=== PATIENT | male | born 1950 | race Caucasian/White ===

== ENCOUNTER → 2016-09-28 | Outpatient (CLI) | payer BC ==
[~2016-09-28] MED LIST: ACET-1311 PO; ALL300 PO; AMIO200T4 PO; CYAN100T PO; DABI150C PO; FAMO20TA11 PO; FINA5TAB PO; FURO-85 PO; GLC/500 PO; LEVE500T13 PO; LPT/40 PO; MENTOIN TOP; METO25TA3 PO; NITR1CAP32 PO; ONDA8TAB6 PO; POTA1080 PO; SENN-61 PO; TAMS0.4C38 PO; TEMO1CAP PO; TEMO1CAP17 PO
[2016-09-28 10:26] LABS: BLOOD UREA NITROGEN 18 mg/dl (7-18); BUN/CREATININE RATIO 14.9 (10-20)
== END | disposition home or self-care (01) ==
LOC: C.LAB1850 09:14
PROVIDERS: ATTEND Urology
DX: N20.0 Calculus of kidney (principal); R31.0 Gross hematuria

== ENCOUNTER → 2016-11-16 | Outpatient (CLI) | payer BC ==
[2016-11-16 12:43] LABS: HEMATOCRIT 39.9 % (42-52); MEAN CELL VOLUME 97.1 fL (80-100); MEAN CORPUSCULAR HEMOGLOBIN 33.1 pg (25-34); MEAN CORPUSCULAR HGB CONC 34.1 g/dl (32-36); MEAN PLATELET VOLUME 11.2 fL (7.4-10.4); PLATELET COUNT 166 K/uL (130-400); RED BLOOD COUNT 4.11 M/uL (4.7-6.1); WHITE BLOOD COUNT 5.99 K/uL (4.8-10.8)
[2016-11-16 13:45] LABS: ALT/SGPT 20 U/L (12-78); AST/SGOT 13 U/L (15-37); BLOOD UREA NITROGEN 17 mg/dl (7-18); BUN/CREATININE RATIO 15.7 (10-20); CALCIUM 8.9 mg/dl (8.5-10.1); CARBON DIOXIDE 31 mmol/L (21-32); CHLORIDE 109 mmol/L (98-107); GLUCOSE 105 mg/dl (70-99); POTASSIUM 4.3 mmol/L (3.5-5.1); SODIUM 144 mmol/L (136-145)
== END | disposition home or self-care (01) ==
LOC: C.LAB1850 10:45
PROVIDERS: ATTEND Internal Medicine Cardiovascular Disease
DX: E78.5 Hyperlipidemia, unspecified (principal); I48.92 Unspecified atrial flutter; I42.9 Cardiomyopathy, unspecified; I50.42 Chronic combined systolic (congestive) and diastolic (congestive) heart failure

== ENCOUNTER → 2016-11-18 | Outpatient (CLI) | payer BC ==
--- NOTE | 2016-11-18 12:39 | DIAGNOSTIC IMAGING REPORT ---
L-SPINE MIN 4 VIEWS ROUTINE CLINICAL HISTORY: Lower back pain. No recent trauma. COMPARISON: Lumbar spine radiograph November 16, 2005. FINDINGS: Alignment of lumbar spine is anatomic. Vertebral body heights are maintained. There is no fracture. There is mild disc space narrowing and extensive anterior osteophytosis. There is moderate facet arthrosis. IMPRESSION: 1. No acute lumbar spine fracture or subluxation. 2. Moderate multilevel degenerative disc disease and facet arthrosis. Electronically signed by: Usama Seaman M.D. 11/18/2016 12:37 PM Dictated Date/Time: 11/18/2016 12:36 PM
== END | disposition home or self-care (01) ==
LOC: C.RAD1850 12:05
PROVIDERS: ATTEND Physician Assistant
DX: M54.9 Dorsalgia, unspecified (principal)

== ENCOUNTER → 2017-01-11 | Outpatient (CLI) | payer BC ==
--- NOTE | 2017-01-11 08:41 | DIAGNOSTIC IMAGING REPORT ---
THYROID ULTRASOUND CLINICAL HISTORY: Thyroid nodule. Amiodarone-induced thyrotoxicosis. COMPARISON STUDY: Thyroid ultrasound July 15, 2016. TECHNIQUE: Sonography of the thyroid gland was performed. FINDINGS: No areas of increased vascularity are identified within the thyroid gland. The right thyroid lobe measures 4.5 x 1.6 x 1.5 cm and the left lobe measures 3.5 x 1.8 x 1 cm. There is a partially calcified 8 mm nodule within the lower pole of the right thyroid lobe which is unchanged since exam July 15, 2016. There may be a 0.7 cm isoechoic isthmus nodule which was shown on exam of July 15, 2016. No increased vascularity of the thyroid nodules as noted. IMPRESSION: 1. No areas of increased vascularity within the thyroid gland or several thyroid nodules. 2. No change in a few thyroid nodules since exam of July 15, 2016. None of these meet criteria for biopsy. Electronically signed by: Usama Seaman M.D. 01/11/2017 8:40 AM Dictated Date/Time: 01/11/2017 8:37 AM
== END | disposition home or self-care (01) ==
LOC: C.ULTRBC 07:49
PROVIDERS: ATTEND Internal Medicine Endocrinology, Diabetes & Metabolism
DX: E04.1 Nontoxic single thyroid nodule (principal)

== ENCOUNTER → 2017-02-26 | Outpatient (CLI) | payer BC ==
[2017-02-26 09:55] LABS: THYROID STIMULATING HORMONE 1.96 uIu/ml (0.300-4.500)
--- NOTE | 2017-03-05 09:53 | CODING QUERY MEDICAL NECESSITY ---
CQSUPPORTING DIAGNOSIS NEEDED A supporting diagnosis is required for the test/procedure performed on this patient in order for us to be reimbursed by the patient's insurance. Please provide a supporting diagnosis for the following test/procedure listed below next to the test name along with your signature. *If there is no additional diagnosis for this patient that would support the following test/procedure please document that below next to the test/procedure. Test(s)/Procedure(s) that require a supporting diagnosis: DOS 02/26/17 VITAMIN D TEST Provider Signature: Date: Thank you Charla Padilla Health Information Management Once completed, please kindly fax back to [phone] For questions please call [phone]
== END | disposition home or self-care (01) ==
LOC: C.LAB1850 08:36
PROVIDERS: ATTEND Internal Medicine Endocrinology, Diabetes & Metabolism
DX: E05.90 Thyrotoxicosis, unspecified without thyrotoxic crisis or storm (principal); I95.9 Hypotension, unspecified; N20.0 Calculus of kidney; E66.9 Obesity, unspecified; E11.9 Type 2 diabetes mellitus without complications; E83.42 Hypomagnesemia

== ENCOUNTER → 2017-07-19 | Outpatient (CLI) | payer BC ==
--- NOTE | 2017-07-19 12:39 | DIAGNOSTIC IMAGING REPORT ---
PET/CT SKULL-THIGH CLINICAL HISTORY: 66 years-old Male presenting with NHL, last treated in October 26, 2016 with methotrexate. TECHNIQUE: PET/CT was performed from the base of the skull through the proximal thighs following the intravenous administration of 13.995 mCi of F18-FDG. Blood glucose level 87 mg/dL. The injection was performed at 10:05 AM and imaging began at 11:[address] was performed for attenuation correction purposes and anatomic localization. COMPARISON: 10/30/2015. CT DOSE (mGy.cm): The estimated cumulative dose is 635.51 mGycm. FINDINGS: Head and neck: No FDG-avid disease or significant lymphadenopathy in the imaged portions of the head and the neck. Chest: Calcified right thyroid lobe nodule. No FDG avid or enlarged axillary, mediastinal, or hilar lymphadenopathy. Atherosclerosis of aortic arch. Multichamber enlargement of the heart. Coronary artery calcification. No pleural or pericardial effusion. Dependent opacities likely atelectasis. Calcified granuloma noted in the lingula. No FDG avid air-space disease or suspicious lung nodule. Abdomen and pelvis: Below the diaphragm, tracer is distributed physiologically in the gastrointestinal and genitourinary tracts. Well-defined photopenic hypodensity in the medial left hepatic lobe likely hepatic cyst. Gallbladder surgically absent. The spleen is not enlarged or abnormally FDG avid. Nonobstructing punctate left renal calculus. Atherosclerosis of the normal caliber abdominal aorta. Prostatic enlargement. Circumferential bladder wall thickening could suggest chronic outlet obstruction. No significant lymphadenopathy and no FDG-avid disease. Musculoskeletal: No FDG-avid or destructive bone lesion. Degenerative changes of the spine. IMPRESSION: 1. Follow-up PET/CT demonstrates no evidence of recurrent or residual FDG avid lymphadenopathy or other sites of metastatic disease. Electronically signed by: Chandra Sheth M.D. 07/19/2017 12:38 PM Dictated Date/Time: 07/19/2017 12:26 PM
== END ==
LOC: C.PET 09:34
PROVIDERS: ATTEND Internal Medicine Hematology & Oncology
DX: C83.32 Diffuse large B-cell lymphoma, intrathoracic lymph nodes (principal)

== ENCOUNTER → 2017-08-13 | Outpatient (CLI) | payer BC ==
[~2017-08-13] MED LIST changes: -METO25TA3 PO; +METO25TA4 PO; +ONDA-170 PO; -ONDA8TAB6 PO
== END | disposition home or self-care (01) ==
LOC: C.LAB1850 08:44
PROVIDERS: ATTEND Urology
DX: N40.1 Benign prostatic hyperplasia with lower urinary tract symptoms (principal)

== ENCOUNTER → 2017-09-14 | Outpatient (CLI) | payer BC ==
[~2017-09-14] MED LIST changes: -ONDA-170 PO; +ONDA8TAB6 PO
[2017-09-14 09:31] LABS: BASO % 0.3 %; BASO ABS # 0.03 K/uL (0-0.2); EOS % 0.9 %; EOS ABS # 0.09 K/uL (0-0.5); HEMATOCRIT 44.6 % (42-52); HEMOGLOBIN 15.4 g/dL (14.0-18.0); IG# 0.02 K/uL (0.00-0.02); LYMPH % 19.3 %; LYMPH ABS # 1.85 K/uL (1.2-3.4); MEAN CELL VOLUME 97.4 fL (80-100); MEAN CORPUSCULAR HEMOGLOBIN 33.6 pg (25-34); MEAN CORPUSCULAR HGB CONC 34.5 g/dl (32-36); MEAN PLATELET VOLUME 10.5 fL (7.4-10.4); MONO % 4.3 %; MONO ABS # 0.41 K/uL (0.11-0.59); PLATELET COUNT 183 K/uL (130-400); RED CELL DISTRIBUTION WIDTH CV 13.2 % (11.5-14.5); RED CELL DISTRIBUTION WIDTH SD 46.3 fL (36.4-46.3)
[2017-09-14 09:57] LABS: BLOOD UREA NITROGEN 14 mg/dl (7-18); CALCIUM 8.8 mg/dl (8.5-10.1); CARBON DIOXIDE 31 mmol/L (21-32); CREATININE 1.01 mg/dl (0.60-1.40); GLUCOSE 85 mg/dl (70-99); POTASSIUM 3.6 mmol/L (3.5-5.1); SODIUM 141 mmol/L (136-145)
== END | disposition home or self-care (01) ==
LOC: C.LAB1850 08:26
PROVIDERS: ATTEND Physician Assistant
DX: E11.9 Type 2 diabetes mellitus without complications (principal)

== ENCOUNTER → 2017-10-18 | Outpatient (CLI) | payer BC ==
[~2017-10-18] MED LIST changes: +ONDA-170 PO; -ONDA8TAB6 PO
[2017-10-18 09:44] LABS: BASO % 0.4 %; BASO ABS # 0.03 K/uL (0-0.2); EOS % 1.3 %; EOS ABS # 0.09 K/uL (0-0.5); HEMATOCRIT 42.6 % (42-52); HEMOGLOBIN 14.4 g/dL (14.0-18.0); LYMPH % 22.9 %; LYMPH ABS # 1.53 K/uL (1.2-3.4); MEAN CELL VOLUME 98.8 fL (80-100); MEAN CORPUSCULAR HEMOGLOBIN 33.4 pg (25-34); MEAN CORPUSCULAR HGB CONC 33.8 g/dl (32-36); MEAN PLATELET VOLUME 10.9 fL (7.4-10.4); MONO % 6.6 %; MONO ABS # 0.44 K/uL (0.11-0.59); NEUT % 68.8 %; NEUT ABS # 4.59 K/uL (1.4-6.5); PLATELET COUNT 143 K/uL (130-400); RED CELL DISTRIBUTION WIDTH CV 13.8 % (11.5-14.5); RED CELL DISTRIBUTION WIDTH SD 49.8 fL (36.4-46.3); WHITE BLOOD COUNT 6.68 K/uL (4.8-10.8)
[2017-10-18 10:05] LABS: ALBUMIN 3.5 gm/dl (3.4-5.0); ALT/SGPT 21 U/L (12-78); AST/SGOT 15 U/L (15-37); BLOOD UREA NITROGEN 16 mg/dl (7-18); CALCIUM 8.7 mg/dl (8.5-10.1); CARBON DIOXIDE 32 mmol/L (21-32); CREATININE 0.95 mg/dl (0.60-1.40); GLUCOSE 88 mg/dl (70-99); POTASSIUM 3.7 mmol/L (3.5-5.1); SODIUM 143 mmol/L (136-145)
[2017-10-18 10:07] LABS: ALKALINE PHOSPHATASE 92 U/L (45-117); TOTAL PROTEIN 6.3 gm/dl (6.4-8.2)
== END | disposition home or self-care (01) ==
LOC: C.LAB1850 07:54
PROVIDERS: ATTEND Internal Medicine Hematology & Oncology
DX: C83.32 Diffuse large B-cell lymphoma, intrathoracic lymph nodes (principal)

== ENCOUNTER 2022-01-29 12:20 | Inpatient (IN) ==
[2022-01-29] MEDS ORDERED: SODIUM CHLORIDE 0.9% 500 ML IV ONE (12:44)
--- NOTE | 2022-01-29 12:51 | Emergency Department Note ---
History of Present Illness General Chief complaint: Weakness Stated complaint: WEAKNESS, REF [facility] Time Seen by Provider: 01/29/22 12:31 Source: patient and family ( who is at the bedside) Mode of arrival: ambulatory Limitations: altered mental status (He has short-term memory issues that are chronic) History of Present Illness This patient is a 71-year-old male who comes in complaining of night sweats. His is concerned about lymphoma he has had lymphoma twice the last time was in 2011 was involved in the kidneys and [employer]. He has been acting little funny he does have short-term memory issues to begin with he has been sleeping more than usual no fever but he has had some night sweats like he did last time he has been having increasing diffuse global weakness but nothing focal. He did receive his last chemo in [facility]. He called Dr. Ruvalcaba's office day who recommended he come to the ED for further evaluation. He has had no fall or trauma denies pain. No cough or shortness of breath. He apparently did have an MRI in October 30 of his brain which is that was negative. He has had some left foot swelling has been there for several months Home Medications Medication Instructions Recorded Confirmed Type cetirizine 10 mg tablet 10 mg PO DAILY tab 02/20/19 10/06/21 History cholecalciferol (vitamin D3) 50 2,000 units PO DAILY tab 02/20/19 10/06/21 History mcg (2,000 unit) tablet cyanocobalamin (vitamin B-12) 1,000 mcg PO DAILY tab 02/20/19 10/06/21 History 1,000 mcg tablet magnesium oxide 400 mg (241.3 mg 400 mg PO DAILY tab 04/06/19 10/06/21 History magnesium) tablet apixaban 5 mg tablet 5 mg PO BID #180 tab 02/12/21 10/06/21 Rx metoprolol succinate 25 mg 25 mg PO DAILY #90 tab 06/16/21 10/06/21 Rx tablet,extended release 24 hr allopurinol 300 mg tablet 300 mg PO DAILY #90 tab 10/06/21 10/06/21 Rx atorvastatin 40 mg tablet 40 mg PO DAILY #90 tab 10/06/21 10/06/21 Rx nystatin 100,000 unit/gram topical 1 applic TOPICAL BID #30 g 10/06/21 10/06/21 Rx powder finasteride 5 mg tablet 5 mg PO DAILY #90 tab 10/07/21 10/07/21 Rx tamsulosin 0.4 mg capsule 0.4 mg PO BID #180 cap 10/07/21 10/07/21 Rx dronedarone 400 mg tablet 400 mg PO BID #180 tab 10/13/21 Rx Allergies Allergy/AdvReac Type Severity Reaction Status Date / Time No Known Drug Allergies Allergy Verified 10/06/21 12:32 Past Med/Surg History Medical History Acute cholecystitis with chronic cholecystitis Anemia Atrial flutter Benign prostatic hyperplasia with urinary obstruction Chronic combined systolic and diastolic congestive heart failure [employer] SU[employer] lymphoma Cold intolerance Diffuse well-differentiated lymphocytic lymphoma Dyslipidemia Fatigue Hypotension Memory problem Multiple thyroid nodules Nonischemic cardiomyopathy Vertigo Surgical History History of bone marrow biopsy History of brain surgery History of cholecystectomy History of lithotripsy History of thoracentesis S/P cystoscopy with ureteral stent placement Family History Mother Cardiac disorder Hypertension FHx: deafness or hearing loss Stroke Leukemia Father Cardiac disorder Hypertension Lung cancer Recurrent kidney stones Social History Smoking Status: Former smoker Tobacco Type: Cigarettes Age Started Using Tobacco: 23; Age Quit Using Tobacco: 42; packs per day: 0.75; Second Hand Exposure: No; Hx Alcohol Use: Yes (1-2 drinks /week) Alcohol type: beer, wine and hard liquor Alcohol Intake Frequency: Monthly or Less Hx Substance Use: No Preferred Language: Polish Communication Ability: Effective Visual Impairment: Limited Hearing Ability: Use of Hearing Aid Beliefs That Will Affect Care: None marital status: Current Living Situation: Spouse current occupational status: retired Feels Safe at Home: Yes Childhood Exposure to Second-Hand Smoke: Yes Dental Care, Regularly: Yes Physical Activity Frequency: Does not Exercise Seatbelt Use: always Sunscreen Use: Yes (sometimes) Assistive Devices: Cane Review of Systems A total of 10 systems reviewed and were otherwise negative Physical Exam Vital Signs Vital Signs - 24 hr 01/29/22 12:21 01/29/22 13:39 01/29/22 14:17 Temperature 36.4 C L Temperature Source Temporal Artery Scan Pulse Rate 82 83 Pulse Rate [Apical] 83 Respiratory Rate 18 19 20 Respiratory Effort / Characteristics Non-Labored Non-Labored Blood Pressure 99/69 L Blood Pressure [Right Arm] 93/65 L Blood Pressure Mean 79 Blood Pressure Mean [Right Arm] 74 Blood Pressure Position Sitting Pulse Oximetry 95 96 96 Oxygen Delivery Method Room Air Room Air Room Air Sepsis Recent Fever Within 48 Hours No Sepsis New/Unexplained Change in Mental Status No Sepsis Action Taken by Nursing No Action Required General: Well developed well nourished older male who appears in no acute distress, breathing comfortably on room air. Normal speech he has memory issues but answers most questions appropriately and has a normal level of consciousness HEENT: Normal cephalic atraumatic. Pupils are equal round and reactive to light. Extraocular movements are intact. Oropharynx is pink with moist mucous membranes. No swelling of the mouth lips or tongue. Neck: Supple with a midline trachea. No meningeal signs or stiffness, no JVD or bruits. No Stridor. Chest: Clear to auscultation bilaterally. No wheezes or rhonchi. No increased work of breathing. Heart: Regular rate and rhythm without murmurs or gallops. Abdomen: Soft nontender, nondistended without rebound guarding or rigidity. Extremities: No cyanosis clubbing or edema. No calf tenderness or assymetry Spine/Back. Non tender to palpation. No CVA tenderness Skin: Good turgor without rashes. Neurologic exam: Cranial nerves two through 12 are intact. Motor and sensation are intact and symmetrical throughout. Course Administered Medications Discontinued Medications Sodium Chloride (Nss) 500 mls @ 999 mls/hr IV .Q31M ONE Stop: 01/29/22 13:14 Last Infusion: 01/29/22 15:00 Dose: 0 mls/hr Documented by: [id number] Admin: 01/29/22 14:17 Dose: 999 mls/hr Documented by: [id number] Sodium Chloride (Nss 1000ml) 1,000 mls @ 999 mls/hr IV .Q1H1M ONE Stop: 01/29/22 15:28 Last Infusion: 01/29/22 16:25 Dose: 0 mls/hr Documented by: [id number] Admin: 01/29/22 15:26 Dose: 999 mls/hr Documented by: [id number] Cefepime HCl 2,000 mg/ Syringe 20 mls @ 5 mls/min IV NOW STA; Protocol Stop: 01/29/22 14:34 Last Admin: 01/29/22 15:26 Dose: 5 mls/min Documented by: [id number] Ioversol (Optiray 320 100ml) 94 ml IV ONCE ONE Stop: 01/29/22 15:00 Last Admin: 01/29/22 15:07 Dose: 94 ml Documented by: [id number] Medical Decision Making Differential Diagnosis Lymphoma, electrolyte or metabolic abnormality, [employer] SU[employer]OR process, infection, sepsis, UTI, cardiac disease Medical Records Attestation: I reviewed the patient's medical records. Home Medications Current Medication List: was personally reviewed by me Laboratory Data Attestation: I reviewed the patient's lab results. Result diagrams: 01/29/22 13:24 01/29/22 13:24 Lab Results 01/29/22 01/29/22 01/29/22 Range/Units 13:24 13:24 13:24 WBC 7.82 (4.8-10.8) K/uL RBC 3.94 L (4.7-6.1) M/uL Hgb 12.6 L (14.0-18.0) g/dL Hct 38.2 L (42-52) % MCV 97.0 (80-100) fL MCH 32.0 (25-34) pg MCHC 33.0 (32-36) g/dL RDW Std Deviation 51.2 H (36.4-46.3) fL RDW Coeff of Belén 14.4 (11.5-14.5) % Plt Count 243 (130-400) K/uL MPV 10.2 (7.4-10.4) fL Immature Gran % (Auto) 0.4 % Neut % (Auto) 73.8 % Lymph % (Auto) 15.7 % Mower % (Auto) 9.0 % Eos % (Auto) 0.6 % Baso % (Auto) 0.5 % Neut # (Auto) 5.77 (1.4-6.5) K/uL Lymph # (Auto) 1.23 (1.2-3.4) K/uL Mower # (Auto) 0.70 H (0.11-0.59) K/uL Eos # (Auto) 0.05 (0-0.5) K/uL Baso # (Auto) 0.04 (0-0.2) K/uL Immature Gran # (Auto) 0.03 H (0.00-0.02) K/uL PT 12.2 H (9.0-12.0) Seconds INR 1.2 H (0.9-1.1) APTT 33.3 H (21.0-31.0) Seconds PTT Ratio 1.2 Sodium (136-145) mmol/L Potassium (3.5-5.1) mmol/L Chloride (98-107) mmol/L Carbon Dioxide (21-32) mmol/L Anion Gap (3-11) BUN (6-23) mg/dl Creatinine (0.6-1.4) mg/dl Est Cr Clr Drug Dosing ml/min Est GFR ( Amer) ml/min Est GFR (Non-Af Amer) ml/min BUN/Creatinine Ratio (10-20) Glucose (70-99(Fasting)) mg/dl Lactate (0.4-2.0) mmol/L Calcium (8.5-10.1) mg/dl Magnesium (1.7-2.4) mg/dl Total Bilirubin (0.2-1.0) mg/dl AST (13-39) U/L ALT (7-52) U/L Alkaline Phosphatase (34-104) U/L Troponin I High Sens (0-20) pg/ml Total Protein (6.0-8.3) gm/dl Albumin (3.4-5.0) gm/dl Globulin (2.5-4.0) gm/dl Albumin/Globulin Ratio (0.9-2) Procalcitonin 0.06 (0-0.5) ng/ml SARS-CoV-2, RNA, NAAT (NEGATIVE) 01/29/22 01/29/22 01/29/22 Range/Units 13:24 13:24 13:24 WBC (4.8-10.8) K/uL RBC (4.7-6.1) M/uL Hgb (14.0-18.0) g/dL Hct (42-52) % MCV (80-100) fL MCH (25-34) pg MCHC (32-36) g/dL RDW Std Deviation (36.4-46.3) fL RDW Coeff of Belén (11.5-14.5) % Plt Count (130-400) K/uL MPV (7.4-10.4) fL Immature Gran % (Auto) % Neut % (Auto) % Lymph % (Auto) % Mower % (Auto) % Eos % (Auto) % Baso % (Auto) % Neut # (Auto) (1.4-6.5) K/uL Lymph # (Auto) (1.2-3.4) K/uL Mower # (Auto) (0.11-0.59) K/uL Eos # (Auto) (0-0.5) K/uL Baso # (Auto) (0-0.2) K/uL Immature Gran # (Auto) (0.00-0.02) K/uL PT (9.0-12.0) Seconds INR (0.9-1.1) APTT (21.0-31.0) Seconds PTT Ratio Sodium 144 (136-145) mmol/L Potassium 3.7 (3.5-5.1) mmol/L Chloride 107 (98-107) mmol/L Carbon Dioxide 24 (21-32) mmol/L Anion Gap 13 H (3-11) BUN 17 (6-23) mg/dl Creatinine 1.02 (0.6-1.4) mg/dl Est Cr Clr Drug Dosing 82.0 ml/min Est GFR ( Amer) 86.5 ml/min Est GFR (Non-Af Amer) 74.6 ml/min BUN/Creatinine Ratio 16.7 (10-20) Glucose 74 (70-99(Fasting)) mg/dl Lactate 7.4 H* (0.4-2.0) mmol/L Calcium 8.9 (8.5-10.1) mg/dl Magnesium 1.6 L (1.7-2.4) mg/dl Total Bilirubin 1.2 H (0.2-1.0) mg/dl AST 28 (13-39) U/L ALT 15 (7-52) U/L Alkaline Phosphatase 63 (34-104) U/L Troponin I High Sens 7.8 (0-20) pg/ml Total Protein 5.5 L (6.0-8.3) gm/dl Albumin 3.1 L (3.4-5.0) gm/dl Globulin 2.4 L (2.5-4.0) gm/dl Albumin/Globulin Ratio 1.3 (0.9-2) Procalcitonin (0-0.5) ng/ml SARS-CoV-2, RNA, NAAT NEGATIVE (NEGATIVE) 01/29/22 Range/Units 15:19 WBC (4.8-10.8) K/uL RBC (4.7-6.1) M/uL Hgb (14.0-18.0) g/dL Hct (42-52) % MCV (80-100) fL MCH (25-34) pg MCHC (32-36) g/dL RDW Std Deviation (36.4-46.3) fL RDW Coeff of Belén (11.5-14.5) % Plt Count (130-400) K/uL MPV (7.4-10.4) fL Immature Gran % (Auto) % Neut % (Auto) % Lymph % (Auto) % Mower % (Auto) % Eos % (Auto) % Baso % (Auto) % Neut # (Auto) (1.4-6.5) K/uL Lymph # (Auto) (1.2-3.4) K/uL Mower # (Auto) (0.11-0.59) K/uL Eos # (Auto) (0-0.5) K/uL Baso # (Auto) (0-0.2) K/uL Immature Gran # (Auto) (0.00-0.02) K/uL PT (9.0-12.0) Seconds INR (0.9-1.1) APTT (21.0-31.0) Seconds PTT Ratio Sodium (136-145) mmol/L Potassium (3.5-5.1) mmol/L Chloride (98-107) mmol/L Carbon Dioxide (21-32) mmol/L Anion Gap (3-11) BUN (6-23) mg/dl Creatinine (0.6-1.4) mg/dl Est Cr Clr Drug Dosing ml/min Est GFR ( Amer) ml/min Est GFR (Non-Af Amer) ml/min BUN/Creatinine Ratio (10-20) Glucose (70-99(Fasting)) mg/dl Lactate 5.9 H* (0.4-2.0) mmol/L Calcium (8.5-10.1) mg/dl Magnesium (1.7-2.4) mg/dl Total Bilirubin (0.2-1.0) mg/dl AST (13-39) U/L ALT (7-52) U/L Alkaline Phosphatase (34-104) U/L Troponin I High Sens (0-20) pg/ml Total Protein (6.0-8.3) gm/dl Albumin (3.4-5.0) gm/dl Globulin (2.5-4.0) gm/dl Albumin/Globulin Ratio (0.9-2) Procalcitonin (0-0.5) ng/ml SARS-CoV-2, RNA, NAAT (NEGATIVE) Imaging Data Attestation: I personally reviewed and interpreted this imaging study as follows: My Impression: Chest x-rayno acute infiltrate, failure, pneumothorax Radiologist's Impression: Chest X-Ray 01/29/22 12:45 XR chest 1V portable HISTORY: 71 years-old Male SEPSIS acute sepsis COMPARISON: PET CT 07/19/2017, chest radiograph 11/11/2015 TECHNIQUE: Portable AP view of the chest FINDINGS: Left subclavian [id number] catheter distal tip overlies the expected location of the mid to inferior SVC. Atherosclerosis of the thoracic aorta. No pneumothorax, pleural effusion, airspace consolidation or overt pulmonary edema. Degenerative changes of the shoulders and spine. IMPRESSION: No acute process. ACT 112: Negative or not required by law. The above report was generated using voice recognition software. It may contain grammatical, syntax or spelling errors. Electronically signed by: Mc Mccarthy M.D. 01/29/2022 1:10 PM Abdomen/Pelvis CT 01/29/22 14:[address] WITH IV CONTRAST CT DOSE: 3648.19 mGy.cm HISTORY: Subsequent treatment strategy. Follow-up study in a patient with history of lymphoma. eval for lymphoma TECHNIQUE: Multiaxial CT images of the abdomen and pelvis were performed following the IV administration of 94 cc of Optiray, A dose lowering technique was utilized adhering to the principles of ALARA. COMPARISON STUDY: Chest CT of same day, PET CT 07/19/2017, CT abdomen and pelvis 11/05/2015 FINDINGS: The heart is upper limits of normal in size. Coronary artery calcifications. Small right and trace left pleural effusions. Subsegmental bibasilar atelectasis. No pneumatosis or pneumoperitoneum. The spleen is enlarged measuring 14.2 cm in length. Unremarkable right adrenal gland. 11 mm hypodense left adrenal gland suggests adenoma. Pancreatic atrophy. The gallbladder appears surgically absent. Unchanged 1.8 cm left hepatic lobe cyst. There are a few additional subcentimeter hypodensities of the liver which are too small to characterize. Moderate bilateral hydroureteronephrosis. There are several nonobstructing calculi left kidney measuring up to 5 mm. Small bilateral simple and complex renal cysts are again noted. The largest probable complex cyst measures 2.6 cm within the inferior pole right kidney. Marked urinary bladder wall thickening with perivesicular stranding. Enlarged prostate. There is a large pelvic mass which is new from the prior study involving the prostate, serosal margins of the rectum and posteriorly bladder. This measures up to at least 10 cm. Atherosclerotic plaque of the abdominal aorta without aneurysm. Enlarged gastrohepatic, pericaval, aortocaval and iliac chain lymph nodes measure up to 3.5 x 2.0 cm on the left on image 325. Numerous soft tissue nodules in the pelvis are noted along with diffuse omental/peritoneal carcinomatosis. Small volume associated abdominal pelvic ascites. No bowel obstruction. Moderate fecal retention. Scattered serosal implants are noted throughout the large and small bowel. Appendix is noninflamed. Unremarkable soft tissues. No acute fracture or destructive bone lesion. IMPRESSION: 1. Progressive disease manifested by pathologically enlarged lymph nodes of the abdomen and pelvis, diffuse peritoneal/omental carcinomatosis with serosal implants and small volume of abdominal pelvic ascites. 2. There is a large midline pelvic mass encasing the prostate abutting and possibly invading the posterior urinary bladder and rectum. Extensive associated urinary bladder wall thickening with perivesicular stranding. 3. Moderate symmetric bilateral hydroureteronephrosis secondary to the large pelvic mass. 4. Nonobstructing left nephrolithiasis. 5. Splenomegaly is suggestive of lymphomatous involvement. 6. Additional findings as above. ACT 112: Negative or not required by law. The above report was generated using voice recognition software. It may contain grammatical, syntax or spelling errors. Electronically signed by: Mc Mccarthy M.D. 01/29/2022 3:[address] 01/29/22 14:28 CT chest diagnostic w con CLINICAL HISTORY: weakness, hx of lymphoma TECHNIQUE: Multidetector row helical CT of the chest was performed with intravenous contrast. Coronal and sagittal reformations were obtained. Automated dose lowering techniques and/or adjustment according to patient size were utilized for this exam. Comparison: Comparison is made to CT chest 06/21/2015 FINDINGS: Lungs and pleura: Trace bilateral pleural effusions are seen with underlying atelectasis. Calcified granulomata are seen. Heart and pericardium: Heart size is normal. No pericardial effusion. Vessels: Severe atherosclerotic changes in the aorta and coronary arteries. Mediastinum and manuelito: Unremarkable. Chest wall and lower neck: Small thyroid nodules are noted which do not require follow-up by ACR criteria. Abdomen: For findings below the diaphragm, please refer to CT of the abdomen dated the same. Bones: Degenerative changes in the thoracic spine. IMPRESSION: No acute abnormalities are seen. No lymphadenopathy is seen in the chest. ACT 112: Negative or not required by law. Electronically signed by: Brandon Burgess M.D. 01/29/2022 3:[address] 01/29/22 14:28 CT head/brain wo/w con CLINICAL HISTORY: weakness, hx of lymphoma COMPARISON STUDY: 11/22 CT DOSE: TECHNIQUE: Standard CT of the Brain was performed with and without intravenous contrast. This CT exam was performed using one or more of the following dose reduction techniques: Automated exposure control, adjustment of the mA and/or kV according to patient size, or use of iterative reconstruction technique. CONTRAST: Optiray 320, 94 mL nonionic intravenous contrast. FINDINGS: Extraaxial space: There is no evidence for subdural hematoma. There are no extra-axial fluid collections. Ventricles and cisterns: The ventricles are again mildly dilated bilaterally within the shunt in place entering from the right side. This is unchanged. There is no evidence for midline shift or mass effect. Parenchyma: There is no subarachnoid or intraparenchymal hemorrhage. There is mild cerebral cortical atrophy and decreased attenuation in the periventricular white matter representing remote small vessel disease. There is no evidence for an acute infarct or cerebral edema. There is no evidence for enhancing mass lesion.. Osseous structures: There is no evidence for an acute fracture.. The visualized paranasal sinuses are clear. The mastoid air cells are clear bilaterally. Soft tissues: There is no evidence for focal soft tissue swelling. IMPRESSION: 1. No acute intracerebral pathology. 2. Cerebral cortical atrophy and remote small vessel disease. 3. Stable [employer] shunt. 4. No abnormal enhancement ACT 112: Negative or not required by law. Electronically signed by: Vamshi Addison M.D. 01/29/2022 3:20 PM ECG Data Attestation: I personally reviewed and interpreted this ECG as follows: Indication: + weakness Rate (beats per minute): 86 Rhythm: + normal sinus ECG Intervals/blocks: + Normal QRS, + Normal QT and + Normal NC ECG [place]: + Normal ECG Findings: + Other (low voltage); no PACs or no PVCs Comparison ECG Date: from (09/04/15) [facility] Narrative This patient comes in as described above he does a history of lymphoma this been recurrence. His is concerned that it could have been recurred as he is now having night sweats and seems little more confused. IV access established and he was hydrated with a 500 cc IV normal saline bolus. I did a full sepsis type work-up including EKG and chest x-ray and urine. The patient has remained stable his blood pressure was low although with fluids is in the 110s he is afebrile. He has a normal white count and procalcitonin however his lactic acid is seemingly elevated at 7. With further hydration the recheck came back in the 5 range so he is clearing some of the lactate could be from his underlying malignancy. CAT scan of his head is unremarkable he does have an access from where he was getting intrathecal chemo in the past that is present is not actually a [employer] shunt. Chest CT was unremarkable. CT of the abdomen and pelvis shows significant abnormalities it looks like he may have carcinomatosis there is also a pelvic mass and bilateral hydro-. It is possible this could be recurrence of his lymphoma or a different process such as prostate or bladder cancer. I talked to the patient's at length. I do think he needs to be admitted/observe for further treatment evaluation and I have consulted the [facility] hospitalist for measures. Continuous cardiac monitoring: An order was placed in EMR for continuous manager cardiac. Upon my interpretation, patient was noted to be in normal sinus rhythm with a rate of 83 Impression & Plan Weakness, Pelvic mass in male, Elevated lactic acid level, Night sweats, Lab test negative for COVID-19 virus Discharge Plan Visit Data Chief Complaint: Weakness Stated Complaint: WEAKNESS, REF [facility] ED Provider: Alex Lancaster Discharge Problem: Weakness, Pelvic mass in male, Elevated lactic acid level, Night sweats, Lab test negative for COVID-19 virus Forms Stand Alone Forms: My [facility] Prescriptions Prescriptions: No Action metoprolol succinate 25 mg tablet extended release 24 hr 25 mg PO DAILY Qty: 90 RF: 3 dronedarone 400 mg tablet 400 mg PO BID Qty: 180 RF: 3 apixaban 5 mg tablet 5 mg PO BID Qty: 180 RF: 3 cetirizine 10 mg tablet 10 mg PO DAILY RF: 0 cholecalciferol (vitamin D3) 2,000 unit tablet 2,000 units PO DAILY RF: 0 cyanocobalamin (vitamin B-12) 1,000 mcg tablet 1,000 mcg PO DAILY RF: 0 magnesium oxide 400 mg (241.3 mg magnesium) tablet 400 mg PO DAILY RF: 0 allopurinol 300 mg tablet 300 mg PO DAILY Qty: 90 RF: 3 atorvastatin 40 mg tablet 40 mg PO DAILY Qty: 90 RF: 3 nystatin 100,000 unit/gram powder 1 applic topical BID Qty: 30 RF: 1 tamsulosin 0.4 mg capsule 0.4 mg PO BID Qty: 180 RF: 3 finasteride 5 mg tablet 5 mg PO DAILY Qty: 90 RF: 3 Referrals Referrals: Clarence Valvered MD [Primary Care Provider] -
--- NOTE | 2022-01-29 13:11 | XRay Report ---
XR chest 1V portable HISTORY: 71 years-old Male SEPSIS acute sepsis COMPARISON: PET CT 07/19/2017, chest radiograph 11/11/2015 TECHNIQUE: Portable AP view of the chest FINDINGS: Left subclavian Zuzhvt-o-Ghdv catheter distal tip overlies the expected location of the mid to inferi or SVC. Atherosclerosis of the thoracic aorta. No pneumothorax, pleural effusion, airspace consolidat ion or overt pulmonary edema. Degenerative changes of the shoulders and spine. IMPRESSION: No acute process. ACT 112: Negative or not required by law. The above report was generated using voice recognition software. It may contain grammatical, syntax o r spelling errors. Electronically signed by: Mc Mccarthy M.D. 01/29/2022 1:10 PM
[2022-01-29 13:52] LABS: Basophils # (auto) 0.04 K/uL (0-0.2); Basophils % (auto) 0.5 %; Eosinophils # (auto) 0.05 K/uL (0-0.5); Eosinophils % (auto) 0.6 %; Hematocrit (blood only) 38.2 % (42-52); Hemoglobin 12.6 g/dL (14.0-18.0); Immature Granulocytes # (auto) 0.03 K/uL (0.00-0.02); Immature Granulocytes % (auto) 0.4 %; Lymphocytes # (auto) 1.23 K/uL (1.2-3.4); Lymphocytes % (auto) 15.7 %; Mean Platelet Volume 10.2 fL (7.4-10.4); Neutrophils # (auto) 5.77 K/uL (1.4-6.5); Neutrophils % (auto) 73.8 %; Platelet Count 243 K/uL (130-400); RDW Coefficient of Variation 14.4 % (11.5-14.5); RDW Standard Deviation 51.2 fL (36.4-46.3); Red Blood Count 3.94 M/uL (4.7-6.1); White Blood Count 7.82 K/uL (4.8-10.8)
[2022-01-29 13:54] LABS: INR 1.2 (0.9-1.1); Partial Thromboplastin Ratio 1.2; Partial Thromboplastin Time 33.3 Seconds (21.0-31.0); Prothrombin Time 12.2 Seconds (9.0-12.0)
[2022-01-29 14:15] LABS: Albumin Globulin Ratio 1.3 (0.9-2); Albumin Level 3.1 gm/dl (3.4-5.0); BUN Creatinine Ratio 16.7 (10-20); Bilirubin,Total 1.2 mg/dl (0.2-1.0); Calcium 8.9 mg/dl (8.5-10.1); Est GFR (African American) 86.5 ml/min; Est GFR (Non-African American) 74.6 ml/min; Globulin 2.4 gm/dl (2.5-4.0); Magnesium 1.6 mg/dl (1.7-2.4); Potassium 3.7 mmol/L (3.5-5.1); Total Protein 5.5 gm/dl (6.0-8.3); Troponin I High Sensitivity 7.8 pg/ml (0-20)
[2022-01-29] MEDS ORDERED: SODIUM CHLORIDE 0.9% 1000ML 1,000 ML IV ONE (14:28)
[2022-01-29] MEDS ORDERED: CEFEPIME 2,000 MG in SYRINGE 0 ML IV STA (14:31)
[2022-01-29] MEDS ORDERED: OPTIRAY 320 100ml IV ONE (14:59)
--- NOTE | 2022-01-29 15:22 | CT Scan Report ---
CT head/brain wo/w con CLINICAL HISTORY: weakness, hx of lymphoma COMPARISON STUDY: 11/22 CT DOSE: TECHNIQUE: Standard CT of the Brain was performed with and without intravenous contrast. This CT exam was performed using one or more of the following dose reduction techniques: Automated ex posure control, adjustment of the mA and/or kV according to patient size, or use of iterative reconst ruction technique. CONTRAST: Optiray 320, 94 mL nonionic intravenous contrast. FINDINGS: Extraaxial space: There is no evidence for subdural hematoma. There are no extra-axial fluid collecti ons. Ventricles and cisterns: The ventricles are again mildly dilated bilaterally within the shunt in plac e entering from the right side. This is unchanged. There is no evidence for midline shift or mass eff ect. Parenchyma: There is no subarachnoid or intraparenchymal hemorrhage. There is mild cerebral cortical atrophy and decreased attenuation in the periventricular white matter representing remote small vesse l disease. There is no evidence for an acute infarct or cerebral edema. There is no evidence for enha ncing mass lesion.. Osseous structures: There is no evidence for an acute fracture.. The visualized paranasal sinuses are clear. The mastoid air cells are clear bilaterally. Soft tissues: There is no evidence for focal soft tissue swelling. IMPRESSION: 1. No acute intracerebral pathology. 2. Cerebral cortical atrophy and remote small vessel disease. 3. Stable [employer]EL [employer]AK[employer] shunt. 4. No abnormal enhancement ACT 112: Negative or not required by law. Electronically signed by: Vamshi Addison M.D. 01/29/2022 3:20 PM
--- NOTE | 2022-01-29 15:28 | CT Scan Report ---
CT chest diagnostic w con CLINICAL HISTORY: weakness, hx of lymphoma TECHNIQUE: Multidetector row helical CT of the chest was performed with intravenous contrast. Coronal and sagittal reformations were obtained. Automated dose lowering techniques and/or adjustment accord ing to patient size were utilized for this exam. Comparison: Comparison is made to CT chest 06/21/2015 FINDINGS: Lungs and pleura: Trace bilateral pleural effusions are seen with underlying atelectasis. Calcified g ranulomata are seen. Heart and pericardium: Heart size is normal. No pericardial effusion. Vessels: Severe atherosclerotic changes in the aorta and coronary arteries. Mediastinum and manuelito: Unremarkable. Chest wall and lower neck: Small thyroid nodules are noted which do not require follow-up by ACR gina cristina. Abdomen: For findings below the diaphragm, please refer to CT of the abdomen dated the same. Bones: Degenerative changes in the thoracic spine. IMPRESSION: No acute abnormalities are seen. No lymphadenopathy is seen in the chest. ACT 112: Negative or not required by law. Electronically signed by: Brandon Burgess M.D. 01/29/2022 3:27 PM
--- NOTE | 2022-01-29 15:39 | CT Scan Report ---
ABDOMEN AND PELVIS CT WITH IV CONTRAST CT DOSE: 3648.19 mGy.cm HISTORY: Subsequent treatment strategy. Follow-up study in a patient with history of lymphoma. eval for lymphoma TECHNIQUE: Multiaxial CT images of the abdomen and pelvis were performed following the IV administrat ion of 94 cc of Optiray, A dose lowering technique was utilized adhering to the principles of ALARA. COMPARISON STUDY: Chest CT of same day, PET CT 07/19/2017, CT abdomen and pelvis 11/05/2015 FINDINGS: The heart is upper limits of normal in size. Coronary artery calcifications. Small right an d trace left pleural effusions. Subsegmental bibasilar atelectasis. No pneumatosis or pneumoperitoneu m. The spleen is enlarged measuring 14.2 cm in length. Unremarkable right adrenal gland. 11 mm hypodense left adrenal gland suggests adenoma. Pancreatic atrophy. The gallbladder appears surgically absent. Unchanged 1.8 cm left hepatic lobe cyst. There are a few additional subcentimeter hypodensities of th e liver which are too small to characterize. Moderate bilateral hydroureteronephrosis. There are several nonobstructing calculi left kidney measur ing up to 5 mm. Small bilateral simple and complex renal cysts are again noted. The largest probable complex cyst measures 2.6 cm within the inferior pole right kidney. Marked urinary bladder wall thick ening with perivesicular stranding. Enlarged prostate. There is a large pelvic mass which is new from the prior study involving the prostate, serosal margins of the rectum and posteriorly bladder. This measures up to at least 10 cm. Atherosclerotic plaque of the abdominal aorta without aneurysm. Enlarg ed gastrohepatic, pericaval, aortocaval and iliac chain lymph nodes measure up to 3.5 x 2.0 cm on the left on image 325. Numerous soft tissue nodules in the pelvis are noted along with diffuse omental/p eritoneal carcinomatosis. Small volume associated abdominal pelvic ascites. No bowel obstruction. Moderate fecal retention. Scattered serosal implants are noted throughout the l arge and small bowel. Appendix is noninflamed. Unremarkable soft tissues. No acute fracture or destru ctive bone lesion. IMPRESSION: 1. Progressive disease manifested by pathologically enlarged lymph nodes of the abdomen and pelvis, d iffuse peritoneal/omental carcinomatosis with serosal implants and small volume of abdominal pelvic a scites. 2. There is a large midline pelvic mass encasing the prostate abutting and possibly invading the post erior urinary bladder and rectum. Extensive associated urinary bladder wall thickening with perivesic ular stranding. 3. Moderate symmetric bilateral hydroureteronephrosis secondary to the large pelvic mass. 4. Nonobstructing left nephrolithiasis. 5. Splenomegaly is suggestive of lymphomatous involvement. 6. Additional findings as above. ACT 112: Negative or not required by law. The above report was generated using voice recognition software. It may contain grammatical, syntax o r spelling errors. Electronically signed by: Mc Mccarthy M.D. 01/29/2022 3:38 PM
[2022-01-29 16:56] LABS: Appearance Urine Clear (Clear); Bacteria Urine Automated Negative (Negative); Blood Urine Negative (Negative); Color Urine Dark Yellow; Epithelial Cell Urine Auto >30 /lpf (0-5); Glucose Urine UA Negative (Negative); Ketones Urine Trace (Negative); Leukocyte Esterase Urine Trace (Negative); Nitrite Urine Positive (Negative); Protein Urine Negative (Negative); RBC Urine Automated 0-4 /hpf (0-4); Specific Gravity Urine 1.032 (1.000-1.030); Urobilinogen Urine Negative (Negative); pH Urine 5.5 (4.5-7.5)
[2022-01-29 16:59] LABS: Bilirubin Urine 1+ (Negative)
--- NOTE | 2022-01-29 17:25 | History & Physical Report ---
Date of Service January 29, 2022 Assessment & Plan (1) Sepsis: Plan: - Unknown source. With the exception of lactate, labs and imaging are without obvious source of infection, UA with > 30 epithelial cells, but without WBCS, bacteria; leuk esterase and nitrites noted. CT A/P did show extensive metastatic disease with pathologic enlarged lymph nodes, diffuse peritoneal/omental carcinomatosis and a large midline pelvic mass encasing the prostate causing bilateral hydronephrosis. If no source of infection identified on imaging/labs/cultures, ? if lymphoma is causing increased lactate. No evidence of meningitis or encephalitis by history or exam - Initial lactate 7.4, now 5.9 after cefepime and IVF. - Will continue to trend lactate while it is elevated, blood cultures sent. - Cover with broad-spectrum antibioticsZosyn and vancomycin. - Continue IVF. (2) Pelvic mass in male: Plan: - Unknown how long this has been present, patient is on Flomax and finasteride. Also with bilateral hydronephrosis and bladder wall thickening. - UA with trace leuk esterase, nitrites, 1+ bilirubin, > 30 epi cells but no WBCs or bacteria. No renal failure but if develops, would consult Urology about possibility of ureteral stents (3) H/O diffuse large B-cell lymphoma: Plan: - In remission since 2018, with new diffuse metastatic disease noted on CT A/P. - First diagnosed in 2011 renal involvement, had been in remission until 2016 with ECD disease. Had again gone into remission in 2018 and had follow-up with Dr. Bailey here every 6 months, transition to yearly visits as of last January. - Consulting Dr. Ruvalcaba given recurrence as seen on CT a/p. (4) Hypomagnesemia: Plan: replace with IV magnesium follow level in AM (5) Leg swelling: Plan: ongoing since october as per Cardiology notes Pelvic mass could be causing pelvic venous compression and LLE edema>RLE edema given recurrent lymphoma, will check venous Doppler if DVT present, would recommend switching to Lovenox especially as will likely be undergoing chemotherapy again in the future (6) Memory problem: Plan: - Secondary to ECD lymphoma treatment. Poor short-term memory at baseline. Needs frequent reorientation. -has Ommaya reservoir in place (7) Atrial flutter: Plan: - NSR today. - Continue Eliquis, Multaq. - Hold metoprolol for now given borderline hypotension. -replace magnesium (8) Benign prostatic hyperplasia with urinary obstruction: Plan: - Continue Flomax and finasteride. (9) Dyslipidemia: Plan: - Continue atorvastatin. 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 Most recent LV systolic function on 02/20/2021 was low-normal. In the past, Lisinopril has been discontinued secondary to hypotension. Metoprolol succinate has been significantly reduced secondary to symptomatic hypotension Plan: - Admit to PCU. - SCDs,Eliquis for VTE ppx. - DNR/DNI. History of Present Illness Chief Complaint: night sweats with history of lymphoma Primary Care Provider: Clarence Valverde MD Wojciech Jacobsen is a 71 y/o male with a PMH of b-cell lymphoma in 2011 with recurrence in 2016, atrial fibrillation, hyperlipidemia, and BPH who presents today with his for concerns of increased night sweats, confusion, and generalized weakness. Patient was scheduled to have an annual oncology appointment with Dr. Ruvalcaba next week, however patient's noticed he has had started having night sweats, increased fatigue, general weakness. Night sweats are concerning to her, as this is how he had presented previously with his initial lymphoma diagnosis and with recurrence 4 years later, therefore she brou ght him to the ED for further evaluation. He is without any complaints, fever/chills, chest pain, shortness of breath, cough, abdominal pain, nausea, vomiting, dysuria, or any other discomfort. Here, patient presented slightly hypotensive 99/69, however now normotensive after fluids, otherwise vital signs within normal limits. Labs significant for Hgb 12.6, initial lactate 7.4, 5.9 two hours later. Magnesium 1.6, T bili 1.2. UA pending. CT A/P with large pelvic mass, extensive metastatic disease and bilateral hydronephrosis. Head CT, chest CT, CXR all without evidence of acute disease process. Allergies Allergy/AdvReac Type Severity Reaction Status Date / Time No Known Drug Allergies Allergy Verified 10/06/21 12:32 Home Medications Medication Instructions Recorded Confirmed Type cetirizine 10 mg tablet 10 mg PO DAILY tab 02/20/19 10/06/21 History cholecalciferol (vitamin D3) 50 2,000 units PO DAILY tab 02/20/19 10/06/21 History mcg (2,000 unit) tablet cyanocobalamin (vitamin B-12) 1,000 mcg PO DAILY tab 02/20/19 10/06/21 History 1,000 mcg tablet magnesium oxide 400 mg (241.3 mg 400 mg PO DAILY tab 04/06/19 10/06/21 History magnesium) tablet apixaban 5 mg tablet 5 mg PO BID #180 tab 02/12/21 10/06/21 Rx metoprolol succinate 25 mg 25 mg PO DAILY #90 tab 06/16/21 10/06/21 Rx tablet,extended release 24 hr allopurinol 300 mg tablet 300 mg PO DAILY #90 tab 10/06/21 10/06/21 Rx atorvastatin 40 mg tablet 40 mg PO DAILY #90 tab 10/06/21 10/06/21 Rx nystatin 100,000 unit/gram topical 1 applic TOPICAL BID #30 g 10/06/21 10/06/21 Rx powder finasteride 5 mg tablet 5 mg PO DAILY #90 tab 10/07/21 10/07/21 Rx tamsulosin 0.4 mg capsule 0.4 mg PO BID #180 cap 10/07/21 10/07/21 Rx dronedarone 400 mg tablet 400 mg PO BID #180 tab 10/13/21 Rx Past Med/Surg History Medical History Acute cholecystitis with chronic cholecystitis Anemia Atrial flutter Benign prostatic hyperplasia with urinary obstruction Chronic combined systolic and diastolic congestive heart failure ECD lymphoma Cold intolerance Diffuse well-differentiated lymphocytic lymphoma Dyslipidemia Fatigue Hypotension Memory problem Multiple thyroid nodules Nonischemic cardiomyopathy Vertigo Surgical History History of bone marrow biopsy History of brain surgery History of cholecystectomy History of lithotripsy History of thoracentesis S/P cystoscopy with ureteral stent placement Family History Mother Cardiac disorder Hypertension FHx: deafness or hearing loss Stroke Leukemia Father Cardiac disorder Hypertension Lung cancer Recurrent kidney stones Social History Smoking Status: Former smoker Tobacco Type: Cigarettes Age Started Using Tobacco: 23; Age Quit Using Tobacco: 42; packs per day: 0.75; Second Hand Exposure: No; Hx Alcohol Use: No Hx Substance Use: No Preferred Language: [place] Citizen Communication Ability: Impaired Communication Ability Comment: hx brain mass-trouble with short term memory Visual Impairment: Limited Hearing Ability: Use of Hearing Aid Mandrel Maker Required: No Beliefs That Will Affect Care: None marital status: Current Living Situation: Spouse current occupational status: retired Feels Safe at Home: Yes Safety Concerns: Feels Safe At This Time Childhood Exposure to Second-Hand Smoke: Yes Dental Care, Regularly: Yes Physical Activity Frequency: Does not Exercise Seatbelt Use: always Sunscreen Use: Yes (sometimes) Assistive Devices: Cane and Glasses Assistive Devices Comment: hearing aides are at home Review of Systems Review of Systems: Unobtainable due to cognitive status Physical Exam Physical Exam: General: awake, alert, no apparent distress Head: Normocephalic, atraumatic ENT: PERRL, EOMI, no pharyngeal exudate, mucous membranes moist Chest: Clear to auscultation, on room air, no adventitious breath sounds Cardiac: Regular rate and rhythm, no murmur, no JVD, normal peripheral pulses, good capillary refill Abdominal: NABS x 4 quadrants, soft, nontender to palpation, no rebound, guarding or tenderness Extremities: Normal inspection, no peripheral edema or erythema, calfs nontender to palpation Psych: Normal mood and affect Neuro: AAO x 1 (self) consistent with baseline, short-term memory loss; strength intact bilaterally and rated 5/5, no motor deficits, speech is clear, no peripheral sensory deficits Skin: port in left upper chest dose not appear infected; no rash or erythema Results & Data Results & Data ([facility]) Vital Signs (Past 12 Hours) Vital Signs Temp Pulse Pulse Resp BP BP Pulse Ox 01/29/22 14:17 83 83 20 93/65 L 96 01/29/22 13:39 19 96 01/29/22 12:21 36.4 C L 82 18 99/69 L 95 Laboratory Results Abnormal lab results 01/29/22 01/29/22 01/29/22 Range/Units 13:24 13:24 13:24 RBC 3.94 L (4.7-6.1) M/uL Hgb 12.6 L (14.0-18.0) g/dL Hct 38.2 L (42-52) % RDW Std Deviation 51.2 H (36.4-46.3) fL Josephine # (Auto) 0.70 H (0.11-0.59) K/uL Immature Gran # (Auto) 0.03 H (0.00-0.02) K/uL PT 12.2 H (9.0-12.0) Seconds INR 1.2 H (0.9-1.1) APTT 33.3 H (21.0-31.0) Seconds Anion Gap 13 H (3-11) Lactate (0.4-2.0) mmol/L Magnesium 1.6 L (1.7-2.4) mg/dl Total Bilirubin 1.2 H (0.2-1.0) mg/dl Total Protein 5.5 L (6.0-8.3) gm/dl Albumin 3.1 L (3.4-5.0) gm/dl Globulin 2.4 L (2.5-4.0) gm/dl Ur Specific [place] (1.000-1.030) Urine Ketones (Negative) Urine Nitrite (Negative) Urine Bilirubin (Negative) Ur Leukocyte Esterase (Negative) 01/29/22 01/29/22 01/29/22 Range/Units 13:24 15:19 Unknown RBC (4.7-6.1) M/uL Hgb (14.0-18.0) g/dL Hct (42-52) % RDW Std Deviation (36.4-46.3) fL Josephine # (Auto) (0.11-0.59) K/uL Immature Gran # (Auto) (0.00-0.02) K/uL PT (9.0-12.0) Seconds INR (0.9-1.1) APTT (21.0-31.0) Seconds Anion Gap (3-11) Lactate 7.4 H* 5.9 H* (0.4-2.0) mmol/L Magnesium (1.7-2.4) mg/dl Total Bilirubin (0.2-1.0) mg/dl Total Protein (6.0-8.3) gm/dl Albumin (3.4-5.0) gm/dl Globulin (2.5-4.0) gm/dl Ur Specific [place] 1.032 H (1.000-1.030) Urine Ketones Trace H (Negative) Urine Nitrite Positive A (Negative) Urine Bilirubin 1+ H (Negative) Ur Leukocyte Esterase Trace H (Negative) Diagnostic Findings Chest X-Ray 01/29/22 12:45 XR chest 1V portable HISTORY: 71 years-old Male SEPSIS acute sepsis COMPARISON: PET CT 07/19/2017, chest radiograph 11/11/2015 TECHNIQUE: Portable AP view of the chest FINDINGS: Left subclavian [id number] catheter distal tip overlies the expected location of the mid to inferior SVC. Atherosclerosis of the thoracic aorta. No pneumothorax, pleural effusion, airspace consolidation or overt pulmonary edema. Degenerative changes of the shoulders and spine. IMPRESSION: No acute process. ACT 112: Negative or not required by law. The above report was generated using voice recognition software. It may contain grammatical, syntax or spelling errors. Electronically signed by: Mc Mccarthy M.D. 01/29/2022 1:10 PM Abdomen/Pelvis CT 01/29/22 14:[address] WITH IV CONTRAST CT DOSE: 3648.19 mGy.cm HISTORY: Subsequent treatment strategy. Follow-up study in a patient with history of lymphoma. eval for lymphoma TECHNIQUE: Multiaxial CT images of the abdomen and pelvis were performed following the IV administration of 94 cc of Optiray, A dose lowering technique was utilized adhering to the principles of ALARA. COMPARISON STUDY: Chest CT of same day, PET CT 07/19/2017, CT abdomen and pelvis 11/05/2015 FINDINGS: The heart is upper limits of normal in size. Coronary artery calcifications. Small right and trace left pleural effusions. Subsegmental bibasilar atelectasis. No pneumatosis or pneumoperitoneum. The spleen is enlarged measuring 14.2 cm in length. Unremarkable right adrenal gland. 11 mm hypodense left adrenal gland suggests adenoma. Pancreatic atrophy. The gallbladder appears surgically absent. Unchanged 1.8 cm left hepatic lobe cyst. There are a few additional subcentimeter hypodensities of the liver which are too small to characterize. Moderate bilateral hydroureteronephrosis. There are several nonobstructing calculi left kidney measuring up to 5 mm. Small bilateral simple and complex renal cysts are again noted. The largest probable complex cyst measures 2.6 cm within the inferior pole right kidney. Marked urinary bladder wall thickening with perivesicular stranding. Enlarged prostate. There is a large pelvic mass which is new from the prior study involving the prostate, serosal margins of the rectum and posteriorly bladder. This measures up to at least 10 cm. Atherosclerotic plaque of the abdominal aorta without aneurysm. Enlarged gastrohepatic, pericaval, aortocaval and iliac chain lymph nodes measure up to 3.5 x 2.0 cm on the left on image 325. Numerous soft tissue nodules in the pelvis are noted along with diffuse omental/peritoneal carcinomatosis. Small volume associated abdominal pelvic ascites. No bowel obstruction. Moderate fecal retention. Scattered serosal implants are noted throughout the large and small bowel. Appendix is noninflamed. Unremarkable soft tissues. No acute fracture or destructive bone lesion. IMPRESSION: 1. Progressive disease manifested by pathologically enlarged lymph nodes of the abdomen and pelvis, diffuse peritoneal/omental carcinomatosis with serosal implants and small volume of abdominal pelvic ascites. 2. There is a large midline pelvic mass encasing the prostate abutting and possibly invading the posterior urinary bladder and rectum. Extensive associated urinary bladder wall thickening with perivesicular stranding. 3. Moderate symmetric bilateral hydroureteronephrosis secondary to the large pelvic mass. 4. Nonobstructing left nephrolithiasis. 5. Splenomegaly is suggestive of lymphomatous involvement. 6. Additional findings as above. ACT 112: Negative or not required by law. The above report was generated using voice recognition software. It may contain grammatical, syntax or spelling errors. Electronically signed by: Mc Mccarthy M.D. 01/29/2022 3:[address] 01/29/22 14:28 CT chest diagnostic w con CLINICAL HISTORY: weakness, hx of lymphoma TECHNIQUE: Multidetector row helical CT of the chest was performed with intravenous contrast. Coronal and sagittal reformations were obtained. Automated dose lowering techniques and/or adjustment according to patient size were utilized for this exam. Comparison: Comparison is made to CT chest 06/21/2015 FINDINGS: Lungs and pleura: Trace bilateral pleural effusions are seen with underlying atelectasis. Calcified granulomata are seen. Heart and pericardium: Heart size is normal. No pericardial effusion. Vessels: Severe atherosclerotic changes in the aorta and coronary arteries. Mediastinum and manuelito: Unremarkable. Chest wall and lower neck: Small thyroid nodules are noted which do not require follow-up by ACR criteria. Abdomen: For findings below the diaphragm, please refer to CT of the abdomen dated the same. Bones: Degenerative changes in the thoracic spine. IMPRESSION: No acute abnormalities are seen. No lymphadenopathy is seen in the chest. ACT 112: Negative or not required by law. Electronically signed by: Brandon Burgess M.D. 01/29/2022 3:[address] 01/29/22 14:28 CT head/brain wo/w con CLINICAL HISTORY: weakness, hx of lymphoma COMPARISON STUDY: 11/22 CT DOSE: TECHNIQUE: Standard CT of the Brain was performed with and without intravenous contrast. This CT exam was performed using one or more of the following dose reduction techniques: Automated exposure control, adjustment of the mA and/or kV according to patient size, or use of iterative reconstruction technique. CONTRAST: Optiray 320, 94 mL nonionic intravenous contrast. FINDINGS: Extraaxial space: There is no evidence for subdural hematoma. There are no extra-axial fluid collections. Ventricles and cisterns: The ventricles are again mildly dilated bilaterally within the shunt in place entering from the right side. This is unchanged. There is no evidence for midline shift or mass effect. Parenchyma: There is no subarachnoid or intraparenchymal hemorrhage. There is mild cerebral cortical atrophy and decreased attenuation in the periventricular white matter representing remote small vessel disease. There is no evidence for an acute infarct or cerebral edema. There is no evidence for enhancing mass lesion.. Osseous structures: There is no evidence for an acute fracture.. The visualized paranasal sinuses are clear. The mastoid air cells are clear bilaterally. Soft tissues: There is no evidence for focal soft tissue swelling. IMPRESSION: 1. No acute intracerebral pathology. 2. Cerebral cortical atrophy and remote small vessel disease. 3. 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 4. No abnormal enhancement ACT 112: Negative or not required by law. Electronically signed by: Vamshi Addison M.D. 01/29/2022 3:20 PM ECG Additional Comments: Normal sinus rhythm Low voltage QRS Borderline ECG When compared with ECG of 04-SEP-2015 12:54, Nonspecific T wave abnormality no longer evident in Anterolateral leads. Code Status & VTE Plan Code Status DNR/DNI. VTE Prophylaxis Plan VTE Prophylaxis will be ordered: Yes Supervising Physician Co-Signing Physician Notes PA Supervision Note: I personally saw and examined the patient. I verified all hu points and agree with JULIO C Smith with the following exceptions and/or additions: Pt is a 71 yo male with a h/o B gómez lymphoma with recurrence, PAF on Eliquis, HL, HTN, here with night sweats, fatigue, worsening confusion. Found to have significantly elevated lactate, pelvic mass and diffuse metastatic disease on CT abd/pel, likely recurrence of lymphoma. Pt is pleasant but forgetful. Denies headache, neck pain, no SB, chest pains, or cough. Denies abd pains or difficulty with urinating. denies fevers. He does report left leg swelling x 1 day, but records show he had LLE>RLE edema in 10/2021 as per Cardiology note History and ROS reviewed as above O- Vitals reviewed Gen: [AAOx2, NAD] HEENT: [anicteric sclerae, EOMI] CV: [RRR no mgr nl S1S2] Pulm: [CTAB no wcr] Abd: [+BS soft NT ND no masses or hernias] Ext: [RLE 3+ pitting edema, RLE 1+ pitting edema, 2+ DP pulses] Skin: [no rashes, warm/dry] Neuro: [full strength throughout] Labs and rads reviewed A/P-71 yo male here with B symptoms and mild acute metabolic encephalopathy, found to have large pelvic mass, metastatic carcinomatosis, and most likely recurrent lymphoma. With LLE swelling as well.SIRS but not sepsis as no source identified Changes made to A/P above -check LLE venous DOppler -trend lactate, continue IVFs but reduce rate to 100mL/hr-likely due to lymphoma -consult Oncology to see about chemotherapy continue broad spectrum abx until BCxs neg x 48 hrs-no fevers PG Care Time/CCT Total # of Minutes Spent Total Time Spent with Patient: Total time spent is greater than 50% in coordination of care (as documented) at patient's floor/unit and/or counseling patient: Coding Level of Care Code 25576 Initial Inpt Care Lvl 3 Diagnoses Pelvic mass in male R19.00 H/O diffuse large B-cell lymphoma Z85.72 Benign prostatic hyperplasia with urinary obstruction N40.1; N13.8 Atrial flutter I48.92 Dyslipidemia E78.5 Memory problem R41.3 Sepsis A41.9 Hypomagnesemia E83.42 Splenomegaly R16.1 Chronic combined systolic and diastolic congestive heart failure I50.42 Leg swelling M79.89
[2022-01-29 18:19] LABS: Mucus Urine Present (None Prsent)
[2022-01-29 18:23] LABS: Calcium Oxalate Crystals Urine Present (None Prsent)
[2022-01-29] MEDS ORDERED: POLYETHYLENE (MIRALAX) 17 GM PACK PO PRN (18:28)
[2022-01-29] MEDS ORDERED: ONDANSETRON INJ 2 MG/ML 2 ML VIAL IV PRN (18:28)
[2022-01-29] MEDS ORDERED: VANCOMYCIN CONSULT ACTIVE PRN (18:28)
[2022-01-29] MEDS ORDERED: VANCOMYCIN HCL 2,000 MG in SODIUM CHLORIDE 0.9% 500 ML IV ONE (19:00)
[2022-01-29] MEDS ORDERED: PIPERACILLIN/TAZOBACTAM 3.375 GM in DEXTROSE 5% 100 ML IV ONE (19:00)
--- NOTE | 2022-01-29 19:06 | Pharmacy Report ---
Pharmacy Vanc AUC Short Note - Date of Service January 29, 2022 - Assessment & Plan Assessment 71 year old M receiving vancomycin/zosyn for treatment of empiric. Pertinent microbiologic data includes: blood culture growing NGTD. Day # 1 of antimicrobial therapy. Plan Vancomycin * AUC/YENI is the preferred PK/PD target for vancomycin * AUC guided dosing is effective and associated with decreased risk of nephrotoxicity compared to traditional trough targets * vancomycin 1250 mg IV q12 is predicted to achieve target AUC/YENI of 400-600 mg/L.hr and may be associated with a 19 % risk of nephrotoxicity * Trough to be drawn if continued beyond 48 hours Pharmacy will continue to follow and will adjust dose/frequency as necessary. Thank you.
[2022-01-29] MEDS: LACTATED RINGER'S 1,000 ML IV SCH (21:03)
[2022-01-29] MEDS: MAGNESIUM SULFATE / D5W 1 GM/100 ML BAG IV SCH ×2 (21:05→23:05)
[2022-01-29] MEDS: TAMSULOSIN HCL 0.4 MG CAP PO SCH (22:25)
[2022-01-29] MEDS: DRONEDARONE HCL 400 MG TAB PO SCH (22:26)
[2022-01-29] MEDS: APIXABAN 5 MG TABLET PO SCH (22:26)
[2022-01-29] MEDS: NYSTATIN POWDER 15GM BTL EXT SCH (22:27)
[2022-01-30] MEDS: PIPERACILLIN/TAZOBACTAM 3.375 GM in DEXTROSE 5% 100 ML IV SCH ×3 (01:26→18:21)
[2022-01-30] MEDS: LACTATED RINGER'S 1,000 ML IV SCH ×2 (01:28→14:30)
[2022-01-30] MEDS: NYSTATIN POWDER 15GM BTL EXT SCH ×3 (02:03→21:58)
[2022-01-30 06:31] LABS: Basophils # (auto) 0.05 K/uL (0-0.2); Basophils % (auto) 0.7 %; Eosinophils # (auto) 0.06 K/uL (0-0.5); Eosinophils % (auto) 0.9 %; Hematocrit (blood only) 34.4 % (42-52); Hemoglobin 11.4 g/dL (14.0-18.0); Immature Granulocytes # (auto) 0.02 K/uL (0.00-0.02); Immature Granulocytes % (auto) 0.3 %; Lymphocytes # (auto) 1.02 K/uL (1.2-3.4); Lymphocytes % (auto) 15.1 %; Mean Corpuscular Hemoglobin 31.8 pg (25-34); Mean Corpuscular Hgb Conc 33.1 g/dL (32-36); Mean Corpuscular Volume 96.1 fL (80-100); Mean Platelet Volume 9.8 fL (7.4-10.4); Monocytes # (auto) 0.64 K/uL (0.11-0.59); Monocytes % (auto) 9.5 %; Neutrophils # (auto) 4.96 K/uL (1.4-6.5); Neutrophils % (auto) 73.5 %; Platelet Count 194 K/uL (130-400); RDW Coefficient of Variation 14.4 % (11.5-14.5); RDW Standard Deviation 50.1 fL (36.4-46.3); Red Blood Count 3.58 M/uL (4.7-6.1); White Blood Count 6.75 K/uL (4.8-10.8)
--- NOTE | 2022-01-30 06:40 | Ultrasound Report ---
LEFT LOWER EXTREMITY VENOUS DOPPLER HISTORY: Acute pain and swelling of the left lower extremity LE edema,lymphoma,r/o DVT COMPARISON STUDY: 01/19/2013. FINDINGS: There is normal compressibility, flow, and augmentation within the left lower extremity val p venous system. Note is made of slow venous flow. IMPRESSION: No DVT within the left lower extremity. ACT 112: Negative or not required by law. Electronically signed by: Mc Mccarthy M.D. 01/30/2022 6:38 AM
[2022-01-30 06:57] LABS: Albumin Globulin Ratio 1.3 (0.9-2); Albumin Level 2.6 gm/dl (3.4-5.0); BUN Creatinine Ratio 14.6 (10-20); Bilirubin,Total 1.4 mg/dl (0.2-1.0); Calcium 7.8 mg/dl (8.5-10.1); Creatinine Clr Calc Pharmacy 88.7 ml/min; Est GFR (African American) 93.1 ml/min; Est GFR (Non-African American) 80.3 ml/min; Magnesium 1.8 mg/dl (1.7-2.4); Potassium 3.5 mmol/L (3.5-5.1); Total Protein 4.6 gm/dl (6.0-8.3)
--- NOTE | 2022-01-30 07:48 | Electrocardiogram Report ---
Test Reason : Blood Pressure : / mmHG Vent. Rate : 082 BPM Atrial Rate : 082 BPM P-R Int : 154 ms QRS Dur : 106 ms QT Int : 398 ms P-R-T Axes : 077 -19 026 degrees QTc Int : 464 ms Normal sinus rhythm Low voltage QRS Borderline ECG When compared with ECG of 04-SEP-2015 12:54, Nonspecific T wave abnormality no longer evident in Anterolateral leads Confirmed by Jurgen Santana ([id number]) on 01/30/2022 7:48:00 AM Referred By: REFERRED SELF Confirmed By:Jurgen Santana
[2022-01-30] MEDS: DRONEDARONE HCL 400 MG TAB PO SCH ×2 (08:10→21:58)
[2022-01-30] MEDS: CETIRIZINE HCL 10 MG TABLET PO SCH (08:10)
[2022-01-30] MEDS: allopurinoL 300 MG TAB PO SCH (08:10)
[2022-01-30] MEDS: FINASTERIDE 5 MG TAB PO SCH (08:10)
[2022-01-30] MEDS: CHOLECALCIFEROL 1,000 UNITS 25 MCG TAB PO SCH (08:10)
[2022-01-30] MEDS: CYANOCOBALAMIN (B-12) 500 MCG TABLET PO SCH (08:10)
[2022-01-30] MEDS: MAGNESIUM OXIDE 400 MG TAB PO SCH (08:10)
[2022-01-30] MEDS: TAMSULOSIN HCL 0.4 MG CAP PO SCH ×2 (08:11→21:58)
[2022-01-30] MEDS: ATORVASTATIN 40 MG TAB PO SCH (08:11)
[2022-01-30] MEDS: APIXABAN 5 MG TABLET PO SCH (08:11)
[2022-01-30] MEDS: VANCOMYCIN HCL 1,250 MG in SODIUM CHLORIDE 0.9% 250 ML IV SCH ×2 (08:14→21:57)
--- NOTE | 2022-01-30 11:28 | Urology Consultation ---
Date of Consultation January 30, 2022 Assessment & Plan (1) Hydronephrosis: Hydronephrosis is likely from extrinsic compression of the ureters from the pelvic mass. There are no focal obstructing stones. Renal function is still within normal limits and he is not having flank pain. A component of the hydronephrosis may be lower urinary tract obstruction as well, given the report that he is not emptying his bladder consistently. We discussed the possibility that over time hydronephrosis can cause injury to the kidney. Depending on the prognosis of this pelvic mass, he may benefit from Farrar catheter placement, or upper tract decompression. We discussed ureteral stent placement versus nephrostomy tube placement. If the mass is expected to grow, more definitive drainage would be obtained with nephrostomy tubes. With his normal renal function and improving infectious picture, I do not think he needs urgent intervention. We will plan to monitor renal function and lab work/vital signs, but hold off intervention for now. (2) Sepsis: Presented with elevated lactate, but no marked leukocytosis. Urinalysis was suspicious for possible infection. Blood cultures are pending. Overall his vital signs are stable and his lab work is moving in the right direction. For now I think continuing the course with antibiotics and awaiting culture data without intervention make sense. If he has persistent infectious symptoms or acute worsening, he may benefit from ureteral stent placement or nephrostomy tube placement. (3) Pelvic mass in male: Pelvic mass is of unclear etiology. With his history of lymphoma, this would certainly be in the differential diagnosis. The mass seems centered around the prostate, although at his most recent urology office visit 3 months ago, PSA was normal and JABIER was unremarkable. I would not expect prostate cancer to develop this quickly. The mass did not have the appearance of an abscess to me. (4) Benign prostatic hyperplasia with urinary obstruction: He may have some prostatic enlargement and extrinsic compression from the pelvic mass. We should ensure that he is emptying his bladder well; I would recommend performing postvoid residual bladder scans to ensure that he is emptying well. Continue broad-spectrum antibiotics, await culture data Monitor urine output, obtain PVR after voiding Hold off on any urologic intervention for now, if renal function or infectious picture start to worsen, would consider ureteral stent placement versus transfer for nephrostomy tube placement. We will likely need tissue diagnosis prior to any sort of oncologic intervention, would recommend discussion with radiology whether there is anything that can be biopsied percutaneously. History of Present Illness Reason for Consultation: Bilateral hydronephrosis, pelvic mass Attending Physician: Jurgen Abreu History of Present Illness This is a 71-year-old male with history of of diffuse large B-cell lymphoma in remission since 2018, but now with new diffuse metastatic disease noted on CT scan. He was sent to the emergency department on 01/29/2022 by the oncology office after he reported increasing night sweats, confusion and generalized weakness. In the emergency department, lab work was notable for elevated lactate (7.4, which has gradually decreased to 2.9). He has been mildly hyperchloremic but otherwise electrolytes have been within normal limits. He did not have a significant leukocytosis on arrival (WBC 7.82). His hemoglobin was initially 12.6 with no evidence of active bleeding. Urinalysis was notable for positive nitrites, trace leukocyte esterase, negative bacteria, 1-5 WBC/hpf and negative blood. Blood cultures are pending A CT scan of the abdomen and pelvis was performed. I independently reviewed these images. There are 2 kidneys in normal position. There is mild to moderate hydronephrosis on both sides. There are nonobstructing stones in the left kidney, measuring up to approximately 6 mm in diameter there are no obvious obstructing stones on either side. Bilateral hydroureter extends down into the pelvis at which point there is a large mass surrounding the prostate in the anterior portion of the rectum as well as the posterior bladder wall. This mass is likely causing extrinsic compression of the ureters. His bladder wall appears thickened. Chart review indicates that he was seen by Dr. Cohen from urology on 10/07/2021. At that point his JABIER was unremarkable with no nodules no induration and no tenderness. PSA at that time was 1.312. His provided most of the history as he has some issues with memory loss. She reports he had a stone in the kidney several years ago which was treated with dissolution therapy and then lithotripsy. She notices that he has been urinating more frequently since his last visit to the urology office. Allergies Allergy/AdvReac Type Severity Reaction Status Date / Time No Known Drug Allergies Allergy Verified 10/06/21 12:32 Home Medications Medication Instructions Recorded Confirmed Type cetirizine 10 mg tablet 10 mg PO DAILY tab 02/20/19 10/06/21 History cholecalciferol (vitamin D3) 50 2,000 units PO DAILY tab 02/20/19 10/06/21 History mcg (2,000 unit) tablet cyanocobalamin (vitamin B-12) 1,000 mcg PO DAILY tab 02/20/19 10/06/21 History 1,000 mcg tablet magnesium oxide 400 mg (241.3 mg 400 mg PO DAILY tab 04/06/19 10/06/21 History magnesium) tablet apixaban 5 mg tablet 5 mg PO BID #180 tab 02/12/21 10/06/21 Rx metoprolol succinate 25 mg 25 mg PO DAILY #90 tab 06/16/21 10/06/21 Rx tablet,extended release 24 hr allopurinol 300 mg tablet 300 mg PO DAILY #90 tab 10/06/21 10/06/21 Rx atorvastatin 40 mg tablet 40 mg PO DAILY #90 tab 10/06/21 10/06/21 Rx nystatin 100,000 unit/gram topical 1 applic TOPICAL BID #30 g 10/06/21 10/06/21 Rx powder finasteride 5 mg tablet 5 mg PO DAILY #90 tab 10/07/21 10/07/21 Rx tamsulosin 0.4 mg capsule 0.4 mg PO BID #180 cap 10/07/21 10/07/21 Rx dronedarone 400 mg tablet 400 mg PO BID #180 tab 10/13/21 Rx Patient History Medical History Acute cholecystitis with chronic cholecystitis Anemia Atrial flutter Benign prostatic hyperplasia with urinary obstruction 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 Cold intolerance Diffuse well-differentiated lymphocytic lymphoma Dyslipidemia Fatigue Hypotension Memory problem Multiple thyroid nodules Nonischemic cardiomyopathy Vertigo Surgical History History of bone marrow biopsy History of brain surgery History of cholecystectomy History of lithotripsy History of thoracentesis S/P cystoscopy with ureteral stent placement Family History Mother Cardiac disorder Hypertension FHx: deafness or hearing loss Stroke Leukemia Father Cardiac disorder Hypertension Lung cancer Recurrent kidney stones Social History Smoking Status: Former smoker Tobacco Type: Cigarettes Age Started Using Tobacco: 23; Age Quit Using Tobacco: 42; packs per day: 0.75; Second Hand Exposure: No; Hx Alcohol Use: No Hx Substance Use: No Preferred Language: Faroese Communication Ability: Impaired Communication Ability Comment: hx brain mass-trouble with short term memory Visual Impairment: Limited Hearing Ability: Use of Hearing Aid Book Sorter Required: No Beliefs That Will Affect Care: None marital status: Current Living Situation: Spouse current occupational status: retired Feels Safe at Home: Yes Safety Concerns: Feels Safe At This Time Childhood Exposure to Second-Hand Smoke: Yes Dental Care, Regularly: Yes Physical Activity Frequency: Does not Exercise Seatbelt Use: always Sunscreen Use: Yes (sometimes) Assistive Devices: Cane and Glasses Assistive Devices Comment: hearing aides are at home Review of Systems Review of Systems: 14 point review of systems negative except for otherwise indicated. Constitutional: Fatigue, night sweats Neurologic: memory loss Physical Exam Constitutional: well developed and well nourished; no acute distress Eyes: + anicteric sclerae; pupils not irregular Respiratory: normal respiratory effort; no respiratory distress, does not use accessory muscles and no cough Cardiovascular: well perfused Gastrointestinal (Abdomen): Inspection/Auscultation: abdomen normal to inspection; abdomen not distended mild tenderness to palpation on right side, no palpable masses Musculoskeletal: Extremities: extremities normal to inspection Skin: normal turgor; no rashes and no lesions Neurologic: moves all extremities and awake Psychiatric: Orientation: alert and oriented x 3 Results & Data ([facility]) Vital Signs (Past 12 Hours) Vital Signs Temp Pulse Resp BP Pulse Ox 01/30/22 08:00 36.7 C 67 20 101/63 94 01/30/22 02:54 36.5 C 80 20 99/61 L 93 01/29/22 23:53 36.4 C L 83 18 106/69 96 PG Care Time/CCT Total # of Minutes Spent Total Time Spent with Patient: Total time spent is greater than 50% in coordination of care (as documented) at patient's floor/unit and/or counseling patient: Coding Level of Care Code 32696 Initial Inpt Care Lvl 2 Diagnoses Sepsis A41.9 Pelvic mass in male R19.00 Benign prostatic hyperplasia with urinary obstruction N40.1; N13.8 Hydronephrosis N13.30
--- NOTE | 2022-01-30 13:07 | Consultation Report ---
DATE OF SERVICE: 01/30/2022. REASON FOR CONSULTATION: History of lymphoma with new metastatic disease on CT abdomen and pelvis. HISTORY OF PRESENT ILLNESS: Mr. Jacobsen is a pleasant 71-year-old gentleman who I had the pleasure of meeting today for the first time. The patient has a medical history significant for diffuse large B-cell lymphoma, initially diagnosed in 2011 for which he received 3 cycles of R-CHOP followed by 2 cycles of dose-adjusted R-EPOCH. He was subsequently diagnosed with isolated FLOOR DIRECTOR relapse with FLOOR DIRECTOR lymphoma in 2015. In 2014, he was diagnosed with isolated FLOOR DIRECTOR relapse with FLOOR DIRECTOR lymphoma for which he was treated with high-dose methotrexate, etoposide, temozolomide, rituximab, and intrathecal DepoCyt under the direction of Dr. Foreman at [facility]. He subsequently transferred care to Dr. Del Gonsalves at [facility] where he continued maintenance single agent methotrexate through 2017. Since then, the patient has been on surveillance with no evidence of recurrent malignancy. He, however, presented to the ER yesterday with complaints of night sweats, fatigue, and generalized weakness. On arrival to the ER, he was noted to be slightly hypotensive. CT abdomen and pelvis performed while in the ER revealed progressive disease manifested by pathologically enlarged lymph nodes of the abdomen and pelvis, diffuse peritoneal/omental carcinomatosis with serosal implants and small volume of abdominopelvic ascites. There was also detected to be a large midline pelvic mass encasing the prostate abutting and possibly invading the posterior urinary bladder and rectum with associated urinary bladder wall thickening and perivesicular stranding. CT abdomen and pelvis also revealed moderate symmetric bilateral hydroureteronephrosis secondary to large pelvic mass. CT chest revealed no acute abnormalities or lymphadenopathy in the chest. At the time of evaluating the patient today, he denied any complaints. His , however, states that he has had short-term memory issues since his initial FLOOR DIRECTOR lymphoma diagnosis. His also indicates that she noticed night sweats several weeks ago. Denied weight loss, chest pain, shortness of breath, fever, chills, or any other issues. HOME MEDICATIONS: 1. Cetirizine 10 mg p.o. daily. 2. Vitamin D3 supplementation. 3. Vitamin B12 1000 mcg p.o. daily. 4. Magnesium oxide 400 mg p.o. daily. 5. Apixaban 5 mg p.o. b.i.d. 6. Metoprolol 25 mg p.o. daily. 7. Allopurinol 300 mg p.o. daily. 8. Atorvastatin 40 mg p.o. daily. 9. Finasteride 5 mg p.o. daily. 10. Tamsulosin 0.4 mg p.o. b.i.d. ALLERGIES: No known drug allergies. PAST MEDICAL HISTORY: 1. Diffuse large B-cell lymphoma in 2012. 2. FLOOR DIRECTOR lymphoma. 3. BPH. 4. Atrial flutter. 5. Congestive heart failure. PAST SURGICAL HISTORY: 1. Cholecystectomy. 2. Cystoscopy with ureteral stent placement. 3. Brain surgery. FAMILY HISTORY: Significant for leukemia in his mother. SOCIAL HISTORY: A [id number] history of smoking. Quit smoking more than 20 years ago. Denies alcohol and illicit drug use. REVIEW OF SYSTEMS: Unable to obtain. PHYSICAL EXAMINATION: VITAL SIGNS: Blood pressure 101/63, heart rate 67, respiratory rate 20, temperature 36.7, oxygen saturation 94% on room air. CONSTITUTIONAL: A 71-year-old gentleman in no acute distress. EYES: Without conjunctivae erythema or icterus. RESPIRATORY: Lung sounds were generally clear bilaterally. CARDIOVASCULAR: Heart is regular rate and rhythm without significant murmur, gallops, or rubs. LYMPHATIC SYSTEM: No palpable peripheral lymphadenopathy. EXTREMITIES: Mild pitting edema bilaterally. LABORATORY STUDIES: Significant for white count of 6.75, hemoglobin 11.4, hematocrit 34.4, platelet count of 194. Chemistry significant for a sodium of 143, potassium 3.5, chloride 110, BUN 14, and creatinine of 0.96. IMAGING STUDIES: CT chest, abdomen and pelvis on 01/29/2022, impression: 1. Progressive disease manifested by pathologically enlarged lymph nodes of the abdomen and pelvis, diffuse peritoneal/omental carcinomatosis with serosal implants and small volume of abdominopelvic ascites. 2. There is a large midline pelvic mass encasing the prostate abutting and possibly invading the posterior urinary bladder and rectum. Extensive associated urinary bladder wall thickening with perivesicular stranding. 3. Moderate systemic bilateral hydroureteronephrosis secondary to a large pelvic mass. 4. Nonobstructing left nephrolithiasis. 5. Splenomegaly suggestive of lymphomatous involvement. ASSESSMENT AND PLAN: 1. History of aggressive diffuse large B-cell lymphoma in 2011. 2. History of FLOOR DIRECTOR lymphoma. 3. Large pelvic mass. 4. Extensive abdominal/pelvic lymphadenopathy. 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 He subsequently developed FLOOR DIRECTOR relapse in 2014, for which he was treated with intrathecal methotrexate, high-dose methotrexate, IV rituximab, IT DepoCyt plus etoposide followed by maintenance intrathecal methotrexate. Clinically, the patient appears to have recurrent lymphoma based on symptoms of night sweats and lymphadenopathy on imaging studies. He however has carcinomatosis, which is not commonly seen in lymphomas and he has also been in remission for more than 5 years . He also has a large pelvic mass, which could suggest a different malignancy. Would recommend biopsy to rule out a new primary malignancy. Also, recommend checking tumor markers including PSA, CEA, and CA 19-9. Given elevated lactate, would recommend checking LDH. Thank you for this consult. Oncology will plan to see the patient upon discharge from hospital to review biopsy results. Please feel free to call if you have any further questions. Job ID: [id number] [facility]
--- NOTE | 2022-01-30 14:21 | Surgery Consultation ---
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 Patient's was concerned as this is a similar presentation as his prior recurring lymphomas. Patient underwent a CT a/p that revealed progressive disease manifested by pathologically enlarged lymph nodes of the abdomen and pelvis, diffuse peritoneal/omental carcinomatosis with serosal implants and small volume of abdominal pelvic ascites. In addition to a large midline pelvic mass encasing the prostate abutting and possibly invading the posterior urinary bladder and rectum. We have been consulted as oncology is requesting a biopsy of tissue as there is question of possible other malignancy. On exam patient's abdomen is benign and he has no abdominal complaints. We would prefer if possible discussing with our radiology department if there are any lymph nodes or tissue easily accessible for biopsy. If not, would consider interventional radiology for obtaining tissue diagnosis so that oncology can move forward with a treatment plan. Prefer lesser invasive measures than surgical exploration if possible. Patient's Eliquis is currently on hold. (2) H/O diffuse large B-cell lymphoma: Supervising Physician Co-Signing Physician Notes I personally saw and evaluated the patient with Ava Valero PA-C and agree with the assessment and plan. 71-year-old male with pelvic mass, carcinomatosis, abdominal lymphadenopathy concerning for a recurrence of his lymphoma CT images and results personally viewed by me, has a large deep pelvic mass concerning for carcinomatosis versus lymphoma I think the best option for tissue sampling would be interventional radiology for percutaneous needle biopsy This can be done as an outpatient Surgery will sign off, please call with any questions or concerns History of Present Illness Attending Physician: Jurgen Abreu History of Present Illness This is a 71y M with a PMH of b cell lymphoma dx'd 2011 with recurrence in 2016, in remission since 2018 who presents to the [facility] on 01/29/22 with complaints of weakness and night sweats. Patient's was concerned as this is a similar presentation as his prior recurring lymphomas. Upon admission patient found to be septic and is being worked up for such... possibly urinary in nature? Patient underwent a CT a/p that revealed progressive disease manifested by pathologically enlarged lymph nodes of the abdomen and pelvis, diffuse peritoneal/omental carcinomatosis with serosal implants and small volume of abdominal pelvic ascites. In addition to a large midline pelvic mass encasing the prostate abutting and possibly invading the posterior urinary bladder and rectum. We have been consulted as oncology is requesting a biopsy of tissue as there is question of this being another malignancy outside of lymphoma. Patient's provides most of history but she says that the patient has been eating well, no nausea/vomiting, no major change in bowel or urine habits, and has denied any abdominal pain. Prior abdominal surgical history includes an open cholecystectomy. Allergies Allergy/AdvReac Type Severity Reaction Status Date / Time No Known Drug Allergies Allergy Verified 10/06/21 12:32 Home Medications Medication Instructions Recorded Confirmed Type cetirizine 10 mg tablet 10 mg PO DAILY tab 02/20/19 10/06/21 History cholecalciferol (vitamin D3) 50 2,000 units PO DAILY tab 02/20/19 10/06/21 History mcg (2,000 unit) tablet cyanocobalamin (vitamin B-12) 1,000 mcg PO DAILY tab 02/20/19 10/06/21 History 1,000 mcg tablet magnesium oxide 400 mg (241.3 mg 400 mg PO DAILY tab 04/06/19 10/06/21 History magnesium) tablet apixaban 5 mg tablet 5 mg PO BID #180 tab 02/12/21 10/06/21 Rx metoprolol succinate 25 mg 25 mg PO DAILY #90 tab 06/16/21 10/06/21 Rx tablet,extended release 24 hr allopurinol 300 mg tablet 300 mg PO DAILY #90 tab 10/06/21 10/06/21 Rx atorvastatin 40 mg tablet 40 mg PO DAILY #90 tab 10/06/21 10/06/21 Rx nystatin 100,000 unit/gram topical 1 applic TOPICAL BID #30 g 10/06/21 10/06/21 Rx powder finasteride 5 mg tablet 5 mg PO DAILY #90 tab 10/07/21 10/07/21 Rx tamsulosin 0.4 mg capsule 0.4 mg PO BID #180 cap 10/07/21 10/07/21 Rx dronedarone 400 mg tablet 400 mg PO BID #180 tab 10/13/21 Rx Patient History Medical History Acute cholecystitis with chronic cholecystitis Anemia Atrial flutter Benign prostatic hyperplasia with urinary obstruction Chronic combined systolic and diastolic congestive heart failure [employer]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 Cold intolerance Diffuse well-differentiated lymphocytic lymphoma Dyslipidemia Fatigue Hypotension Memory problem Multiple thyroid nodules Nonischemic cardiomyopathy Vertigo Surgical History History of bone marrow biopsy History of brain surgery History of cholecystectomy History of lithotripsy History of thoracentesis S/P cystoscopy with ureteral stent placement Family History Mother Cardiac disorder Hypertension FHx: deafness or hearing loss Stroke Leukemia Father Cardiac disorder Hypertension Lung cancer Recurrent kidney stones Social History Smoking Status: Former smoker Tobacco Type: Cigarettes Age Started Using Tobacco: 23; Age Quit Using Tobacco: 42; packs per day: 0.75; Second Hand Exposure: No; Hx Alcohol Use: No Hx Substance Use: No Preferred Language: [place] Communication Ability: Impaired Communication Ability Comment: hx brain mass-trouble with short term memory Visual Impairment: Limited Hearing Ability: Use of Hearing Aid Rumper Required: No Beliefs That Will Affect Care: None marital status: Current Living Situation: Spouse current occupational status: retired Feels Safe at Home: Yes Safety Concerns: Feels Safe At This Time Childhood Exposure to Second-Hand Smoke: Yes Dental Care, Regularly: Yes Physical Activity Frequency: Does not Exercise Seatbelt Use: always Sunscreen Use: Yes (sometimes) Assistive Devices: Cane and Glasses Assistive Devices Comment: hearing aides are at home Review of Systems Constitutional: + sweats (night), + fatigue and + weakness; no fever and no chills Gastrointestinal: no abdominal pain, no nausea, no vomiting and no change in bowel habits Neurologic: + confusion Physical Exam Physical Exam: lying in bed, awake Respiratory: normal respiratory effort Gastrointestinal (Abdomen): Inspection/Auscultation: + abdominal surgical scar (open cholecystectomy ); abdomen not distended Percussion/Palpation: abdomen soft; abdomen nontender Results & Data ([facility]) Vital Signs (Past 12 Hours) Vital Signs Temp Pulse Resp BP Pulse Ox 01/30/22 12:00 37.2 C 78 20 118/70 97 01/30/22 08:00 36.7 C 67 20 101/63 94 01/30/22 02:54 36.5 C 80 20 99/61 L 93 Diagnostic Findings ABDOMEN AND PELVIS CT WITH IV CONTRAST CT DOSE: 3648.19 mGy.cm HISTORY: Subsequent treatment strategy. Follow-up study in a patient with history of lymphoma. eval for lymphoma TECHNIQUE: Multiaxial CT images of the abdomen and pelvis were performed following the IV administration of 94 cc of Optiray, A dose lowering technique was utilized adhering to the principles of ALARA. COMPARISON STUDY: Chest CT of same day, PET CT 07/19/2017, CT abdomen and pelvis 11/05/2015 FINDINGS: The heart is upper limits of normal in size. Coronary artery calcifications. Small right and trace left pleural effusions. Subsegmental bibasilar atelectasis. No pneumatosis or pneumoperitoneum. The spleen is enlarged measuring 14.2 cm in length. Unremarkable right adrenal gland. 11 mm hypodense left adrenal gland suggests adenoma. Pancreatic atrophy. The gallbladder appears surgically absent. Unchanged 1.8 cm left hepatic lobe cyst. There are a few additional subcentimeter hypodensities of the liver which are too small to characterize. Moderate bilateral hydroureteronephrosis. There are several nonobstructing calculi left kidney measuring up to 5 mm. Small bilateral simple and complex renal cysts are again noted. The largest probable complex cyst measures 2.6 cm within the inferior pole right kidney. Marked urinary bladder wall thickening with perivesicular stranding. Enlarged prostate. There is a large pelvic mass which is new from the prior study involving the prostate, serosal margins of the rectum and posteriorly bladder. This measures up to at least 10 cm. Atherosclerotic plaque of the abdominal aorta without aneurysm. Enlarged gastrohepatic, pericaval, aortocaval and iliac chain lymph nodes measure up to 3.5 x 2.0 cm on the left on image 325. Numerous soft tissue nodules in the pelvis are noted along with diffuse omental/peritoneal carcinomatosis. Small volume associated abdominal pelvic ascites. No bowel obstruction. Moderate fecal retention. Scattered serosal implants are noted throughout the large and small bowel. Appendix is noninflamed. Unremarkable soft tissues. No acute fracture or destructive bone lesion. IMPRESSION: 1. Progressive disease manifested by pathologically enlarged lymph nodes of the abdomen and pelvis, diffuse peritoneal/omental carcinomatosis with serosal implants and small volume of abdominal pelvic ascites. 2. There is a large midline pelvic mass encasing the prostate abutting and possibly invading the posterior urinary bladder and rectum. Extensive associated urinary bladder wall thickening with perivesicular stranding. 3. Moderate symmetric bilateral hydroureteronephrosis secondary to the large pelvic mass. 4. Nonobstructing left nephrolithiasis. 5. Splenomegaly is suggestive of lymphomatous involvement. 6. Additional findings as above. ACT 112: Negative or not required by law. The above report was generated using voice recognition software. It may contain grammatical, syntax or spelling errors. Electronically signed by: Mc Mccarthy M.D. 01/29/2022 3:38 PM PG Care Time/CCT Total # of Minutes Spent Total Time Spent with Patient: Total time spent is greater than 50% in coordination of care (as documented) at patient's floor/unit and/or counseling patient: Coding Level of Care Code 55395 Initial Inpt Care Lvl 1 Diagnoses Pelvic mass in male R19.00 H/O diffuse large B-cell lymphoma Z85.72
[2022-01-30 15:13] LABS: Free PSA % 32.6 %; Prostate SpecificAg Diagnostic 0.582 ng/ml (0-4)
--- NOTE | 2022-01-30 20:58 | Hospitalist Progress Note ---
Date of Service January 30, 2022 Assessment & Plan (1) Sepsis: Plan: Patient presented with a clinical picture suggestive of sepsis with elevated lactate, low BP, etc. Thus far no specific source found. Blood cx's are negative. Urine cx never sent in the ER - thus, urine cx sent this afternoon. COVID negative. CT a/p with findings that could be c/w infection of the urinary tract. Cont zosyn/vanco for now while awaiting cultures. Even if cultures are negative consider empiric Rx for UTI/prostatitis. Cortisol level checked and >15. (2) Hypoglycemia: Plan: 2nd to poor oral intake? #1? It does not appear to be adrenal insufficiency as cortisol is >15 although perhaps that is "relative" adrenal insufficiency given the severity of illness. Add dextrose to IV fluids and follow BSGs. (3) Hydronephrosis: Plan: b/l 2nd to obstructing pelvic mass urology consult appreciated -- to hold off on stenting at this time if he ever needed intervention percutaneous nephrostomy tubes would likely be better option per urology trend his creatinine (4) Pelvic mass in male: Plan: clinical picture worrisome for extensive cancer (has carcinomatosis, etc) although he has h/o diffuse large B-Cell lymphoma the current films are not entirely c/w with recurrent lymphoma needs tissue biopsy spoke with radiology, oncology, and general surgery gen surg prefers radiology attempt biopsy under imaging I spoke with Dr Seaman from radiology - will attempt FNA on Wednesday HOLD ELIQUIS in meantime (5) H/O diffuse large B-cell lymphoma: Plan: In remission since 2018. 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 Had again gone into remission in 2018 and had follow-up with Dr. Bailey here every 6 months, transition to yearly visits as of last January. Appreciate Dr. Ruvalcaba's consultation. Again biopsy of mass advised - see #4 above. (6) Hypomagnesemia: Plan: replaced/resolved (7) Leg swelling: Plan: Pelvic mass could be causing pelvic venous compression and LLE edema>RLE edema Venous duplex study of LLE neg for DVT Albumin 3.1 - doubt contributing TSH 09/2021 wnl u/a without protein 2020 echo with EF 50-55% -- and patient otherwise doesn't examine as decompensated CHF (8) Memory problem: Plan: Secondary to OLIVE KNOCKER lymphoma treatment. Poor short-term memory at baseline. 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 Cont to hold metoprolol. HOLD ELIQUIS in preparation for pelvic mass biopsy on Wednesday, 02/02. (10) Benign prostatic hyperplasia with urinary obstruction: Plan: Continue Flomax and finasteride. (11) Dyslipidemia: Plan: continue atorvastatin. (12) Splenomegaly: Plan: due to cancer or recurrent lymphoma? (13) Chronic combined systolic and diastolic congestive heart failure: Plan: 02/20/2021 echo with EF 50-55%. Metoprolol xl on hold due to hypotension yesterday. In the past, Lisinopril has been discontinued secondary to hypotension. Overall remains compensated. Plan: extensively updated at bedside today complex care coordination - 45 minutes in total of care time today Admission and Anticipated Discharge Date Admission Date: January 29, 2022 Subjective at bedside during the visit patient unable to provide any meaningful history because of previous OLIVE KNOCKER lymphoma and Rx for such patient was in process of eating his meal reports no acute issues through the afternoon he had been resting comfortably with questions about plan of care and biopsy Review of Systems Review of Systems: denies pain in any location - no headache, no chest pain, no abd pain no emesis no dyspnea Physical Exam Physical Exam: gen - nontoxic appearing, confused but NAD mouth - MMM neck - no JVD heart - RRR, s1 s2 lungs - CTA b/l abd - soft, NT ND BS+ ext - edema left leg 2+, trace right leg, pulses 2+ b/l neuro - nonfocal examination with equal strength b/l Results & Data Results & Data ([facility]) Vital Signs (Past 12 Hours) Vital Signs Temp Pulse Resp BP Pulse Ox 01/30/22 14:00 37.0 C 83 20 121/59 L 97 01/30/22 12:00 37.2 C 78 20 118/70 97 Laboratory Results Laboratory Results - last 24 hr 01/30/22 01/30/22 01/30/22 06:15 06:15 06:15 WBC 6.75 RBC 3.58 L Hgb 11.4 L Hct 34.4 L MCV 96.1 MCH 31.8 MCHC 33.1 RDW Std Deviation 50.1 H RDW Coeff of Belén 14.4 Plt Count 194 MPV 9.8 Immature Gran % (Auto) 0.3 Neut % (Auto) 73.5 Lymph % (Auto) 15.1 [place] % (Auto) 9.5 Eos % (Auto) 0.9 Baso % (Auto) 0.7 Neut # (Auto) 4.96 Lymph # (Auto) 1.02 L [place] # (Auto) 0.64 H Eos # (Auto) 0.06 Baso # (Auto) 0.05 Immature Gran # (Auto) 0.02 Sodium 143 Potassium 3.5 Chloride 110 H Carbon Dioxide 24 Anion Gap 9 BUN 14 Creatinine 0.96 Est Cr Clr Drug Dosing 88.7 Est GFR ( Amer) 93.1 Est GFR (Non-Af Amer) 80.3 BUN/Creatinine Ratio 14.6 Glucose 49 L* POC Glucose Lactate 2.9 H* Calcium 7.8 L Magnesium 1.8 Total Bilirubin 1.4 H AST 25 ALT 12 Alkaline Phosphatase 51 Lactate Dehydrogenase Total Protein 4.6 L Albumin 2.6 L Globulin 2.0 L Albumin/Globulin Ratio 1.3 Carcinoembryonic Ag CA 19-9 Antigen Prostate Specific Ag Free PSA % Free PSA Random Cortisol Hepatitis C Ab (EIA) Hep C Ab Signal/Cutoff 01/30/22 01/30/22 01/30/22 06:15 06:15 07:47 WBC RBC Hgb Hct MCV MCH MCHC RDW Std Deviation RDW Coeff of Belén Plt Count MPV Immature Gran % (Auto) Neut % (Auto) Lymph % (Auto) [place] % (Auto) Eos % (Auto) Baso % (Auto) Neut # (Auto) Lymph # (Auto) [place] # (Auto) Eos # (Auto) Baso # (Auto) Immature Gran # (Auto) Sodium Potassium Chloride Carbon Dioxide Anion Gap BUN Creatinine Est Cr Clr Drug Dosing Est GFR ( Amer) Est GFR (Non-Af Amer) BUN/Creatinine Ratio Glucose POC Glucose 72 Lactate Calcium Magnesium Total Bilirubin AST ALT Alkaline Phosphatase Lactate Dehydrogenase Total Protein Albumin Globulin Albumin/Globulin Ratio Carcinoembryonic Ag CA 19-9 Antigen Prostate Specific Ag Free PSA % Free PSA Random Cortisol 16.18 Hepatitis C Ab (EIA) Pending Hep C Ab Signal/Cutoff Pending 01/30/22 01/30/22 01/30/22 14:05 14:06 14:06 WBC RBC Hgb Hct MCV MCH MCHC RDW Std Deviation RDW Coeff of Belén Plt Count MPV Immature Gran % (Auto) Neut % (Auto) Lymph % (Auto) [place] % (Auto) Eos % (Auto) Baso % (Auto) Neut # (Auto) Lymph # (Auto) [place] # (Auto) Eos # (Auto) Baso # (Auto) Immature Gran # (Auto) Sodium Potassium Chloride Carbon Dioxide Anion Gap BUN Creatinine Est Cr Clr Drug Dosing Est GFR ( Amer) Est GFR (Non-Af Amer) BUN/Creatinine Ratio Glucose POC Glucose Lactate Calcium Magnesium Total Bilirubin AST ALT Alkaline Phosphatase Lactate Dehydrogenase Total Protein Albumin Globulin Albumin/Globulin Ratio Carcinoembryonic Ag 2.6 H CA 19-9 Antigen Pending Prostate Specific Ag 0.582 Free PSA 0.19 % Free PSA 32.6 Random Cortisol Hepatitis C Ab (EIA) Hep C Ab Signal/Cutoff 01/30/22 01/30/22 01/30/22 14:06 16:41 19:10 WBC RBC Hgb Hct MCV MCH MCHC RDW Std Deviation RDW Coeff of Belén Plt Count MPV Immature Gran % (Auto) Neut % (Auto) Lymph % (Auto) [place] % (Auto) Eos % (Auto) Baso % (Auto) Neut # (Auto) Lymph # (Auto) [place] # (Auto) Eos # (Auto) Baso # (Auto) Immature Gran # (Auto) Sodium Potassium Chloride Carbon Dioxide Anion Gap BUN Creatinine Est Cr Clr Drug Dosing Est GFR ( Amer) Est GFR (Non-Af Amer) BUN/Creatinine Ratio Glucose POC Glucose 73 78 Lactate Calcium Magnesium Total Bilirubin AST ALT Alkaline Phosphatase Lactate Dehydrogenase 566 H Total Protein Albumin Globulin Albumin/Globulin Ratio Carcinoembryonic Ag CA 19-9 Antigen Prostate Specific Ag Free PSA % Free PSA Random Cortisol Hepatitis C Ab (EIA) Hep C Ab Signal/Cutoff Diagnostic Findings blood cx's neg to date PG Care Time/CCT Total # of Minutes Spent Total Time Spent with Patient: Total time spent is greater than 50% in coordination of care (as documented) at patient's floor/unit and/or counseling patient: Coding Level of Care Code 27942 Subseq Hosp Care Lvl 3 Diagnoses Sepsis A41.9 Pelvic mass in male R19.00 H/O diffuse large B-cell lymphoma Z85.72 Hypomagnesemia E83.42 Leg swelling M79.89 Memory problem R41.3 Atrial flutter I48.92 Benign prostatic hyperplasia with urinary obstruction N40.1; N13.8 Dyslipidemia E78.5 Splenomegaly R16.1 Chronic combined systolic and diastolic congestive heart failure I50.42 Hypoglycemia E16.2 Hydronephrosis N13.30
[2022-01-30] MEDS: D5W AND LACTATED RINGERS 1,000 ML IV SCH (21:57)
[2022-01-31] MEDS: PIPERACILLIN/TAZOBACTAM 3.375 GM in DEXTROSE 5% 100 ML IV SCH ×3 (01:12→18:20)
[2022-01-31] MEDS: CETIRIZINE HCL 10 MG TABLET PO SCH (07:45)
[2022-01-31] MEDS: MAGNESIUM OXIDE 400 MG TAB PO SCH (07:45)
[2022-01-31] MEDS: CYANOCOBALAMIN (B-12) 500 MCG TABLET PO SCH (07:45)
[2022-01-31] MEDS: FINASTERIDE 5 MG TAB PO SCH (07:45)
[2022-01-31] MEDS: ATORVASTATIN 40 MG TAB PO SCH (07:45)
[2022-01-31] MEDS: allopurinoL 300 MG TAB PO SCH (07:46)
[2022-01-31] MEDS: TAMSULOSIN HCL 0.4 MG CAP PO SCH ×2 (07:47→20:02)
[2022-01-31] MEDS: CHOLECALCIFEROL 1,000 UNITS 25 MCG TAB PO SCH (07:47)
[2022-01-31] MEDS: NYSTATIN POWDER 15GM BTL EXT SCH ×2 (07:47→20:02)
[2022-01-31] MEDS: DRONEDARONE HCL 400 MG TAB PO SCH ×2 (07:47→20:19)
[2022-01-31 08:58] LABS: Hematocrit (blood only) 34.6 % (42-52); Hemoglobin 11.5 g/dL (14.0-18.0); Mean Corpuscular Hemoglobin 33.1 pg (25-34); Mean Corpuscular Hgb Conc 33.2 g/dL (32-36); Mean Corpuscular Volume 99.7 fL (80-100); Mean Platelet Volume 10.3 fL (7.4-10.4); Platelet Count 209 K/uL (130-400); RDW Coefficient of Variation 14.7 % (11.5-14.5); RDW Standard Deviation 52.9 fL (36.4-46.3); Red Blood Count 3.47 M/uL (4.7-6.1); White Blood Count 7.33 K/uL (4.8-10.8)
[2022-01-31] MEDS: DEXTROSE 10% 1,000 ML IV SCH ×2 (09:00→10:53)
[2022-01-31] MEDS: VANCOMYCIN HCL 1,250 MG in SODIUM CHLORIDE 0.9% 250 ML IV SCH ×2 (09:05→20:10)
[2022-01-31 09:10] LABS: BUN Creatinine Ratio 13.3 (10-20); Calcium 8.2 mg/dl (8.5-10.1); Creatinine Clr Calc Pharmacy 87.7 ml/min; Est GFR (African American) 90.8 ml/min; Est GFR (Non-African American) 78.4 ml/min; Potassium 3.4 mmol/L (3.5-5.1)
--- NOTE | 2022-01-31 13:51 | Urology Progress Note ---
Date of Service January 31, 2022 Assessment & Plan (1) Hydronephrosis: (2) Pelvic mass in male: Plan: He remains hemodynamically stable. Blood pressure and heart rate are within normal limits. No leukocytosis on lab work. Urine culture and blood cultures are both pending and he remains on broad-spectrum antibiotics. Renal function is stable. Will continue to hold off ureteral stent placement for now. Based on chart review it appears he is scheduled for possible FNA with radiology on 02/02. Pending tissue diagnosis/plan/prognosis for his pelvic mass and other suspected metastatic disease, he may still require drainage of his kidneys with stents or more definitive drainage with nephrostomy tubes. Admission and Anticipated Discharge Date Admission Date: January 29, 2022 Subjective Feeling fatigued, right lower back pain No fevers, still having night sweats Physical Exam Physical Exam: Rested comfortably in bed, NAD, dozing off easily Eyes: Conjugate gaze Gastrointestinal (Abdomen): Mild tenderness to palpation on the right side/flank Results & Data ([facility]) Vital Signs (Past 12 Hours) Vital Signs Temp Pulse Pulse Resp BP Pulse Ox 01/31/22 08:00 36.8 C 88 20 118/63 97 01/31/22 07:53 86 01/31/22 03:37 37.1 C 83 22 110/69 93 PG Care Time/CCT Total # of Minutes Spent Total Time Spent with Patient: Total time spent is greater than 50% in coordination of care (as documented) at patient's floor/unit and/or counseling patient: Coding Level of Care Code 03388 Subseq Hosp Care Lvl 1 Diagnoses Hydronephrosis N13.30 Pelvic mass in male R19.00
[2022-01-31] MEDS: POTASSIUM CHLORIDE CRTAB 20 MEQ TABCR PO SCH ×2 (14:15→20:02)
--- NOTE | 2022-01-31 21:02 | Hospitalist Progress Note ---
Date of Service January 31, 2022 Assessment & Plan (1) Sepsis: Plan: Patient presented with a clinical picture suggestive of sepsis with elevated lactate, low BP, etc. Thus far no specific source found although favoring potentially urinary tract infection. Blood cx's are negative. Urine cx is pending, but it was sent well after antibiotics were started, and thus may not recover any growth. PSA wnl. COVID negative. CT a/p with findings that could be c/w infection of the urinary tract. Cont zosyn/vanco until tonight, and if blood cx's remain negative, then change to PO omnicef to cover for possible UTI. Cortisol level checked and >15. (2) Hypoglycemia: Plan: 2nd to poor oral intake? #1? It does not appear to be adrenal insufficiency as cortisol is >15 although perhaps that is "relative" adrenal insufficiency given the severity of illness. d/c current IV fluids. change to D10W at 25cc/hr. Titrate rate to keep BSGs >75. Consider empiric steroids. (3) Hydronephrosis: Plan: b/l 2nd to obstructing pelvic mass urology consult appreciated -- to hold off on stenting at this time if he ever needed intervention percutaneous nephrostomy tubes would likely be better option per urology trend his creatinine but thus far creatinine is stable (4) Pelvic mass in male: Plan: clinical picture worrisome for extensive cancer (has carcinomatosis, etc) although he has h/o diffuse large B-Cell lymphoma the current films are not entirely c/w with recurrent lymphoma needs tissue biopsy spoke with radiology, oncology, and general surgery gen surg prefers radiology attempt biopsy under imaging I spoke with Dr Seaman from radiology - will attempt FNA on Wednesday HOLDING ELIQUIS in meantime (5) H/O diffuse large B-cell lymphoma: Plan: In remission since 2018. 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 Had again gone into remission in 2018 and had follow-up with Dr. Bailey here every 6 months, transition to yearly visits as of last January. Appreciate Dr. Ruvalcaba's consultation. Again biopsy of mass advised - see #4 above. (6) Hypomagnesemia: Plan: replaced/resolved (7) Leg swelling: Plan: Pelvic mass could be causing pelvic venous compression and LLE edema>RLE edema Venous duplex study of LLE neg for DVT Albumin 3.1 - doubt contributing TSH 09/2021 wnl u/a without protein 2020 echo with EF 50-55% -- and patient otherwise doesn't examine as decompensated CHF (8) Memory problem: Plan: Secondary to AUTO BODY CUSTOMIZER lymphoma treatment. Poor short-term memory at baseline. Ommaya reservoir/SITE MONITOR shunt in place Supportive care (9) Atrial flutter: Plan: Continue Multaq. Cont to hold metoprolol due to low-normal BPs. HOLD ELIQUIS in preparation for pelvic mass biopsy on Wednesday, 02/02. (10) Benign prostatic hyperplasia with urinary obstruction: Plan: Continue Flomax and finasteride. PSA noted to be wnl (11) Dyslipidemia: Plan: continue atorvastatin. (12) Splenomegaly: Plan: due to cancer or recurrent lymphoma? (13) Chronic combined systolic and diastolic congestive heart failure: Plan: 02/20/2021 echo with EF 50-55%. Metoprolol xl on hold due to hypotension or low-normal BPs. In the past, Lisinopril has been discontinued secondary to hypotension. Overall remains compensated. Plan: extensively updated at bedside today daughter updated as well Admission and Anticipated Discharge Date Admission Date: January 29, 2022 Subjective tele overnight with NSR at bedside pt unable to provide any meaningful history due to memory/cognitive issues did state that when urology was assessing him earlier in the day he had flank tenderness to palpation pt denies any pain in any location during my visit reports appetite is fair at best Review of Systems Review of Systems: Unobtainable due to cognitive status Physical Exam Physical Exam: gen - nontoxic appearing, confused but NAD, lying comfortably in bed mouth - MMM neck - no JVD heart - RRR, s1 s2, no murmur lungs - CTA b/l abd - soft, NT ND BS+; I could not elicit any flank pain b/l ext - edema left leg 2+, trace right leg, pulses 2+ b/l Results & Data Results & Data ([facility]) Vital Signs (Past 12 Hours) Vital Signs Temp Pulse Resp BP Pulse Ox 01/31/22 19:00 36.6 C 95 H 18 116/66 96 01/31/22 16:00 36.8 C 87 16 124/69 97 Laboratory Results Laboratory Results - last 24 hr 01/30/22 01/31/2222 06:15 05:34 05:35 WBC RBC Hgb Hct MCV MCH MCHC RDW Std Deviation RDW Coeff of Belén Plt Count MPV Sodium Potassium Chloride Carbon Dioxide Anion Gap BUN Creatinine Est Cr Clr Drug Dosing Est GFR ( Amer) Est GFR (Non-Af Amer) BUN/Creatinine Ratio Glucose POC Glucose 62 L* 70 Calcium Procalcitonin Random Vancomycin Hepatitis C Ab (EIA) NON-REACTIVE Hep C Ab Signal/Cutoff 0.01 01/31/22 01/31/22 01/31/22 06:21 06:21 06:22 WBC 7.33 RBC 3.47 L Hgb 11.5 L Hct 34.6 L MCV 99.7 MCH 33.1 MCHC 33.2 RDW Std Deviation 52.9 H RDW Coeff of Belén 14.7 H Plt Count 209 MPV 10.3 Sodium Potassium Chloride Carbon Dioxide Anion Gap BUN Creatinine Est Cr Clr Drug Dosing Est GFR ( Amer) Est GFR (Non-Af Amer) BUN/Creatinine Ratio Glucose POC Glucose Calcium Procalcitonin 0.07 Random Vancomycin 19.7 Hepatitis C Ab (EIA) Hep C Ab Signal/Cutoff 01/31/22 01/31/22 01/31/22 06:22 16:23 20:25 WBC RBC Hgb Hct MCV MCH MCHC RDW Std Deviation RDW Coeff of Belén Plt Count MPV Sodium 143 Potassium 3.4 L Chloride 110 H Carbon Dioxide 22 Anion Gap 11 BUN 13 Creatinine 0.98 Est Cr Clr Drug Dosing 87.7 Est GFR ( Amer) 90.8 Est GFR (Non-Af Amer) 78.4 BUN/Creatinine Ratio 13.3 Glucose 74 POC Glucose 88 76 Calcium 8.2 L Procalcitonin Random Vancomycin Hepatitis C Ab (EIA) Hep C Ab Signal/Cutoff Diagnostic Findings blood cx's negative to date urine cx pending PG Care Time/CCT Total # of Minutes Spent Total Time Spent with Patient: Total time spent is greater than 50% in coordination of care (as documented) at patient's floor/unit and/or counseling patient: Coding Level of Care Code 85412 Subseq Hosp Care Lvl 2 Diagnoses Sepsis A41.9 Hypoglycemia E16.2 Hydronephrosis N13.30 Pelvic mass in male R19.00 H/O diffuse large B-cell lymphoma Z85.72 Hypomagnesemia E83.42 Leg swelling M79.89 Memory problem R41.3 Atrial flutter I48.92 Benign prostatic hyperplasia with urinary obstruction N40.1; N13.8 Dyslipidemia E78.5 Splenomegaly R16.1 Chronic combined systolic and diastolic congestive heart failure I50.42
[2022-02-01] MEDS: D5W AND LACTATED RINGERS 1,000 ML IV SCH (00:47)
[2022-02-01 07:58] LABS: Hematocrit (blood only) 34.8 % (42-52); Hemoglobin 11.6 g/dL (14.0-18.0); Mean Corpuscular Hgb Conc 33.3 g/dL (32-36); Mean Corpuscular Volume 96.1 fL (80-100); Mean Platelet Volume 10.2 fL (7.4-10.4); Platelet Count 200 K/uL (130-400); RDW Coefficient of Variation 14.7 % (11.5-14.5); RDW Standard Deviation 51.7 fL (36.4-46.3); Red Blood Count 3.62 M/uL (4.7-6.1); White Blood Count 7.37 K/uL (4.8-10.8)
[2022-02-01 08:30] LABS: BUN Creatinine Ratio 11.6 (10-20); Calcium 8.4 mg/dl (8.5-10.1); Creatinine Clr Calc Pharmacy 53.1 ml/min; Est GFR (African American) 48.7 ml/min
[2022-02-01] MEDS: TAMSULOSIN HCL 0.4 MG CAP PO SCH ×2 (08:49→20:29)
[2022-02-01] MEDS: POTASSIUM CHLORIDE CRTAB 20 MEQ TABCR PO SCH ×2 (08:49→14:19)
[2022-02-01] MEDS: CEFDINIR 300 MG CAP PO SCH ×2 (08:50→20:29)
[2022-02-01] MEDS: MAGNESIUM OXIDE 400 MG TAB PO SCH (08:50)
[2022-02-01] MEDS: ATORVASTATIN 40 MG TAB PO SCH (08:50)
[2022-02-01] MEDS: allopurinoL 300 MG TAB PO SCH (08:50)
[2022-02-01] MEDS: FINASTERIDE 5 MG TAB PO SCH (08:50)
[2022-02-01] MEDS: CYANOCOBALAMIN (B-12) 500 MCG TABLET PO SCH (08:50)
[2022-02-01] MEDS: NYSTATIN POWDER 15GM BTL EXT SCH ×2 (08:51→20:29)
[2022-02-01] MEDS: CHOLECALCIFEROL 1,000 UNITS 25 MCG TAB PO SCH (08:51)
[2022-02-01] MEDS: CETIRIZINE HCL 10 MG TABLET PO SCH (08:51)
[2022-02-01] MEDS: DEXTROSE 10% 1,000 ML IV SCH (08:56)
[2022-02-01] MEDS: DRONEDARONE HCL 400 MG TAB PO SCH ×2 (10:12→20:29)
--- NOTE | 2022-02-01 17:03 | XRay Report ---
XR chest 1V portable CLINICAL HISTORY: b/l rales; eval pneumonia, edema TECHNIQUE: Single frontal radiograph of the chest was obtained. Comparison: Comparison is made to chest radiograph 01/29/2022 FINDINGS: A port catheter is seen. Calcified aortic knob is seen. The lungs are clear. Sutter density in the le ft lower lung represents a superposition of shadows. No evidence of pleural effusion or pneumothorax. IMPRESSION: No acute chest disease. ACT 112: Negative or not required by law. Electronically signed by: Brandon Burgess M.D. 02/01/2022 5:01 PM
[2022-02-01 17:04] LABS: Appearance Urine Clear (Clear); Bacteria Urine Automated Negative (Negative); Bilirubin Urine Negative (Negative); Blood Urine 2+ (Negative); Color Urine Yellow; Epithelial Cell Urine Auto 0-5 /lpf (0-5); Glucose Urine UA Negative (Negative); Ketones Urine Trace (Negative); Leukocyte Esterase Urine Negative (Negative); Nitrite Urine Negative (Negative); Protein Urine Trace (Negative); Specific Gravity Urine 1.017 (1.000-1.030); Urobilinogen Urine Negative (Negative); pH Urine 5.5 (4.5-7.5)
[2022-02-01] MEDS ORDERED: IPRATROPIUM BROMIDE/ALBUTEROL respimat INH INH STA (17:35)
[2022-02-01] MEDS ORDERED: IPRATROPIUM BROMIDE HFA INHALER INH STA (17:39)
[2022-02-01] MEDS ORDERED: ALBUTEROL HFA 8 GM INHALER INH STA (17:39)
[2022-02-01] MEDS: ALBUTEROL HFA 8 GM INHALER INH SCH (19:08)
[2022-02-01] MEDS: IPRATROPIUM BROMIDE HFA INHALER INH SCH (19:08)
--- NOTE | 2022-02-01 20:18 | Hospitalist Progress Note ---
Date of Service February 01, 2022 Assessment & Plan (1) Sepsis: Plan: Patient presented with a clinical picture suggestive of sepsis with elevated lactate, low BP, etc. Thus far no specific source found although favoring potentially urinary tract infection despite negative urine culture. (but urine culture was sent well after antibiotics were started, and thus may not recover any growth). Blood cultures negative. COVID negative. PSA normal. CXR and Chest CT without pneumonia. CT a/p with findings that could be c/w infection of the urinary tract. s/p 2 days each of zosyn/vanco. although cultures are negative will continue antibiotics for potential UTI - omnicef 300mg BID. zosyn/vanco stopped. (2) Hypoglycemia: Plan: 2nd to poor oral intake? #1? It does not appear to be adrenal insufficiency as cortisol is >15 although perhaps that is "relative" adrenal insufficiency given the severity of illness. Continue dextrose containing fluids (D10%). BSGs do seem to finally be trending in right direction. Defer on steroids at this time. (3) Hydronephrosis: Plan: b/l 2nd to obstructing pelvic mass urology consult appreciated -- to hold off on stenting at this time if he ever needed intervention percutaneous nephrostomy tubes would likely be better option per urology trend his creatinine but thus far creatinine is stable (4) Pelvic mass in male: Plan: clinical picture worrisome for extensive cancer (has carcinomatosis, etc) although he has h/o diffuse large B-Cell lymphoma the current films are not entirely c/w with recurrent lymphoma needs tissue biopsy spoke with radiology, oncology, and general surgery Dr Seaman from radiology will attempt FNA on Wednesday thus, NPO after MN tonight for biopsy in am Wednesday HOLDING ELIQUIS in meantime - last dose was 01/30 at 0800 (5) Hematuria: Plan: began today. just before its development the patient had developed urinary retention. hull placed and wiggins red urine was obtained upon hull insertion. hull insertion was easy/nontraumatic per staff. the pelvic mass is compressing the bladder, the prostate, etc. there is suspicion of UTI. thus, the hematuria could be from any one of the above issues. I alerted urology to the hematuria. Observation for now. Eliquis is on hold. If he develops worsening hematuria or catheter becomes occluded then urology would need to intervene potentially. (6) H/O diffuse large B-cell lymphoma: Plan: In remission since 2018. 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 Had again gone into remission in 2018 and had follow-up with Dr. Bailey here every 6 months, transition to yearly visits as of last January. Appreciate Dr. Ruvalcaba's consultation. Again biopsy of mass advised - see #4 above. (7) Hypomagnesemia: Plan: replaced/resolved (8) Leg swelling: Plan: Pelvic mass could be causing pelvic venous compression and LLE edema>RLE edema Venous duplex study of LLE neg for DVT Albumin 3.1 - doubt contributing TSH 09/2021 wnl u/a without protein 2020 echo with EF 50-55% -- and patient otherwise doesn't examine as decompensated CHF (9) Memory problem: Plan: Secondary to TRESTLE MAINTERNANCE LABORER lymphoma treatment. Poor short-term memory at baseline. Ommaya reservoir/BASKET OPERATOR shunt in place Supportive care (10) Atrial flutter: Plan: Continue Multaq. Cont to hold metoprolol due to low-normal BPs. HOLD ELIQUIS in preparation for pelvic mass biopsy on Wednesday, 02/02. Last dose of Eliquis was 01/30 at 0800. (11) Benign prostatic hyperplasia with urinary obstruction: Plan: Continue Flomax and finasteride. PSA noted to be wnl Hull now in place due to inability to void today (12) Dyslipidemia: Plan: continue atorvastatin. (13) Splenomegaly: Plan: due to cancer or recurrent lymphoma? (14) Chronic combined systolic and diastolic congestive heart failure: Plan: 02/20/2021 echo with EF 50-55%. Metoprolol xl on hold due to hypotension or low-normal BPs. In the past, Lisinopril has been discontinued secondary to hypotension. Overall remains compensated. (15) Abnormal chest sounds: Plan: o2 sats wnl. I obtained repeat pCXR today - wnl. etiology? aspiration? mild pul edema? will follow carefully. he clinically does not appear volume overloaded. (16) Acute kidney injury: Plan: 2nd to obstructive issues given the events of the day (development of urinary retention, gross hematuria, etc)? hull now in place. IV fluids remain. repeat BMP am. Plan: extensively updated at bedside once again today Admission and Anticipated Discharge Date Admission Date: January 29, 2022 Subjective tele overnight wnl due to memory issues and cognitive impairment unable to provide a lot of history but he did state that his right back was hurting him at bedside - she reports appetite is a bit better; he is "more like himself today" (more interactive, etc) during the visit he told me that he had to void he denied any suprapubic pain I placed a urinal for him - he was ultimately unable to avoid bladder scan 450cc reports he hadn't voided since the morning thus, hull placed by nursing staff at my request immediately upon insertion the urine was wiggins red in appearance Review of Systems Review of Systems: gen - no fevers cv - no cp pulm - mild cough today only GI - no abd pain Physical Exam Physical Exam: gen - nontoxic appearing, confused but NAD, lying comfortably in bed, coughing today mouth - MMM neck - no JVD heart - RRR, s1 s2, no murmur lungs - b/l end- exp wheeze, mild rales bases; no increased work of breathing abd - soft, NT ND BS+; still no flank/cva tenderness b/l ext - <1+ edema right leg, edema left leg 2+, pulses 2+ b/l psych - oriented to person only Results & Data Results & Data ([facility]) Vital Signs (Past 12 Hours) Vital Signs Temp Pulse Pulse Resp BP Pulse Ox 02/01/22 19:08 18 02/01/22 19:00 36.9 C 96 H 18 119/81 93 02/01/22 14:51 94 H 02/01/22 14:00 36.7 C 94 H 20 133/61 02/01/22 11:16 36.8 C 87 20 126/69 02/01/22 08:52 36.4 C L 97 H 18 115/72 97 Laboratory Results Laboratory Results - last 24 hr 01/31/22 02/01/22 02/01/22 20:25 07:06 07:06 WBC 7.37 RBC 3.62 L Hgb 11.6 L Hct 34.8 L MCV 96.1 MCH 32.0 MCHC 33.3 RDW Std Deviation 51.7 H RDW Coeff of Belén 14.7 H Plt Count 200 MPV 10.2 Sodium 142 Potassium 4.0 Chloride 110 H Carbon Dioxide 23 Anion Gap 9 BUN 19 Creatinine 1.64 H D Est Cr Clr Drug Dosing 53.1 Est GFR ( Amer) 48.7 Est GFR (Non-Af Amer) 42.0 BUN/Creatinine Ratio 11.6 Glucose 57 L POC Glucose 76 Calcium 8.4 L Urine Color Urine Appearance Urine pH Ur Specific Ione Urine Protein Urine Glucose (UA) Urine Ketones Urine Blood Urine Nitrite Urine Bilirubin Urine Urobilinogen Ur Leukocyte Esterase Urine WBC (Auto) Urine RBC (Auto) U Hyaline Cast (Auto) U Epithel Cells (Auto) Urine Bacteria (Auto) 02/01/22 02/01/22 02/01/22 07:27 07:28 11:23 WBC RBC Hgb Hct MCV MCH MCHC RDW Std Deviation RDW Coeff of Belén Plt Count MPV Sodium Potassium Chloride Carbon Dioxide Anion Gap BUN Creatinine Est Cr Clr Drug Dosing Est GFR ( Amer) Est GFR (Non-Af Amer) BUN/Creatinine Ratio Glucose POC Glucose 65 L* 83 81 Calcium Urine Color Urine Appearance Urine pH Ur Specific Ione Urine Protein Urine Glucose (UA) Urine Ketones Urine Blood Urine Nitrite Urine Bilirubin Urine Urobilinogen Ur Leukocyte Esterase Urine WBC (Auto) Urine RBC (Auto) U Hyaline Cast (Auto) U Epithel Cells (Auto) Urine Bacteria (Auto) 02/01/22 02/01/22 16:33 16:50 WBC RBC Hgb Hct MCV MCH MCHC RDW Std Deviation RDW Coeff of Belén Plt Count MPV Sodium Potassium Chloride Carbon Dioxide Anion Gap BUN Creatinine Est Cr Clr Drug Dosing Est GFR ( Amer) Est GFR (Non-Af Amer) BUN/Creatinine Ratio Glucose POC Glucose 116 H Calcium Urine Color Yellow Urine Appearance Clear Urine pH 5.5 Ur Specific Ione 1.017 Urine Protein Trace H Urine Glucose (UA) Negative Urine Ketones Trace H Urine Blood 2+ H Urine Nitrite Negative Urine Bilirubin Negative Urine Urobilinogen Negative Ur Leukocyte Esterase Negative Urine WBC (Auto) 1-5 Urine RBC (Auto) 10-30 H U Hyaline Cast (Auto) 1-5 U Epithel Cells (Auto) 0-5 Urine Bacteria (Auto) Negative Diagnostic Findings blood/urine cx's negative PG Care Time/CCT Total # of Minutes Spent Total Time Spent with Patient: Total time spent is greater than 50% in coordination of care (as documented) at patient's floor/unit and/or counseling patient: Coding Level of Care Code 35442 Subseq Hosp Care Lvl 3 Diagnoses Sepsis A41.9 Hypoglycemia E16.2 Hydronephrosis N13.30 Pelvic mass in male R19.00 H/O diffuse large B-cell lymphoma Z85.72 Hypomagnesemia E83.42 Leg swelling M79.89 Memory problem R41.3 Atrial flutter I48.92 Benign prostatic hyperplasia with urinary obstruction N40.1; N13.8 Dyslipidemia E78.5 Splenomegaly R16.1 Chronic combined systolic and diastolic congestive heart failure I50.42 Hematuria R31.9 Abnormal chest sounds R09.89 Acute kidney injury N17.9
[2022-02-01] MEDS: ACETAMINOPHEN 325 MG TAB PO PRN (20:28)
[2022-02-01] MEDS ORDERED: IPRATROPIUM BROMIDE/ALBUTEROL respimat INH INH SCH (21:00)
[2022-02-01] MEDS: SODI CHLOR 2.5MEQ/ML 14.6% 77 MEQ in DEXTROSE 10% 1,000 ML IV SCH (22:14)
[2022-02-02] MEDS ORDERED: HALOPERIDOL LACTATE 5 MG/ML 1 ML VIAL IM STA (04:03)
[2022-02-02] MEDS: ALBUTEROL HFA 8 GM INHALER INH SCH ×2 (07:18→11:15)
[2022-02-02] MEDS: IPRATROPIUM BROMIDE HFA INHALER INH SCH ×2 (07:18→11:16)
[2022-02-02 08:06] LABS: Hematocrit (blood only) 32.4 % (42-52); Hemoglobin 10.6 g/dL (14.0-18.0); Mean Corpuscular Hemoglobin 31.8 pg (25-34); Mean Corpuscular Hgb Conc 32.7 g/dL (32-36); Mean Corpuscular Volume 97.3 fL (80-100); Mean Platelet Volume 9.9 fL (7.4-10.4); Platelet Count 187 K/uL (130-400); RDW Coefficient of Variation 14.5 % (11.5-14.5); RDW Standard Deviation 51.8 fL (36.4-46.3); Red Blood Count 3.33 M/uL (4.7-6.1); White Blood Count 8.71 K/uL (4.8-10.8)
[2022-02-02] MEDS: CHOLECALCIFEROL 1,000 UNITS 25 MCG TAB PO SCH (08:23)
[2022-02-02] MEDS: CYANOCOBALAMIN (B-12) 500 MCG TABLET PO SCH (08:23)
[2022-02-02] MEDS: ATORVASTATIN 40 MG TAB PO SCH (08:23)
[2022-02-02] MEDS: NYSTATIN POWDER 15GM BTL EXT SCH ×2 (08:23→20:11)
[2022-02-02] MEDS: MAGNESIUM OXIDE 400 MG TAB PO SCH (08:24)
[2022-02-02] MEDS: CETIRIZINE HCL 10 MG TABLET PO SCH (08:24)
[2022-02-02] MEDS: DRONEDARONE HCL 400 MG TAB PO SCH ×2 (08:24→20:11)
[2022-02-02] MEDS: TAMSULOSIN HCL 0.4 MG CAP PO SCH ×2 (08:24→20:11)
[2022-02-02] MEDS: allopurinoL 300 MG TAB PO SCH (08:24)
[2022-02-02] MEDS: CEFDINIR 300 MG CAP PO SCH ×2 (08:24→20:10)
[2022-02-02] MEDS: FINASTERIDE 5 MG TAB PO SCH (08:24)
[2022-02-02 08:43] LABS: BUN Creatinine Ratio 11.3 (10-20); Calcium 8.7 mg/dl (8.5-10.1); Creatinine Clr Calc Pharmacy 44.7 ml/min; Est GFR (African American) 39.5 ml/min; Est GFR (Non-African American) 34.1 ml/min
[2022-02-02] MEDS ORDERED: ALBUTEROL HFA 8 GM INHALER INH PRN (11:01)
[2022-02-02] MEDS ORDERED: IPRATROPIUM BROMIDE HFA INHALER INH PRN (11:01)
--- NOTE | 2022-02-02 14:07 | Ultrasound Report ---
RENAL ULTRASOUND CLINICAL HISTORY: evaluate for hydronephrosis COMPARISON STUDY: CT of the abdomen and pelvis January 29, 2022. TECHNIQUE: Sonography of the kidneys and the urinary bladder was performed. FINDINGS: The right kidney measures 10.8 cm in maximal dimension and the left measures 12.1 cm. Moder ate bilateral hydronephrosis is similar to CT of January 29, 2022. There is mild renal cortical thinning . Bladder is collapsed, containing a Farrar balloon. Bladder wall thickening is again noted. Pelvic ma ss is better depicted on prior CT. IMPRESSION: No significant change in moderate bilateral hydronephrosis since CT of January 29, 2022. ACT 112: Negative or not required by law. Electronically signed by: Usama Seaman M.D. 02/02/2022 2:06 PM
--- NOTE | 2022-02-02 14:11 | Ultrasound Report ---
US FNA w/img 1st lesion CLINICAL HISTORY: Pelvic mass. Peritoneal/omental disease. History of lymphoma. COMPARISON STUDY: CT of the abdomen and pelvis January 29, 2022. PROCEDURE: Sonography of the abdomen demonstrated left lower omental masslike thickening and a small amount of ascites. This was targeted for fine needle aspiration. The pelvic mass was not amenable to percutaneous biopsy. The procedure, risks and benefits were discussed with the patient and informed w ritten consent was obtained. The procedure was performed by Dr. Seaman following a timeout. Skin o f the left lower quadrant was prepped and draped in sterile fashion and local anesthesia achieved wit h 1% lidocaine. Under direct ultrasound guidance, fine needle aspiration of the left lower quadrant o mental masslike thickening was performed. Atypical lymphocytes were noted on preliminary pathology. C ore biopsy could not be performed given proximity to the colon. Given patient's pain during fine-need le aspiration, no additional passes were performed. No immediate complications were evident. IMPRESSION: Successful ultrasound guided fine-needle aspiration of left lower quadrant omental/perit moran mass. ACT 112: Negative or not required by law. Electronically signed by: Usama Seaman M.D. 02/02/2022 2:09 PM
--- NOTE | 2022-02-02 14:36 | Urology Progress Note ---
Date of Service February 02, 2022 Assessment & Plan (1) Acute kidney injury: Plan: Creatinine is increasing, most likely obstructive in nature Farrar catheter has been in place for less than 24 hours so there is a chance that this could still help. If creatinine is still increasing tomorrow may require attempted stent placement or transfer for nephrostomy tube placement. Overall prognosis for hydronephrosis will depend on prognosis for the pelvic mass. Hopefully FNA from today will be helpful in determining pathology. (2) Hematuria: Plan: Suspect the hematuria is related to catheter placement and possibly decompression of distended bladder. Urine is still draining, therefore would hold off any intervention. (3) Pelvic mass in male: (4) Hydronephrosis: Plan: Recommend n.p.o. at midnight with maintenance IV fluids. Urology will reassess in the morning regarding potential stent placement. Admission and Anticipated Discharge Date Admission Date: January 29, 2022 Subjective No complaints today Just returning from renal ultrasound and fine-needle aspiration Creatinine has increased today (0.98 -> 1.64 -> 1.95). Still no leukocytosis and electrolytes are within normal limits. Physical Exam Physical Exam: Tired appearing, NAD Respiratory: Breathing comfortably on room air Results & Data ([facility]) Vital Signs (Past 12 Hours) Vital Signs Temp Pulse Pulse Resp BP Pulse Ox 02/02/22 12:00 36.5 C 87 20 120/69 95 02/02/22 08:10 36.5 C 92 H 16 113/72 98 02/02/22 07:24 85 02/02/22 07:21 93 H 16 93 02/02/22 03:00 37.0 C 104 H 20 120/74 95 PG Care Time/CCT Total # of Minutes Spent Total Time Spent with Patient: Total time spent is greater than 50% in coordination of care (as documented) at patient's floor/unit and/or counseling patient: Coding Level of Care Code 86059 Subseq Hosp Care Lvl 1 Diagnoses Acute kidney injury N17.9 Hematuria R31.9 Pelvic mass in male R19.00 Hydronephrosis N13.30
[2022-02-02] MEDS: SODI CHLOR 2.5MEQ/ML 14.6% 77 MEQ in DEXTROSE 10% 1,000 ML IV SCH (17:42)
--- NOTE | 2022-02-02 22:31 | Hospitalist Progress Note ---
Date of Service February 02, 2022 Assessment & Plan (1) Sepsis: Plan: Suspected at time of admission. Very high lactates, low glucose, low BP, etc at time of presentation. However, blood/urine cx's negative. COVID negative. CXR and Chest CT without pneumonia. CT a/p with findings that could be c/w infection of the urinary tract (bladder wall thickening, etc). s/p 2 days each of zosyn/vanco post-admission. Although cultures were negative will continue antibiotics presumptively forl UTI - omnicef 300mg BID. zosyn/vanco stopped. (2) Acute kidney injury: Plan: suspected to be 2nd to obstruction in the face of his pelvic mass, b/l hydro, gross hematuria development yesterday, etc. no casts seen on u/a to suggest ATN check urine Na and Cr - calculate FeNa cont IVF - increase rate to 75cc/hr repeat BMP am. (3) Hypoglycemia: Plan: 2nd to poor oral intake? #1? It does not appear to be adrenal insufficiency as cortisol is >15 although perhaps that is "relative" adrenal insufficiency given the severity of illness (ie expect cortisol would be higher in the face of #1). Continue dextrose containing fluids (D10%). BSGs do seem to finally be trending in right direction. Defer on steroids at this time. Recheck a procal in am. Will recheck a cortisol in am. If <10 consider stress-dose steroids given the severity of illness. (4) Hydronephrosis: Plan: b/l 2nd to obstructing pelvic mass urology consult appreciated repeat renal u/s today with unchanged hydro b/l [id number], if creatinine continues to worsen, nephrology may perform cysto +/- bilateral stent placement other option is percutaneous nephrostomy tubes keep NPO at [place] tonight eliquis remains on hold repeat BMP am (5) Pelvic mass in male: Plan: clinical picture worrisome for extensive cancer (has carcinomatosis, etc) although he has h/o diffuse large B-Cell lymphoma the current films are not entirely c/w with recurrent lymphoma s/p FNA today of mass intra-op slides showed atypical lymphocytes per the radiology note await official pathology report appreciate radiology assistance appreciate Dr Ruvalcaba's consult cont to hold Eliquis - last dose was 01/30 at 0800 (6) Hematuria: Plan: began 02/01/22. just before its development the patient had developed urinary retention. hull placed and wiggins red urine was obtained upon hull insertion. hull insertion was easy/nontraumatic per staff. the pelvic mass is compressing the bladder, the prostate, etc. there is suspicion of UTI. thus, the hematuria could be from any one of the above issues. Eliquis remains on hold. recheck INR in am to ensure no coagulopathy. see above in #3. (7) H/O diffuse large B-cell lymphoma: Plan: In remission since 2018. 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 Had again gone into remission in 2018 and had follow-up with Dr. Bailey here every 6 months, transition to yearly visits as of last January. Appreciate Dr. Ruvalcaba's consultation. s/p FNA of pelvic mass today. (8) Hypomagnesemia: Plan: replaced/resolved (9) Leg swelling: Plan: Pelvic mass could be causing pelvic venous compression and LLE edema>RLE edema Venous duplex study of LLE neg for DVT Albumin 3.1 - doubt contributing TSH 09/2021 wnl u/a without protein 2020 echo with EF 50-55% -- and patient otherwise doesn't examine as decompensated CHF edema is stable (10) Memory problem: Plan: Secondary to LEAD HOUSEKEEPER lymphoma treatment. Poor short-term memory at baseline. Ommaya reservoir/FINISH MENDER shunt in place Supportive care (11) Atrial flutter: Plan: Continue Multaq. Cont to hold metoprolol due to low-normal BPs. Cont to HOLD ELIQUIS as he may need additional procedures and due to the hematuria. (12) Benign prostatic hyperplasia with urinary obstruction: Plan: Continue Flomax and finasteride. PSA noted to be wnl [place] (13) Dyslipidemia: Plan: continue atorvastatin. (14) Splenomegaly: Plan: due to cancer or recurrent lymphoma? (15) Chronic combined systolic and diastolic congestive heart failure: Plan: 02/20/2021 echo with EF 50-55%. Metoprolol xl on hold due to hypotension or low-normal BPs. In the past, Lisinopril has been discontinued secondary to hypotension. Overall remains compensated. Cont IV fluids judiciously. (16) Abnormal chest sounds: Plan: 02/01 cxr, however, wnl and today's lung exam is wnl follow Plan: extensively updated at bedside once again today daughter updated at bedside gave support, answered questions, etc Admission and Anticipated Discharge Date Admission Date: January 29, 2022 Subjective patient, due to his memory/cognitive impairment, again offers little meaningful history/ROS he was sleeping during the visit easily arousable cooperative denied pain in any location at bedside she states he only coughed 1x throughout the day appetite fair at best; liquid intake fair/poor hull continues to drain wiggins red urine patient underwent successful FNA of pelvic mass today tele with NSR overnight Review of Systems Review of Systems: Unobtainable due to cognitive status Physical Exam Physical Exam: gen - nontoxic appearing, sleepy today but arousable; pleasant confusion, lying comfortably in bed, coughed 1x over my 20 minute visit mouth - MMM skin - turgor wnl neck - no JVD heart - RRR, s1 s2, no murmur lungs - CTA b/l, no rales, no wheeze abd - soft, NT ND BS+; no cva tenderness b/l ext - 1+ edema right leg, edema left leg 2+, pulses 2+ b/l psych - oriented to person only - hull in place draining wiggins red urine Results & Data Results & Data ([facility]) Vital Signs (Past 12 Hours) Vital Signs Temp Pulse Pulse Resp BP Pulse Ox 02/02/22 19:38 37.2 C 103 H 18 115/71 96 02/02/22 17:25 90 02/02/22 14:00 36.4 C L 74 18 117/60 96 02/02/22 12:00 36.5 C 87 20 120/69 95 Laboratory Results Laboratory Results - last 24 hr 01/30/22 02/02/22 02/02/22 14:06 07:28 07:28 WBC 8.71 RBC 3.33 L Hgb 10.6 L Hct 32.4 L MCV 97.3 MCH 31.8 MCHC 32.7 RDW Std Deviation 51.8 H RDW Coeff of Belén 14.5 Plt Count 187 MPV 9.9 Sodium 141 Potassium 4.0 Chloride 109 H Carbon Dioxide 22 Anion Gap 10 BUN 22 Creatinine 1.95 H D Est Cr Clr Drug Dosing 44.7 Est GFR ( Amer) 39.5 Est GFR (Non-Af Amer) 34.1 BUN/Creatinine Ratio 11.3 Glucose 81 POC Glucose Calcium 8.7 CA 19-9 Antigen <3 Flow Cytometry Comment 02/02/22 02/02/22 02/02/22 07:31 11:30 13:40 WBC RBC Hgb Hct MCV MCH MCHC RDW Std Deviation RDW Coeff of Belén Plt Count MPV Sodium Potassium Chloride Carbon Dioxide Anion Gap BUN Creatinine Est Cr Clr Drug Dosing Est GFR ( Amer) Est GFR (Non-Af Amer) BUN/Creatinine Ratio Glucose POC Glucose 89 71 Calcium CA 19-9 Antigen Flow Cytometry Comment Pending 02/02/22 02/02/22 16:37 20:13 WBC RBC Hgb Hct MCV MCH MCHC RDW Std Deviation RDW Coeff of Belén Plt Count MPV Sodium Potassium Chloride Carbon Dioxide Anion Gap BUN Creatinine Est Cr Clr Drug Dosing Est GFR ( Amer) Est GFR (Non-Af Amer) BUN/Creatinine Ratio Glucose POC Glucose 85 77 Calcium CA 19-9 Antigen Flow Cytometry Comment Diagnostic Findings Aspiration 02/02/22 05:42 US FNA w/img 1st lesion CLINICAL HISTORY: Pelvic mass. Peritoneal/omental disease. History of lymphoma. COMPARISON STUDY: CT of the abdomen and pelvis January 29, 2022. PROCEDURE: Sonography of the abdomen demonstrated left lower omental masslike thickening and a small amount of ascites. This was targeted for fine needle a spiration. The pelvic mass was not amenable to percutaneous biopsy. The procedure, risks and benefits were discussed with the patient and informed written consent was obtained. The procedure was performed by Dr. Seaman following a timeout. Skin of the left lower quadrant was prepped and draped in sterile fashion and local anesthesia achieved with 1% lidocaine. Under direct ultrasound guidance, fine needle aspiration of the left lower quadrant omental masslike thickening was performed. Atypical lymphocytes were noted on preliminary pathology. Core biopsy could not be performed given proximity to the colon. Given patient's pain during fine-needle aspiration, no additional passes were performed. No immediate complications were evident. IMPRESSION: Successful ultrasound guided fine-needle aspiration of left lower quadrant omental/peritoneal mass. ACT 112: Negative or not required by law. Electronically signed by: Usama Seaman M.D. 02/02/2022 2:09 PM Renal Ultrasound 02/02/22 10:18 RENAL ULTRASOUND CLINICAL HISTORY: evaluate for hydronephrosis COMPARISON STUDY: CT of the abdomen and pelvis January 29, 2022. TECHNIQUE: Sonography of the kidneys and the urinary bladder was performed. FINDINGS: The right kidney measures 10.8 cm in maximal dimension and the left measures 12.1 cm. Moderate bilateral hydronephrosis is similar to CT of January 29, 2022. There is mild renal cortical thinning. Bladder is collapsed, containing a Hull balloon. Bladder wall thickening is again noted. Pelvic mass is better depicted on prior CT. IMPRESSION: No significant change in moderate bilateral hydronephrosis since CT of January 29, 2022. ACT 112: Negative or not required by law. Electronically signed by: Usama Seaman M.D. 02/02/2022 2:06 PM PG Care Time/CCT Total # of Minutes Spent Total Time Spent with Patient: Total time spent is greater than 50% in coordination of care (as documented) at patient's floor/unit and/or counseling patient: Coding Level of Care Code 91849 Subseq Hosp Care Lvl 3 Diagnoses Sepsis A41.9 Hypoglycemia E16.2 Hydronephrosis N13.30 Pelvic mass in male R19.00 Hematuria R31.9 H/O diffuse large B-cell lymphoma Z85.72 Hypomagnesemia E83.42 Leg swelling M79.89 Memory problem R41.3 Atrial flutter I48.92 Benign prostatic hyperplasia with urinary obstruction N40.1; N13.8 Dyslipidemia E78.5 Splenomegaly R16.1 Chronic combined systolic and diastolic congestive heart failure I50.42 Abnormal chest sounds R09.89 Acute kidney injury N17.9
[2022-02-03 06:15] LABS: INR 1.1 (0.9-1.1); Prothrombin Time 11.9 Seconds (9.0-12.0)
[2022-02-03 06:16] LABS: Hematocrit (blood only) 32.2 % (42-52); Hemoglobin 10.6 g/dL (14.0-18.0); Mean Corpuscular Hgb Conc 32.9 g/dL (32-36); Mean Corpuscular Volume 97.3 fL (80-100); Mean Platelet Volume 10.1 fL (7.4-10.4); Platelet Count 194 K/uL (130-400); RDW Coefficient of Variation 14.6 % (11.5-14.5); RDW Standard Deviation 52.2 fL (36.4-46.3); Red Blood Count 3.31 M/uL (4.7-6.1); White Blood Count 8.86 K/uL (4.8-10.8)
[2022-02-03 06:24] LABS: BUN Creatinine Ratio 10.4 (10-20); Calcium 8.4 mg/dl (8.5-10.1); Est GFR (Non-African American) 34.5 ml/min; Magnesium 1.7 mg/dl (1.7-2.4); Potassium 4.1 mmol/L (3.5-5.1)
[2022-02-03 07:00] LABS: Creatinine Urine Random 107.2 mg/dl
[2022-02-03] MEDS ORDERED: DEXTROSE 50% 50 ML SYRINGE IV ONE (07:09)
[2022-02-03] MEDS: SODI CHLOR 2.5MEQ/ML 14.6% 77 MEQ in DEXTROSE 10% 1,000 ML IV SCH ×2 (07:29→22:21)
[2022-02-03] MEDS: NYSTATIN POWDER 15GM BTL EXT SCH ×2 (07:30→20:02)
[2022-02-03] MEDS: CYANOCOBALAMIN (B-12) 500 MCG TABLET PO SCH (07:32)
[2022-02-03] MEDS: CETIRIZINE HCL 10 MG TABLET PO SCH (07:32)
[2022-02-03] MEDS: FINASTERIDE 5 MG TAB PO SCH (07:32)
[2022-02-03] MEDS: allopurinoL 300 MG TAB PO SCH (07:32)
[2022-02-03] MEDS: DRONEDARONE HCL 400 MG TAB PO SCH ×2 (07:33→20:01)
[2022-02-03] MEDS: CEFDINIR 300 MG CAP PO SCH ×2 (07:33→20:01)
[2022-02-03] MEDS: CHOLECALCIFEROL 1,000 UNITS 25 MCG TAB PO SCH (07:33)
[2022-02-03] MEDS: MAGNESIUM OXIDE 400 MG TAB PO SCH (07:33)
[2022-02-03] MEDS: TAMSULOSIN HCL 0.4 MG CAP PO SCH ×2 (07:33→20:01)
[2022-02-03] MEDS: ATORVASTATIN 40 MG TAB PO SCH (07:33)
[2022-02-03] MEDS ORDERED: GLUCAGON FOR INJ 1 MG VIAL SQ PRN (08:17)
[2022-02-03] MEDS ORDERED: CARBOHYDRATES FOR HYPOGLYCEMIA PO PRN (08:17)
[2022-02-03] MEDS ORDERED: GLUCOSE 40% GEL 15 GM TUBE PO PRN (08:17)
[2022-02-03] MEDS ORDERED: GLUCOSE 10 TAB/TUBE PO PRN (08:17)
--- NOTE | 2022-02-03 11:22 | Hospitalist Progress Note ---
Date of Service February 03, 2022 Assessment & Plan (1) Sepsis: Plan: Suspected at time of admission. Very high lactates, low glucose, low BP, etc at time of presentation. However, blood/urine cx's negative. COVID negative. CXR and Chest CT without pneumonia. CT a/p with findings that could be c/w infection of the urinary tract (bladder wall thickening, etc). s/p 2 days each of zosyn/vanco post-admission. Although cultures were negative will continue antibiotics presumptively for UTI - omnicef 300mg BID. zosyn/vanco stopped. Lactate likely elevated from elevated LDH/suspected lymphoma (2) Acute kidney injury: Plan: suspected to be 2nd to obstruction in the face of his pelvic mass, b/l hydro, gross hematuria development His wash helper was normal though prior to admission despite known bilat hydro and pelvic mass no casts seen on u/a to suggest ATN Sweatband Flanger stable today at 1.9 FeNa 1.0% consistent with intrinsic renal failure eg ATN, AIN, glomerulonephritis but UA without casts, but with RBCs which could be from Hull trauma. Trace protein not concerning Could be AIN from antibiotics? Or also post-renal failure from extrinsic compression from pelvic mass cont IVF repeat BMP am. Urology consulted-holding off on ureteral stents today as wash helper stable. If renal failure worsens, recommend transfer out for perc neph tubes Will consult Nephrology today also (3) Hypoglycemia: Plan: 2nd to poor oral intake? #1? It does not appear to be adrenal insufficiency as cortisol is >15 although perhaps that is "relative" adrenal insufficiency given the severity of illness (ie expect cortisol would be higher in the face of #1). Continue dextrose containing fluids (D10%). Still some low glucose today AM cortisol > 10 Defer on steroids at this time. No evidence of sepsis. Repeat procal neg, no fevers, BPs stable, BCxs no growth -ordered hypoglycemia protocol and accuchecks (4) Oral candidiasis: Plan: extensive, causing sore throat start Nystatin s/s x 14 day course (5) Hydronephrosis: Plan: b/l 2nd to obstructing pelvic mass urology consult appreciated repeat renal u/s with unchanged hydro b/l [id number], if creatinine continues to worsen, Urology recommends perc neprhostomy tubes eliquis remains on hold in case of need for procedure repeat BMP am (6) Pelvic mass in male: Plan: clinical picture worrisome for extensive cancer (has carcinomatosis, etc) although he has h/o diffuse large B-Cell lymphoma the current films are not entirely c/w with recurrent lymphoma s/p FNA 02/02 of mass intra-op slides showed atypical lymphocytes per the radiology note await official pathology report appreciate radiology assistance appreciate Dr Ruvalcaba's consult cont to hold Eliquis - last dose was 01/30 at 0800 (7) Hematuria: Plan: began 02/01/22. just before its development the patient had developed urinary retention. hull placed and wiggins red urine was obtained upon hull insertion. hull insertion was easy/nontraumatic per staff. the pelvic mass is compressing the bladder, the prostate, etc. there is suspicion of UTI. thus, the hematuria could be from any one of the above issues. Eliquis remains on hold. INR remains normal--no coagulopathy. (8) H/O diffuse large B-cell lymphoma: Plan: In remission since 2018. 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 Had again gone into remission in 2018 and had follow-up with Dr. Bailey here every 6 months, transition to yearly visits as of last January. Appreciate Dr. Ruvalcaba's consultation. s/p FNA of pelvic mass (9) Hypomagnesemia: Plan: replace with 1 gram IV mag today to keep closer to 2.0 given h/o aflutter (10) Leg swelling: Plan: Pelvic mass could be causing pelvic venous compression and LLE edema>RLE edema Venous duplex study of LLE neg for DVT Albumin 3.1 - doubt contributing TSH 09/2021 wnl u/a without protein 2020 echo with EF 50-55% -- and patient otherwise doesn't examine as decompensated CHF edema is stable (11) Memory problem: Plan: Secondary to APARTMENT MAINTENANCE SUPERVISOR lymphoma treatment. Poor short-term memory at baseline. Ommaya reservoir/GROUP LEADER SEMICONDUCTOR TESTING shunt in place Supportive care (12) Atrial flutter: Plan: Continue Multaq. Remains in sinus rhythm here Cont to hold metoprolol due to low-normal BPs. Cont to HOLD ELIQUIS as he may need additional procedures and due to the hematuria. (13) Benign prostatic hyperplasia with urinary obstruction: Plan: Continue Flomax and finasteride. PSA noted to be wnl [place] (14) Dyslipidemia: Plan: continue atorvastatin. (15) Splenomegaly: Plan: due to cancer or recurrent lymphoma? (16) Chronic combined systolic and diastolic congestive heart failure: Plan: 02/20/2021 echo with EF 50-55%. Metoprolol xl on hold due to hypotension or low-normal BPs. In the past, Lisinopril has been discontinued secondary to hypotension. Overall remains compensated. Cont IV fluids judiciously. Plan: updated at bedside today Dispo-continued stay on tele Admission and Anticipated Discharge Date Admission Date: January 29, 2022 Subjective Pt c/o sore throat. Otherwise, pleasantly confused, thinks he is going home today. at [facility]. She reports other than being a little more confused than usual, no other concerns on her end. I discussed his care with Urology CORDUROY CUTTING SUPERVISOR. Tele with NSR, normal rates Review of Systems Review of Systems: All systems reviewed & are unremarkable except as noted in HPI & below Physical Exam Constitutional: WD/WN, vitals as above Eyes: + anicteric sclerae ENMT: Mouth: + oropharynx abnormality (copious white exudate tongue,buccal mucosa,posterior OP) Neck: trachea midline, no thyromegaly Respiratory: normal respiratory effort, lungs clear to auscultation Cardiovascular: Rate/Rhythm: regular rate and regular rhythm Heart Sounds: no murmur Extremities: + edema (2+ pitting edema legs bilat L>R) Chest (Breasts): Chest: normal inspection of chest Gastrointestinal (Abdomen): normal bowel sounds, soft, nontender, no hepatosplenomegaly Musculoskeletal: Extremities: extremities normal to inspection; no cyanosis and no clubbing Skin: no rashes, warm and dry Neurologic: moves all extremities and awake; no focal motor deficits Psychiatric: Orientation: alert, oriented to person, oriented to place and cooperative Genitourinary: Hull in place with red tinged urine Results & Data Results & Data ([facility]) Vital Signs (Past 12 Hours) Vital Signs Temp Pulse Resp BP Pulse Ox 02/03/22 07:31 36.8 C 94 H 18 116/71 95 02/03/22 03:19 36.9 C 89 20 109/76 94 Laboratory Results 02/03/22 02/03/22 02/03/22 Range/Units 11:22 11:20 07:27 WBC (4.8-10.8) K/uL RBC (4.7-6.1) M/uL Hgb (14.0-18.0) g/dL Hct (42-52) % MCV (80-100) fL MCH (25-34) pg MCHC (32-36) g/dL RDW Std Deviation (36.4-46.3) fL RDW Coeff of Belén (11.5-14.5) % Plt Count (130-400) K/uL MPV (7.4-10.4) fL PT (9.0-12.0) Seconds INR (0.9-1.1) Sodium (136-145) mmol/L Potassium (3.5-5.1) mmol/L Chloride (98-107) mmol/L Carbon Dioxide (21-32) mmol/L Anion Gap (3-11) BUN (6-23) mg/dl Creatinine (0.6-1.4) mg/dl Est Cr Clr Drug Dosing ml/min Est GFR ( Amer) ml/min Est GFR (Non-Af Amer) ml/min BUN/Creatinine Ratio (10-20) Glucose (70-99(Fasting)) mg/dl POC Glucose 74 69 L* 271 H (70-99) mg/dl Calcium (8.5-10.1) mg/dl Magnesium (1.7-2.4) mg/dl Procalcitonin (0-0.5) ng/ml Cortisol AM Sample (6.2-22.6) mcg/dl Ur Random Creatinine mg/dl Ur Random Sodium mmol/L Flow Cytometry Comment 02/03/22 02/03/22 02/03/22 Range/Units 07:19 07:03 07:02 WBC (4.8-10.8) K/uL RBC (4.7-6.1) M/uL Hgb (14.0-18.0) g/dL Hct (42-52) % MCV (80-100) fL MCH (25-34) pg MCHC (32-36) g/dL RDW Std Deviation (36.4-46.3) fL RDW Coeff of Belén (11.5-14.5) % Plt Count (130-400) K/uL MPV (7.4-10.4) fL PT (9.0-12.0) Seconds INR (0.9-1.1) Sodium (136-145) mmol/L Potassium (3.5-5.1) mmol/L Chloride (98-107) mmol/L Carbon Dioxide (21-32) mmol/L Anion Gap (3-11) BUN (6-23) mg/dl Creatinine (0.6-1.4) mg/dl Est Cr Clr Drug Dosing ml/min Est GFR ( Amer) ml/min Est GFR (Non-Af Amer) ml/min BUN/Creatinine Ratio (10-20) Glucose (70-99(Fasting)) mg/dl POC Glucose 64 L* 69 L* (70-99) mg/dl Calcium (8.5-10.1) mg/dl Magnesium (1.7-2.4) mg/dl Procalcitonin (0-0.5) ng/ml Cortisol AM Sample 11.28 (6.2-22.6) mcg/dl Ur Random Creatinine mg/dl Ur Random Sodium mmol/L Flow Cytometry Comment 02/03/22 02/03/22 02/03/22 Range/Units 06:20 05:48 05:48 WBC (4.8-10.8) K/uL RBC (4.7-6.1) M/uL Hgb (14.0-18.0) g/dL Hct (42-52) % MCV (80-100) fL MCH (25-34) pg MCHC (32-36) g/dL RDW Std Deviation (36.4-46.3) fL RDW Coeff of Belén (11.5-14.5) % Plt Count (130-400) K/uL MPV (7.4-10.4) fL PT (9.0-12.0) Seconds INR (0.9-1.1) Sodium 140 (136-145) mmol/L Potassium 4.1 (3.5-5.1) mmol/L Chloride 108 H (98-107) mmol/L Carbon Dioxide 22 (21-32) mmol/L Anion Gap 10 (3-11) BUN 20 (6-23) mg/dl Creatinine 1.93 H (0.6-1.4) mg/dl Est Cr Clr Drug Dosing 45.0 ml/min Est GFR ( Amer) 40.0 ml/min Est GFR (Non-Af Amer) 34.5 ml/min BUN/Creatinine Ratio 10.4 (10-20) Glucose 69 L (70-99(Fasting)) mg/dl POC Glucose (70-99) mg/dl Calcium 8.4 L (8.5-10.1) mg/dl Magnesium 1.7 (1.7-2.4) mg/dl Procalcitonin 0.14 (0-0.5) ng/ml Cortisol AM Sample (6.2-22.6) mcg/dl Ur Random Creatinine 107.2 mg/dl Ur Random Sodium 80 mmol/L Flow Cytometry Comment 02/03/22 02/03/22 02/02/22 Range/Units 05:48 05:48 20:13 WBC 8.86 (4.8-10.8) K/uL RBC 3.31 L (4.7-6.1) M/uL Hgb 10.6 L (14.0-18.0) g/dL Hct 32.2 L (42-52) % MCV 97.3 (80-100) fL MCH 32.0 (25-34) pg MCHC 32.9 (32-36) g/dL RDW Std Deviation 52.2 H (36.4-46.3) fL RDW Coeff of Belén 14.6 H (11.5-14.5) % Plt Count 194 (130-400) K/uL MPV 10.1 (7.4-10.4) fL PT 11.9 (9.0-12.0) Seconds INR 1.1 (0.9-1.1) Sodium (136-145) mmol/L Potassium (3.5-5.1) mmol/L Chloride (98-107) mmol/L Carbon Dioxide (21-32) mmol/L Anion Gap (3-11) BUN (6-23) mg/dl Creatinine (0.6-1.4) mg/dl Est Cr Clr Drug Dosing ml/min Est GFR ( Amer) ml/min Est GFR (Non-Af Amer) ml/min BUN/Creatinine Ratio (10-20) Glucose (70-99(Fasting)) mg/dl POC Glucose 77 (70-99) mg/dl Calcium (8.5-10.1) mg/dl Magnesium (1.7-2.4) mg/dl Procalcitonin (0-0.5) ng/ml Cortisol AM Sample (6.2-22.6) mcg/dl Ur Random Creatinine mg/dl Ur Random Sodium mmol/L Flow Cytometry Comment 02/02/22 02/02/22 02/02/22 Range/Units 16:37 13:40 11:30 WBC (4.8-10.8) K/uL RBC (4.7-6.1) M/uL Hgb (14.0-18.0) g/dL Hct (42-52) % MCV (80-100) fL MCH (25-34) pg MCHC (32-36) g/dL RDW Std Deviation (36.4-46.3) fL RDW Coeff of Belén (11.5-14.5) % Plt Count (130-400) K/uL MPV (7.4-10.4) fL PT (9.0-12.0) Seconds INR (0.9-1.1) Sodium (136-145) mmol/L Potassium (3.5-5.1) mmol/L Chloride (98-107) mmol/L Carbon Dioxide (21-32) mmol/L Anion Gap (3-11) BUN (6-23) mg/dl Creatinine (0.6-1.4) mg/dl Est Cr Clr Drug Dosing ml/min Est GFR ( Amer) ml/min Est GFR (Non-Af Amer) ml/min BUN/Creatinine Ratio (10-20) Glucose (70-99(Fasting)) mg/dl POC Glucose 85 71 (70-99) mg/dl Calcium (8.5-10.1) mg/dl Magnesium (1.7-2.4) mg/dl Procalcitonin (0-0.5) ng/ml Cortisol AM Sample (6.2-22.6) mcg/dl Ur Random Creatinine mg/dl Ur Random Sodium mmol/L Flow Cytometry Comment Pending PG Care Time/CCT Total # of Minutes Spent Total Time Spent with Patient: Total time spent is greater than 50% in coordination of care (as documented) at patient's floor/unit and/or counseling patient: Coding Level of Care Code 36697 Subseq Hosp Care Lvl 3 Diagnoses Sepsis A41.9 Acute kidney injury N17.9 Hypoglycemia E16.2 Hydronephrosis N13.30 Pelvic mass in male R19.00 Hematuria R31.9 H/O diffuse large B-cell lymphoma Z85.72 Hypomagnesemia E83.42 Leg swelling M79.89 Memory problem R41.3 Atrial flutter I48.92 Benign prostatic hyperplasia with urinary obstruction N40.1; N13.8 Dyslipidemia E78.5 Splenomegaly R16.1 Chronic combined systolic and diastolic congestive heart failure I50.42 Oral candidiasis B37.0
[2022-02-03] MEDS ORDERED: MAGNESIUM SULFATE / D5W 1 GM/100 ML BAG IV ONE (11:24)
--- NOTE | 2022-02-03 12:06 | Urology Progress Note ---
Date of Service February 03, 2022 Assessment & Plan (1) Hydronephrosis: (2) Acute kidney injury: (3) Hematuria: Plan: 71y M with a PMH of b cell lymphoma who presented with c/o weakness and night sweats and admitted for sepsis. He underwent a CT a/p that revealed a large mass surrounding the prostate in the anterior portion of the rectum as well as the posterior bladder wall, bladder wall thickening, and moderate symmetric bilateral hydroureteronephrosis secondary to the large pelvic mass. - Plan of care reviewed with Dr. Vaz, on-call urologist. - Pt afebrile, hemodynamically stable. - Labs reviewed- No leukocytosis, Creatinine 1.93. - Urine culture negative, blood cultures preliminary no growth x48 hours. - Farrar catheter intact, draining light pink urine. Continue to monitor. - No plan for acute intervention at this time. - Creatinine remains elevated, but stable today. Will continue to monitor closely. If kidney function worsens, may need to consider transfer to tertiary center for percutaneous nephrostomy tubes. - Continue supportive care and close monitoring. - Maintain Farrar catheter. - Urology will follow. Admission and Anticipated Discharge Date Admission Date: January 29, 2022 Subjective Pt examined at bedside this AM. at bedside. No acute distress. Farrar catheter intact. Offered no complaints at time of exam. Review of Systems Constitutional: as per Subjective / HPI Genitourinary: + as per Subjective / HPI Physical Exam Constitutional: no acute distress Pleasantly confused Respiratory: Breathing comfortably on room air. Neurologic: awake Psychiatric: Orientation: alert and oriented to person Genitourinary: Farrar catheter intact Results & Data ([facility]) Vital Signs (Past 12 Hours) Vital Signs Temp Pulse Pulse Resp BP Pulse Ox 02/03/22 11:52 96 H 02/03/22 11:37 36.8 C 91 H 16 110/67 95 02/03/22 07:31 36.8 C 94 H 18 116/71 95 02/03/22 03:19 36.9 C 89 20 109/76 94 PG Care Time/CCT Total # of Minutes Spent Total Time Spent with Patient: Total time spent is greater than 50% in coordination of care (as documented) at patient's floor/unit and/or counseling patient: Coding Level of Care Code 52881 Subseq Hosp Care Lvl 2 Diagnoses Hydronephrosis N13.30 Acute kidney injury N17.9 Hematuria R31.9
--- NOTE | 2022-02-03 12:26 | Nephrology Consultation ---
Date of Consultation February 03, 2022 Assessment & Plan (1) Acute kidney injury: (2) Hematuria: (3) Hydronephrosis: (4) Hypomagnesemia: (5) Weakness: (6) H/O diffuse large B-cell lymphoma: 71-year-old gentlemen with history of B-cell lymphoma in 2011 and 2014, admitted with recent onset of generalized weakness, night sweats with concern for recurrence and CT abdomen pelvis showed extensive metastatic disease and large pelvic mass causing bilateral hydronephrosis. baseline normal renal function, baseline creatinine 0.7-0.9, on admission renal function was normal however developed SOTERO over last 3 days with creatinine 1.6 then worsened to 1.9 and staying relatively stable overnight. Has Farrar catheter with decent amount of dark bloody urine. CT abdomen pelvis on admission was done with contrast so there may be some concern for contrast induced nephropathy however most likely SOTERO secondary to obstructive uropathy with bilateral hydronephrosis. Had FNA of mass on 02/02/22. Currently he is clinically stable, no abdominal distention or pain, no sign of volume overload, electrolyte has been acceptable. Blood pressure fair. waiting on biopsy report. -- discussed with Urology team has been monitoring him closely for any need for urgent intervention however there has been concern with the size of the pelvic mass, ureteral stent may not even work because of external compression and definitive intervention may be a nephrostomy tube. -- continue to monitor renal function -- encourage p.o. intake, if p.o. intake remains poor, suggest starting on maintenance IV fluid. Will follow Thank you for allowing me to participate in your patient's care. It was a pleasure to see Stephon. History of Present Illness Reason for Consultation: Acute kidney injury, bilateral hydronephrosis. Attending Physician: Kaye Smith MD History of Present Illness Mr. Wojciech Jacobsen is a 71 y/o male with PMH of b-cell lymphoma in 2011 with recurrence in 2016, atrial fibrillation, hyperlipidemia, and BPH Admitted to the hospital with concern for recurrence of lymphoma. Nephrology consult was requested as he developed SOTERO. EMR records are reviewed in detail during patient's visit. Detail record provided by his Elisa at bedside as he was somewhat lethargic and falling asleep easily. Stephon was admitted to hospital on 01/29/2022 with generalized weakness, night sweats with prior history of lymphoma. He was initially diagnosed with lymphoma in 2011 when he presented with acute kidney injury secondary to obstructive uropathy and imaging showed pelvic lymphadenopathy. He was treated with 3 cycles of R-CHOP followed by 2 cycles of dose-adjusted R-EPOCH. Eventually SOTERO resolved and renal function went back to normal. Creatinine has been staying around 0.7-0.9. Complication of chemotherapy included atrial flutter eventually causing cardiomyopathy and thyroiditis leading to hyperthyroidism. EF was 45-40 50%. He was subsequently diagnosed with isolated [employer] relapse with [employer] lymphoma In 2014, treated with high-dose methotrexate, etoposide, temozolomide, rituximab, and intrathecal DepoCyt at [place]. He subsequently transferred care to [facility] where he continued maintenance single agent methotrexate through 2017. Since then, the patient has been on surveillance with no evidence of recurrent malignancy.In 2014 after treatment for lymphoma was completed he developed [employer] lymphoma, treated with intrathecal chemotherapy with methotrexate. Treatment was complicated by some cognitive dysfunction with loss of short-term memory. He was referred to [facility] where he was treated with extended course of methotrexate. Recently his has been noticing him being generally weak and falls asleep easily during daytime even after sleeping through the night. She also noticed night sweats which made her concern and she called her oncologist last week with this symptoms and concern who recommended he come to ER for further evaluation. She also reports that over last few months she has been noticing his urinary stream has been low and he has not been urinating the way he used to. CT abdomen pelvis with contrast on admission on 01/29/2022 showed large pelvic mass causing bilateral hydronephrosis and extensive metastatic disease. CT chest, head CT and chest x-ray was negative for any active disease. On admission hemoglobin was 12.6 which dropped to 10.1 this morning with prior hemoglobin around 14. renal function was at baseline with creatinine around 0.8- 0.9 but developed SOTERO with creatinine 1.6 on 02/01/2022 which slightly worsened to 1.9 yesterday but stayed relatively stable today. Electrolyte acceptable. Has Farrar catheter, making decent urine which has been dark, bloody. Has history of atrial flutter, on anticoagulation with apixaban. Nonischemic cardiomyopathy thought to be related to prior chemotherapy. On statin for dyslipidemia. Prior history of smoking for almost 20 years quit many years ago. 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 to his Elisa, has 2 grownup children. No known family history of CKD or ESRD. He denied any symptom, except feeling just tired, no pain, shortness of breath. Allergies Allergy/AdvReac Type Severity Reaction Status Date / Time No Known Drug Allergies Allergy Verified 10/06/21 12:32 Home Medications Medication Instructions Recorded Confirmed Type cetirizine 10 mg tablet 10 mg PO DAILY tab 02/20/19 10/06/21 History cholecalciferol (vitamin D3) 50 2,000 units PO DAILY tab 02/20/19 10/06/21 History mcg (2,000 unit) tablet cyanocobalamin (vitamin B-12) 1,000 mcg PO DAILY tab 02/20/19 10/06/21 History 1,000 mcg tablet magnesium oxide 400 mg (241.3 mg 400 mg PO DAILY tab 04/06/19 10/06/21 History magnesium) tablet apixaban 5 mg tablet 5 mg PO BID #180 tab 02/12/21 10/06/21 Rx metoprolol succinate 25 mg 25 mg PO DAILY #90 tab 06/16/21 10/06/21 Rx tablet,extended release 24 hr allopurinol 300 mg tablet 300 mg PO DAILY #90 tab 10/06/21 10/06/21 Rx atorvastatin 40 mg tablet 40 mg PO DAILY #90 tab 10/06/21 10/06/21 Rx nystatin 100,000 unit/gram topical 1 applic TOPICAL BID #30 g 10/06/21 10/06/21 Rx powder finasteride 5 mg tablet 5 mg PO DAILY #90 tab 10/07/21 10/07/21 Rx tamsulosin 0.4 mg capsule 0.4 mg PO BID #180 cap 10/07/21 10/07/21 Rx dronedarone 400 mg tablet 400 mg PO BID #180 tab 10/13/21 Rx Patient History Medical History Acute cholecystitis with chronic cholecystitis Anemia Atrial flutter Benign prostatic hyperplasia with urinary obstruction Chronic combined systolic and diastolic congestive heart failure [employer] lymphoma Cold intolerance Diffuse well-differentiated lymphocytic lymphoma Dyslipidemia Fatigue Hypotension Memory problem Multiple thyroid nodules Nonischemic cardiomyopathy Vertigo Surgical History History of bone marrow biopsy History of brain surgery History of cholecystectomy History of lithotripsy History of thoracentesis S/P cystoscopy with ureteral stent placement Family History Mother Cardiac disorder Hypertension FHx: deafness or hearing loss Stroke Leukemia Father Cardiac disorder Hypertension Lung cancer Recurrent kidney stones Social History Smoking Status: Former smoker Tobacco Type: Cigarettes Age Started Using Tobacco: 23; Age Quit Using Tobacco: 42; packs per day: 0.75; Second Hand Exposure: No; Hx Alcohol Use: No Hx Substance Use: No Preferred Language: Divehi Communication Ability: Effective Visual Impairment: Limited Hearing Ability: Use of Hearing Aid Stoker Erector Required: No Beliefs That Will Affect Care: None marital status: Current Living Situation: Spouse current occupational status: retired Feels Safe at Home: Yes Childhood Exposure to Second-Hand Smoke: Yes Dental Care, Regularly: Yes Physical Activity Frequency: Does not Exercise Seatbelt Use: always Sunscreen Use: Yes (sometimes) Assistive Devices: Cane Review of Systems Review of Systems: Detailed review of system was otherwise unremarkable except mention above in HPI. Physical Exam Constitutional: WD/WN, vitals as above no acute distress Pale, lethargic Eyes: + anicteric sclerae Neck: normal visual inspection Respiratory: normal respiratory effort; no respiratory distress and no cough Auscultation: lungs clear to auscultation bilaterally Cardiovascular: Rate/Rhythm: regular rate and regular rhythm Heart Sounds: normal S1 and normal S2 Extremities: no edema Gastrointestinal (Abdomen): Inspection/Auscultation: abdomen normal to inspection and normal bowel sounds Percussion/Palpation: abdomen soft; abdomen nontender Musculoskeletal: Extremities: extremities normal to inspection Skin: no rashes Neurologic: no focal motor deficits Psychiatric: Orientation: alert and oriented x 3 Affect: euthymic affect Results & Data ([facility]) Vital Signs (Past 12 Hours) Vital Signs Temp Pulse Pulse Resp BP Pulse Ox 02/03/22 11:52 96 H 02/03/22 11:37 36.8 C 91 H 16 110/67 95 02/03/22 07:31 36.8 C 94 H 18 116/71 95 06/28/22 03:19 36.9 C 89 20 109/76 94 PG Care Time/CCT Total # of Minutes Spent Total Time Spent with Patient: Total time spent is greater than 50% in coordination of care (as documented) at patient's floor/unit and/or counseling patient: Coding Level of Care Code 24454 Initial Inpt Care Lvl 3 Diagnoses Acute kidney injury N17.9 Hematuria R31.9 Hydronephrosis N13.30 Hypomagnesemia E83.42 Weakness R53.1 H/O diffuse large B-cell lymphoma Z85.72
[2022-02-03] MEDS: NYSTATIN SUSP 500,000 U/5 ML UDC PO SCH ×3 (12:42→20:01)
[2022-02-04 06:24] LABS: Basophils # (auto) 0.03 K/uL (0-0.2); Basophils % (auto) 0.4 %; Eosinophils # (auto) 0.12 K/uL (0-0.5); Eosinophils % (auto) 1.5 %; Hematocrit (blood only) 31.8 % (42-52); Hemoglobin 10.6 g/dL (14.0-18.0); Immature Granulocytes # (auto) 0.02 K/uL (0.00-0.02); Immature Granulocytes % (auto) 0.2 %; Lymphocytes # (auto) 0.99 K/uL (1.2-3.4); Lymphocytes % (auto) 12.3 %; Mean Corpuscular Hemoglobin 32.7 pg (25-34); Mean Corpuscular Hgb Conc 33.3 g/dL (32-36); Mean Corpuscular Volume 98.1 fL (80-100); Mean Platelet Volume 10.2 fL (7.4-10.4); Monocytes # (auto) 0.81 K/uL (0.11-0.59); Neutrophils # (auto) 6.09 K/uL (1.4-6.5); Neutrophils % (auto) 75.6 %; Platelet Count 195 K/uL (130-400); RDW Coefficient of Variation 14.4 % (11.5-14.5); RDW Standard Deviation 51.8 fL (36.4-46.3); Red Blood Count 3.24 M/uL (4.7-6.1); White Blood Count 8.06 K/uL (4.8-10.8)
[2022-02-04 06:38] LABS: Albumin Globulin Ratio 1.1 (0.9-2); Albumin Level 2.4 gm/dl (3.4-5.0); BUN Creatinine Ratio 10.1 (10-20); Bilirubin,Total 0.9 mg/dl (0.2-1.0); Calcium 8.3 mg/dl (8.5-10.1); Creatinine Clr Calc Pharmacy 48.9 ml/min; Est GFR (African American) 43.8 ml/min; Est GFR (Non-African American) 37.8 ml/min; Globulin 2.1 gm/dl (2.5-4.0); Magnesium 1.7 mg/dl (1.7-2.4); Potassium 3.9 mmol/L (3.5-5.1); Total Protein 4.5 gm/dl (6.0-8.3)
[2022-02-04] MEDS ORDERED: MAGNESIUM SULFATE / D5W 1 GM/100 ML BAG IV ONE (08:05)
[2022-02-04] MEDS: DEXTROSE 50% 50 ML SYRINGE IV PRN ×2 (08:30→11:27)
[2022-02-04] MEDS: CEFDINIR 300 MG CAP PO SCH ×2 (08:31→20:41)
[2022-02-04] MEDS: NYSTATIN SUSP 500,000 U/5 ML UDC PO SCH ×4 (08:31→20:41)
[2022-02-04] MEDS: DRONEDARONE HCL 400 MG TAB PO SCH ×2 (08:31→20:41)
[2022-02-04] MEDS: FINASTERIDE 5 MG TAB PO SCH (08:31)
[2022-02-04] MEDS: NYSTATIN POWDER 15GM BTL EXT SCH ×2 (08:31→20:40)
[2022-02-04] MEDS: allopurinoL 300 MG TAB PO SCH (08:32)
[2022-02-04] MEDS: CYANOCOBALAMIN (B-12) 500 MCG TABLET PO SCH (08:32)
[2022-02-04] MEDS: TAMSULOSIN HCL 0.4 MG CAP PO SCH ×2 (08:32→20:41)
[2022-02-04] MEDS: CETIRIZINE HCL 10 MG TABLET PO SCH (08:32)
[2022-02-04] MEDS: ATORVASTATIN 40 MG TAB PO SCH (08:32)
[2022-02-04] MEDS: CHOLECALCIFEROL 1,000 UNITS 25 MCG TAB PO SCH (08:32)
[2022-02-04] MEDS: MAGNESIUM OXIDE 400 MG TAB PO SCH (08:33)
--- NOTE | 2022-02-04 09:33 | Nephrology Progress Note ---
Date of Service February 04, 2022 Assessment & Plan (1) Acute kidney injury: (2) Hematuria: (3) Hydronephrosis: (4) Hypomagnesemia: (5) Weakness: (6) H/O diffuse large B-cell lymphoma: Plan: 71-year-old gentlemen with history of B-cell lymphoma in 2011 and 2014, admitted with recent onset of generalized weakness, night sweats with concern for recurrence and CT abdomen pelvis showed extensive metastatic disease and large pelvic mass causing bilateral hydronephrosis. baseline normal renal function, baseline creatinine 0.7-0.9, on admission renal function was normal however developed SOTERO over last 3 days with creatinine 1.6 then worsened to 1.9 and staying relatively stable overnight. Has Farrar catheter with decent amount of dark bloody urine. CT abdomen pelvis on admission was done with contrast so there may be some concern for contrast induced nephropathy however most likely SOTERO secondary to obstructive uropathy with bilateral hydronephrosis. Had FNA of mass on 02/02/22. Currently he is clinically stable, no abdominal distention or pain, no sign of volume overload, electrolyte has been acceptable. Blood pressure fair. waiting on biopsy report. Renal function slightly improved. --waiting on Urology decision regarding ureteral stent placement vs continued monitoring considering concerns stent may be difficult to place and may not even work because of external compression and definitive intervention may be a nephrostomy tube. -- continue to monitor renal function -- encourage p.o. intake, if p.o. intake remains poor, suggest starting on maintenance IV fluid. Will follow Thank you for allowing me to participate in your patient's care. It was a pleasure to see Stephon. Admission and Anticipated Discharge Date Admission Date: January 29, 2022 Subjective Stephon was seen and evaluated this morning. Clinically stable, denies any symptoms, decent UO. Cr slightly improved, electrolyte acceptable. Review of Systems Review of Systems: Detailed review of system was otherwise unremarkable except mention above in HPI. Physical Exam Constitutional: WD/WN, vitals as above no acute distress Eyes: + anicteric sclerae Neck: normal visual inspection Respiratory: no respiratory distress and no cough Auscultation: lungs clear to auscultation bilaterally Cardiovascular: Rate/Rhythm: regular rate and regular rhythm Extremities: + edema Skin: no rashes Neurologic: no focal motor deficits Psychiatric: Orientation: alert and oriented x 3 Affect: euthymic affect Results & Data ([facility]) Vital Signs (Past 12 Hours) Vital Signs Temp Pulse Pulse Resp BP Pulse Ox 02/04/22 07:44 36.4 C L 96 H 15 98/54 L 94 02/04/22 07:43 93 H 02/04/22 02:46 36.7 C 88 22 113/65 94 02/03/22 22:46 36.9 C 99 H 20 118/75 94 02/03/22 22:20 87 PG Care Time/CCT Total # of Minutes Spent Total Time Spent with Patient: Total time spent is greater than 50% in coordination of care (as documented) at patient's floor/unit and/or counseling patient: Coding Level of Care Code 59628 Subseq Hosp Care Lvl 3 Diagnoses Acute kidney injury N17.9 Hematuria R31.9 Hydronephrosis N13.30 Hypomagnesemia E83.42 Weakness R53.1 H/O diffuse large B-cell lymphoma Z85.72
[2022-02-04 09:36] LABS: Phosphorus 2.9 mg/dl (2.5-4.9); Uric Acid 5.4 mg/dl (2.6-7.2)
--- NOTE | 2022-02-04 11:18 | XCELERA ---
[id number]
[2022-02-04] MEDS: predniSONE 50 MG TAB PO SCH (11:30)
[2022-02-04] MEDS ORDERED: APIXABAN 5 MG TABLET PO ONE (12:00)
--- NOTE | 2022-02-04 12:23 | Hospitalist Progress Note ---
Date of Service February 04, 2022 Assessment & Plan (1) Lymphoma: Plan: Presented with pelvic mass seen on CT abd/pel after coming in with night sweats, weakness, suspected sepsis clinical picture worrisome for extensive cancer (has carcinomatosis, etc) although he has h/o diffuse large B-Cell lymphoma the current films were not entirely c/w with recurrent lymphoma s/p FNA 02/02 of mass --> path and flow cytometry now show likely diffuse large B cell lymphoma vs high grade follicular lymphoma -not enough tissue as per Oncology for FISH studies -plan for BMBx and aspirate tomorrow -if has "double or triple hit" type of mutations, has much poorer prognosis -check ECHO for baseline-not much significant -check brain MRI with contrast once manager drug safety improves to see about recurrent FOOD PRESERVATION SCIENTIST disease although reports he had just recently had a normal brain MRI within the last 1-2 months -start prednisone 100mg po daily -continue allopurinol for TLS-LDH high but uric acid and Phos normal, follow labs -has port in place if needs chemo Appreciate Oncology consult (2) Sepsis: Plan: Suspected at time of admission. Now ruled out Very high lactates, low glucose, low BP, etc at time of presentation. However, blood/urine cx's negative. COVID negative. CXR and Chest CT without pneumonia. CT a/p with findings that could be c/w infection of the urinary tract (bladder wall thickening, etc), but Ur cx negative s/p 2 days each of zosyn/vanco post-admission. Although cultures were negative , he was continued on antibiotics presumptively for UTI - omnicef 300mg BID-this can now be discontinued Lactate likely elevated from elevated LDH/suspected lymphoma (3) Acute kidney injury: Plan: suspected to be 2nd to obstruction in the face of his pelvic mass, b/l hydro, gross hematuria development His manager drug safety was normal though prior to admission despite known bilat hydro and pelvic mass no casts seen on u/a to suggest ATN History Instructor peaked at 1.9, but now down to 1.7 Non-oliguric, with some gross hematuria now improving FeNa 1.0% consistent with intrinsic renal failure eg ATN, AIN, glomerulonephritis but UA without casts, but with RBCs which could be from Hull trauma. Trace protein not concerning Could be AIN from antibiotics? Or also post-renal failure from extrinsic compression from pelvic mass or THAYER from hematuria or enlarged prostate -maintain Hull as per Urology -ok to dc IVFs today -repeat BMP am. Urology consulted- If renal failure worsens, recommend transfer out for perc neph tubes Appreciate Nephrology consultation (4) Hypoglycemia: Plan: Most likely 2/2 lymphoma It does not appear to be adrenal insufficiency as cortisol is >15 Starting high dose prednisone-ok to dc D10W No evidence of sepsis. Repeat procal neg, no fevers, BPs stable, BCxs no growth -ordered hypoglycemia protocol and accuchecks (5) Oral candidiasis: Plan: extensive, causing sore throat continue Nystatin s/s x 14 day course (6) Hydronephrosis: Plan: b/l 2nd to obstructing pelvic mass urology consult appreciated repeat renal u/s with unchanged hydro b/l [id number], if creatinine continues to worsen, Urology recommends perc nephrostomy tubes ok to resume Eliquis today as no impending Urology procedure (7) Hematuria: Plan: began 02/01/22. just before its development the patient had developed urinary retention. hull placed and wiggins red urine was obtained upon hull insertion. hull insertion was easy/nontraumatic per staff. the pelvic mass is compressing the bladder, the prostate, etc. UTI ruled out INR remains normal--no coagulopathy. -restart Eliquis and monitor for worsening maintain Hull (8) H/O diffuse large B-cell lymphoma: Plan: In remission since 2018. First diagnosed in 2011 renal involvement, had been in remission until 2014 with FOOD PRESERVATION SCIENTIST disease. Had again gone into remission in 2018 and had follow-up with Dr. Bailey here every 6 months, transition to yearly visits as of last January. Appreciate Dr. Ruvalcaba's consultation. now w/ recurrence as above (9) Hypomagnesemia: Plan: replace with 1 gram IV mag today to keep closer to 2.0 given h/o aflutter (10) Leg swelling: Plan: Pelvic mass could be causing pelvic venous compression and LLE edema>RLE edema Venous duplex study of LLE neg for DVT Albumin 3.1 - doubt contributing TSH 09/2021 wnl u/a without protein 2020 echo with EF 50-55% -- and patient otherwise doesn't examine as decompensated CHF edema is stable (11) Memory problem: Plan: Secondary to FOOD PRESERVATION SCIENTIST lymphoma treatment. Poor short-term memory at baseline. Ommaya reservoir/DATA ASSISTANT shunt in place Supportive care (12) Atrial flutter: Plan: Continue Multaq. Remains in sinus rhythm here Cont to hold metoprolol due to low-normal BPs. ok to restart Eliquis now (13) Benign prostatic hyperplasia with urinary obstruction: Plan: Continue Flomax and finasteride. PSA noted to be wnl maintain Hull (14) Dyslipidemia: Plan: continue atorvastatin. (15) Splenomegaly: Plan: due to recurrent lymphoma presumably (16) Chronic combined systolic and diastolic congestive heart failure: Plan: 02/20/2021 echo with EF 50-55%. Repeat ECHO here similar Metoprolol xl on hold due to hypotension or low-normal BPs. In the past, Lisinopril has been discontinued secondary to hypotension. Overall remains compensated. Plan: updated at bedside today Dispo-continued stay on tele, eventual dc to rehab once renal failure improving and if tolerating high dose prednisone and after further eval for staging of lymphoma Admission and Anticipated Discharge Date Admission Date: January 29, 2022 Subjective at bedside reports pt is hallucinating at times. He was trying to eat a piece of gauze earlier. He does participate in conversation today and understands that he has recurrent lymphoma. He denies abd pain, no SOB, CP. Is making urine and only small amount of blood in Hull bag. I discussed his care at length today with Oncology on 2 occasions, and with Urology. Review of Systems Review of Systems: All systems reviewed & are unremarkable except as noted in HPI & below Physical Exam Constitutional: WD/WN, vitals as above Eyes: + anicteric sclerae ENMT: Mouth: + oropharynx abnormality (copious white exudate tongue,buccal mucosa,posterior OP) Neck: trachea midline, no thyromegaly Respiratory: normal respiratory effort, lungs clear to auscultation Cardiovascular: Rate/Rhythm: regular rate and regular rhythm Heart Sounds: no murmur Extremities: + edema (2+ pitting edema legs bilat L>R) Chest (Breasts): Chest: normal inspection of chest Gastrointestinal (Abdomen): normal bowel sounds, soft, nontender, no hepatosplenomegaly Musculoskeletal: Extremities: extremities normal to inspection; no cyanosis and no clubbing Skin: no rashes, warm and dry Neurologic: moves all extremities and awake; no focal motor deficits Psychiatric: Orientation: alert, oriented to person, oriented to place and cooperative Results & Data Results & Data ([facility]) Vital Signs (Past 12 Hours) Vital Signs Temp Pulse Pulse Resp BP Pulse Ox 02/04/22 12:13 36.6 C 91 H 18 105/65 94 02/04/22 07:44 36.4 C L 96 H 15 98/54 L 94 02/04/22 07:43 93 H 02/04/22 02:46 36.7 C 88 22 113/65 94 Laboratory Results 02/04/22 02/04/22 02/04/22 Range/Units 20:23 16:22 14:28 WBC (4.8-10.8) K/uL RBC (4.7-6.1) M/uL Hgb (14.0-18.0) g/dL Hct (42-52) % MCV (80-100) fL MCH (25-34) pg MCHC (32-36) g/dL RDW Std Deviation (36.4-46.3) fL RDW Coeff of Belén (11.5-14.5) % Plt Count (130-400) K/uL MPV (7.4-10.4) fL Immature Gran % (Auto) % Neut % (Auto) % Lymph % (Auto) % Walsh % (Auto) % Eos % (Auto) % Baso % (Auto) % Neut # (Auto) (1.4-6.5) K/uL Lymph # (Auto) (1.2-3.4) K/uL Walsh # (Auto) (0.11-0.59) K/uL Eos # (Auto) (0-0.5) K/uL Baso # (Auto) (0-0.2) K/uL Immature Gran # (Auto) (0.00-0.02) K/uL Sodium (136-145) mmol/L Potassium (3.5-5.1) mmol/L Chloride (98-107) mmol/L Carbon Dioxide (21-32) mmol/L Anion Gap (3-11) BUN (6-23) mg/dl Creatinine (0.6-1.4) mg/dl Est Cr Clr Drug Dosing ml/min Est GFR ( Amer) ml/min Est GFR (Non-Af Amer) ml/min BUN/Creatinine Ratio (10-20) Glucose (70-99(Fasting)) mg/dl POC Glucose 119 H 89 110 H (70-99) mg/dl Uric Acid (2.6-7.2) mg/dl Calcium (8.5-10.1) mg/dl Phosphorus (2.5-4.9) mg/dl Magnesium (1.7-2.4) mg/dl Total Bilirubin (0.2-1.0) mg/dl AST (13-39) U/L ALT (7-52) U/L Alkaline Phosphatase (34-104) U/L Total Protein (6.0-8.3) gm/dl Albumin (3.4-5.0) gm/dl Globulin (2.5-4.0) gm/dl Albumin/Globulin Ratio (0.9-2) 02/04/22 02/04/22 02/04/22 Range/Units 11:41 11:21 07:43 WBC (4.8-10.8) K/uL RBC (4.7-6.1) M/uL Hgb (14.0-18.0) g/dL Hct (42-52) % MCV (80-100) fL MCH (25-34) pg MCHC (32-36) g/dL RDW Std Deviation (36.4-46.3) fL RDW Coeff of Belén (11.5-14.5) % Plt Count (130-400) K/uL MPV (7.4-10.4) fL Immature Gran % (Auto) % Neut % (Auto) % Lymph % (Auto) % Walsh % (Auto) % Eos % (Auto) % Baso % (Auto) % Neut # (Auto) (1.4-6.5) K/uL Lymph # (Auto) (1.2-3.4) K/uL Walsh # (Auto) (0.11-0.59) K/uL Eos # (Auto) (0-0.5) K/uL Baso # (Auto) (0-0.2) K/uL Immature Gran # (Auto) (0.00-0.02) K/uL Sodium (136-145) mmol/L Potassium (3.5-5.1) mmol/L Chloride (98-107) mmol/L Carbon Dioxide (21-32) mmol/L Anion Gap (3-11) BUN (6-23) mg/dl Creatinine (0.6-1.4) mg/dl Est Cr Clr Drug Dosing ml/min Est GFR ( Amer) ml/min Est GFR (Non-Af Amer) ml/min BUN/Creatinine Ratio (10-20) Glucose (70-99(Fasting)) mg/dl POC Glucose 108 H 64 L* 72 (70-99) mg/dl Uric Acid (2.6-7.2) mg/dl Calcium (8.5-10.1) mg/dl Phosphorus (2.5-4.9) mg/dl Magnesium (1.7-2.4) mg/dl Total Bilirubin (0.2-1.0) mg/dl AST (13-39) U/L ALT (7-52) U/L Alkaline Phosphatase (34-104) U/L Total Protein (6.0-8.3) gm/dl Albumin (3.4-5.0) gm/dl Globulin (2.5-4.0) gm/dl Albumin/Globulin Ratio (0.9-2) 02/04/22 02/04/22 02/04/22 Range/Units 05:21 05:21 05:21 WBC 8.06 (4.8-10.8) K/uL RBC 3.24 L (4.7-6.1) M/uL Hgb 10.6 L (14.0-18.0) g/dL Hct 31.8 L (42-52) % MCV 98.1 (80-100) fL MCH 32.7 (25-34) pg MCHC 33.3 (32-36) g/dL RDW Std Deviation 51.8 H (36.4-46.3) fL RDW Coeff of Belén 14.4 (11.5-14.5) % Plt Count 195 (130-400) K/uL MPV 10.2 (7.4-10.4) fL Immature Gran % (Auto) 0.2 % Neut % (Auto) 75.6 % Lymph % (Auto) 12.3 % Walsh % (Auto) 10.0 % Eos % (Auto) 1.5 % Baso % (Auto) 0.4 % Neut # (Auto) 6.09 (1.4-6.5) K/uL Lymph # (Auto) 0.99 L (1.2-3.4) K/uL Walsh # (Auto) 0.81 H (0.11-0.59) K/uL Eos # (Auto) 0.12 (0-0.5) K/uL Baso # (Auto) 0.03 (0-0.2) K/uL Immature Gran # (Auto) 0.02 (0.00-0.02) K/uL Sodium 139 (136-145) mmol/L Potassium 3.9 (3.5-5.1) mmol/L Chloride 106 (98-107) mmol/L Carbon Dioxide 21 (21-32) mmol/L Anion Gap 12 H (3-11) BUN 18 (6-23) mg/dl Creatinine 1.79 H (0.6-1.4) mg/dl Est Cr Clr Drug Dosing 48.9 ml/min Est GFR ( Amer) 43.8 ml/min Est GFR (Non-Af Amer) 37.8 ml/min BUN/Creatinine Ratio 10.1 (10-20) Glucose 68 L (70-99(Fasting)) mg/dl POC Glucose (70-99) mg/dl Uric Acid 5.4 (2.6-7.2) mg/dl Calcium 8.3 L (8.5-10.1) mg/dl Phosphorus 2.9 (2.5-4.9) mg/dl Magnesium 1.7 (1.7-2.4) mg/dl Total Bilirubin 0.9 (0.2-1.0) mg/dl AST 33 (13-39) U/L ALT 19 (7-52) U/L Alkaline Phosphatase 51 (34-104) U/L Total Protein 4.5 L (6.0-8.3) gm/dl Albumin 2.4 L (3.4-5.0) gm/dl Globulin 2.1 L (2.5-4.0) gm/dl Albumin/Globulin Ratio 1.1 (0.9-2) PG Care Time/CCT Total # of Minutes Spent Total Time Spent with Patient: Total time spent is greater than 50% in coordination of care (as documented) at patient's floor/unit and/or counseling patient: Coding Level of Care Code 67039 Subseq Hosp Care Lvl 3 Diagnoses Sepsis A41.9 Acute kidney injury N17.9 Hypoglycemia E16.2 Oral candidiasis B37.0 Hydronephrosis N13.30 Hematuria R31.9 H/O diffuse large B-cell lymphoma Z85.72 Hypomagnesemia E83.42 Leg swelling M79.89 Memory problem R41.3 Atrial flutter I48.92 Benign prostatic hyperplasia with urinary obstruction N40.1; N13.8 Dyslipidemia E78.5 Splenomegaly R16.1 Chronic combined systolic and diastolic congestive heart failure I50.42 Lymphoma C85.90
--- NOTE | 2022-02-04 13:35 | Progress Notes ---
DATE OF SERVICE: 02/04/2022 SUBJECTIVE: He denies any new complaints today. FNA of peritoneal carcinomatosis consistent with diffuse large B cell lymphoma or high-grade CD10 negative follicular lymphoma. REVIEW OF SYSTEMS: Unremarkable. PHYSICAL EXAMINATION: Unremarkable. LABORATORY DATA: On 02/04/2022, white cell count of 8.06, hemoglobin of 10.6, hematocrit of 31.8, and platelet count of 195,000. Sodium of 139, potassium 3.9, chloride 106, bicarbonate 21, anion gap 12, BUN 18, creatinine 1.79, calcium 8.3, phosphorus 2.9, and uric acid of 5.4. ASSESSMENT AND PLAN: 1. Recurrent diffuse large B cell lymphoma versus progressive high-grade follicular lymphoma. 2. History of aggressive diffuse large B cell lymphoma in 2011. 3. History of secondary central nervous system lymphoma in 2014. 4. Large pelvic mass, likely due to lymphoma. 5. Extensive abdominal/pelvic lymphadenopathy. 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 He subsequently developed FORM MAKER relapse in 2014 and was treated with intrathecal methotrexate, high-dose methotrexate, IV rituximab, IT DepoCyt plus etoposide followed by maintenance intrathecal methotrexate. The patient presented to the hospital with clinical symptoms suggestive of recurrent lymphoma. Recent FNA-guided biopsy consistent with recurrent diffuse large B cell lymphoma or high-grade follicular lymphoma. Unfortunately, cytogenetics/FISH studies could not be performed to assss for MYC,BCL2 and BCL6 (triple/double hit aggressive lymphoma) due to insufficient sample. Given multiple recurrences in the past, his options are clearly limited. I do not believe he will be a candidate for transplant at this time, but would recommend he be evaluated by honey liquefier at [facility] to see if he would be an appropriate candidate for autologous stem cell transplant. If he is a candidate for autologous stem cell transplant, he would benefit from intensive chemotherapy regimen including either with GDP or ICE or DHA followed by autologous stem cell transplant. If he is not a candidate for autologous stem cell transplant, he may benefit from less intensive chemotherapy or supportive care/hospice. Following my discussion with the patient's , she indicated that she would want the patient to be actively treated. We will therefore set him up for bone marrow biopsy for more tissue in order to investigate for double-hit/ triple-hit large B cell lymphoma. In the meantime, we would recommend 2D echocardiogram in anticipation for chemotherapy administration. Obtain Brain MRI to r/o FORM MAKER relapse. Would also recommend starting prednisone 100 mg p.o. daily, which will also help treat lymphoma and help improve his symptoms pending workup. Plan: Bone marrow biopsy tomorrow Brain MRI r/o FORM MAKER relapse 2D Echocardiogram Continue alopurinol for TLS prophylaxis Start Prednisone 100mg po daily Will require outpatient PET scan Oncology will continue following the patient while in the hospital. Please feel free to call if you have any other questions. Job ID: [id number] [facility]
[2022-02-04] MEDS: SODI CHLOR 2.5MEQ/ML 14.6% 77 MEQ in DEXTROSE 10% 1,000 ML IV SCH (14:48)
[2022-02-04] MEDS ORDERED: Nursing to Pharmacy Communication SCH (15:00)
--- NOTE | 2022-02-04 18:30 | Urology Progress Note ---
Date of Service February 04, 2022 Assessment & Plan (1) Acute kidney injury: Plan: His SOTERO continues to improve. It is unclear how much was related to obstruction of the bladder, although I would recommend he keep the Farrar catheter in place until he has started on chemotherapy and the pelvic mass might be shrinking. A voiding trial can be performed at that point. As the pelvic mass hopefully shrinks, ideally his kidneys will drain better down to the bladder and the hydronephrosis will resolve. For now we will plan on no intervention such as stent placement. If the clinical picture changes, we can revisit this. (2) Hematuria: Plan: Urine is clearing. As long as the catheter is draining I recommend continuing to monitor without any further intervention. (3) Hydronephrosis: (4) Pelvic mass in male: Plan: For now I would recommend maintaining the Farrar catheter and monitoring renal function. We will plan for no upper tract decompression at this time. If his creatinine starts to worsen again, we could revisit the discussion of stents or nephrostomy tubes. Urology will sign off for now, please contact us with any questions or concerns. Admission and Anticipated Discharge Date Admission Date: January 29, 2022 Subjective Patient was undergone fine-needle aspiration, pathology showing malignant cells consistent with large B-cell lymphoma. Creatinine continues to improve with Farrar catheter in place. Urine in Farrar is gradually clearing. He has been started on prednisone in anticipation of starting chemotherapy in the upcoming week. Results & Data ([facility]) Vital Signs (Past 12 Hours) Vital Signs Temp Pulse Pulse Resp BP Pulse Ox 02/04/22 16:00 88 02/04/22 15:21 36.6 C 84 21 104/63 96 02/04/22 12:13 36.6 C 91 H 18 105/65 94 02/04/22 07:44 36.4 C L 96 H 15 98/54 L 94 02/04/22 07:43 93 H PG Care Time/CCT Total # of Minutes Spent Total Time Spent with Patient: Total time spent is greater than 50% in coordination of care (as documented) at patient's floor/unit and/or counseling patient: Coding Level of Care Code 22472 Subseq Hosp Care Lvl 1 Diagnoses Acute kidney injury N17.9 Hematuria R31.9 Hydronephrosis N13.30 Pelvic mass in male R19.00
[2022-02-05 06:52] LABS: Basophils # (auto) 0.01 K/uL (0-0.2); Basophils % (auto) 0.1 %; Hematocrit (blood only) 32.8 % (42-52); Hemoglobin 10.9 g/dL (14.0-18.0); Immature Granulocytes # (auto) 0.04 K/uL (0.00-0.02); Immature Granulocytes % (auto) 0.4 %; Lymphocytes # (auto) 0.82 K/uL (1.2-3.4); Lymphocytes % (auto) 9.2 %; Mean Corpuscular Hemoglobin 31.4 pg (25-34); Mean Corpuscular Hgb Conc 33.2 g/dL (32-36); Mean Corpuscular Volume 94.5 fL (80-100); Mean Platelet Volume 10.1 fL (7.4-10.4); Monocytes # (auto) 0.35 K/uL (0.11-0.59); Monocytes % (auto) 3.9 %; Neutrophils # (auto) 7.68 K/uL (1.4-6.5); Neutrophils % (auto) 86.4 %; Platelet Count 229 K/uL (130-400); RDW Coefficient of Variation 14.2 % (11.5-14.5); RDW Standard Deviation 48.8 fL (36.4-46.3); Red Blood Count 3.47 M/uL (4.7-6.1)
[2022-02-05 07:22] LABS: Iron 65 mcg/dl (35-175); Unsaturated Iron Binding Cap < 55 mcg/dl (155-355)
[2022-02-05 07:23] LABS: Albumin Level 2.5 gm/dl (3.4-5.0); BUN Creatinine Ratio 15.7 (10-20); Calcium 8.4 mg/dl (8.5-10.1); Creatinine Clr Calc Pharmacy 50.5 ml/min; Est GFR (Non-African American) 39.7 ml/min; Magnesium 1.9 mg/dl (1.7-2.4); Phosphorus 4.5 mg/dl (2.5-4.9); Potassium 4.2 mmol/L (3.5-5.1)
[2022-02-05 07:27] LABS: Ferritin 496.4 ng/ml (8-388)
[2022-02-05 07:32] LABS: Folate (Folic Acid) 7.46 ng/ml (>5.38)
[2022-02-05] MEDS: MAGNESIUM OXIDE 400 MG TAB PO SCH (08:25)
[2022-02-05] MEDS: FINASTERIDE 5 MG TAB PO SCH (08:25)
[2022-02-05] MEDS: NYSTATIN POWDER 15GM BTL EXT SCH ×2 (08:25→19:50)
[2022-02-05] MEDS: predniSONE 50 MG TAB PO SCH (08:25)
[2022-02-05] MEDS: NYSTATIN SUSP 500,000 U/5 ML UDC PO SCH ×4 (08:25→19:50)
[2022-02-05] MEDS: TAMSULOSIN HCL 0.4 MG CAP PO SCH ×2 (08:25→19:50)
[2022-02-05] MEDS: DRONEDARONE HCL 400 MG TAB PO SCH ×2 (08:26→19:50)
[2022-02-05] MEDS: CYANOCOBALAMIN (B-12) 500 MCG TABLET PO SCH (08:26)
[2022-02-05] MEDS: CEFDINIR 300 MG CAP PO SCH (08:26)
[2022-02-05] MEDS: allopurinoL 300 MG TAB PO SCH (08:26)
[2022-02-05] MEDS: CHOLECALCIFEROL 1,000 UNITS 25 MCG TAB PO SCH (08:26)
[2022-02-05] MEDS: ATORVASTATIN 40 MG TAB PO SCH (08:26)
[2022-02-05] MEDS: CETIRIZINE HCL 10 MG TABLET PO SCH (08:26)
[2022-02-05] MEDS ORDERED: SODIUM CHLORIDE 0.9% 1000ML 1,000 ML IV SCH (09:30)
[2022-02-05] MEDS ORDERED: LIDOCAINE 1% LOCAL 20 ML VIAL ONE (10:25)
--- NOTE | 2022-02-05 11:13 | Nephrology Progress Note ---
Date of Service February 05, 2022 Assessment & Plan (1) Acute kidney injury: (2) Hematuria: (3) Hydronephrosis: (4) Hypomagnesemia: (5) Weakness: (6) H/O diffuse large B-cell lymphoma: Plan: 71-year-old gentlemen with history of B-cell lymphoma in 2011 and 2014, admitted with recent onset of generalized weakness, night sweats with concern for recurrence and CT abdomen pelvis showed extensive metastatic disease and large pelvic mass causing bilateral hydronephrosis. baseline normal renal function, baseline creatinine 0.7-0.9, on admission renal function was normal however developed SOTERO over last 3 days with creatinine 1.6 then worsened to 1.9 and staying relatively stable overnight. Has Farrar catheter with decent amount of dark bloody urine. CT abdomen pelvis on admission was done with contrast so there may be some concern for contrast induced nephropathy however most likely SOTERO secondary to obstructive uropathy with bilateral hydronephrosis. Had FNA of mass on 02/02/22. Currently he is clinically stable, no abdominal distention or pain, no sign of volume overload, electrolyte has been acceptable. Blood pressure fair. waiting on biopsy report. Renal function continues to improve slowly, electrolyte acceptable. BUN elevated most likely secondary to high-dose steroid. Decent urine output. -- continue to monitor renal function and electrolyte while he was started on high-dose prednisone, plan for bone marrow biopsy and consideration for chemotherapy. -- encourage p.o. intake, if p.o. intake remains poor, suggest starting on maintenance IV fluid. Will follow Admission and Anticipated Discharge Date Admission Date: January 29, 2022 Subjective Stephon was seen and evaluated this morning. Clinically stable, denies any symptoms. Cr slightly improved, electrolyte acceptable. Has decent urine output, urine mostly clearing up. Review of Systems Review of Systems: Detailed review of system was otherwise unremarkable except mention above in HPI. Physical Exam Constitutional: WD/WN, vitals as above + ill appearing; no acute distress Eyes: + anicteric sclerae Neck: normal visual inspection Respiratory: no respiratory distress and no cough Auscultation: lungs clear to auscultation bilaterally Cardiovascular: Rate/Rhythm: regular rate and regular rhythm Extremities: + edema Skin: no rashes Neurologic: no focal motor deficits Psychiatric: Orientation: alert and oriented x 3 Affect: euthymic affect Results & Data ([facility]) Vital Signs (Past 12 Hours) Vital Signs Temp Pulse Pulse Resp BP Pulse Ox 02/05/22 08:19 36.6 C 70 20 109/76 94 02/05/22 07:47 81 02/05/22 04:08 36.3 C L 85 15 126/82 95 PG Care Time/CCT Total # of Minutes Spent Total Time Spent with Patient: Total time spent is greater than 50% in coordination of care (as documented) at patient's floor/unit and/or counseling patient: Coding Level of Care Code 47639 Subseq Hosp Care Lvl 3 Diagnoses Acute kidney injury N17.9 Hematuria R31.9 Hydronephrosis N13.30 Hypomagnesemia E83.42 Weakness R53.1 H/O diffuse large B-cell lymphoma Z85.72
--- NOTE | 2022-02-05 12:27 | Hospitalist Progress Note ---
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 -not enough tissue from biopsy as per Oncology for FISH studies -now s/p BMBx and aspirate 02/05--> await results on FISH studies and path -if has "double or triple hit" type of mutations for diffuse large B cell lymphoma, has much poorer prognosis -check ECHO for baseline-low normal EF, stable from previous -check brain MRI with contrast once threading machine setter improves to see about recurrent CLEANING ASSOCIATE disease although reports he had just recently had a normal brain MRI w/ his Neuro-oncologist at [facility] at the end of November 2021 -started prednisone 100mg po daily -continue allopurinol for TLS-LDH high but uric acid and Phos normal, follow labs for TLS -has port in place if needs chemo Appreciate Oncology consult-likely will start chemo next week. May be a candidat e for stem cell transplant. Dr. Ruvalcaba to discuss his case given third recurrence at [facility] Tumor board (2) Sepsis: Plan: Suspected at time of admission. Now ruled out Very high lactates, low glucose, low BP, etc at time of presentation. However, blood/urine cx's negative. COVID negative. CXR and Chest CT without pneumonia. CT a/p with findings that could be c/w infection of the urinary tract (bladder wall thickening, etc), but Ur cx negative s/p 2 days each of zosyn/vanco post-admission. Although cultures were negative , he was continued on antibiotics presumptively for UTI - omnicef 300mg BID-this can now be discontinued Lactate likely elevated from elevated LDH/suspected lymphoma (3) Acute kidney injury: Plan: suspected to be 2nd to obstruction in the face of his pelvic mass, b/l hydro, gross hematuria development His threading machine setter was normal though prior to admission despite known bilat hydro and pelvic mass no casts seen on u/a to suggest ATN Rat Breeder peaked at 1.9, but now down to 1.7 and stable from yesterday Non-oliguric, with some gross hematuria now improving FeNa 1.0% consistent with intrinsic renal failure eg ATN, AIN, glomerulonephritis but UA without casts, but with RBCs which could be from Hull trauma. Trace protein not concerning Could be AIN from antibiotics? Or also post-renal failure from extrinsic compression from pelvic mass or THAYER from hematuria or enlarged prostate -maintain Hull as per Urology -give 1 L NS today at 80mL/hr as per my d/w Nephrology -repeat BMP am. Urology consulted- If renal failure worsens, recommend transfer out for perc neph tubes- really hoping not to have to do this Appreciate Nephrology consultation (4) Hypoglycemia: Plan: Most likely 2/2 lymphoma It does not appear to be adrenal insufficiency as cortisol is >15 Glucose now improving with starting prednisone Started high dose prednisone and now able to dc D10W gtt No evidence of sepsis. 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 just before its development the patient had developed urinary retention. hull placed and wiggins red urine was obtained upon hull insertion. hull insertion was easy/nontraumatic per staff. the pelvic mass is compressing the bladder, the prostate, etc. UTI ruled out INR remains normal--no coagulopathy. -restarted Eliquis and monitor for worsening-still pink tinged on 02/05 maintain Hull (8) H/O diffuse large B-cell lymphoma: Plan: In remission since 2017. First diagnosed in 2011 renal involvement, had been in remission until 2014 with CLEANING ASSOCIATE disease. Had again gone into remission in 2018 and had follow-up with Dr. Bailey here every 6 months, transition to yearly visits as of last January. Appreciate Dr. Ruvalcaba's consultation. now w/ recurrence as above (9) Leg swelling: Plan: Pelvic mass could be causing pelvic venous compression and LLE edema>RLE edema as well as scrotal and penile edema Venous duplex study of LLE neg for DVT Albumin 3.1 - doubt contributing TSH 09/2021 wnl u/a without protein 2020 echo with EF 50-55% -- and patient otherwise doesn't examine as decompensated CHF -add scrotal support (10) Memory problem: Plan: Secondary to CLEANING ASSOCIATE lymphoma treatment. Poor short-term memory at baseline. Ommaya reservoir/ECONOMIC CONSULTANT shunt in place Supportive care is a huge help providing history and care (11) Atrial flutter: Plan: Continue Multaq. Remains in sinus rhythm here Cont to hold metoprolol due to low-normal BPs. continue Eliquis -keep K> 4 and mag> 2 -watch carefully for recurrence now that on high doses of prednisone (12) Benign prostatic hyperplasia with urinary obstruction: Plan: Continue Flomax and finasteride. PSA noted to be wnl maintain Hull (13) Dyslipidemia: Plan: continue atorvastatin. (14) Splenomegaly: Plan: due to recurrent lymphoma presumably (15) Chronic combined systolic and diastolic congestive heart failure: Plan: 02/20/2021 echo with EF 50-55%. Repeat ECHO here similar Metoprolol xl on hold due to hypotension or low-normal BPs. In the past, Lisinopril has been discontinued secondary to hypotension. Overall remains compensated. Edema in LEs from pelvic compression as above Plan: updated at bedside today Dispo-continued stay on tele, eventual dc to rehab once renal failure improving and if tolerating high dose prednisone and after further eval for staging of lymphoma. No beds available at SNF until Wednesday at least Admission and Anticipated Discharge Date Admission Date: January 29, 2022 Subjective Pt just had BMBx done but he doesn't remember having it. Denies pain, SOB. Asks me to take a look at a rash in his groin that is burning in nature. 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 He is eating his lunch. reports he is mentally much more clear today than yesterday. Blood glucose and I discussed plans for moving forward. Tele with NSR, rates 80s Review of Systems Review of Systems: All systems reviewed & are unremarkable except as noted in HPI & below Physical Exam Constitutional: WD/WN, vitals as above Eyes: + anicteric sclerae ENMT: Mouth: no oropharynx abnormality (white exudate now resolved,some mild erythema) Neck: trachea midline, no thyromegaly Respiratory: normal respiratory effort, lungs clear to auscultation Cardiovascular: Rate/Rhythm: regular rate and regular rhythm Heart Sounds: no murmur Extremities: + edema (2+ pitting edema legs bilat L>R) Chest (Breasts): Chest: normal inspection of chest Gastrointestinal (Abdomen): normal bowel sounds, soft, nontender, no hepatosplenomegaly Musculoskeletal: Extremities: extremities normal to inspection; no cyanosis and no clubbing Skin: + rash (mild erythema ingunal region and sprapubic pannus) Neurologic: moves all extremities and awake; no focal motor deficits Psychiatric: Orientation: alert, oriented to person, oriented to place and cooperative Genitourinary: + penis abnormality (edema) and + scrotum abnormality (edema) Hull with pink tinged urine Results & Data Results & Data ([facility]) Vital Signs (Past 12 Hours) Vital Signs Temp Pulse Pulse Resp BP Pulse Ox 02/05/22 11:17 36.5 C 77 17 95/58 L 94 02/05/22 08:19 36.6 C 70 20 109/76 94 02/05/22 07:47 81 02/05/22 04:08 36.3 C L 85 15 126/82 95 Laboratory Results 02/05/22 02/05/22 02/05/22 Range/Units 11:16 11:00 07:18 WBC (4.8-10.8) K/uL RBC (4.7-6.1) M/uL Hgb (14.0-18.0) g/dL Hct (42-52) % MCV (80-100) fL MCH (25-34) pg MCHC (32-36) g/dL RDW Std Deviation (36.4-46.3) fL RDW Coeff of Belén (11.5-14.5) % Plt Count (130-400) K/uL MPV (7.4-10.4) fL Immature Gran % (Auto) % Neut % (Auto) % Lymph % (Auto) % [place] % (Auto) % Eos % (Auto) % Baso % (Auto) % Neut # (Auto) (1.4-6.5) K/uL Lymph # (Auto) (1.2-3.4) K/uL [place] # (Auto) (0.11-0.59) K/uL Eos # (Auto) (0-0.5) K/uL Baso # (Auto) (0-0.2) K/uL Immature Gran # (Auto) (0.00-0.02) K/uL Sodium (136-145) mmol/L Potassium (3.5-5.1) mmol/L Chloride (98-107) mmol/L Carbon Dioxide (21-32) mmol/L Anion Gap (3-11) BUN (6-23) mg/dl Creatinine (0.6-1.4) mg/dl Est Cr Clr Drug Dosing ml/min Est GFR ( Amer) ml/min Est GFR (Non-Af Amer) ml/min BUN/Creatinine Ratio (10-20) Glucose (70-99(Fasting)) mg/dl POC Glucose 126 H 96 (70-99) mg/dl Calcium (8.5-10.1) mg/dl Phosphorus (2.5-4.9) mg/dl Magnesium (1.7-2.4) mg/dl Iron (35-175) mcg/dl TIBC Unsaturated IBC (155-355) mcg/dl Transferrin % Sat Ferritin (8-388) ng/ml Albumin (3.4-5.0) gm/dl Vitamin B12 (180-914) pg/ml Folate (>5.38) ng/ml Flow Cytometry Comment Pending 02/05/22 02/05/22 02/05/22 Range/Units 06:27 06:27 06:27 WBC 8.90 (4.8-10.8) K/uL RBC 3.47 L (4.7-6.1) M/uL Hgb 10.9 L (14.0-18.0) g/dL Hct 32.8 L (42-52) % MCV 94.5 (80-100) fL MCH 31.4 (25-34) pg MCHC 33.2 (32-36) g/dL RDW Std Deviation 48.8 H (36.4-46.3) fL RDW Coeff of Belén 14.2 (11.5-14.5) % Plt Count 229 (130-400) K/uL MPV 10.1 (7.4-10.4) fL Immature Gran % (Auto) 0.4 % Neut % (Auto) 86.4 % Lymph % (Auto) 9.2 % [place] % (Auto) 3.9 % Eos % (Auto) 0.0 % Baso % (Auto) 0.1 % Neut # (Auto) 7.68 H (1.4-6.5) K/uL Lymph # (Auto) 0.82 L (1.2-3.4) K/uL [place] # (Auto) 0.35 (0.11-0.59) K/uL Eos # (Auto) 0.00 (0-0.5) K/uL Baso # (Auto) 0.01 (0-0.2) K/uL Immature Gran # (Auto) 0.04 H (0.00-0.02) K/uL Sodium (136-145) mmol/L Potassium (3.5-5.1) mmol/L Chloride (98-107) mmol/L Carbon Dioxide (21-32) mmol/L Anion Gap (3-11) BUN (6-23) mg/dl Creatinine (0.6-1.4) mg/dl Est Cr Clr Drug Dosing ml/min Est GFR ( Amer) ml/min Est GFR (Non-Af Amer) ml/min BUN/Creatinine Ratio (10-20) Glucose (70-99(Fasting)) mg/dl POC Glucose (70-99) mg/dl Calcium (8.5-10.1) mg/dl Phosphorus (2.5-4.9) mg/dl Magnesium (1.7-2.4) mg/dl Iron 65 (35-175) mcg/dl TIBC TNP Unsaturated IBC < 55 L (155-355) mcg/dl Transferrin % Sat TNP Ferritin (8-388) ng/ml Albumin (3.4-5.0) gm/dl Vitamin B12 1103 H (180-914) pg/ml Folate 7.46 (>5.38) ng/ml Flow Cytometry Comment 02/05/22 02/04/22 02/04/22 Range/Units 06:27 20:23 16:22 WBC (4.8-10.8) K/uL RBC (4.7-6.1) M/uL Hgb (14.0-18.0) g/dL Hct (42-52) % MCV (80-100) fL MCH (25-34) pg MCHC (32-36) g/dL RDW Std Deviation (36.4-46.3) fL RDW Coeff of Belén (11.5-14.5) % Plt Count (130-400) K/uL MPV (7.4-10.4) fL Immature Gran % (Auto) % Neut % (Auto) % Lymph % (Auto) % [place] % (Auto) % Eos % (Auto) % Baso % (Auto) % Neut # (Auto) (1.4-6.5) K/uL Lymph # (Auto) (1.2-3.4) K/uL [place] # (Auto) (0.11-0.59) K/uL Eos # (Auto) (0-0.5) K/uL Baso # (Auto) (0-0.2) K/uL Immature Gran # (Auto) (0.00-0.02) K/uL Sodium 141 (136-145) mmol/L Potassium 4.2 (3.5-5.1) mmol/L Chloride 108 H (98-107) mmol/L Carbon Dioxide 23 (21-32) mmol/L Anion Gap 10 (3-11) BUN 27 H (6-23) mg/dl Creatinine 1.72 H (0.6-1.4) mg/dl Est Cr Clr Drug Dosing 50.5 ml/min Est GFR ( Amer) 46.0 ml/min Est GFR (Non-Af Amer) 39.7 ml/min BUN/Creatinine Ratio 15.7 (10-20) Glucose 102 H (70-99(Fasting)) mg/dl POC Glucose 119 H 89 (70-99) mg/dl Calcium 8.4 L (8.5-10.1) mg/dl Phosphorus 4.5 D (2.5-4.9) mg/dl Magnesium 1.9 (1.7-2.4) mg/dl Iron (35-175) mcg/dl TIBC Unsaturated IBC (155-355) mcg/dl Transferrin % Sat Ferritin 496.4 H (8-388) ng/ml Albumin 2.5 L (3.4-5.0) gm/dl Vitamin B12 (180-914) pg/ml Folate (>5.38) ng/ml Flow Cytometry Comment 02/04/22 Range/Units 14:28 WBC (4.8-10.8) K/uL RBC (4.7-6.1) M/uL Hgb (14.0-18.0) g/dL Hct (42-52) % MCV (80-100) fL MCH (25-34) pg MCHC (32-36) g/dL RDW Std Deviation (36.4-46.3) fL RDW Coeff of Belén (11.5-14.5) % Plt Count (130-400) K/uL MPV (7.4-10.4) fL Immature Gran % (Auto) % Neut % (Auto) % Lymph % (Auto) % [place] % (Auto) % Eos % (Auto) % Baso % (Auto) % Neut # (Auto) (1.4-6.5) K/uL Lymph # (Auto) (1.2-3.4) K/uL [place] # (Auto) (0.11-0.59) K/uL Eos # (Auto) (0-0.5) K/uL Baso # (Auto) (0-0.2) K/uL Immature Gran # (Auto) (0.00-0.02) K/uL Sodium (136-145) mmol/L Potassium (3.5-5.1) mmol/L Chloride (98-107) mmol/L Carbon Dioxide (21-32) mmol/L Anion Gap (3-11) BUN (6-23) mg/dl Creatinine (0.6-1.4) mg/dl Est Cr Clr Drug Dosing ml/min Est GFR ( Amer) ml/min Est GFR (Non-Af Amer) ml/min BUN/Creatinine Ratio (10-20) Glucose (70-99(Fasting)) mg/dl POC Glucose 110 H (70-99) mg/dl Calcium (8.5-10.1) mg/dl Phosphorus (2.5-4.9) mg/dl Magnesium (1.7-2.4) mg/dl Iron (35-175) mcg/dl TIBC Unsaturated IBC (155-355) mcg/dl Transferrin % Sat Ferritin (8-388) ng/ml Albumin (3.4-5.0) gm/dl Vitamin B12 (180-914) pg/ml Folate (>5.38) ng/ml Flow Cytometry Comment PG Care Time/CCT Total # of Minutes Spent Total Time Spent with Patient: Total time spent is greater than 50% in coordination of care (as documented) at patient's floor/unit and/or counseling patient: Coding Level of Care Code 00441 Subseq Hosp Care Lvl 3 Diagnoses Lymphoma C85.90 Sepsis A41.9 Acute kidney injury N17.9 Hypoglycemia E16.2 Oral candidiasis B37.0 Hydronephrosis N13.30 Hematuria R31.9 H/O diffuse large B-cell lymphoma Z85.72 Leg swelling M79.89 Memory problem R41.3 Atrial flutter I48.92 Benign prostatic hyperplasia with urinary obstruction N40.1; N13.8 Dyslipidemia E78.5 Splenomegaly R16.1 Chronic combined systolic and diastolic congestive heart failure I50.42
[2022-02-06 06:29] LABS: Basophils # (auto) 0.01 K/uL (0-0.2); Basophils % (auto) 0.1 %; Hematocrit (blood only) 30.6 % (42-52); Hemoglobin 10.3 g/dL (14.0-18.0); Immature Granulocytes # (auto) 0.06 K/uL (0.00-0.02); Immature Granulocytes % (auto) 0.5 %; Lymphocytes # (auto) 0.81 K/uL (1.2-3.4); Lymphocytes % (auto) 7.2 %; Mean Corpuscular Hemoglobin 32.4 pg (25-34); Mean Corpuscular Hgb Conc 33.7 g/dL (32-36); Mean Corpuscular Volume 96.2 fL (80-100); Monocytes # (auto) 0.57 K/uL (0.11-0.59); Monocytes % (auto) 5.1 %; Neutrophils # (auto) 9.73 K/uL (1.4-6.5); Neutrophils % (auto) 87.1 %; Platelet Count 236 K/uL (130-400); RDW Coefficient of Variation 14.1 % (11.5-14.5); RDW Standard Deviation 48.6 fL (36.4-46.3); Red Blood Count 3.18 M/uL (4.7-6.1); White Blood Count 11.18 K/uL (4.8-10.8)
[2022-02-06 07:32] LABS: Albumin Level 2.4 gm/dl (3.4-5.0); Creatinine Clr Calc Pharmacy 54.2 ml/min; Est GFR (African American) 49.8 ml/min; Magnesium 1.7 mg/dl (1.7-2.4); Phosphorus 2.9 mg/dl (2.5-4.9); Potassium 3.6 mmol/L (3.5-5.1)
[2022-02-06] MEDS: ATORVASTATIN 40 MG TAB PO SCH (08:17)
[2022-02-06] MEDS: allopurinoL 300 MG TAB PO SCH (08:17)
[2022-02-06] MEDS: CETIRIZINE HCL 10 MG TABLET PO SCH (08:17)
[2022-02-06] MEDS: TAMSULOSIN HCL 0.4 MG CAP PO SCH ×2 (08:17→21:05)
[2022-02-06] MEDS: predniSONE 50 MG TAB PO SCH (08:17)
[2022-02-06] MEDS: FINASTERIDE 5 MG TAB PO SCH (08:17)
[2022-02-06] MEDS: MAGNESIUM OXIDE 400 MG TAB PO SCH (08:17)
[2022-02-06] MEDS: CYANOCOBALAMIN (B-12) 500 MCG TABLET PO SCH (08:17)
[2022-02-06] MEDS: DRONEDARONE HCL 400 MG TAB PO SCH ×2 (08:17→21:05)
[2022-02-06] MEDS: CHOLECALCIFEROL 1,000 UNITS 25 MCG TAB PO SCH (08:17)
[2022-02-06] MEDS: NYSTATIN POWDER 15GM BTL EXT SCH ×2 (08:18→21:09)
[2022-02-06] MEDS: NYSTATIN SUSP 500,000 U/5 ML UDC PO SCH ×4 (08:18→21:05)
--- NOTE | 2022-02-06 10:00 | Nephrology Progress Note ---
Date of Service February 06, 2022 Assessment & Plan (1) Acute kidney injury: (2) Hematuria: (3) Hydronephrosis: (4) Hypomagnesemia: (5) Weakness: (6) H/O diffuse large B-cell lymphoma: Plan: 71-year-old gentlemen with history of B-cell lymphoma in 2011 and 2014, admitted with recent onset of generalized weakness, night sweats with concern for recurrence and CT abdomen pelvis showed extensive metastatic disease and large pelvic mass causing bilateral hydronephrosis. baseline normal renal function, baseline creatinine 0.7-0.9, on admission renal function was normal however developed SOTERO over last 3 days with creatinine 1.6 then worsened to 1.9 and staying relatively stable overnight. Has Farrar catheter with decent amount of dark bloody urine. CT abdomen pelvis on admission was done with contrast so there may be some concern for contrast induced nephropathy however most likely SOTERO secondary to obstructive uropathy with bilateral hydronephrosis. Had FNA of mass on 02/02/22 consistent with large B-cell lymphoma. Had bone marrow biopsy on 02/05/2022, waiting reported to decide on the treatment options including chemotherapy regimen. Currently he is clinically stable, no abdominal distention or pain, no sign of volume overload, electrolyte has been acceptable. Blood pressure fair. waiting on biopsy report. Renal function continues to improve slowly, electrolyte acceptable. BUN elevated most likely secondary to high-dose steroid. Decent urine output. -- continue to monitor renal function and electrolyte while he was started on high-dose prednisone, pending bone marrow biopsy report and consideration for chemotherapy. -- encourage p.o. intake, if p.o. intake remains poor, suggest starting on maintenance IV fluid. Will follow Admission and Anticipated Discharge Date Admission Date: January 29, 2022 Subjective Stephon was seen and evaluated this morning. Clinically stable, denies any symptoms. Cr continues to improve slowly, down to 1.6, electrolyte acceptable. Has decent urine output, urine mostly clearing up. had bone marrow biopsy yesterday but he does not remember. Remain pleasantly confused with some memory loss, " I am a [employer] student" Review of Systems Review of Systems: Detailed review of system was otherwise unremarkable except mention above in HPI. Physical Exam Constitutional: WD/WN, vitals as above + ill appearing; no acute distress Eyes: + anicteric sclerae Neck: normal visual inspection Respiratory: no respiratory distress and no cough Auscultation: lungs clear to auscultation bilaterally Cardiovascular: Rate/Rhythm: regular rate and regular rhythm Extremities: + edema Skin: no rashes Neurologic: no focal motor deficits Psychiatric: Orientation: alert and oriented x 3 Affect: euthymic affect Results & Data ([facility]) Vital Signs (Past 12 Hours) Vital Signs Temp Pulse Pulse Resp BP Pulse Ox 02/06/22 08:32 36.5 C 70 18 116/76 93 02/06/22 03:01 36.4 C L 85 18 125/82 95 02/06/22 00:04 36.4 C L 69 19 105/62 92 02/05/22 22:48 74 PG Care Time/CCT Total # of Minutes Spent Total Time Spent with Patient: Total time spent is greater than 50% in coordination of care (as documented) at patient's floor/unit and/or counseling patient: Coding Level of Care Code 32123 Subseq Hosp Care Lvl 2 Diagnoses Acute kidney injury N17.9 Hematuria R31.9 Hydronephrosis N13.30 Hypomagnesemia E83.42 Weakness R53.1 H/O diffuse large B-cell lymphoma Z85.72
--- NOTE | 2022-02-06 21:13 | Hospitalist Progress Note ---
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 -not enough tissue from biopsy as per Oncology for FISH studies -now s/p BMBx and aspirate 02/05--> await results on FISH studies and path -if has "double or triple hit" type of mutations for diffuse large B cell lymphoma, has much poorer prognosis -check ECHO for baseline-low normal EF, stable from previous -check brain MRI with contrast once 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 May be a candidate for stem cell transplant. Dr. Ruvalcaba to discuss his case given third recurrence at [facility] Tumor board (2) Sepsis: Plan: Suspected at time of admission. Now ruled out Very high lactates, low glucose, low BP, etc at time of presentation. However, blood/urine cx's negative. COVID negative. CXR and Chest CT without pneumonia. CT a/p with findings that could be c/w infection of the urinary tract (bladder wall thickening, etc), but Ur cx negative s/p 2 days each of zosyn/vanco post-admission. 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 Trace protein not concerning Could be AIN from antibiotics? Or also post-renal failure from extrinsic compression from pelvic mass or THAYER from hematuria or enlarged prostate -maintain [place] as per Urology -repeat BMP am. Urology consulted- If renal failure worsens, recommend transfer out for perc neph tubes- really hoping not to have to do this Appreciate Nephrology consultation Creatinine continue to improve. will discuss with Urology if hull can be discontinued prior to discharge. (4) Hypoglycemia: Plan: Most likely 2/2 lymphoma It does not appear to be adrenal insufficiency as cortisol is >15 Glucose now improving with starting prednisone Started high dose prednisone and now able to dc D10W gtt No evidence of sepsis. Repeat procal neg, no fevers, BPs stable, BCxs no growth -ordered hypoglycemia protocol and accuchecks -Accucheck discontinued on 02/06 (5) Oral candidiasis: Plan: extensive, causing sore throat, now much improved with po Nystatin continue Nystatin s/s x 14 day course-last day of tx 02/16/22 Also with Radha intertrigo in groin--> continue miconazole powder Scrotal support for scrotal and penile edema (6) Hydronephrosis: Plan: b/l 2nd to obstructing pelvic mass urology consult appreciated repeat renal u/s with unchanged hydro b/l [id number], if creatinine continues to worsen, Urology recommends perc nephrostomy tubes Have since resumed Eliquis as no impending Urology procedure (7) Hematuria: Plan: began 02/01/22. just before its development the patient had developed urinary retention. hull placed and wiggins red urine was obtained upon hull insertion. hull insertion was easy/nontraumatic per staff. the pelvic mass is compressing the bladder, the prostate, etc. UTI ruled out INR remains normal--no coagulopathy. -restarted Eliquis and monitor for worsening-still pink tinged on 02/05 maintain Hull (8) H/O diffuse large B-cell lymphoma: Plan: In remission since 2018. First diagnosed in 2011 renal involvement, had been in remission until 2014 with GAME MODERATOR disease. Had again gone into remission in 2018 and had follow-up with Dr. Bailey here every 6 months, transition to yearly visits as of last January. Appreciate Dr. Ruvalcaba's consultation. now w/ recurrence as above (9) Leg swelling: Plan: Pelvic mass could be causing pelvic venous compression and LLE edema>RLE edema as well as scrotal and penile edema Venous duplex study of LLE neg for DVT Albumin 3.1 - doubt contributing TSH 09/2021 wnl u/a without protein 2020 echo with EF 50-55% -- and patient otherwise doesn't examine as decompensated CHF -add scrotal support (10) Memory problem: Plan: Secondary to GAME MODERATOR lymphoma treatment. Poor short-term memory at baseline. 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 Remains in sinus rhythm here Cont to hold metoprolol due to low-normal BPs. continue Eliquis -keep K> 4 and mag> 2 -watch carefully for recurrence now that on high doses of prednisone (12) Benign prostatic hyperplasia with urinary obstruction: Plan: Continue Flomax and finasteride. PSA noted to be wnl maintain Hull (13) Dyslipidemia: Plan: continue atorvastatin. (14) Splenomegaly: Plan: due to recurrent lymphoma presumably (15) Chronic combined systolic and diastolic congestive heart failure: Plan: 02/20/2021 echo with EF 50-55%. Repeat ECHO here similar Metoprolol xl on hold due to hypotension or low-normal BPs. In the past, Lisinopril has been discontinued secondary to hypotension. Overall remains compensated. Edema in LEs from pelvic compression as above Plan: updated at bedside today 02/06 Dispo-continued stay on tele, eventual dc to rehab once renal failure improving and if tolerating high dose prednisone and after further eval for staging of lymphoma. No beds available at SNF until Wednesday at least Admission and Anticipated Discharge Date Admission Date: January 29, 2022 Subjective Patient reports no new symptoms today. Review of Systems Review of Systems: All systems reviewed & are unremarkable except as noted in HPI & below Physical Exam Physical Exam: Constitutional: WD/WN, vitals as above Eyes: + anicteric sclerae ENMT: Mouth: no oropharynx abnormality (white exudate now resolved,some mild erythema) Neck: trachea midline, no thyromegaly Respiratory: normal respiratory effort, lungs clear to auscultation Cardiovascular: Rate/Rhythm: regular rate and regular rhythm Heart Sounds: no murmur Extremities: + edema (2+ pitting edema legs bilat L>R) Chest (Breasts): Chest: normal inspection of chest Gastrointestinal (Abdomen): normal bowel sounds, soft, nontender, no hepatospl enomegaly Musculoskeletal: Extremities: extremities normal to inspection; no cyanosis and no clubbing Skin: + rash (mild erythema ingunal region and sprapubic pannus) Neurologic: moves all extremities and awake; no focal motor deficits Psychiatric: Orientation: alert, oriented to person, oriented to place and cooperative Genitourinary: + penis abnormality (edema) and + scrotum abnormality (edema) Hull with pink tinged urine Results & Data Results & Data ([facility]) Vital Signs (Past 12 Hours) Vital Signs Temp Pulse Pulse Resp BP Pulse Ox 02/06/22 19:49 37.0 C 79 18 125/86 93 02/06/22 15:56 36.6 C 75 20 104/59 L 94 02/06/22 15:30 70 02/06/22 11:43 36.4 C L 70 14 109/66 95 PG Care Time/CCT Total # of Minutes Spent Total Time Spent with Patient: Total time spent is greater than 50% in coordination of care (as documented) at patient's floor/unit and/or counseling patient: Coding Level of Care Code 92711 Subseq Hosp Care Lvl 3 Diagnoses Lymphoma C85.90 Sepsis A41.9 Acute kidney injury N17.9 Hypoglycemia E16.2 Oral candidiasis B37.0 Hydronephrosis N13.30 Hematuria R31.9 H/O diffuse large B-cell lymphoma Z85.72 Leg swelling M79.89 Memory problem R41.3 Atrial flutter I48.92 Benign prostatic hyperplasia with urinary obstruction N40.1; N13.8 Dyslipidemia E78.5 Splenomegaly R16.1 Chronic combined systolic and diastolic congestive heart failure I50.42
[2022-02-07 07:14] LABS: Albumin Level 2.4 gm/dl (3.4-5.0); BUN Creatinine Ratio 16.5 (10-20); Calcium 8.3 mg/dl (8.5-10.1); Creatinine Clr Calc Pharmacy 55.2 ml/min; Phosphorus 2.3 mg/dl (2.5-4.9); Potassium 3.6 mmol/L (3.5-5.1)
[2022-02-07] MEDS: allopurinoL 300 MG TAB PO SCH (08:57)
[2022-02-07] MEDS: CHOLECALCIFEROL 1,000 UNITS 25 MCG TAB PO SCH (08:57)
[2022-02-07] MEDS: TAMSULOSIN HCL 0.4 MG CAP PO SCH ×2 (08:57→20:22)
[2022-02-07] MEDS: DRONEDARONE HCL 400 MG TAB PO SCH ×2 (08:57→20:23)
[2022-02-07] MEDS: FINASTERIDE 5 MG TAB PO SCH (08:57)
[2022-02-07] MEDS: NYSTATIN SUSP 500,000 U/5 ML UDC PO SCH ×4 (08:58→20:22)
[2022-02-07] MEDS: MAGNESIUM OXIDE 400 MG TAB PO SCH (08:58)
[2022-02-07] MEDS: CETIRIZINE HCL 10 MG TABLET PO SCH (08:58)
[2022-02-07] MEDS: CYANOCOBALAMIN (B-12) 500 MCG TABLET PO SCH (08:58)
[2022-02-07] MEDS: predniSONE 50 MG TAB PO SCH (08:58)
[2022-02-07] MEDS: ATORVASTATIN 40 MG TAB PO SCH (08:58)
[2022-02-07] MEDS: NYSTATIN POWDER 15GM BTL EXT SCH ×2 (08:59→20:23)
[2022-02-07] MEDS: HEPARIN 100 UNIT/ML 5ML FLUSH FLUSH PRN (11:16)
--- NOTE | 2022-02-07 11:18 | Nephrology Progress Note ---
Date of Service February 07, 2022 Assessment & Plan (1) Acute kidney injury: (2) Hematuria: (3) Hydronephrosis: (4) Hypomagnesemia: (5) Weakness: (6) H/O diffuse large B-cell lymphoma: Plan: 71-year-old gentlemen with history of B-cell lymphoma in 2011 and 2014, admitted with recent onset of generalized weakness, night sweats with concern for recurrence and CT abdomen pelvis showed extensive metastatic disease and large pelvic mass causing bilateral hydronephrosis. baseline normal renal function, baseline creatinine 0.7-0.9, on admission renal function was normal however developed SOTERO over last 3 days with creatinine 1.6 then worsened to 1.9 and staying relatively stable overnight. Has Farrar catheter with decent amount of dark bloody urine. CT abdomen pelvis on admission was done with contrast so there may be some concern for contrast induced nephropathy however most likely SOTERO secondary to obstructive uropathy with bilateral hydronephrosis. Had FNA of mass on 02/02/22 consistent with large B-cell lymphoma. Had bone marrow biopsy on 02/05/2022, waiting reported to decide on the treatment options including chemotherapy regimen. Currently he is clinically stable, no abdominal distention or pain, no sign of volume overload, electrolyte has been acceptable. Blood pressure fair. waiting on biopsy report. Renal function continues to improve slowly, electrolyte acceptable. BUN elevated most likely secondary to high-dose steroid. Decent urine output. -- continue to monitor renal function and electrolyte while he was started on high-dose prednisone, pending bone marrow biopsy report and consideration for chemotherapy. -- encourage p.o. intake, if p.o. intake remains poor, suggest starting on maintenance IV fluid. Will sign off but will be available for any further concern or questions. Admission and Anticipated Discharge Date Admission Date: January 29, 2022 Subjective Stephon was seen and evaluated this morning. Clinically stable, denies any specific symptoms but Overall feels terrible and was not able to sleep overnight. Renal function staying relatively stable with very slow improvement to, el ectrolyte acceptable. Has decent urine output. Remain pleasantly confused. Review of Systems Review of Systems: Detailed review of system was otherwise unremarkable except mention above in HPI. Physical Exam Constitutional: WD/WN, vitals as above + ill appearing and + lethargic; no acute distress Eyes: + anicteric sclerae Neck: normal visual inspection Respiratory: no respiratory distress and no cough Auscultation: lungs clear to auscultation bilaterally Cardiovascular: Rate/Rhythm: regular rate and regular rhythm Extremities: + edema Skin: no rashes Neurologic: + confused; no focal motor deficits Psychiatric: Orientation: alert Affect: euthymic affect Results & Data ([facility]) Vital Signs (Past 12 Hours) Vital Signs Temp Pulse Resp BP Pulse Ox 02/07/22 08:09 36.7 C 95 H 18 111/75 97 02/07/22 03:04 36.8 C 75 18 120/74 92 02/06/22 23:27 36.7 C 77 16 128/77 93 PG Care Time/CCT Total # of Minutes Spent Total Time Spent with Patient: Total time spent is greater than 50% in coordination of care (as documented) at patient's floor/unit and/or counseling patient: Coding Level of Care Code 81425 Subseq Hosp Care Lvl 2 Diagnoses Acute kidney injury N17.9 Hematuria R31.9 Hydronephrosis N13.30 Hypomagnesemia E83.42 Weakness R53.1 H/O diffuse large B-cell lymphoma Z85.72
--- NOTE | 2022-02-07 21:47 | Hospitalist Progress Note ---
Date of Service February 07, 2022 Assessment & Plan (1) Lymphoma: Plan: Presented with pelvic mass seen on CT abd/pel after coming in with night sweats, weakness, suspected sepsis clinical picture worrisome for extensive cancer (has carcinomatosis, pelvic mass, GUILHERME, etc) although he has h/o diffuse large B-Cell lymphoma the current films were not entirely c/w with recurrent lymphoma s/p FNA 02/02 of mass --> path and flow cytometry now show likely diffuse large B cell lymphoma vs high grade follicular lymphoma -not enough tissue from biopsy as per Oncology for FISH studies -now s/p BMBx and aspirate 02/05--> await results on FISH studies and path -if has "double or triple hit" type of mutations for diffuse large B cell lymphoma, has much poorer prognosis -check ECHO for baseline-low normal EF, stable from previous -check brain MRI with contrast once 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 May be a candidate for stem cell transplant. Dr. Ruvalcaba to discuss his case given third recurrence at [facility] Tumor board (2) Sepsis: Plan: Suspected at time of admission. Now ruled out Very high lactates, low glucose, low BP, etc at time of presentation. However, blood/urine cx's negative. COVID negative. CXR and Chest CT without pneumonia. CT a/p with findings that could be c/w infection of the urinary tract (bladder wall thickening, etc), but Ur cx negative s/p 2 days each of zosyn/vanco post-admission. 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 Trace protein not concerning Could be AIN from antibiotics? Or also post-renal failure from extrinsic compression from pelvic mass or THAYER from hematuria or enlarged prostate -maintain [place] as per Urology -repeat BMP am. Urology consulted- If renal failure worsens, recommend transfer out for perc neph tubes- really hoping not to have to do this Appreciate Nephrology consultation Creatinine continue to improve. will discuss with Urology if hull can be discontinued prior to discharge. (4) Hypoglycemia: Plan: Most likely 2/2 lymphoma It does not appear to be adrenal insufficiency as cortisol is >15 Glucose now improving with starting prednisone Started high dose prednisone and now able to dc D10W gtt No evidence of sepsis. Repeat procal neg, no fevers, BPs stable, BCxs no growth -ordered hypoglycemia protocol and accuchecks -Accucheck showing blood sugars above 200 - currently refusing insulin. (5) Oral candidiasis: Plan: extensive, causing sore throat, now much improved with po Nystatin continue Nystatin s/s x 14 day course-last day of tx 02/16/22 Also with Radha intertrigo in groin--> continue miconazole powder Scrotal support for scrotal and penile edema (6) Hydronephrosis: Plan: b/l 2nd to obstructing pelvic mass urology consult appreciated repeat renal u/s with unchanged hydro b/l [id number], if creatinine continues to worsen, Urology recommends perc nephrostomy tubes Have since resumed Eliquis as no impending Urology procedure (7) Hematuria: Plan: began 02/01/22. just before its development the patient had developed urinary retention. hull placed and wiggins red urine was obtained upon hull insertion. hull insertion was easy/nontraumatic per staff. the pelvic mass is compressing the bladder, the prostate, etc. UTI ruled out INR remains normal--no coagulopathy. -restarted Eliquis and monitor for worsening-still pink tinged on 02/05 maintain [place] (8) H/O diffuse large B-cell lymphoma: Plan: In remission since 2018. First diagnosed in 2011 renal involvement, had been in remission until 2014 with SATIN FINISHER disease. Had again gone into remission in 2018 and had follow-up with Dr. Bailey here every 6 months, transition to yearly visits as of last January. Appreciate Dr. Ruvalcaba's consultation. now w/ recurrence as above (9) Leg swelling: Plan: Pelvic mass could be causing pelvic venous compression and LLE edema>RLE edema as well as scrotal and penile edema Venous duplex study of LLE neg for DVT Albumin 3.1 - doubt contributing TSH 09/2021 wnl u/a without protein 2020 echo with EF 50-55% -- and patient otherwise doesn't examine as decompensated CHF -add scrotal support (10) Memory problem: Plan: Secondary to SATIN FINISHER lymphoma treatment. Poor short-term memory at baseline. 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 Remains in sinus rhythm here Cont to hold metoprolol due to low-normal BPs. continue Eliquis -keep K> 4 and mag> 2 -watch carefully for recurrence now that on high doses of prednisone (12) Benign prostatic hyperplasia with urinary obstruction: Plan: Continue Flomax and finasteride. PSA noted to be wnl maintain [place] (13) Dyslipidemia: Plan: continue atorvastatin. (14) Splenomegaly: Plan: due to recurrent lymphoma presumably (15) Chronic combined systolic and diastolic congestive heart failure: Plan: 02/20/2021 echo with EF 50-55%. Repeat ECHO here similar Metoprolol xl on hold due to hypotension or low-normal BPs. In the past, Lisinopril has been discontinued secondary to hypotension. Overall remains compensated. Edema in LEs from pelvic compression as above Plan: updated at bedside today 02/06 Dispo-continued stay on tele, eventual dc to rehab once renal failure improving and if tolerating high dose prednisone and after further eval for staging of lymphoma. No beds available at SNF until Wednesday at least Admission and Anticipated Discharge Date Admission Date: January 29, 2022 Subjective Patient reports no symptoms during interview. Review of Systems Review of Systems: All systems reviewed & are unremarkable except as noted in HPI & below Physical Exam Physical Exam: Constitutional: WD/WN, vitals as above Eyes: + anicteric sclerae ENMT: Mouth: no oropharynx abnormality (white exudate now resolved,some mild erythema) Neck: trachea midline, no thyromegaly Respiratory: normal respiratory effort, lungs clear to auscultation Cardiovascular: Rate/Rhythm: regular rate and regular rhythm Heart Sounds: no murmur Extremities: + edema (2+ pitting edema legs bilat L>R) Chest (Breasts): Chest: normal inspection of chest Gastrointestinal (Abdomen): normal bowel sounds, soft, nontender, no hepatosplenomegaly Musculoskeletal: Extremities: extremities normal to inspection; no cyanosis and no clubbing Skin: + rash (mild erythema ingunal region and sprapubic pannus) Neurologic: moves all extremities and awake; no focal motor deficits Psychiatric: Orientation: alert, oriented to person, oriented to place and cooperative Genitourinary: + penis abnormality (edema) and + scrotum abnormality (edema) [place] with concentrated urine Results & Data Results & Data ([facility]) Vital Signs (Past 12 Hours) Vital Signs Temp Pulse Resp BP Pulse Ox 02/07/22 20:27 36.8 C 88 25 H 134/82 93 02/07/22 16:33 36.5 C 82 18 114/66 97 02/07/22 11:35 36.8 C 70 18 95/65 L 97 PG Care Time/CCT Total # of Minutes Spent Total Time Spent with Patient: Total time spent is greater than 50% in coordination of care (as documented) at patient's floor/unit and/or counseling patient: Coding Level of Care Code 31284 Subseq Hosp Care Lvl 2 Diagnoses Lymphoma C85.90 Sepsis A41.9 Acute kidney injury N17.9 Hypoglycemia E16.2 Oral candidiasis B37.0 Hydronephrosis N13.30 Hematuria R31.9 H/O diffuse large B-cell lymphoma Z85.72 Leg swelling M79.89 Memory problem R41.3 Atrial flutter I48.92 Benign prostatic hyperplasia with urinary obstruction N40.1; N13.8 Dyslipidemia E78.5 Splenomegaly R16.1 Chronic combined systolic and diastolic congestive heart failure I50.42 Time Spent (min) 25
[2022-02-08 06:14] LABS: Hematocrit (blood only) 33.6 % (42-52); Hemoglobin 11.4 g/dL (14.0-18.0); Mean Corpuscular Hgb Conc 33.9 g/dL (32-36); Mean Corpuscular Volume 94.4 fL (80-100); Nucleated RBC # (auto) 0.03 K/uL (0-0); Nucleated RBC % (auto) 0.3 %; Platelet Count 233 K/uL (130-400); RDW Standard Deviation 48.6 fL (36.4-46.3); Red Blood Count 3.56 M/uL (4.7-6.1); White Blood Count 13.09 K/uL (4.8-10.8)
[2022-02-08 06:33] LABS: Albumin Level 2.4 gm/dl (3.4-5.0); BUN Creatinine Ratio 17.7 (10-20); Calcium 8.4 mg/dl (8.5-10.1); Creatinine Clr Calc Pharmacy 59.2 ml/min; Est GFR (African American) 55.6 ml/min; Phosphorus 1.9 mg/dl (2.5-4.9); Potassium 3.5 mmol/L (3.5-5.1)
[2022-02-08] MEDS: POT PHOSPHATE MONOBASIC W/ SOD TAB PO SCH ×2 (09:29→21:03)
[2022-02-08] MEDS: MAGNESIUM OXIDE 400 MG TAB PO SCH (09:30)
[2022-02-08] MEDS: CETIRIZINE HCL 10 MG TABLET PO SCH (09:30)
[2022-02-08] MEDS: ATORVASTATIN 40 MG TAB PO SCH (09:30)
[2022-02-08] MEDS: DRONEDARONE HCL 400 MG TAB PO SCH ×2 (09:30→21:02)
[2022-02-08] MEDS: TAMSULOSIN HCL 0.4 MG CAP PO SCH ×2 (09:30→21:02)
[2022-02-08] MEDS: allopurinoL 300 MG TAB PO SCH (09:30)
[2022-02-08] MEDS: predniSONE 50 MG TAB PO SCH (09:30)
[2022-02-08] MEDS: FINASTERIDE 5 MG TAB PO SCH (09:30)
[2022-02-08] MEDS: CHOLECALCIFEROL 1,000 UNITS 25 MCG TAB PO SCH (09:30)
[2022-02-08] MEDS: NYSTATIN POWDER 15GM BTL EXT SCH ×2 (09:31→21:35)
[2022-02-08] MEDS: CYANOCOBALAMIN (B-12) 500 MCG TABLET PO SCH (09:31)
[2022-02-08] MEDS: NYSTATIN SUSP 500,000 U/5 ML UDC PO SCH ×4 (09:31→21:02)
[2022-02-08] MEDS: HEPARIN 100 UNIT/ML 5ML FLUSH FLUSH PRN (09:50)
--- NOTE | 2022-02-08 13:27 | Hospitalist Progress Note ---
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 -not enough tissue from biopsy as per Oncology for FISH studies -now s/p BMBx and aspirate 02/05--> awaiting results on FISH studies and path -if has "double or triple hit" type of mutations for diffuse large B cell lymphoma, has much poorer prognosis -checked ECHO for baseline-low normal EF, stable from previous -check brain MRI with contrast once terminal carman improves to see about 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 May be a candidate for stem cell transplant. Dr. Ruvalcaba to discuss his case given third recurrence at [facility] Tumor board (2) Sepsis: Plan: Suspected at time of admission. Now ruled out Very high lactates, low glucose, low BP, etc at time of presentation. However, blood/urine cx's negative. COVID negative. CXR and Chest CT without pneumonia. CT a/p with findings that could be c/w infection of the urinary tract (bladder wall thickening, etc), but Ur cx negative s/p 2 days each of zosyn/vanco post-admission. 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 Trace protein not concerning Could be AIN from antibiotics? Or also post-renal failure from extrinsic compression from pelvic mass or THAYER from hematuria or enlarged prostate -Will trial dc of Hull today for TOV, bladder scan qshift and if has retention, would replace [place] -follow bMP in AM -Urology consulted- If renal failure worsens, recommend transfer out for perc neph tubes- really hoping not to have to do this -Appreciate Nephrology consultation (4) Hypoglycemia: Plan: Most likely 2/2 lymphoma It does not appear to be adrenal insufficiency as cortisol is >15 Initially was reuqiring D10 gtt, now weaned off Glucose now high with starting prednisone Started high dose prednisone and now able to dc D10W gtt -Accucheck showing blood sugars above 200 - currently declining insulin. (5) Oral candidiasis: Plan: extensive, causing sore throat, now much improved with po Nystatin continue Nystatin s/s x 14 day course-last day of tx 02/16/22 Also with Radha intertrigo in groin--> continue nystatin powder Scrotal support for scrotal and penile edema (6) Hydronephrosis: Plan: b/l 2nd to obstructing pelvic mass urology consult appreciated repeat renal u/s with unchanged hydro b/l [id number], if creatinine continues to worsen, Urology recommends perc nephrostomy tubes Have since resumed Eliquis as no impending Urology procedure (7) Hematuria: Plan: began 02/01/22. just before its development the patient had developed urinary retention. hull placed and wiggins red urine was obtained upon hull insertion. hull insertion was easy/nontraumatic per staff. the pelvic mass is compressing the bladder, the prostate, etc. UTI ruled out INR remains normal--no coagulopathy. -restarted Eliquis and monitor for worsening-now resolved dc [place] with TOV today (8) H/O diffuse large B-cell lymphoma: Plan: In remission since 2018. 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 Had again gone into remission in 2018 and had follow-up with Dr. Bailey here every 6 months, transition to yearly visits as of last January. Appreciate Dr. Ruvalcaba's consultation. now w/ recurrence as above (9) Leg swelling: Plan: Pelvic mass could be causing pelvic venous compression and LLE edema>RLE edema as well as scrotal and penile edema Venous duplex study of LLE neg for DVT Albumin 3.1 - doubt contributing TSH 09/2021 wnl u/a without protein 2020 echo with EF 50-55% -- and patient otherwise doesn't examine as decompensated CHF -added scrotal support (10) Memory problem: Plan: Secondary to LOW EMISSION AUTOMOBILE DESIGNER lymphoma treatment. Poor short-term memory at baseline. Ommaya reservoir/FUSION ANALYST shunt in place Supportive care is a huge help providing history and care (11) Atrial flutter: Plan: Continue Multaq. Remains in sinus rhythm here Cont to hold metoprolol due to low-normal BPs. continue Eliquis -keep K> 4 and mag> 2 ok to transfer off tele (12) Benign prostatic hyperplasia with urinary obstruction: Plan: Continue Flomax and finasteride. PSA noted to be wnl dc [place] TOV today (13) Dyslipidemia: Plan: continue atorvastatin. (14) Splenomegaly: Plan: due to recurrent lymphoma presumably (15) Chronic combined systolic and diastolic congestive heart failure: Plan: 02/20/2021 echo with EF 50-55%. Repeat ECHO here similar Metoprolol xl on hold due to hypotension or low-normal BPs. In the past, Lisinopril has been discontinued secondary to hypotension. Overall remains compensated. Edema in LEs from pelvic compression as above Plan: updated at bedside today 02/08 Dispo-continued stay but downgrade to med/surg. With eventual dc to rehab -No beds available at SNF until Wednesday at least Admission and Anticipated Discharge Date Admission Date: January 29, 2022 Subjective Pt remains forgetful. Denies pain or SOB. reports not eating much unless is reminded to eat. She is requesting Hull be removed to encourage him to be able to ambulate better. He does report feeling"snotty" and clarifies that he means he's feeling irritable. RN reports he had 6 BMs overnight. Tele with NSR, PVCs, normal rates. Review of Systems Review of Systems: All systems reviewed & are unremarkable except as noted in HPI & below Physical Exam Constitutional: WD/WN, vitals as above Eyes: + anicteric sclerae Neck: trachea midline, no thyromegaly Respiratory: normal respiratory effort, lungs clear to auscultation Cardiovascular: Rate/Rhythm: regular rate and regular rhythm Heart Sounds: no murmur Extremities: + edema (2+ pitting edema legs bilat L>R) Chest (Breasts): Chest: normal inspection of chest Gastrointestinal (Abdomen): normal bowel sounds, soft, nontender, no hepatosplenomegaly Musculoskeletal: Extremities: extremities normal to inspection; no cyanosis and no clubbing Neurologic: moves all extremities and awake; no focal motor deficits Psychiatric: Orientation: alert, oriented to person, oriented to place and cooperative Genitourinary: Hull with dark yellow urine, no blood Results & Data Results & Data ([facility]) Vital Signs (Past 12 Hours) Vital Signs Temp Pulse Resp BP Pulse Ox 02/08/22 11:35 36.5 C 87 18 99/60 L 94 02/08/22 07:24 36.8 C 73 18 107/81 93 02/08/22 03:30 37.0 C 77 20 124/65 93 Laboratory Results 02/08/22 05:46 02/08/22 05:46 PG Care Time/CCT Total # of Minutes Spent Total Time Spent with Patient: Total time spent is greater than 50% in coordination of care (as documented) at patient's floor/unit and/or counseling patient: Coding Level of Care Code 49323 Subseq Hosp Care Lvl 3 Diagnoses Lymphoma C85.90 Sepsis A41.9 Acute kidney injury N17.9 Hypoglycemia E16.2 Oral candidiasis B37.0 Hydronephrosis N13.30 Hematuria R31.9 H/O diffuse large B-cell lymphoma Z85.72 Leg swelling M79.89 Memory problem R41.3 Atrial flutter I48.92 Benign prostatic hyperplasia with urinary obstruction N40.1; N13.8 Dyslipidemia E78.5 Splenomegaly R16.1 Chronic combined systolic and diastolic congestive heart failure I50.42
[2022-02-09 06:08] LABS: Hematocrit (blood only) 33.9 % (42-52); Hemoglobin 11.3 g/dL (14.0-18.0); Immature Granulocytes % (auto) 1.7 %; Lymphocytes # (auto) 0.76 K/uL (1.2-3.4); Lymphocytes % (auto) 6.4 %; Mean Corpuscular Hemoglobin 32.1 pg (25-34); Mean Corpuscular Hgb Conc 33.3 g/dL (32-36); Mean Corpuscular Volume 96.3 fL (80-100); Mean Platelet Volume 10.1 fL (7.4-10.4); Monocytes # (auto) 0.85 K/uL (0.11-0.59); Monocytes % (auto) 7.1 %; Neutrophils # (auto) 10.09 K/uL (1.4-6.5); Neutrophils % (auto) 84.8 %; Platelet Count 239 K/uL (130-400); RDW Coefficient of Variation 14.3 % (11.5-14.5); Red Blood Count 3.52 M/uL (4.7-6.1)
[2022-02-09 06:12] LABS: Albumin Level 2.4 gm/dl (3.4-5.0); BUN Creatinine Ratio 20.9 (10-20); Calcium 8.2 mg/dl (8.5-10.1); Est GFR (African American) 62.2 ml/min; Est GFR (Non-African American) 53.7 ml/min; Phosphorus 2.6 mg/dl (2.5-4.9); Potassium 3.7 mmol/L (3.5-5.1); Uric Acid 4.7 mg/dl (2.6-7.2)
[2022-02-09] MEDS: CHOLECALCIFEROL 1,000 UNITS 25 MCG TAB PO SCH (08:03)
[2022-02-09] MEDS: DRONEDARONE HCL 400 MG TAB PO SCH ×2 (08:03→20:29)
[2022-02-09] MEDS: FINASTERIDE 5 MG TAB PO SCH (08:03)
[2022-02-09] MEDS: MAGNESIUM OXIDE 400 MG TAB PO SCH (08:03)
[2022-02-09] MEDS: CYANOCOBALAMIN (B-12) 500 MCG TABLET PO SCH (08:03)
[2022-02-09] MEDS: predniSONE 50 MG TAB PO SCH (08:03)
[2022-02-09] MEDS: ATORVASTATIN 40 MG TAB PO SCH (08:04)
[2022-02-09] MEDS: CETIRIZINE HCL 10 MG TABLET PO SCH (08:04)
[2022-02-09] MEDS: TAMSULOSIN HCL 0.4 MG CAP PO SCH ×2 (08:04→20:29)
[2022-02-09] MEDS: NYSTATIN POWDER 15GM BTL EXT SCH ×2 (08:04→20:32)
[2022-02-09] MEDS: NYSTATIN SUSP 500,000 U/5 ML UDC PO SCH ×4 (08:04→20:28)
[2022-02-09] MEDS: allopurinoL 300 MG TAB PO SCH (08:04)
--- NOTE | 2022-02-09 13:24 | Hospitalist Progress Note ---
Date of Service February 09, 2022 Assessment & Plan (1) Lymphoma: Plan: Presented with pelvic mass seen on CT abd/pel after coming in with night sweats, weakness, suspected sepsis clinical picture worrisome for extensive cancer (has carcinomatosis, pelvic mass, GUILHERME, etc) although he has h/o diffuse large B-Cell lymphoma the current films were not entirely c/w with recurrent lymphoma s/p FNA 02/02 of mass --> path and flow cytometry now show likely diffuse large B cell lymphoma vs high grade follicular lymphoma -not enough tissue from biopsy as per Oncology for FISH studies -now s/p BMBx and aspirate 02/05--> awaiting results on FISH studies and path -if has "double or triple hit" type of mutations for diffuse large B cell lymphoma, has much poorer prognosis -checked ECHO for baseline-low normal EF, stable from previous -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 May be a candidate for stem cell transplant. Dr. Ruvalcaba to discuss his case given third recurrence at [facility] Tumor board (2) Sepsis: Plan: Suspected at time of admission. Now ruled out Very high lactates, low glucose, low BP, etc at time of presentation. However, blood/urine cx's negative. COVID negative. CXR and Chest CT without pneumonia. CT a/p with findings that could be c/w infection of the urinary tract (bladder wall thickening, etc), but Ur cx negative s/p 2 days each of zosyn/vanco post-admission. 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 Trace protein not concerning Could be AIN from antibiotics? Or also post-renal failure from extrinsic compression from pelvic mass or THAYER from hematuria or enlarged prostate -Will trial dc of Hull today for TOV, bladder scan qshift and if has retention, would replace Hull. -Patient was incontinent overnight from 02-08-22 PM to 02-09-22 AM. Has not voided in the AM of 02/09/22. Will check bladder scan later today. If elevated will straight cath once. Anticipate he may need hull. -follow bMP in AM -Urology consulted- If renal failure worsens, recommend transfer out for perc neph tubes- really hoping not to have to do this -Appreciate Nephrology consultation (4) Hypoglycemia: Plan: Most likely 2/2 lymphoma It does not appear to be adrenal insufficiency as cortisol is >15 Initially was reuqiring D10 gtt, now weaned off Glucose now high with starting prednisone Started high dose prednisone and now able to dc D10W gtt -Accucheck showing blood sugars above 200 - currently declining insulin. (5) Oral candidiasis: Plan: extensive, causing sore throat, now much improved with po Nystatin continue Nystatin s/s x 14 day course-last day of tx 02/16/22 Also with Radha intertrigo in groin--> continue nystatin powder Scrotal support for scrotal and penile edema (6) Hydronephrosis: Plan: b/l 2nd to obstructing pelvic mass urology consult appreciated repeat renal u/s with unchanged hydro b/l [id number], if creatinine continues to worsen, Urology recommends perc nephrostomy tubes Have since resumed Eliquis as no impending Urology procedure (7) Hematuria: Plan: began 02/01/22. just before its development the patient had developed urinary retention. hull placed and wiggins red urine was obtained upon hull insertion. hull insertion was easy/nontraumatic per staff. the pelvic mass is compressing the bladder, the prostate, etc. UTI ruled out INR remains normal--no coagulopathy. -restarted Eliquis and monitor for worsening-now resolved dc [place] with TOV today (8) H/O diffuse large B-cell lymphoma: Plan: In remission since 2018. 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 Had again gone into remission in 2018 and had follow-up with Dr. Bailey here every 6 months, transition to yearly visits as of last January. Appreciate Dr. Ruvalcaba's consultation. now w/ recurrence as above (9) Leg swelling: Plan: Pelvic mass could be causing pelvic venous compression and LLE edema>RLE edema as well as scrotal and penile edema Venous duplex study of LLE neg for DVT Albumin 3.1 - doubt contributing TSH 09/2021 wnl u/a without protein 2020 echo with EF 50-55% -- and patient otherwise doesn't examine as decompensated CHF -added scrotal support (10) Memory problem: Plan: Secondary to COMBINE INSPECTOR lymphoma treatment. Poor short-term memory at baseline. Ommaya reservoir/SALES REPRESENTATIVE DOOR TO DOOR shunt in place Supportive care is a huge help providing history and care (11) Atrial flutter: Plan: Continue Multaq. Remains in sinus rhythm here Cont to hold metoprolol due to low-normal BPs. continue Eliquis -keep K> 4 and mag> 2 ok to transfer off tele (12) Benign prostatic hyperplasia with urinary obstruction: Plan: Continue Flomax and finasteride. PSA noted to be wnl dc [place] TOV today (13) Dyslipidemia: Plan: continue atorvastatin. (14) Splenomegaly: Plan: due to recurrent lymphoma presumably (15) Chronic combined systolic and diastolic congestive heart failure: Plan: 02/20/2021 echo with EF 50-55%. Repeat ECHO here similar Metoprolol xl on hold due to hypotension or low-normal BPs. In the past, Lisinopril has been discontinued secondary to hypotension. Overall remains compensated. Edema in LEs from pelvic compression as above Plan: updated at bedside 02/08 Dispo-continued stay but downgrade to med/surg. With eventual dc to rehab -No beds available at SNF until Wednesday at least Admission and Anticipated Discharge Date Admission Date: January 29, 2022 Subjective 71 yo male reports no new symptoms today. Review of Systems Review of Systems: All systems reviewed & are unremarkable except as noted in HPI & below Physical Exam Physical Exam: Constitutional: WD/WN, vitals as above Eyes: + anicteric sclerae ENMT: Mouth: no oropharynx abnormality (white exudate now resolved,some mild erythema) Neck: trachea midline, no thyromegaly Respiratory: normal respiratory effort, lungs clear to auscultation Cardiovascular: Rate/Rhythm: regular rate and regular rhythm Heart Sounds: no murmur Extremities: + edema (2+ pitting edema legs bilat L>R) Chest (Breasts): Chest: normal inspection of chest Gastrointestinal (Abdomen): normal bowel sounds, soft, nontender, no hepatosplenomegaly Musculoskeletal: Extremities: extremities normal to inspection; no cyanosis and no clubbing Skin: + rash (mild erythema ingunal region and sprapubic pannus) Neurologic: moves all extremities and awake; no focal motor deficits Psychiatric: Orientation: alert, oriented to person, oriented to place and cooperative Genitourinary: + penis abnormality (edema) and + scrotum abnormality (edema) Hull with concentrated urine Results & Data Results & Data ([facility]) Vital Signs (Past 12 Hours) Vital Signs Temp Pulse Resp BP Pulse Ox 02/09/22 07:39 36.9 C 70 20 129/79 94 PG Care Time/CCT Total # of Minutes Spent Total Time Spent with Patient: Total time spent is greater than 50% in coordination of care (as documented) at patient's floor/unit and/or counseling patient: Coding Level of Care Code 81245 Subseq Hosp Care Lvl 2 Diagnoses Lymphoma C85.90 Sepsis A41.9 Acute kidney injury N17.9 Hypoglycemia E16.2 Oral candidiasis B37.0 Hydronephrosis N13.30 Hematuria R31.9 H/O diffuse large B-cell lymphoma Z85.72 Leg swelling M79.89 Memory problem R41.3 Atrial flutter I48.92 Benign prostatic hyperplasia with urinary obstruction N40.1; N13.8 Dyslipidemia E78.5 Splenomegaly R16.1 Chronic combined systolic and diastolic congestive heart failure I50.42 Time Spent (min) 25
[2022-02-10 07:00] LABS: Albumin Level 2.4 gm/dl (3.4-5.0); BUN Creatinine Ratio 25.2 (10-20); Calcium 8.1 mg/dl (8.5-10.1); Creatinine Clr Calc Pharmacy 68.6 ml/min; Est GFR (African American) 66.4 ml/min; Est GFR (Non-African American) 57.3 ml/min; Phosphorus 2.6 mg/dl (2.5-4.9); Potassium 3.4 mmol/L (3.5-5.1)
[2022-02-10] MEDS: TAMSULOSIN HCL 0.4 MG CAP PO SCH ×2 (08:23→20:45)
[2022-02-10] MEDS: FINASTERIDE 5 MG TAB PO SCH (08:23)
[2022-02-10] MEDS: MAGNESIUM OXIDE 400 MG TAB PO SCH (08:23)
[2022-02-10] MEDS: ATORVASTATIN 40 MG TAB PO SCH (08:23)
[2022-02-10] MEDS: NYSTATIN POWDER 15GM BTL EXT SCH ×2 (08:23→20:44)
[2022-02-10] MEDS: DRONEDARONE HCL 400 MG TAB PO SCH ×2 (08:23→20:45)
[2022-02-10] MEDS: allopurinoL 300 MG TAB PO SCH (08:23)
[2022-02-10] MEDS: CHOLECALCIFEROL 1,000 UNITS 25 MCG TAB PO SCH (08:23)
[2022-02-10] MEDS: NYSTATIN SUSP 500,000 U/5 ML UDC PO SCH ×4 (08:23→20:45)
[2022-02-10] MEDS: predniSONE 50 MG TAB PO SCH (08:24)
[2022-02-10] MEDS: CYANOCOBALAMIN (B-12) 500 MCG TABLET PO SCH (08:24)
[2022-02-10] MEDS: CETIRIZINE HCL 10 MG TABLET PO SCH (08:24)
--- NOTE | 2022-02-10 17:16 | Hospitalist Progress Note ---
Date of Service February 10, 2022 Assessment & Plan (1) Lymphoma: Plan: Presented with pelvic mass seen on CT abd/pel after coming in with night sweats, weakness, suspected sepsis clinical picture worrisome for extensive cancer (has carcinomatosis, pelvic mass, GUILHERME, etc) although he has h/o diffuse large B-Cell lymphoma the current films were not entirely c/w with recurrent lymphoma s/p FNA 02/02 of mass --> path and flow cytometry now show likely diffuse large B cell lymphoma vs high grade follicular lymphoma -not enough tissue from biopsy as per Oncology for FISH studies -now s/p BMBx and aspirate 02/05--> awaiting results on FISH studies and path -if has "double or triple hit" type of mutations for diffuse large B cell lymphoma, has much poorer prognosis -checked ECHO for baseline-low normal EF, stable from previous -check brain MRI with contrast once client professional improves to see about 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 at the end of November 2021 -started prednisone 100mg po daily-hving some irritability from this -continue allopurinol for TLS-LDH high but uric acid and Phos normal, follow labs for TLS in the AM -has port in place if needs chemo Appreciate Oncology consult-likely will start chemo this coming week. May be a candidate for stem cell transplant. Dr. Ruvalcaba to discuss his case given third recurrence at [facility] Tumor board Awaiting bone marrow results. (2) Sepsis: Plan: Suspected at time of admission. Now ruled out Very high lactates, low glucose, low BP, etc at time of presentation. However, blood/urine cx's negative. COVID negative. CXR and Chest CT without pneumonia. CT a/p with findings that could be c/w infection of the urinary tract (bladder wall thickening, etc), but Ur cx negative s/p 2 days each of zosyn/vanco post-admission. Although cultures were negative , he was continued on antibiotics presumptively for UTI - omnicef 300mg BID-discontinued on 02/05 Lactate likely elevated from elevated LDH/suspected lymphoma. (3) Acute kidney injury: Plan: suspected to be 2nd to obstruction in the face of his pelvic mass, b/l hydro, gross hematuria development His client professional was normal though prior to admission despite known bilat hydro and pelvic mass no casts seen on u/a to suggest ATN Train Braker peaked at 1.9, but now down to 1.47 Non-oliguric, with some gross hematuria now improving/resolved FeNa 1.0% consistent with intrinsic renal failure eg ATN, AIN, glomerulonephritis but UA without casts, but with RBCs which could be from [place] trauma. Trace protein not concerning Could be AIN from antibiotics? Or also post-renal failure from extrinsic compression from pelvic mass or THAYER from hematuria or enlarged prostate -Will trial dc of [place] today for TOV, bladder scan qshift and if has retention, would replace [place]. -Patient was incontinent overnight from 02-08-22 PM to 02-09-22 AM. Has not voided in the AM of 02/09/22. Will check bladder scan later today. If elevated will straight cath once. Anticipate he may need hull. -follow bMP in AM -Urology consulted- If renal failure worsens, recommend transfer out for perc neph tubes- really hoping not to have to do this -Appreciate Nephrology consultation Resolved acute kidney injury. creatinine is normal on 02/10/22 (4) Hypoglycemia: Plan: Most likely 2/2 lymphoma It does not appear to be adrenal insufficiency as cortisol is >15 Initially was reuqiring D10 gtt, now weaned off Glucose now high with starting prednisone Started high dose prednisone and now able to dc D10W gtt -Accucheck showing blood sugars above 200 - currently declining insulin. (5) Oral candidiasis: Plan: extensive, causing sore throat, now much improved with po Nystatin continue Nystatin s/s x 14 day course-last day of tx 02/16/22 Also with Radha intertrigo in groin--> continue nystatin powder Scrotal support for scrotal and penile edema (6) Hydronephrosis: Plan: b/l 2nd to obstructing pelvic mass urology consult appreciated repeat renal u/s with unchanged hydro b/l [id number], if creatinine continues to worsen, Urology recommends perc nephrostomy tubes Have since resumed Eliquis as no impending Urology procedure [place] cathter has been removed. (7) Hematuria: Plan: began 02/01/22. just before its development the patient had developed urinary retention. hull placed and wiggins red urine was obtained upon hull insertion. hull insertion was easy/nontraumatic per staff. the pelvic mass is compressing the bladder, the prostate, etc. UTI ruled out INR remains normal--no coagulopathy. -restarted Eliquis and monitor for worsening-now resolved dc [place] with TOV today (8) H/O diffuse large B-cell lymphoma: Plan: In remission since 2018. 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 Had again gone into remission in 2018 and had follow-up with Dr. Bailey here every 6 months, transition to yearly visits as of last January. Appreciate Dr. Ruvalcaba's consultation. now w/ recurrence as above (9) Leg swelling: Plan: Pelvic mass could be causing pelvic venous compression and LLE edema>RLE edema as well as scrotal and penile edema Venous duplex study of LLE neg for DVT Albumin 3.1 - doubt contributing TSH 09/2021 wnl u/a without protein 2020 echo with EF 50-55% -- and patient otherwise doesn't examine as decompensated CHF -added scrotal support (10) Memory problem: Plan: Secondary to DEHYDROGENATION SUPERVISOR lymphoma treatment. Poor short-term memory at baseline. Ommaya reservoir/SPECIAL NEEDS LIBRARIAN shunt in place Supportive care is a huge help providing history and care (11) Atrial flutter: Plan: Continue Multaq. Remains in sinus rhythm here Cont to hold metoprolol due to low-normal BPs. continue Eliquis -keep K> 4 and mag> 2 ok to transfer off tele (12) Benign prostatic hyperplasia with urinary obstruction: Plan: Continue Flomax and finasteride. PSA noted to be wnl dc [place] TOV today (13) Dyslipidemia: Plan: continue atorvastatin. (14) Splenomegaly: Plan: due to recurrent lymphoma presumably (15) Chronic combined systolic and diastolic congestive heart failure: Plan: 02/20/2021 echo with EF 50-55%. Repeat ECHO here similar Metoprolol xl on hold due to hypotension or low-normal BPs. In the past, Lisinopril has been discontinued secondary to hypotension. Overall remains compensated. Edema in LEs from pelvic compression as above Plan: updated at bedside 02/08 Dispo-continued stay but downgrade to med/surg. With eventual dc to rehab -No beds available at SNF until Wednesday at least Admission and Anticipated Discharge Date Admission Date: January 29, 2022 Subjective 71 yo male reports no new symptoms. His is at bedside and reports he is having urinary incontinence. Review of Systems Review of Systems: All systems reviewed & are unremarkable except as noted in HPI & below Physical Exam Physical Exam: Constitutional: WD/WN, vitals as above Eyes: + anicteric sclerae ENMT: Mouth: no oropharynx abnormality (white exudate now resolved,some mild erythema) Neck: trachea midline, no thyromegaly Respiratory: normal respiratory effort, lungs clear to auscultation Cardiovascular: Rate/Rhythm: regular rate and regular rhythm Heart Sounds: no murmur Extremities: + edema (2+ pitting edema legs bilat L>R) Chest (Breasts): Chest: normal inspection of chest Gastrointestinal (Abdomen): normal bowel sounds, soft, nontender, no hepatosplenomegaly Musculoskeletal: Extremities: extremities normal to inspection; no cyanosis and no clubbing Skin: + rash (mild erythema ingunal region and sprapubic pannus) Neurologic: moves all extremities and awake; no focal motor deficits Psychiatric: Orientation: alert, oriented to person, oriented to place and cooperative Genitourinary: + penis abnormality (edema) and + scrotum abnormality (edema) hull removed. Results & Data Results & Data ([facility]) Vital Signs (Past 12 Hours) Vital Signs Temp Pulse Resp BP Pulse Ox 02/10/22 15:37 36.6 C 74 14 113/70 95 02/10/22 07:22 36.9 C 75 16 108/70 94 PG Care Time/CCT Total # of Minutes Spent Total Time Spent with Patient: Total time spent is greater than 50% in coordination of care (as documented) at patient's floor/unit and/or counseling patient: Coding Level of Care Code 12071 Subseq Hosp Care Lvl 2 Diagnoses Lymphoma C85.90 Sepsis A41.9 Acute kidney injury N17.9 Hypoglycemia E16.2 Oral candidiasis B37.0 Hydronephrosis N13.30 Hematuria R31.9 H/O diffuse large B-cell lymphoma Z85.72 Leg swelling M79.89 Memory problem R41.3 Atrial flutter I48.92 Benign prostatic hyperplasia with urinary obstruction N40.1; N13.8 Dyslipidemia E78.5 Splenomegaly R16.1 Chronic combined systolic and diastolic congestive heart failure I50.42 Time Spent (min) 25
[2022-02-11] MEDS: CHOLECALCIFEROL 1,000 UNITS 25 MCG TAB PO SCH (08:49)
[2022-02-11] MEDS: NYSTATIN POWDER 15GM BTL EXT SCH ×2 (08:50→20:38)
[2022-02-11] MEDS: NYSTATIN SUSP 500,000 U/5 ML UDC PO SCH ×4 (08:50→20:38)
[2022-02-11] MEDS: MAGNESIUM OXIDE 400 MG TAB PO SCH (08:51)
[2022-02-11] MEDS: predniSONE 50 MG TAB PO SCH (08:51)
[2022-02-11] MEDS: FINASTERIDE 5 MG TAB PO SCH (08:51)
[2022-02-11] MEDS: ATORVASTATIN 40 MG TAB PO SCH (08:51)
[2022-02-11] MEDS: TAMSULOSIN HCL 0.4 MG CAP PO SCH ×2 (08:51→20:38)
[2022-02-11] MEDS: DRONEDARONE HCL 400 MG TAB PO SCH ×2 (08:51→20:38)
[2022-02-11] MEDS: allopurinoL 300 MG TAB PO SCH (08:51)
[2022-02-11] MEDS: CETIRIZINE HCL 10 MG TABLET PO SCH (08:51)
[2022-02-11] MEDS: CYANOCOBALAMIN (B-12) 500 MCG TABLET PO SCH (08:51)
--- NOTE | 2022-02-11 17:48 | Hospitalist Progress Note ---
Date of Service February 11, 2022 Assessment & Plan (1) Lymphoma: Plan: Presented with pelvic mass seen on CT abd/pel after coming in with night sweats, weakness, suspected sepsis clinical picture worrisome for extensive cancer (has carcinomatosis, pelvic mass, GUILHERME, etc) although he has h/o diffuse large B-Cell lymphoma the current films were not entirely c/w with recurrent lymphoma s/p FNA 02/02 of mass --> path and flow cytometry now show likely diffuse large B cell lymphoma vs high grade follicular lymphoma -not enough tissue from biopsy as per Oncology for FISH studies -now s/p BMBx and aspirate 02/05--> awaiting results on FISH studies and path -if has "double or triple hit" type of mutations for diffuse large B cell lymphoma, has much poorer prognosis -checked ECHO for baseline-low normal EF, stable from previous -check brain MRI with contrast once support clerk improves to see about 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 at the end of November 2021 -started prednisone 100mg po daily-hving some irritability from this -continue allopurinol for TLS-LDH high but uric acid and Phos normal, follow labs for TLS in the AM -has port in place if needs chemo Appreciate Oncology consult-likely will start chemo this coming week. May be a candidate for stem cell transplant. Dr. Ruvalcaba to discuss his case given third recurrence at [facility] Tumor board Awaiting bone marrow results. (2) Sepsis: Plan: Suspected at time of admission. Now ruled out Very high lactates, low glucose, low BP, etc at time of presentation. However, blood/urine cx's negative. COVID negative. CXR and Chest CT without pneumonia. CT a/p with findings that could be c/w infection of the urinary tract (bladder wall thickening, etc), but Ur cx negative s/p 2 days each of zosyn/vanco post-admission. Although cultures were negative , he was continued on antibiotics presumptively for UTI - omnicef 300mg BID-discontinued on 02/05 Lactate likely elevated from elevated LDH/suspected lymphoma. (3) Acute kidney injury: Plan: suspected to be 2nd to obstruction in the face of his pelvic mass, b/l hydro, gross hematuria development His support clerk was normal though prior to admission despite known bilat hydro and pelvic mass no casts seen on u/a to suggest ATN Slat Basket Maker Helper peaked at 1.9, but now down to 1.47 Non-oliguric, with some gross hematuria now improving/resolved FeNa 1.0% consistent with intrinsic renal failure eg ATN, AIN, glomerulonephritis but UA without casts, but with RBCs which could be from [place] trauma. Trace protein not concerning Could be AIN from antibiotics? Or also post-renal failure from extrinsic compression from pelvic mass or THAYER from hematuria or enlarged prostate -Will trial dc of [place] today for TOV, bladder scan qshift and if has retention, would replace [place]. -Patient was incontinent overnight from 02-08-22 PM to 02-09-22 AM. Has not voided in the AM of 02/09/22. Will check bladder scan later today. If elevated will straight cath once. Anticipate he may need hull. -follow bMP in AM -Urology consulted- If renal failure worsens, recommend transfer out for perc neph tubes- really hoping not to have to do this -Appreciate Nephrology consultation Resolved acute kidney injury. creatinine remains normal on 02/10/22 will repeat blood work on 02/11/22 (4) Hypoglycemia: Plan: Most likely 2/2 lymphoma It does not appear to be adrenal insufficiency as cortisol is >15 Initially was reuqiring D10 gtt, now weaned off Glucose now high with starting prednisone Started high dose prednisone and now able to dc D10W gtt -Accucheck showing blood sugars above 200 - currently declining insulin. (5) Oral candidiasis: Plan: extensive, causing sore throat, now much improved with po Nystatin continue Nystatin s/s x 14 day course-last day of tx 02/16/22 Also with Radha intertrigo in groin--> continue nystatin powder Scrotal support for scrotal and penile edema (6) Hydronephrosis: Plan: b/l 2nd to obstructing pelvic mass urology consult appreciated repeat renal u/s with unchanged hydro b/l [id number], if creatinine continues to worsen, Urology recommends perc nephrostomy tubes Have since resumed Eliquis as no impending Urology procedure [place] cathter has been removed. checking frequent bladder scans to ensure emptying. (7) Hematuria: Plan: began 02/01/22. just before its development the patient had developed urinary retention. hull placed and wiggins red urine was obtained upon hull insertion. hull insertion was easy/nontraumatic per staff. the pelvic mass is compressing the bladder, the prostate, etc. UTI ruled out INR remains normal--no coagulopathy. -restarted Eliquis and monitor for worsening-now resolved dc [place] (8) H/O diffuse large B-cell lymphoma: Plan: In remission since 2018. First diagnosed in 2011 renal involvement, had been in remission until 2014 with CLEAN ROOM OPERATOR disease. Had again gone into remission in 2018 and had follow-up with Dr. Bailey here every 6 months, transition to yearly visits as of last January. Appreciate Dr. Ruvalcaba's consultation. now w/ recurrence as above (9) Leg swelling: Plan: Pelvic mass could be causing pelvic venous compression and LLE edema>RLE edema as well as scrotal and penile edema Venous duplex study of LLE neg for DVT Albumin 3.1 - doubt contributing TSH 09/2021 wnl u/a without protein 2020 echo with EF 50-55% -- and patient otherwise doesn't examine as decompensated CHF -added scrotal support (10) Memory problem: Plan: Secondary to CLEAN ROOM OPERATOR lymphoma treatment. Poor short-term memory at baseline. 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 Remains in sinus rhythm here Cont to hold metoprolol due to low-normal BPs. continue Eliquis -keep K> 4 and mag> 2 (12) Benign prostatic hyperplasia with urinary obstruction: Plan: Continue Flomax and finasteride. PSA noted to be wnl dc [place] (13) Dyslipidemia: Plan: continue atorvastatin. (14) Splenomegaly: Plan: due to recurrent lymphoma presumably (15) Chronic combined systolic and diastolic congestive heart failure: Plan: 02/20/2021 echo with EF 50-55%. Repeat ECHO here similar Metoprolol xl on hold due to hypotension or low-normal BPs. In the past, Lisinopril has been discontinued secondary to hypotension. Overall remains compensated. Edema in LEs from pelvic compression as above Plan: updated at bedside 02/10 Dispo-continued stay to med/surg. Awaiting placement. Admission and Anticipated Discharge Date Admission Date: January 29, 2022 Subjective Patient reports no new symptoms. Review of Systems Review of Systems: All systems reviewed & are unremarkable except as noted in HPI & below Physical Exam Physical Exam: Constitutional: WD/WN, vitals as above Eyes: + anicteric sclerae ENMT: Mouth: no oropharynx abnormality (white exudate now resolved,some mild erythema) Neck: trachea midline, no thyromegaly Respiratory: normal respiratory effort, lungs clear to auscultation Cardiovascular: Rate/Rhythm: regular rate and regular rhythm Heart Sounds: no murmur Extremities: + edema (2+ pitting edema legs bilat L>R) Chest (Breasts): Chest: normal inspection of chest Gastrointestinal (Abdomen): normal bowel sounds, soft, nontender, no hepatosplenomegaly Musculoskeletal: Extremities: extremities normal to inspection; no cyanosis and no clubbing Skin: + rash (mild erythema ingunal region and sprapubic pannus) Neurologic: moves all extremities and awake; no focal motor deficits Psychiatric: Orientation: alert, oriented to person, oriented to place and cooperative Genitourinary: + penis abnormality (edema) and + scrotum abnormality (edema) hull removed. Results & Data Results & Data ([facility]) Vital Signs (Past 12 Hours) Vital Signs Temp Pulse Resp BP Pulse Ox 02/11/22 16:43 36.6 C 70 17 116/72 93 02/11/22 07:35 36.7 C 62 17 121/79 97 PG Care Time/CCT Total # of Minutes Spent Total Time Spent with Patient: Total time spent is greater than 50% in coordination of care (as documented) at patient's floor/unit and/or counseling patient: Coding Level of Care Code 05187 Subseq Hosp Care Lvl 2 Diagnoses Lymphoma C85.90 Sepsis A41.9 Acute kidney injury N17.9 Hypoglycemia E16.2 Oral candidiasis B37.0 Hydronephrosis N13.30 Hematuria R31.9 H/O diffuse large B-cell lymphoma Z85.72 Leg swelling M79.89 Memory problem R41.3 Atrial flutter I48.92 Benign prostatic hyperplasia with urinary obstruction N40.1; N13.8 Dyslipidemia E78.5 Splenomegaly R16.1 Chronic combined systolic and diastolic congestive heart failure I50.42
[2022-02-12 08:01] LABS: Hematocrit (blood only) 34.2 % (40.1-51.0); Hemoglobin 11.7 g/dl (14.0-18.0); Mean Corpuscular Hemoglobin 32.6 pg (25.0-34.0); Mean Corpuscular Hgb Conc 34.2 g/dL (32.0-36.0); Mean Corpuscular Volume 95.3 fL (80.0-100.0); Mean Platelet Volume 10.1 fL (9.4-12.4); Platelet Count 180 K/uL (130-400); RDW Standard Deviation 48.2 fL (36.4-46.3); Red Blood Count 3.59 M/uL (4.63-6.08); White Blood Count 11.34 K/ul (4.8-10.8)
[2022-02-12] MEDS: CYANOCOBALAMIN (B-12) 500 MCG TABLET PO SCH (08:05)
[2022-02-12] MEDS: DRONEDARONE HCL 400 MG TAB PO SCH ×2 (08:05→20:54)
[2022-02-12] MEDS: MAGNESIUM OXIDE 400 MG TAB PO SCH (08:06)
[2022-02-12] MEDS: FINASTERIDE 5 MG TAB PO SCH (08:06)
[2022-02-12] MEDS: NYSTATIN POWDER 15GM BTL EXT SCH ×2 (08:06→20:55)
[2022-02-12] MEDS: CETIRIZINE HCL 10 MG TABLET PO SCH (08:06)
[2022-02-12] MEDS: allopurinoL 300 MG TAB PO SCH (08:06)
[2022-02-12] MEDS: predniSONE 50 MG TAB PO SCH (08:06)
[2022-02-12] MEDS: TAMSULOSIN HCL 0.4 MG CAP PO SCH ×2 (08:06→20:55)
[2022-02-12] MEDS: CHOLECALCIFEROL 1,000 UNITS 25 MCG TAB PO SCH (08:06)
[2022-02-12] MEDS: ATORVASTATIN 40 MG TAB PO SCH (08:06)
[2022-02-12] MEDS: NYSTATIN SUSP 500,000 U/5 ML UDC PO SCH ×4 (08:06→20:53)
[2022-02-12 08:22] LABS: BUN Creatinine Ratio 25.7 (10-20); Calcium 8.1 mg/dl (8.5-10.1); Creatinine Clr Calc Pharmacy 79.9 ml/min; Est GFR (African American) 79.8 ml/min; Est GFR (Non-African American) 68.9 ml/min; Potassium 3.4 mmol/L (3.5-5.1)
--- NOTE | 2022-02-12 11:42 | Hospitalist Progress Note ---
Date of Service February 12, 2022 Assessment & Plan (1) Lymphoma: Plan: Presented with pelvic mass seen on CT abd/pel after coming in with night sweats, weakness, suspected sepsis. Clinical picture worrisome for extensive cancer (has carcinomatosis, pelvic mass, GUILHERME). Although he has h/o diffuse large B-Cell lymphoma the current films were not entirely c/w with recurrent lymphoma. - S/p FNA 02/02 of mass --> path and flow cytometry now show likely diffuse large B-cell lymphoma vs high grade follicular lymphoma. 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 Discussed with radiology on 02/12, and they will not be able to get more than an FNA sample which was difficult in any event. (2) Acute kidney injury: Plan: Suspected to be 2nd to obstruction in the face of his pelvic mass, b/l hydro, gross hematuria. Baseline Cr ~1.0. Cr up to 1.9 on admission. - Now down to 1.1. - Urology consulted- If renal failure worsens, recommend transfer out for perc neph tubes- really hoping not to have to do this - Appreciate Nephrology consultation - Monitor PVRs -> Last noted to be ~300 mL on 02/12 AM. (3) Hydronephrosis: Plan: B/l 2nd to obstructing pelvic mass. - Urology consult appreciated - Will need percutaneous nephrostomy tubes if Cr worsens. - Farrar catheter has been removed. (4) Hypoglycemia: Plan: Most likely 2/2 lymphoma. Cortisol is >15. Initially was requiring D10 gtt, now weaned off. - Accucheck showing blood sugars above 200 now that he is on prednisone. - currently declining insulin per prior notes. Will discuss with her. (5) Sepsis: Plan: Suspected at time of admission. Very high lactates, low glucose, low BP, etc at time of presentation. - Blood/urine cx's negative, COVID negative, CXR and chest CT without pneumonia. - Although cultures were negative , he was continued on antibiotics presumptively for UTI - omnicef 300mg BID-discontinued on 02/05 - From cancer (6) Oral candidiasis: Plan: Extensive, causing sore throat, now much improved with Nystatin PO - Continue Nystatin s/s x 14 day course-last day of tx 02/16/22 - Also with Radha intertrigo in groin--> continue nystatin powder (7) Hematuria: Plan: Began 02/01/22. The pelvic mass is compressing the bladder, the prostate, etc. UTI ruled out. INR remains normal--no coagulopathy. - Monitor (8) H/O diffuse large B-cell lymphoma: Plan: In remission since 2018. First diagnosed in 2011 renal involvement, had been in remission until 2014 with MANAGER SHIPPING disease. Had again gone into remission in 2018 and had follow-up with Dr. Bailey here every 6 months, transition to yearly visits as of last January. - Appreciate Dr. Ruvalcaba's consultation. - Now w/ recurrence as above (9) Leg swelling: Plan: Pelvic mass could be causing pelvic venous compression and LLE edema>RLE edema as well as scrotal and penile edema. - Venous duplex study of LLE neg for DVT - 2020 echo with EF 50-55% -- and patient otherwise doesn't examine as decompensated CHF (10) Memory problem: Plan: Secondary to MANAGER SHIPPING lymphoma treatment. Poor short-term memory at baseline. 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 - Supportive care (11) Atrial flutter: Plan: Remains in sinus rhythm here. - Continue Multaq - Continue to hold metoprolol due to low-normal BPs. - Holding Eliquis - Keep K> 4 and mag> 2 (12) Benign prostatic hyperplasia with urinary obstruction: Plan: PSA noted to be wnl. - See above (13) Dyslipidemia: Plan: - Continue atorvastatin Admission and Anticipated Discharge Date Admission Date: January 29, 2022 Subjective Reports no new acute symptoms today. Reports no fevers/chills, chest pain, shortness of breath, abdominal pain, nausea, or vomiting. However, when asked why he is here, he clearly becomes distressed and reports he is "sick." When asked to explain, he reports his head is "stuffy" and that he can't think straight. He reports some decline in hearing. Physical Exam Constitutional: WD/WN, vitals as above Eyes: EOM intact bilaterally; no conjunctival abnormality ENMT: external ear and nose normal, oropharynx normal Neck: trachea midline, no thyromegaly normal visual inspection Respiratory: normal respiratory effort, lungs clear to auscultation no respiratory distress Cardiovascular: RRR, no murmur, no edema Gastrointestinal (Abdomen): Inspection/Auscultation: abdomen normal to inspection; abdomen not distended Musculoskeletal: no cyanosis or clubbing, extremities motor strength 5/5 Skin: no rashes, warm and dry Neurologic: moves all extremities and awake Psychiatric: Orientation: alert, oriented to person, oriented to place and cooperative; + not oriented to time Results & Data Results & Data ([facility]) Vital Signs (Past 12 Hours) Vital Signs Temp Pulse Resp BP Pulse Ox 02/12/22 05:43 36.4 C L 72 16 117/76 96 PG Care Time/CCT Total # of Minutes Spent Total Time Spent with Patient: Total time spent is greater than 50% in coordination of care (as documented) at patient's floor/unit and/or counseling patient: Coding Level of Care Code 10933 Subseq Hosp Care Lvl 3 Diagnoses Lymphoma C85.90 Sepsis A41.9 Acute kidney injury N17.9 Hypoglycemia E16.2 Oral candidiasis B37.0 Hydronephrosis N13.30 Hematuria R31.9 H/O diffuse large B-cell lymphoma Z85.72 Leg swelling M79.89 Memory problem R41.3 Atrial flutter I48.92 Benign prostatic hyperplasia with urinary obstruction N40.1; N13.8 Dyslipidemia E78.5
--- NOTE | 2022-02-12 16:26 | Discharge Summary ---
Date of Service February 12, 2022 Admission HPI Per Admitting Provider Wojciech Jacobsen is a 71 y/o male with a PMH of b-cell lymphoma in 2012 with recurrence in 2016, atrial fibrillation, hyperlipidemia, and BPH who presents today with his for concerns of increased night sweats, confusion, and generalized weakness. Patient was scheduled to have an annual oncology appointment with Dr. Ruvalcaba next week, however patient's noticed he has had started having night sweats, increased fatigue, general weakness. Night sweats are concerning to her, as this is how he had presented previously with his initial lymphoma diagnosis and with recurrence 4 years later, therefore she brought him to the ED for further evaluation. He is without any complaints, fever/chills, chest pain, shortness of breath, cough, abdominal pain, nausea, vomiting, dysuria, or any other discomfort. Here, patient presented slightly hypotensive 99/69, however now normotensive after fluids, otherwise vital signs within normal limits. Labs significant for Hgb 12.6, initial lactate 7.4, 5.9 two hours later. Magnesium 1.6, T bili 1.2. UA pending. CT A/P with large pelvic mass, extensive metastatic disease and bilateral hydronephrosis. Head CT, chest CT, CXR all without evidence of acute disease process. Principal Diagnosis Lymphoma - B-cell vs. follicular presenting as a large pelvic mass Discharge Exam Constitutional WD/WN, vitals as above Eyes EOM intact bilaterally; no conjunctival abnormality ENMT external ear and nose normal, oropharynx normal Neck trachea midline, no thyromegaly normal visual inspection Respiratory normal respiratory effort, lungs clear to auscultation no respiratory distress Cardiovascular RRR, no murmur, no edema Gastrointestinal (Abdomen) Inspection/Auscultation: abdomen normal to inspection; abdomen not distended Musculoskeletal no cyanosis or clubbing, extremities motor strength 5/5 Skin no rashes, warm and dry Neurologic moves all extremities and awake Psychiatric Orientation: alert, oriented to person, oriented to place and cooperative; + not oriented to time Discharge Data Allergies Allergy/AdvReac Type Severity Reaction Status Date / Time No Known Drug Allergies Allergy Verified 10/06/21 12:32 Consultations 01/29/22 17:11 ED Decision to Admit Stat 01/29/22 18:28 Consult Oncology Routine 01/30/22 09:57 Consult Urology Routine 01/30/22 13:33 Consult General Surgery Routine 02/03/22 11:35 Consult Nephrology Routine 02/12/22 16:20 Burn CD for patient Routine Ordered Studies 01/29/22 14:28 CT abd pelvis IV con only Stat CT chest diagnostic w con Stat CT head/brain wo/w con Stat 01/29/22 22:50 US venous doppler LE LT Urgent 02/02/22 05:42 US FNA w/img 1st lesion Routine 02/02/22 10:18 US renal/blad retro comp Urgent Hospital Course (1) Lymphoma: Presented with pelvic mass seen on CT abd/pel after coming in with night sweats, weakness, suspected sepsis. Clinical picture worrisome for extensive cancer (has carcinomatosis, pelvic mass, GUILHERME). Although he has h/o diffuse large B-Cell lymphoma the current films were not entirely c/w with recurrent lymphoma. - S/p FNA 02/02 of mass --> path and flow cytometry now show likely diffuse large B-cell lymphoma vs high grade follicular lymphoma. 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 Discussed with radiology on 02/12, and they will not be able to get more than an FNA sample which was difficult in any event. Discussed with both surgical services who feel they cannot do this. Recommend surgical oncology. Accepted at [facility] [place] for transfer and further care. (2) Acute kidney injury: Suspected to be 2nd to obstruction in the face of his pelvic mass, b/l hydro, gross hematuria. Baseline Cr ~1.0. Cr up to 1.9 on admission. - Now down to 1.1. - Urology consulted- If renal failure worsens, recommend transfer out for perc neph tubes- really hoping not to have to do this - Appreciate Nephrology consultation - Monitor PVRs -> Last noted to be ~300 mL on 02/12 AM. Notes do not indicate wh en Farrar was removed, and urology had recommended it stay in. Would consider re- insertion. (3) Hydronephrosis: B/l 2nd to obstructing pelvic mass. - Urology consult appreciated - Will need percutaneous nephrostomy tubes if Cr worsens. - Farrar catheter has been removed. (4) Hypoglycemia: Most likely 2/2 lymphoma. Cortisol is >15. Initially was requiring D10 gtt, now weaned off. - Accucheck showing blood sugars above 200 now that he is on prednisone. - currently declining insulin per prior notes. Will discuss with her. (5) Sepsis: Suspected at time of admission. Very high lactates, low glucose, low BP, etc at time of presentation. - Blood/urine cx's negative, COVID negative, CXR and chest CT without pneumonia. - Although cultures were negative , he was continued on antibiotics presumptively for UTI - omnicef 300mg BID-discontinued on 02/05 - From cancer (6) Oral candidiasis: Extensive, causing sore throat, now much improved with Nystatin PO - Continue Nystatin s/s x 14 day course-last day of tx 02/16/22 - Also with Radha intertrigo in groin--> continue nystatin powder (7) Hematuria: Began 02/01/22. The pelvic mass is compressing the bladder, the prostate, etc. UTI ruled out. INR remains normal--no coagulopathy. - Monitor (8) H/O diffuse large B-cell lymphoma: In remission since 2018. 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 Had again gone into remission in 2018 and had follow-up with Dr. Bailey here every 6 months, transition to yearly visits as of last January. - Appreciate Dr. Ruvalcaba's consultation. - Now w/ recurrence as above (9) Leg swelling: Pelvic mass could be causing pelvic venous compression and LLE edema>RLE edema as well as scrotal and penile edema. - Venous duplex study of LLE neg for DVT - 2020 echo with EF 50-55% -- and patient otherwise doesn't examine as decompensated CHF (10) Memory problem: Secondary to PROGRAMMER OPERATOR NUMERICAL CONTROL lymphoma treatment. Poor short-term memory at baseline. Ommaya reservoir/SUPERVISOR LATHING shunt in place. - Supportive care (11) Atrial flutter: Remains in sinus rhythm here. - Continue Multaq - Continue to hold metoprolol due to low-normal BPs. - Holding Eliquis - Keep K> 4 and mag> 2 (12) Benign prostatic hyperplasia with urinary obstruction: PSA noted to be wnl. - See above (13) Dyslipidemia: - Continue atorvastatin Total Time Total Time Spent Total Time Spent (In Minutes): 35 Discharge Plan Discharge Items Patient Disposition: Transfer Acute Care Hospital Reason For Visit: LYMPHOMA HX WITH DIFFUSE METASTATIC CA Discharge Diagnosis: Lymphoma Activity: Resume your previous activity Non-emergency contact: Primary Care Provider and Oncologist Call non-emergency contact if: your symptoms worsen Follow-up/Referrals: Clarence Valverde MD [Primary Care Provider] - Diet: Regular Addtl Attending Provider Instructions: Mr. Jacobsen was diagnosed with lymphoma with a large pelvic mass. Transfer to [facility] for surgical oncology and excisional biopsy. Pending Studies at Discharge: No Stand-Alone Forms: My [facility] Skilled Items Patient informed of condition?: Yes DNR: Yes Discharge Level of Care: Other Communicable Disease: No Discharge Prognosis: Stable Lines: Peripheral IV Urinary Catheter: No Medications and DC Order Prescriptions: New prednisone 50 mg Tablet 100 mg PO DAILY Qty: 0 RF: 0 Continued metoprolol succinate 25 mg tablet extended release 24 hr 25 mg PO DAILY Qty: 90 RF: 3 dronedarone 400 mg tablet 400 mg PO BID Qty: 180 RF: 3 cetirizine 10 mg tablet 10 mg PO DAILY RF: 0 cholecalciferol (vitamin D3) 2,000 unit tablet 2,000 units PO DAILY RF: 0 cyanocobalamin (vitamin B-12) 1,000 mcg tablet 1,000 mcg PO DAILY RF: 0 magnesium oxide 400 mg (241.3 mg magnesium) tablet 400 mg PO DAILY RF: 0 allopurinol 300 mg tablet 300 mg PO DAILY Qty: 90 RF: 3 atorvastatin 40 mg tablet 40 mg PO DAILY Qty: 90 RF: 3 nystatin 100,000 unit/gram powder 1 applic topical BID Qty: 30 RF: 1 tamsulosin 0.4 mg capsule 0.4 mg PO BID Qty: 180 RF: 3 finasteride 5 mg tablet 5 mg PO DAILY Qty: 90 RF: 3 Discontinued apixaban 5 mg tablet 5 mg PO BID Qty: 180 RF: 3 Discharge Orders: Discharge Order (Routine); Ordered 02/12/22 Ordered By: Renny Kern Admission Data Admit Date/Time: 01/29/22 17:15 Attending Provider: Renny Kern Admit Provider: Kaye Smith Primary Care Provider: Clarence Valverde V. Other Providers: [facility] ; Shai Timmons at [facility] ; Kaye Smith ; Avril Ruvalcaba ; Andriy Garza ; Tim Billy ; Brigitte Rowe Coding Level of Care Code D/C DAY MANAGEMENT >30 MINS Diagnoses Lymphoma C85.90 Acute kidney injury N17.9 Hydronephrosis N13.30 Hypoglycemia E16.2 Sepsis A41.9 Oral candidiasis B37.0 Hematuria R31.9 H/O diffuse large B-cell lymphoma Z85.72 Leg swelling M79.89 Memory problem R41.3 Atrial flutter I48.92 Benign prostatic hyperplasia with urinary obstruction N40.1; N13.8 Dyslipidemia E78.5
[2022-02-13] MEDS: ACETAMINOPHEN 325 MG TAB PO PRN (04:40)
[2022-02-13 05:49] LABS: Hematocrit (blood only) 32.6 % (40.1-51.0); Mean Corpuscular Hemoglobin 32.2 pg (25.0-34.0); Mean Corpuscular Hgb Conc 33.7 g/dL (32.0-36.0); Mean Corpuscular Volume 95.3 fL (80.0-100.0); Mean Platelet Volume 10.2 fL (9.4-12.4); Platelet Count 174 K/uL (130-400); RDW Coefficient of Variation 14.3 % (11.5-14.5); RDW Standard Deviation 48.1 fL (36.4-46.3); Red Blood Count 3.42 M/uL (4.63-6.08); White Blood Count 12.13 K/ul (4.8-10.8)
[2022-02-13 06:44] LABS: BUN Creatinine Ratio 26.2 (10-20); Calcium 7.9 mg/dl (8.5-10.1); Creatinine Clr Calc Pharmacy 84.5 ml/min; Est GFR (African American) 85.5 ml/min; Est GFR (Non-African American) 73.8 ml/min; Magnesium 1.4 mg/dl (1.7-2.4); Potassium 3.3 mmol/L (3.5-5.1)
[2022-02-13] MEDS: allopurinoL 300 MG TAB PO SCH (08:24)
[2022-02-13] MEDS: CETIRIZINE HCL 10 MG TABLET PO SCH (08:24)
[2022-02-13] MEDS: NYSTATIN SUSP 500,000 U/5 ML UDC PO SCH (08:24)
[2022-02-13] MEDS: predniSONE 50 MG TAB PO SCH (08:24)
[2022-02-13] MEDS: CHOLECALCIFEROL 1,000 UNITS 25 MCG TAB PO SCH (08:25)
[2022-02-13] MEDS: TAMSULOSIN HCL 0.4 MG CAP PO SCH ×2 (08:25→20:28)
[2022-02-13] MEDS: CYANOCOBALAMIN (B-12) 500 MCG TABLET PO SCH (08:25)
[2022-02-13] MEDS: MAGNESIUM OXIDE 400 MG TAB PO SCH (08:25)
[2022-02-13] MEDS: DRONEDARONE HCL 400 MG TAB PO SCH ×2 (08:25→20:28)
[2022-02-13] MEDS: NYSTATIN POWDER 15GM BTL EXT SCH ×2 (08:25→20:28)
[2022-02-13] MEDS: FINASTERIDE 5 MG TAB PO SCH (08:25)
[2022-02-13] MEDS: ATORVASTATIN 40 MG TAB PO SCH (08:25)
[2022-02-13] MEDS ORDERED: POTASSIUM CHLORIDE 10 MEQ TABCR PO STA (08:30)
[2022-02-13] MEDS: MAGNESIUM SULFATE / D5W 1 GM/100 ML BAG IV SCH ×2 (09:17→11:15)
--- NOTE | 2022-02-13 14:35 | Hospitalist Progress Note ---
Date of Service February 13, 2022 Assessment & Plan (1) Lymphoma: Plan: Presented with pelvic mass seen on CT abd/pel after coming in with night sweats, weakness, suspected sepsis. Clinical picture worrisome for extensive cancer (has carcinomatosis, pelvic mass, GUILHERME). Although he has h/o diffuse large B-Cell lymphoma the current films were not entirely c/w with recurrent lymphoma. - S/p FNA 02/02 of mass --> path and flow cytometry now show likely diffuse large B-cell lymphoma vs high grade follicular lymphoma. 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 Discussed with radiology on 02/12, and they will not be able to get more than an FNA sample which was difficult in any event. Discussed with both surgical services who feel they cannot do this. Recommend surgical oncology. Accepted at [facility] for transfer and further care. Awaiting bed today. (2) Acute kidney injury: Plan: Suspected to be 2nd to obstruction in the face of his pelvic mass, b/l hydro, gross hematuria. Baseline Cr ~1.0. Cr up to 1.9 on admission. - Now down to 1.0. - Urology consulted- If renal failure worsens, recommend transfer for perc neph tubes - Appreciate Nephrology consultation - Monitor PVRs -> Last noted to be ~80 mL on 0708 AM. Notes do not indicate when Farrar was removed, and urology had recommended it stay in. Would consider re-insertion with any sign of retention. (3) Hydronephrosis: Plan: B/l 2nd to obstructing pelvic mass. - Urology consult appreciated - Will need percutaneous nephrostomy tubes if Cr worsens. - Farrar catheter has been removed. (4) Hypoglycemia: Plan: Most likely 2/2 lymphoma. Cortisol is >15. Initially was requiring D10 gtt, now weaned off. - Accucheck showing blood sugars above 200 now that he is on prednisone. - currently declining insulin per prior notes. Will discuss with her. (5) Sepsis: Plan: Suspected at time of admission. Very high lactates, low glucose, low BP, etc at time of presentation. - Blood/urine cx's negative, COVID negative, CXR and chest CT without pneumonia. - Although cultures were negative , he was continued on antibiotics presumptively for UTI - omnicef 300mg BID-discontinued on 02/05 - From cancer (6) Oral candidiasis: Plan: Extensive, causing sore throat, now much improved with Nystatin PO - Continue Nystatin s/s x 14 day course-last day of tx 02/16/22 - Also with Radha intertrigo in groin--> continue nystatin powder (7) Hematuria: Plan: Began 02/01/22. The pelvic mass is compressing the bladder, the prostate, etc. UTI ruled out. INR remains normal--no coagulopathy. - Monitor (8) H/O diffuse large B-cell lymphoma: Plan: In remission since 2018. First diagnosed in 2011 renal involvement, had been in remission until 2014 with DIALYSIS SOCIAL WORKER disease. Had again gone into remission in 2018 and had follow-up with Dr. Bailey here every 6 months, transition to yearly visits as of last January. - Appreciate Dr. Ruvalcaba's consultation. - Now w/ recurrence as above (9) Leg swelling: Plan: Pelvic mass could be causing pelvic venous compression and LLE edema>RLE edema as well as scrotal and penile edema. - Venous duplex study of LLE neg for DVT - 2020 echo with EF 50-55% -- and patient otherwise doesn't examine as d ecompensated CHF (10) Memory problem: Plan: Secondary to DIALYSIS SOCIAL WORKER lymphoma treatment. Poor short-term memory at baseline. Ommaya reservoir/TAPE FASTENER MACHINE OPERATOR shunt in place. - Supportive care (11) Atrial flutter: Plan: Remains in sinus rhythm here. - Continue Multaq - Continue to hold metoprolol due to low-normal BPs. - Holding Eliquis - Keep K> 4 and mag> 2 (12) Benign prostatic hyperplasia with urinary obstruction: Plan: PSA noted to be wnl. - See above (13) Dyslipidemia: Plan: - Continue atorvastatin Admission and Anticipated Discharge Date Admission Date: January 29, 2022 Subjective Some right ankle pain that is twingy in nature. Reports no fevers/chills, chest pain, shortness of breath, abdominal pain, nausea, or vomiting. Physical Exam Constitutional: WD/WN, vitals as above Eyes: EOM intact bilaterally; no conjunctival abnormality ENMT: external ear and nose normal, oropharynx normal Neck: trachea midline, no thyromegaly normal visual inspection Respiratory: normal respiratory effort, lungs clear to auscultation no respiratory distress Cardiovascular: RRR, no murmur, no edema Gastrointestinal (Abdomen): Inspection/Auscultation: abdomen normal to inspection; abdomen not distended Musculoskeletal: no cyanosis or clubbing, extremities motor strength 5/5 Skin: no rashes, warm and dry Neurologic: moves all extremities and awake Psychiatric: Orientation: alert, oriented to person, oriented to place and cooperative; + not oriented to time Results & Data Results & Data ([facility]) Vital Signs (Past 12 Hours) Vital Signs Temp Pulse Resp BP Pulse Ox 02/13/22 06:01 36.8 C 71 18 95/62 L 96 PG Care Time/CCT Total # of Minutes Spent Total Time Spent with Patient: Total time spent is greater than 50% in coordination of care (as documented) at patient's floor/unit and/or counseling patient: Coding Level of Care Code 77474 Subseq Hosp Care Lvl 2 Diagnoses Lymphoma C85.90 Acute kidney injury N17.9 Hydronephrosis N13.30 Hypoglycemia E16.2 Sepsis A41.9 Oral candidiasis B37.0 Hematuria R31.9 H/O diffuse large B-cell lymphoma Z85.72 Leg swelling M79.89 Memory problem R41.3 Atrial flutter I48.92 Benign prostatic hyperplasia with urinary obstruction N40.1; N13.8 Dyslipidemia E78.5
--- NOTE | 2022-02-13 22:55 | Ultrasound Report ---
US venous doppler LE BI CLINICAL HISTORY: Leg swelling TECHNIQUE: Bilateral lower extremity real-time compression venous ultrasound with Color Doppler imagi ng. Utilizing real-time ultrasonic imaging multiple real time high-resolution ultrasonic images with compression and noncompression maneuvers of the deep venous system in addition to color doppler imagi ng were performed from the common femoral vein through the proximal calf veins. COMPARISON: None available at the time of this dictation. FINDINGS: Currently there is normal compressibility of the deep venous system from the common femoral vein thro ugh the proximal calf veins. No superficial venous thrombosis is identified. Soft tissue edema is no caitlin bilaterally. Impression: No evidence of deep venous thrombus. ACT 112: Negative or not required by law. Electronically signed by: Brandon Burgess M.D. 02/13/2022 10:53 PM
[2022-02-14 07:56] LABS: Hematocrit (blood only) 33.6 % (40.1-51.0); Hemoglobin 11.5 g/dl (14.0-18.0); Mean Corpuscular Hemoglobin 32.7 pg (25.0-34.0); Mean Corpuscular Hgb Conc 34.2 g/dL (32.0-36.0); Mean Corpuscular Volume 95.5 fL (80.0-100.0); Platelet Count 151 K/uL (130-400); RDW Coefficient of Variation 14.4 % (11.5-14.5); Red Blood Count 3.52 M/uL (4.63-6.08); White Blood Count 13.09 K/ul (4.8-10.8)
[2022-02-14] MEDS: ATORVASTATIN 40 MG TAB PO SCH (08:37)
[2022-02-14] MEDS: predniSONE 50 MG TAB PO SCH (08:37)
[2022-02-14] MEDS: DRONEDARONE HCL 400 MG TAB PO SCH ×2 (08:37→21:11)
[2022-02-14] MEDS: TAMSULOSIN HCL 0.4 MG CAP PO SCH ×2 (08:37→21:11)
[2022-02-14] MEDS: CETIRIZINE HCL 10 MG TABLET PO SCH (08:37)
[2022-02-14] MEDS: FINASTERIDE 5 MG TAB PO SCH (08:37)
[2022-02-14] MEDS: CYANOCOBALAMIN (B-12) 500 MCG TABLET PO SCH (08:37)
[2022-02-14] MEDS: MAGNESIUM OXIDE 400 MG TAB PO SCH (08:37)
[2022-02-14] MEDS: allopurinoL 300 MG TAB PO SCH (08:37)
[2022-02-14] MEDS: CHOLECALCIFEROL 1,000 UNITS 25 MCG TAB PO SCH (08:37)
[2022-02-14 08:42] LABS: BUN Creatinine Ratio 25.7 (10-20); Calcium 7.9 mg/dl (8.5-10.1); Creatinine Clr Calc Pharmacy 86.2 ml/min; Est GFR (African American) 87.6 ml/min; Est GFR (Non-African American) 75.5 ml/min; Magnesium 1.7 mg/dl (1.7-2.4); Phosphorus 1.9 mg/dl (2.5-4.9); Potassium 3.7 mmol/L (3.5-5.1); Uric Acid 4.6 mg/dl (2.6-7.2)
--- NOTE | 2022-02-14 09:56 | Hospitalist Progress Note ---
Date of Service February 14, 2022 Assessment & Plan (1) Lymphoma: Plan: Presented with pelvic mass seen on CT abd/pel after coming in with night sweats, weakness, suspected sepsis. Clinical picture worrisome for extensive cancer (has carcinomatosis, pelvic mass, GUILHERME). Although he has h/o diffuse large B-Cell lymphoma the current films were not entirely c/w with recurrent lymphoma. - S/p FNA 02/02 of mass --> path and flow cytometry now show likely diffuse large B-cell lymphoma vs high grade follicular lymphoma. 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 Discussed with radiology on 02/12, and they will not be able to get more than an FNA sample which was difficult in any event. Discussed with both surgical services who feel they cannot do this. Recommend surgical oncology. Accepted at [facility] for transfer and further care. Awaiting bed today. Hopefully this weekend. (2) Acute kidney injury: Plan: Suspected to be 2nd to obstruction in the face of his pelvic mass, b/l hydro, gross hematuria. Baseline Cr ~1.0. Cr up to 1.9 on admission. - Now down to 1.0 for last few days. - Urology consulted- If renal failure worsens, recommend transfer for perc neph tubes - Appreciate Nephrology consultation - Monitor PVRs -> Last noted to be 5 mL on 07 AM. Notes do not indicate when Farrar was removed, and urology had recommended it stay in. Would consider re- insertion with any sign of retention. (3) Hydronephrosis: Plan: B/l 2nd to obstructing pelvic mass. - Urology consult appreciated - Will need percutaneous nephrostomy tubes if Cr worsens. - Farrar catheter has been removed. As above, PVRs have been <100 mL over last 2 days. (4) Hypoglycemia: Plan: Most likely 2/2 lymphoma. Cortisol is >15. Initially was requiring D10 gtt, now weaned off. - Accucheck showing blood sugars above 200 now that he is on prednisone. - currently declining insulin per prior notes. Will discuss with her. (5) Sepsis: Plan: Suspected at time of admission. Very high lactates, low glucose, low BP, etc at time of presentation. - Blood/urine cx's negative, COVID negative, CXR and chest CT without pneumonia. - Although cultures were negative , he was continued on antibiotics presumptively for UTI - omnicef 300mg BID-discontinued on 02/05 - From cancer (6) Oral candidiasis: Plan: Extensive, causing sore throat, now much improved with Nystatin PO - Continue Nystatin s/s x 14 day course-last day of tx 02/16/22 - Also with Radha intertrigo in groin--> continue nystatin powder (7) Hematuria: Plan: Began 02/01/22. The pelvic mass is compressing the bladder, the prostate, etc. UTI ruled out. INR remains normal--no coagulopathy. - Monitor (8) H/O diffuse large B-cell lymphoma: Plan: In remission since 2018. First diagnosed in 2011 renal involvement, had been in remission until 2014 with BALL ASSEMBLER disease. Had again gone into remission in 2018 and had follow-up with Dr. Bailey here every 6 months, transition to yearly visits as of last January. - Appreciate Dr. Ruvalcaba's consultation. - Now w/ recurrence as above (9) Leg swelling: Plan: Pelvic mass could be causing pelvic venous compression and LLE edema>RLE edema as well as scrotal and penile edema. - Venous duplex study of LLE neg for DVT on 02/13 - 2020 echo with EF 50-55% -- and patient otherwise doesn't examine as decompensated CHF (10) Memory problem: Plan: Secondary to BALL ASSEMBLER lymphoma treatment. Poor short-term memory at baseline. Ommaya reservoir/CHENILLE MACHINE OPERATOR shunt in place. - Supportive care (11) Atrial flutter: Plan: Remains in sinus rhythm here. - Continue Multaq - Continue to hold metoprolol due to low-normal BPs. - Holding Eliquis due to hematuria and need for procedure at [facility] - Keep K> 4 and mag> 2 (12) Benign prostatic hyperplasia with urinary obstruction: Plan: PSA noted to be wnl. - See above (13) Dyslipidemia: Plan: - Continue atorvastatin (14) DVT prophylaxis: Plan: Lovenox 40 mg SQ daily -> Had hematuria with Afib dosing of Eliquis, but he is high risk, so will treat with VTE ppx dosing of Lovenox which can be easily held for procedure. Admission and Anticipated Discharge Date Admission Date: January 29, 2022 Subjective Doing well today. Reports no fevers/chills, chest pain, shortness of breath, abdominal pain, nausea, or vomiting. Physical Exam Constitutional: WD/WN, vitals as above Eyes: EOM intact bilaterally; no conjunctival abnormality ENMT: external ear and nose normal, oropharynx normal Neck: trachea midline, no thyromegaly normal visual inspection Respiratory: normal respiratory effort, lungs clear to auscultation no respiratory distress Cardiovascular: RRR, no murmur, no edema Gastrointestinal (Abdomen): Inspection/Auscultation: abdomen normal to inspection; abdomen not distended Musculoskeletal: no cyanosis or clubbing, extremities motor strength 5/5 Skin: no rashes, warm and dry Neurologic: moves all extremities and awake Psychiatric: Orientation: alert, oriented to person, oriented to place and cooperative; + not oriented to time Results & Data Results & Data ([facility]) Vital Signs (Past 12 Hours) Vital Signs Temp Pulse Resp BP BP Pulse Ox 02/14/22 07:12 36.5 C 77 16 108/69 94 02/13/22 22:56 36.4 C L 84 20 141/93 H 94 PG Care Time/CCT Total # of Minutes Spent Total Time Spent with Patient: Total time spent is greater than 50% in coordination of care (as documented) at patient's floor/unit and/or counseling patient: Coding Level of Care Code 33399 Subseq Hosp Care Lvl 2 Diagnoses Lymphoma C85.90 Acute kidney injury N17.9 Hydronephrosis N13.30 Hypoglycemia E16.2 Sepsis A41.9 Oral candidiasis B37.0 Hematuria R31.9 H/O diffuse large B-cell lymphoma Z85.72 Leg swelling M79.89 Memory problem R41.3 Atrial flutter I48.92 Benign prostatic hyperplasia with urinary obstruction N40.1; N13.8 Dyslipidemia E78.5 DVT prophylaxis Z29.9
[2022-02-14] MEDS: ENOXAPARIN INJ 40 MG/0.4 ML SYR SQ SCH (11:31)
[2022-02-14] MEDS: NYSTATIN POWDER 15GM BTL EXT SCH ×2 (14:40→21:11)
[2022-02-15 06:22] LABS: Hemoglobin 11.1 g/dl (14.0-18.0); Mean Corpuscular Hemoglobin 31.7 pg (25.0-34.0); Mean Corpuscular Hgb Conc 33.6 g/dL (32.0-36.0); Mean Corpuscular Volume 94.3 fL (80.0-100.0); Mean Platelet Volume 10.7 fL (9.4-12.4); Platelet Count 149 K/uL (130-400); RDW Coefficient of Variation 13.9 % (11.5-14.5); RDW Standard Deviation 46.8 fL (36.4-46.3); White Blood Count 13.88 K/ul (4.8-10.8)
[2022-02-15 06:40] LABS: BUN Creatinine Ratio 27.5 (10-20); Calcium 8.2 mg/dl (8.5-10.1); Creatinine Clr Calc Pharmacy 85.4 ml/min; Est GFR (African American) 86.5 ml/min; Est GFR (Non-African American) 74.6 ml/min; Magnesium 1.6 mg/dl (1.7-2.4); Potassium 3.8 mmol/L (3.5-5.1)
[2022-02-15] MEDS: MAGNESIUM OXIDE 400 MG TAB PO SCH (08:08)
[2022-02-15] MEDS: ENOXAPARIN INJ 40 MG/0.4 ML SYR SQ SCH (08:08)
[2022-02-15] MEDS: DRONEDARONE HCL 400 MG TAB PO SCH (08:08)
[2022-02-15] MEDS: CHOLECALCIFEROL 1,000 UNITS 25 MCG TAB PO SCH (08:08)
[2022-02-15] MEDS: TAMSULOSIN HCL 0.4 MG CAP PO SCH (08:08)
[2022-02-15] MEDS: CETIRIZINE HCL 10 MG TABLET PO SCH (08:09)
[2022-02-15] MEDS: allopurinoL 300 MG TAB PO SCH (08:09)
[2022-02-15] MEDS: ATORVASTATIN 40 MG TAB PO SCH (08:09)
[2022-02-15] MEDS: CYANOCOBALAMIN (B-12) 500 MCG TABLET PO SCH (08:09)
[2022-02-15] MEDS: FINASTERIDE 5 MG TAB PO SCH (08:09)
[2022-02-15] MEDS: predniSONE 50 MG TAB PO SCH (08:09)
[2022-02-15] MEDS: NYSTATIN POWDER 15GM BTL EXT SCH (08:20)
--- NOTE | 2022-02-15 09:28 | Ultrasound Report ---
US venous doppler UE LT CLINICAL HISTORY: LUE swelling; hypercoaguable PROCEDURE: Left upper extremity real-time compression venous ultrasound with Duplex and Color Doppler imaging. FINDINGS: Utilizing real-time ultrasonic imaging multiple real time high-resolution ultrasonic images of the de ep venous system were performed from the forearm through the subclavian vein including evaluation of the jugular vein. Compression real time ultrasonic imaging was performed in addition to color Dopple r imaging and duplex Doppler ultrasound with velocity spectral profile analysis. There is normal compressibility of the deep venous system from the forearm through the subclavian vei n. Normal vascular flow is currently identified. No evidence of superficial thrombosis is identified. Subcutaneous edema is seen in the forearm. Impression: No evidence of deep venous thrombus. ACT 112: Negative or not required by law. Electronically signed by: Brandon Burgess M.D. 02/15/2022 9:27 AM
--- NOTE | 2022-02-15 13:11 | Hospitalist Progress Note ---
Date of Service February 15, 2022 Assessment & Plan (1) Lymphoma: Plan: Presented with pelvic mass seen on CT abd/pel after coming in with night sweats, weakness, suspected sepsis. Clinical picture worrisome for extensive cancer (has carcinomatosis, pelvic mass, GUILHERME). Although he has h/o diffuse large B-Cell lymphoma the current films were not entirely c/w with recurrent lymphoma. - S/p FNA 02/02 of mass --> path and flow cytometry now show likely diffuse large B-cell lymphoma vs high grade follicular lymphoma. 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 at the end of November 2021 -> Will defer to [facility] and his prior [facility] oncologist. 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 - Has port in place if needs chemo - Appreciate oncology consult - Needs another sample as the FNA on 01/30 was not enough to do full molecular sampling. Discussed with radiology on 02/12, and they will not be able to get more than an FNA sample which was difficult in any event. Discussed with both surgical services at [place] who feel they cannot do this. Recommend surgical oncology. Accepted at [facility] for transfer and further care. Awaiting bed today. Hopefully this weekend. (2) Acute kidney injury: Plan: Suspected to be 2nd to obstruction in the face of his pelvic mass, b/l hydro, gross hematuria. Baseline Cr ~1.0. Cr up to 1.9 on admission. - Now down to 1.0 for last few days. - Urology consulted- If renal failure worsens, recommend transfer for perc neph tubes - Appreciate Nephrology consultation - Monitor PVRs -> Last noted to be 5 mL on 02/14 AM. Notes do not indicate when Farrar was removed, and urology had recommended it stay in. Would consider re- insertion with any sign of retention. (3) Hydronephrosis: Plan: B/l 2nd to obstructing pelvic mass. - Urology consult appreciated - Will need percutaneous nephrostomy tubes if Cr worsens. - Farrar catheter has been removed. As above, PVRs have been <100 mL over last 2 days. (4) Hypoglycemia: Plan: Most likely 2/2 lymphoma. Cortisol is >15. Initially was requiring D10 gtt, now weaned off. - Accucheck showing blood sugars above 200 now that he is on prednisone. - currently declining insulin per prior notes. Will discuss with her. (5) Sepsis: Plan: Suspected at time of admission. Very high lactates, low glucose, low BP, etc at time of presentation. - Blood/urine cx's negative, COVID negative, CXR and chest CT without pneumonia. - Although cultures were negative , he was continued on antibiotics presumptively for UTI - omnicef 300mg BID-discontinued on 02/05 - From cancer (6) Oral candidiasis: Plan: Extensive, causing sore throat, now much improved with Nystatin PO - Continue Nystatin s/s x 14 day course-last day of tx 02/16/22 - Also with Radha intertrigo in groin--> continue nystatin powder (7) Hematuria: Plan: Began 02/01/22. The pelvic mass is compressing the bladder, the prostate, etc. UTI ruled out. INR remains normal--no coagulopathy. - Monitor (8) H/O diffuse large B-cell lymphoma: Plan: In remission since 2018. 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 Had again gone into remission in 2018 and had follow-up with Dr. Bailey here every 6 months, transition to yearly visits as of last January. - Appreciate Dr. Ruvalcaba's consultation. - Now w/ recurrence as above (9) Leg swelling: Plan: Pelvic mass could be causing pelvic venous compression and LLE edema>RLE edema as well as scrotal and penile edema. - Venous duplex study of LLE neg for DVT on 02/13 - Checked LUE Doppler as well on 02/15 for LUE swelling; also negative. - 2020 echo with EF 50-55% -- and patient otherwise doesn't examine as decompensated CHF (10) Memory problem: Plan: Secondary to PHOTOGRAPHIC ENLARGER OPERATOR lymphoma treatment. Poor short-term memory at baseline. Ommaya reservoir/PREBOARDER shunt in place. - Supportive care (11) Atrial flutter: Plan: Remains in sinus rhythm here. - Continue Multaq - Continue to hold metoprolol due to low-normal BPs. - Holding Eliquis due to hematuria and need for procedure at [facility] - Keep K> 4 and mag> 2 (12) Benign prostatic hyperplasia with urinary obstruction: Plan: PSA noted to be wnl. - See above (13) Dyslipidemia: Plan: - Continue atorvastatin (14) DVT prophylaxis: Plan: Lovenox 40 mg SQ daily -> Had hematuria with Afib dosing of Eliquis, but he is high risk, so will treat with VTE ppx dosing of Lovenox which can be easily held for procedure. Admission and Anticipated Discharge Date Admission Date: January 29, 2022 Subjective Not feeling as well today, but then does minimize it a touch with saying "It just happens sometimes." Still having the ankle pain with left > right. Physical Exam Constitutional: WD/WN, vitals as above Eyes: EOM intact bilaterally; no conjunctival abnormality ENMT: external ear and nose normal, oropharynx normal Neck: trachea midline, no thyromegaly normal visual inspection Respiratory: normal respiratory effort, lungs clear to auscultation no respiratory distress Cardiovascular: RRR, no murmur, no edema Gastrointestinal (Abdomen): Inspection/Auscultation: abdomen normal to inspection; abdomen not distended Musculoskeletal: no cyanosis or clubbing, extremities motor strength 5/5 Skin: no rashes, warm and dry Neurologic: moves all extremities and awake Psychiatric: Orientation: alert, oriented to person, oriented to place and cooperative; + not oriented to time Results & Data Results & Data ([facility]) Vital Signs (Past 12 Hours) Vital Signs Temp Pulse Resp BP Pulse Ox 02/15/22 07:16 36.5 C 72 17 128/65 93 PG Care Time/CCT Total # of Minutes Spent Total Time Spent with Patient: Total time spent is greater than 50% in coordination of care (as documented) at patient's floor/unit and/or counseling patient: Coding Level of Care Code 77740 Subseq Hosp Care Lvl 2 Diagnoses Lymphoma C85.90 Acute kidney injury N17.9 Hydronephrosis N13.30 Hypoglycemia E16.2 Sepsis A41.9 Oral candidiasis B37.0 Hematuria R31.9 H/O diffuse large B-cell lymphoma Z85.72 Leg swelling M79.89 Memory problem R41.3 Atrial flutter I48.92 Benign prostatic hyperplasia with urinary obstruction N40.1; N13.8 Dyslipidemia E78.5 DVT prophylaxis Z29.9
--- NOTE | 2022-02-16 13:01 | Discharge Summary ---
Date of Service February 15, 2022 Admission HPI Per Admitting Provider Wojciech Jacobsen is a 71 y/o male with a PMH of b-cell lymphoma in 2012 with recurrence in 2016, atrial fibrillation, hyperlipidemia, and BPH who presents today with his for concerns of increased night sweats, confusion, and generalized weakness. Patient was scheduled to have an annual oncology appointment with Dr. Ruvalcaba next week, however patient's noticed he has had started having night sweats, increased fatigue, general weakness. Night sweats are concerning to her, as this is how he had presented previously with his initial lymphoma diagnosis and with recurrence 4 years later, therefore she brought him to the ED for further evaluation. He is without any complaints, fever/chills, chest pain, shortness of breath, cough, abdominal pain, nausea, vomiting, dysuria, or any other discomfort. Here, patient presented slightly hypotensive 99/69, however now normotensive after fluids, otherwise vital signs within normal limits. Labs significant for Hgb 12.6, initial lactate 7.4, 5.9 two hours later. Magnesium 1.6, T bili 1.2. UA pending. CT A/P with large pelvic mass, extensive metastatic disease and bilateral hydronephrosis. Head CT, chest CT, CXR all without evidence of acute disease process. Principal Diagnosis Lymphoma NOS Discharge Exam Constitutional WD/WN, vitals as above Eyes EOM intact bilaterally; no conjunctival abnormality ENMT external ear and nose normal, oropharynx normal Neck trachea midline, no thyromegaly normal visual inspection Respiratory normal respiratory effort, lungs clear to auscultation no respiratory distress Cardiovascular RRR, no murmur, no edema Gastrointestinal (Abdomen) Inspection/Auscultation: abdomen normal to inspection; abdomen not distended Musculoskeletal no cyanosis or clubbing, extremities motor strength 5/5 Skin no rashes, warm and dry Neurologic moves all extremities and awake Psychiatric Orientation: alert, oriented to person, oriented to place and cooperative; + not oriented to time Discharge Data Allergies Allergy/AdvReac Type Severity Reaction Status Date / Time No Known Drug Allergies Allergy Verified 10/06/21 12:32 Consultations 01/29/22 17:11 ED Decision to Admit Stat 01/29/22 18:28 Consult Oncology Routine 01/30/22 09:57 Consult Urology Routine 01/30/22 13:33 Consult General Surgery Routine 02/03/22 11:35 Consult Nephrology Routine 02/12/22 16:20 Burn CD for patient Routine Ordered Studies 01/29/22 14:28 CT abd pelvis IV con only Stat CT chest diagnostic w con Stat CT head/brain wo/w con Stat 01/29/22 22:50 US venous doppler LE LT Urgent 02/02/22 05:42 US FNA w/img 1st lesion Routine 02/02/22 10:18 US renal/blad retro comp Urgent 02/13/22 14:39 US venous doppler LE BI Routine 02/15/22 08:12 US venous doppler UE LT Urgent Hospital Course (1) Lymphoma: Presented with pelvic mass seen on CT abd/pel after coming in with night sweats, weakness, suspected sepsis. Clinical picture worrisome for extensive cancer (has carcinomatosis, pelvic mass, GUILHERME). Although he has h/o diffuse large B-Cell lymphoma the current films were not entirely c/w with recurrent lymphoma. - S/p FNA 02/02 of mass --> path and flow cytometry now show likely diffuse large B-cell lymphoma vs high grade follicular lymphoma. - Not enough tissue from biopsy as per Oncology for FISH studies - Now s/p BMBx and aspirate 02/05--> awaiting results on FISH studies and path - If has "double or triple hit" type of mutations for diffuse large B cell lymphoma, has much poorer prognosis - Checked ECHO for baseline-low normal EF, stable from previous - Check brain MRI with contrast once catering associate improves to see about recurrent BILLING SPEC disease although reports he had just recently had a normal brain MRI w/ his Neuro-oncologist at [facility] at the end of November 2021 -> Will defer to [facility] and his prior [facility] oncologist. 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 - Has port in place if needs chemo - Appreciate oncology consult - Needs another sample as the FNA on 01/30 was not enough to do full molecular sampling. Discussed with radiology on 02/12, and they will not be able to get more than an FNA sample which was difficult in any event. Discussed with both surgical services at [place] who feel they cannot do this. Recommend surgical oncology. Accepted at [facility] for transfer and further care. Awaiting bed today. Hopefully this weekend. (2) Acute kidney injury: Suspected to be 2nd to obstruction in the face of his pelvic mass, b/l hydro, gross hematuria. Baseline Cr ~1.0. Cr up to 1.9 on admission. - Now down to 1.0 for last few days. - Urology consulted- If renal failure worsens, recommend transfer for perc neph tubes - Appreciate Nephrology consultation - Monitor PVRs -> Last noted to be 5 mL on 02/14 AM. Notes do not indicate when Farrar was removed, and urology had recommended it stay in. Would consider re- insertion with any sign of retention. (3) Hydronephrosis: B/l 2nd to obstructing pelvic mass. - Urology consult appreciated - Will need percutaneous nephrostomy tubes if Cr worsens. - Farrar catheter has been removed. As above, PVRs have been <100 mL over last 2 days. (4) Hypoglycemia: Most likely 2/2 lymphoma. Cortisol is >15. Initially was requiring D10 gtt, now weaned off. - Accucheck showing blood sugars above 200 now that he is on prednisone. - currently declining insulin per prior notes. Will discuss with her. (5) Sepsis: Suspected at time of admission. Very high lactates, low glucose, low BP, etc at time of presentation. - Blood/urine cx's negative, COVID negative, CXR and chest CT without pneumonia. - Although cultures were negative , he was continued on antibiotics presumptively for UTI - omnicef 300mg BID-discontinued on 02/05 - From cancer (6) Oral candidiasis: Extensive, causing sore throat, now much improved with Nystatin PO - Continue Nystatin s/s x 14 day course-last day of tx 02/16/22 - Also with Radha intertrigo in groin--> continue nystatin powder (7) Hematuria: Began 02/01/22. The pelvic mass is compressing the bladder, the prostate, etc. UTI ruled out. INR remains normal--no coagulopathy. - Monitor (8) H/O diffuse large B-cell lymphoma: In remission since 2018. First diagnosed in 2011 renal involvement, had been in remission until 2014 with BILLING SPEC disease. Had again gone into remission in 2018 and had follow-up with Dr. Bailey here every 6 months, transition to yearly visits as of last January. - Appreciate Dr. Ruvalcaba's consultation. - Now w/ recurrence as above (9) Leg swelling: Pelvic mass could be causing pelvic venous compression and LLE edema>RLE edema as well as scrotal and penile edema. - Venous duplex study of LLE neg for DVT on 02/13 - Checked LUE Doppler as well on 02/15 for LUE swelling; also negative. - 2020 echo with EF 50-55% -- and patient otherwise doesn't examine as decompensated CHF (10) Memory problem: Secondary to BILLING SPEC lymphoma treatment. Poor short-term memory at baseline. Ommaya reservoir/SECURITY ASSOCIATE shunt in place. - Supportive care (11) Atrial flutter: Remains in sinus rhythm here. - Continue Multaq - Continue to hold metoprolol due to low-normal BPs. - Holding Eliquis due to hematuria and need for procedure at [facility] - Keep K> 4 and mag> 2 (12) Benign prostatic hyperplasia with urinary obstruction: PSA noted to be wnl. - See above (13) Dyslipidemia: - Continue atorvastatin (14) DVT prophylaxis: Lovenox 40 mg SQ daily -> Had hematuria with Afib dosing of Eliquis, but he is high risk, so will treat with VTE ppx dosing of Lovenox which can be easily held for procedure. Total Time Total Time Spent Total Time Spent (In Minutes): 45 Discharge Plan Discharge Items Patient Disposition: Transfer Acute Care Hospital Reason For Visit: LYMPHOMA HX WITH DIFFUSE METASTATIC CA Discharge Diagnosis: Lymphoma Activity: Resume your previous activity Non-emergency contact: Primary Care Provider and Oncologist Call non-emergency contact if: your symptoms worsen Follow-up/Referrals: Clarence Valverde MD [Primary Care Provider] - Diet: Regular Addtl Attending Provider Instructions: Mr. Jacobsen was diagnosed with lymphoma with a large pelvic mass. Transfer to [facility] for surgical oncology and excisional biopsy. Pending Studies at Discharge: No Stand-Alone Forms: My [facility] Skilled Items Patient informed of condition?: Yes DNR: Yes Discharge Level of Care: Other Communicable Disease: No Discharge Prognosis: Stable Lines: Peripheral IV Urinary Catheter: No Medications and DC Order Prescriptions: New prednisone 50 mg Tablet 100 mg PO DAILY Qty: 0 RF: 0 Continued metoprolol succinate 25 mg tablet extended release 24 hr 25 mg PO DAILY Qty: 90 RF: 3 dronedarone 400 mg tablet 400 mg PO BID Qty: 180 RF: 3 cetirizine 10 mg tablet 10 mg PO DAILY RF: 0 cholecalciferol (vitamin D3) 2,000 unit tablet 2,000 units PO DAILY RF: 0 cyanocobalamin (vitamin B-12) 1,000 mcg tablet 1,000 mcg PO DAILY RF: 0 magnesium oxide 400 mg (241.3 mg magnesium) tablet 400 mg PO DAILY RF: 0 allopurinol 300 mg tablet 300 mg PO DAILY Qty: 90 RF: 3 atorvastatin 40 mg tablet 40 mg PO DAILY Qty: 90 RF: 3 nystatin 100,000 unit/gram powder 1 applic topical BID Qty: 30 RF: 1 tamsulosin 0.4 mg capsule 0.4 mg PO BID Qty: 180 RF: 3 finasteride 5 mg tablet 5 mg PO DAILY Qty: 90 RF: 3 Discontinued apixaban 5 mg tablet 5 mg PO BID Qty: 180 RF: 3 Discharge Orders: Discharge Order (Routine); Ordered 02/12/22 Ordered By: Renny Kern Admission Data Admit Date/Time: 01/29/22 17:15 Attending Provider: Renny Kern Admit Provider: Kaye Smith Primary Care Provider: Clarence Valverde V. Other Providers: [facility] ; [facility] ; Kaye Smith ; Avril Ruvalcaba ; Andriy Garza ; Tim Billy ; Brigitte Rowe Other Interventions: Discharge Summary Assessment (RN) Last Done: 02/15/22 17:57 Coding Level of Care Code D/C DAY MANAGEMENT >30 MINS Diagnoses Lymphoma C85.90 Acute kidney injury N17.9 Hydronephrosis N13.30 Hypoglycemia E16.2 Sepsis A41.9 Oral candidiasis B37.0 Hematuria R31.9 H/O diffuse large B-cell lymphoma Z85.72 Leg swelling M79.89 Memory problem R41.3 Atrial flutter I48.92 Benign prostatic hyperplasia with urinary obstruction N40.1; N13.8 Dyslipidemia E78.5 DVT prophylaxis Z29.9
== END 2022-02-15 19:50 | disposition short-term general hospital (02) | DRG 840 ==
LOC: ED 12:20 → SUATTDRO 17:15 → 2E 17:15 → 3E 02-08 18:07

== ENCOUNTER 2022-02-26 12:45 | Inpatient (IN) ==
--- NOTE | 2022-02-26 14:22 | Emergency Department Note ---
Impression & Plan Hematuria, Neutropenia, Emphysematous cystitis, Acute UTI (urinary tract infection), Pancytopenia, Hypocalcemia ED Provider Note INFORMANT: Patient and ED PROVIDER(S): Javier Willams MD CHIEF COMPLAINT: PLAN: Disposition: Admitted Condition: Good Outpatient prescription management: none Referral: None MEDICAL DECISION MAKING: Patient presented emergency department because of hematuria and urinary symptoms. He was evaluated. The patient was found to have neutropenia. His CBC also revealed pancytopenia. The patient had hypocalcemia as well. Patient was cultured. He was treated with IV cefepime and daptomycin after discussion with the ED pharmacist. Patient's states he has not had any reaction type problems with antibiotics in the past. He was just not on an antibiotics when he was receiving chemo. The patient was given a dose of calcium as well. Consultation was made with the [facility]. Patient was evaluated in the ER and admitted for further management. Triage Nursing notes reviewed and agree them. Vital Signs: reviewed and remarkable for borderline tachycardia Differential diagnosis: Complication of lymphoma, comp. of chemotherapy, Renal colic, UTI, appendicitis, diverticulitis, mesenteric ischemia, aortic pathology, infections, inflammatory bowel disease, PUD, biliary pathology, as well as other pathologies. Diagnostics interpreted by me: ECG: none Cardiac Monitoring: Cardiac monitoring ordered by me: The patient was placed on continuous cardiac monitoring and observed. It revealed a normal sinus rhythm at 99 beats per minute without ectopy or evidence of dysrhythmia. Imaging studies: CT scan as noted below. Emphysematous cystitis noted. I refer you to the EMR for further details. HPI: The patient is a 71 year old male who presents to the Emergency Room with complaints of hematuria. This started 2 weeks ago and is persisting. Has occurred in past and noted to be from his lymphoma and pressure on the kidney. Was dealing with SOTERO. Recently restarted on chemotherapy. The patient also notes the following associated symptoms, weight gain, edema, redness around R arm PICC, frequency, urinary urgency. The patient has found no relieving factors. Current pain is rated as 0/10. Pt denies LOC, headache, fevers, chills, diaphoresis, visual changes, neck pain, chest pain, breathing difficulties, nausea, vomiting, abdominal pain, back pain, melena, hematochezia, numbness, weakness, lymphadenopathy, rash, or other complaints. ROS: See above HPI for pertinent positives & negatives. A total of 10 systems reviewed and were otherwise negative. PAST MEDICAL HISTORY:See Below , lymphoma PAST SURGICAL HISTORY:See Below, FAMILY HISTORY:See Below SOCIAL HISTORY:See Below, HOME MEDICATIONS:See Below ALLERGIES:See Below VITALS:See Below PHYSICAL EXAMINATION: GENERAL: Awake, alert, tired-appearing, in no distress HENT: Normocephalic, atraumatic. Oropharynx unremarkable. EYES: Normal conjunctiva. Sclera non-icteric. NECK: Inspection normal. Non-tender. Supple. No nuchal rigidity. FROM. No masses. RESPIRATORY: Clear to auscultation. No wheezes. No rales. Normal respiratory effort. CARDIAC: Tachycardic rate. Normal rhythm. No murmurs. No rubs. Extremities warm and well perfused. Pulses equal. No JVD. GI: Soft, non-distended. No tenderness to palpation. No rebound or guarding. No masses. RECTAL: Deferred. MUSCULOSKELETAL: Atraumatic. Chest examination reveals no tenderness. The back is symmetrical on inspection without obvious abnormality. There is no CVA tenderness to palpation. No joint edema. LOWER EXTREMITIES: Calves are equal size bilaterally and non-tender. 2-3+ edema. No discoloration. NEURO: Normal sensorium. No sensory or motor deficits noted. SKIN: No rash or jaundice noted. 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 Cold intolerance Diffuse well-differentiated lymphocytic lymphoma Dyslipidemia Fatigue Hypotension Lymphoma Memory problem Multiple thyroid nodules Nonischemic cardiomyopathy Vertigo Surgical History History of bone marrow biopsy History of brain surgery History of cholecystectomy History of lithotripsy History of thoracentesis S/P cystoscopy with ureteral stent placement Family History Mother Cardiac disorder Hypertension FHx: deafness or hearing loss Stroke Leukemia Father Cardiac disorder Hypertension Lung cancer Recurrent kidney stones Social History Smoking Status: Former smoker Tobacco Type: Cigarettes Age Started Using Tobacco: 23; Age Quit Using Tobacco: 42; packs per day: 0.75; Second Hand Exposure: No; Hx Alcohol Use: No Hx Substance Use: No Preferred Language: Bots[place]an Communication Ability: Effective Visual Impairment: Limited Hearing Ability: Use of Hearing Aid Ticker Wirer Required: No Beliefs That Will Affect Care: None marital status: Current Living Situation: Spouse current occupational status: retired Feels Safe at Home: Yes Childhood Exposure to Second-Hand Smoke: Yes Dental Care, Regularly: Yes Physical Activity Frequency: Does not Exercise Seatbelt Use: always Sunscreen Use: Yes (sometimes) Assistive Devices: Cane Allergies Allergies Allergy/AdvReac Type Severity Reaction Status Date / Time No Known Drug Allergies Allergy Unknown Verified 02/26/22 15:48 Aminoglycosides AdvReac Unknown contraindicated Verified 02/26/22 15:51 while receiving chemo Cephalosporins AdvReac Unknown contraindicated Verified 02/26/22 15:51 while receiving chemo NSAIDS (Non-Steroidal AdvReac Unknown contraindicated Verified 02/26/22 15:51 Anti-Inflamma while receiving chemo Penicillins AdvReac Unknown contraindicated Verified 02/26/22 15:51 while receiving chemo sulfamethoxazole AdvReac Unknown contraindicated Verified 02/26/22 15:51 [From Bactrim] while receiving chemo trimethoprim [From Bactrim] AdvReac Unknown contraindicated Verified 02/26/22 15:51 while receiving chemo Home Meds Home Medications Medication Instructions Recorded Confirmed cetirizine 10 mg tablet 10 mg PO [facility] 02/20/19 02/26/22 cyanocobalamin (vitamin B-12) 1,000 mcg PO [facility] 02/20/19 02/26/22 1,000 mcg tablet acyclovir 800 mg tablet 800 mg PO [facility] 02/26/22 02/26/22 allopurinol 300 mg tablet 300 mg PO [facility] 02/26/22 02/26/22 apixaban 5 mg tablet 5 mg PO [facility] 02/26/22 02/26/22 atorvastatin 40 mg tablet 40 mg PO 02/26/22 02/26/22 cholecalciferol (vitamin D3) 25 25 mcg PO QA 02/26/22 02/26/22 mcg (1,000 unit) tablet (Vitamin D3) dronedarone 400 mg tablet 400 mg PO [facility] 02/26/22 02/26/22 finasteride 5 mg tablet 5 mg PO QAM 02/26/22 02/26/22 fluconazole 200 mg tablet 200 mg PO UD 02/26/22 02/26/22 levofloxacin 500 mg tablet 500 mg PO UD 02/26/22 02/26/22 tamsulosin 0.4 mg capsule 0.4 mg PO [facility] 02/26/22 02/26/22 Results & Data (ED) Vital Signs Vital Signs - 24 hr 02/26/22 13:01 02/26/22 15:15 02/26/22 15:15 Temperature 36.5 C Temperature Source Skin Pulse Rate 102 H 122 H Pulse Rate [Right Finger] 113 H Pulse Rhythm Regular Pulse Rhythm [Right Finger] Regular Pulse Strength Normal Pulse Strength [Right Finger] Normal Respiratory Rate 20 20 20 Respiratory Effort / Characteristics Non-Labored Spontaneous Non-Labored Respiratory Depth Normal Normal Respiratory Pattern Regular Regular Blood Pressure 110/72 Blood Pressure [Left Arm] Blood Pressure Mean 84 Blood Pressure Mean [Left Arm] Blood Pressure Position [Left Arm] Pulse Oximetry 97 95 95 Oxygen Delivery Method Room Air Room Air Room Air Sepsis Recent Fever Within 48 Hours No Sepsis New/Unexplained Change in Mental Status N/A Sepsis Action Taken by Nursing No Action Required 02/26/22 16:49 02/26/22 18:00 Temperature Temperature Source Pulse Rate Pulse Rate [Right Finger] 114 H 99 H Pulse Rhythm Pulse Rhythm [Right Finger] Regular Regular Pulse Strength Pulse Strength [Right Finger] Normal Normal Respiratory Rate 20 20 Respiratory Effort / Characteristics Non-Labored Non-Labored Respiratory Depth Normal Normal Respiratory Pattern Regular Regular Blood Pressure Blood Pressure [Left Arm] 100/79 102/72 Blood Pressure Mean Blood Pressure Mean [Left Arm] 86 82 Blood Pressure Position [Left Arm] Lying Lying Pulse Oximetry 97 97 Oxygen Delivery Method Room Air Room Air Sepsis Recent Fever Within 48 Hours Sepsis New/Unexplained Change in Mental Status Sepsis Action Taken by Nursing Laboratory Data Result diagrams: 02/26/22 15:20 02/26/22 15:20 Lab Results 02/26/22 02/26/22 02/26/22 Range/Units 15:20 15:20 15:20 WBC 0.62 L* (4.8-10.8) K/ul RBC 2.83 L (4.63-6.08) M/uL Hgb 9.1 L (14.0-18.0) g/dl Hct 26.9 L (40.1-51.0) % MCV 95.1 (80.0-100.0) fL MCH 32.2 (25.0-34.0) pg MCHC 33.8 (32.0-36.0) g/dL RDW Std Deviation 50.3 H (36.4-46.3) fL RDW Coeff of Belén 14.6 H (11.5-14.5) % Plt Count 33 L (130-400) K/uL MPV 11.3 (9.4-12.4) fL Neutrophils % (Manual) 62 % Lymphocytes % (Manual) 36 % Eosinophils % (Manual) 2 % Neutrophils # (Manual) 0.38 L (1.4-6.5) K/uL Total Absolute Neuts 0.38 L* (1.4-6.5) K/uL Lymphocytes # (Manual) 0.22 L (1.2-3.4) K/uL Total Abs Lymphocytes 0.22 L (1.2-3.4) K/uL Eosinophils # (Manual) 0.01 (0-0.50) K/uL Polychromasia 1+ Tear Drop Cells 1+ Acanthocytes (Spur) 1+ Sodium 140 (136-145) mmol/L Potassium 3.4 L (3.5-5.1) mmol/L Chloride 105 (98-107) mmol/L Carbon Dioxide 27 (21-32) mmol/L Anion Gap 8 (3-11) BUN 25 H (6-23) mg/dl Creatinine 1.21 (0.6-1.4) mg/dl Est Cr Clr Drug Dosing 74.3 ml/min Est GFR ( Amer) 70.4 ml/min Est GFR (Non-Af Amer) 60.7 ml/min BUN/Creatinine Ratio 20.7 H (10-20) Glucose 81 (70-99(Fasting)) mg/dl Calcium 5.4 L* (8.5-10.1) mg/dl Magnesium (1.7-2.4) mg/dl Total Bilirubin 1.3 H (0.2-1.0) mg/dl AST 29 (13-39) U/L ALT 22 (7-52) U/L Alkaline Phosphatase 45 (34-104) U/L Total Protein 4.4 L (6.0-8.3) gm/dl Albumin 2.4 L (3.4-5.0) gm/dl Globulin 2.0 L (2.5-4.0) gm/dl Albumin/Globulin Ratio 1.2 (0.9-2) Lipase 46 (11-82) U/L Urine Color Red Urine Appearance Cloudy A (Clear) Urine pH 6.5 (4.5-7.5) Ur Specific [place] 1.014 (1.000-1.030) Urine Protein 2+ H (Negative) Urine Glucose (UA) Trace H (Negative) Urine Ketones 1+ H (Negative) Urine Blood 3+ H (Negative) Urine Nitrite Negative (Negative) Urine Bilirubin Negative (Negative) Urine Urobilinogen Negative (Negative) Ur Leukocyte Esterase Trace H (Negative) Urine WBC (Auto) 10-30 H (0-5) /hpf Urine RBC (Auto) >30 H (0-4) /hpf U Hyaline Cast (Auto) 0 (0-5) /lpf U Epithel Cells (Auto) >30 H (0-5) /lpf Urine Bacteria (Auto) Negative (Negative) Ur Renal Epithelial Cell Not Reportable Urine Yeast Not Reportable 02/26/22 Range/Units 15:20 WBC (4.8-10.8) K/ul RBC (4.63-6.08) M/uL Hgb (14.0-18.0) g/dl Hct (40.1-51.0) % MCV (80.0-100.0) fL MCH (25.0-34.0) pg MCHC (32.0-36.0) g/dL RDW Std Deviation (36.4-46.3) fL RDW Coeff of Belén (11.5-14.5) % Plt Count (130-400) K/uL MPV (9.4-12.4) fL Neutrophils % (Manual) % Lymphocytes % (Manual) % Eosinophils % (Manual) % Neutrophils # (Manual) (1.4-6.5) K/uL Total Absolute Neuts (1.4-6.5) K/uL Lymphocytes # (Manual) (1.2-3.4) K/uL Total Abs Lymphocytes (1.2-3.4) K/uL Eosinophils # (Manual) (0-0.50) K/uL Polychromasia Tear Drop Cells Acanthocytes (Spur) Sodium (136-145) mmol/L Potassium (3.5-5.1) mmol/L Chloride (98-107) mmol/L Carbon Dioxide (21-32) mmol/L Anion Gap (3-11) BUN (6-23) mg/dl Creatinine (0.6-1.4) mg/dl Est Cr Clr Drug Dosing ml/min Est GFR ( Amer) ml/min Est GFR (Non-Af Amer) ml/min BUN/Creatinine Ratio (10-20) Glucose (70-99(Fasting)) mg/dl Calcium (8.5-10.1) mg/dl Magnesium 1.1 L (1.7-2.4) mg/dl Total Bilirubin (0.2-1.0) mg/dl AST (13-39) U/L ALT (7-52) U/L Alkaline Phosphatase (34-104) U/L Total Protein (6.0-8.3) gm/dl Albumin (3.4-5.0) gm/dl Globulin (2.5-4.0) gm/dl Albumin/Globulin Ratio (0.9-2) Lipase (11-82) U/L Urine Color Urine Appearance (Clear) Urine pH (4.5-7.5) Ur Specific [place] (1.000-1.030) Urine Protein (Negative) Urine Glucose (UA) (Negative) Urine Ketones (Negative) Urine Blood (Negative) Urine Nitrite (Negative) Urine Bilirubin (Negative) Urine Urobilinogen (Negative) Ur Leukocyte Esterase (Negative) Urine WBC (Auto) (0-5) /hpf Urine RBC (Auto) (0-4) /hpf U Hyaline Cast (Auto) (0-5) /lpf U Epithel Cells (Auto) (0-5) /lpf Urine Bacteria (Auto) (Negative) Ur Renal Epithelial Cell Urine Yeast Administered Medications Daptomycin 550 mg/ Syringe 11 mls @ 5.5 mls/min IV Q24H [facility]; Protocol Stop: 02/28/22 16:29 Last Admin: 02/26/22 18:38 Dose: 5.5 mls/min Documented By: CCM Discontinued Medications Cefepime HCl (Maxipime) 2,000 mg in 20 mls @ 5 mls/min IV NOW STA; Protocol Stop: 02/26/22 16:21 Last Admin: 02/26/22 16:45 Dose: 5 mls/min Documented By: BRISSA Sodium Chloride (Nss 1000ml) 1,000 mls @ 125 mls/hr IV .Q8H STA Stop: 02/27/22 00:24 Last Admin: 02/26/22 16:36 Dose: 125 mls/hr Documented By: [facility] Calcium Gluconate () 1,000 mg in 60 mls @ 240 mls/hr IV NOW STA Stop: 02/26/22 16:40 Last Infusion: 02/26/22 17:03 Dose: 0 mls/hr Documented By: Admin: 02/26/22 16:41 Dose: 240 mls/hr Documented By: [facility] Magnesium Sulfate/Dextrose (Magnesium Sulfate / D5w) 1 gm in 100 mls @ 100 mls/hr IV NOW STA Stop: 02/26/22 18:40 Last Admin: 02/26/22 18:38 Dose: 100 mls/hr Documented By: [facility] Imaging Data Radiologist's Impression: Abdomen/Pelvis CT 02/26/22 14:23 CT abd pelvis wo con CLINICAL HISTORY: hematuria, hx of lymphoma TECHNIQUE: Helical axial images of the abdomen and pelvis were obtained. Automated dose lowering techniques and/or adjustment according to patient size were utilized for this exam. This exam was performed without intravenous contrast. CT DOSE: 1232.41 mGycm COMPARISON: Comparison is made to CT abdomen pelvis 01/29/2022 FINDINGS: Lower chest: Small bilateral pleural effusions are seen. There is cardiomegaly. Liver: A 17 mm hypodensity is seen in the left lobe of the liver. Gallbladder and biliary tree: No calcified gallstones. Normal caliber wall. No intra- or extrahepatic biliary ductal dilation. Pancreas: Unremarkable, no focal lesions. Spleen: Unremarkable. Adrenals: Nodular appearance of left adrenal is unchanged from prior exam. Kidneys and ureters: There is dilation of the bilateral collecting systems with foci of air noted. Ureters are thickened. Bladder: There is an air-fluid level in the bladder and circumferential bladder gas with bladder wall thickening and stranding. Reproductive organs: Patient is status post hysterectomy. Bowel: Unremarkable appearance of the bowel. The appendix is normal. A hiatal hernia is seen. Lymph nodes Retroperitoneal: Unremarkable. Pelvic: Previously noted large pelvic mass has improved from prior exam. Within the limits of noncontrast imaging, there is suggestion of external iliac lymph nodes which are less prominent than on prior exam. Mesenteric: Unremarkable. Peritoneum: Diffuse fluid stranding is seen in the abdomen and pelvis likely representing ascites. Vessels: Atherosclerotic calcifications are seen. Abdominal wall: Likely injection granulomas are seen bilaterally. Skin thickening is noted. Bones: Degenerative changes in the visualized spine. IMPRESSION: 1. Circumferential gas in the bladder wall is concerning for emphysematous cystitis with tracking of air into the bilateral kidneys. Ascending infection cannot be excluded. No evidence of perforation is seen. 2. Within the limits of a noncontrast exam, interval improvement in previously noted pelvic masses which were biopsy-proven to represent B-cell lymphoma. 3. Additional findings as above. ACT 112: Negative or not required by law. Electronically signed by: Brandon Burgess M.D. 02/26/2022 4:07 PM Discharge Plan Visit Data Chief Complaint: Hematuria Stated Complaint: HEMATURIA ED Provider: Javier Willams Discharge Problem: Hematuria, Neutropenia, Emphysematous cystitis, Acute UTI (urinary tract infection), Pancytopenia, Hypocalcemia Forms Stand Alone Forms: [employer] Prescriptions Prescriptions: No Action cetirizine 10 mg tablet 10 mg PO QAM cyanocobalamin (vitamin B-12) 1,000 mcg tablet 1,000 mcg PO QAM fluconazole 200 mg tablet 200 mg PO UD Rx Instructions: take daily when neutropenic (ANC < 50) acyclovir 800 mg tablet 800 mg PO [facility] levofloxacin 500 mg tablet 500 mg PO UD Rx Instructions: take daily when neutropenic (ANC < 50) allopurinol 300 mg tablet 300 mg PO QAM apixaban 5 mg Tablet 5 mg PO [facility] Rx Instructions: hold if platelets < 50k tamsulosin 0.4 mg capsule 0.4 mg PO [facility] atorvastatin 40 mg tablet 40 mg PO HS dronedarone 400 mg tablet 400 mg PO [facility] cholecalciferol (vitamin D3) [Vitamin D3] 25 mcg (1,000 unit) Tablet 25 mcg PO QAM finasteride 5 mg tablet 5 mg PO QAM Referrals Referrals: Clarence Valverde MD [Primary Care Provider] -
[2022-02-26 15:56] LABS: Albumin Globulin Ratio 1.2 (0.9-2); Albumin Level 2.4 gm/dl (3.4-5.0); BUN Creatinine Ratio 20.7 (10-20); Bilirubin,Total 1.3 mg/dl (0.2-1.0); Calcium 5.4 mg/dl (8.5-10.1); Creatinine Clr Calc Pharmacy 74.3 ml/min; Est GFR (African American) 70.4 ml/min; Est GFR (Non-African American) 60.7 ml/min; Potassium 3.4 mmol/L (3.5-5.1); Total Protein 4.4 gm/dl (6.0-8.3)
--- NOTE | 2022-02-26 16:09 | CT Scan Report ---
CT abd pelvis wo con CLINICAL HISTORY: hematuria, hx of lymphoma TECHNIQUE: Helical axial images of the abdomen and pelvis were obtained. Automated dose lowering tech niques and/or adjustment according to patient size were utilized for this exam. This exam was perfor med without intravenous contrast. CT DOSE: 1232.41 mGycm COMPARISON: Comparison is made to CT abdomen pelvis 01/29/2022 FINDINGS: Lower chest: Small bilateral pleural effusions are seen. There is cardiomegaly. Liver: A 17 mm hypodensity is seen in the left lobe of the liver. Gallbladder and biliary tree: No calcified gallstones. Normal caliber wall. No intra- or extrahepatic biliary ductal dilation. Pancreas: Unremarkable, no focal lesions. Spleen: Unremarkable. Adrenals: Nodular appearance of left adrenal is unchanged from prior exam. Kidneys and ureters: There is dilation of the bilateral collecting systems with foci of air noted. Ur eters are thickened. Bladder: There is an air-fluid level in the bladder and circumferential bladder gas with bladder wall thickening and stranding. Reproductive organs: Patient is status post hysterectomy. Bowel: Unremarkable appearance of the bowel. The appendix is normal. A hiatal hernia is seen. Lymph nodes Retroperitoneal: Unremarkable. Pelvic: Previously noted large pelvic mass has improved from prior exam. Within the limits of noncont rast imaging, there is suggestion of external iliac lymph nodes which are less prominent than on prio r exam. Mesenteric: Unremarkable. Peritoneum: Diffuse fluid stranding is seen in the abdomen and pelvis likely representing ascites. Vessels: Atherosclerotic calcifications are seen. Abdominal wall: Likely injection granulomas are seen bilaterally. Skin thickening is noted. Bones: Degenerative changes in the visualized spine. IMPRESSION: 1. Circumferential gas in the bladder wall is concerning for emphysematous cystitis with tracking of air into the bilateral kidneys. Ascending infection cannot be excluded. No evidence of perforation i s seen. 2. Within the limits of a noncontrast exam, interval improvement in previously noted pelvic masses w hich were biopsy-proven to represent B-cell lymphoma. 3. Additional findings as above. ACT 112: Negative or not required by law. Electronically signed by: Brandon Burgess M.D. 02/26/2022 4:07 PM
[2022-02-26 16:16] LABS: Hematocrit (blood only) 26.9 % (40.1-51.0); Hemoglobin 9.1 g/dl (14.0-18.0); Mean Corpuscular Hemoglobin 32.2 pg (25.0-34.0); Mean Corpuscular Hgb Conc 33.8 g/dL (32.0-36.0); Mean Corpuscular Volume 95.1 fL (80.0-100.0); Mean Platelet Volume 11.3 fL (9.4-12.4); Platelet Count 33 K/uL (130-400); RDW Coefficient of Variation 14.6 % (11.5-14.5); RDW Standard Deviation 50.3 fL (36.4-46.3); Red Blood Count 2.83 M/uL (4.63-6.08); White Blood Count 0.62 K/ul (4.8-10.8)
[2022-02-26] MEDS ORDERED: CEFEPIME 2,000 MG/20 ML VIAL IV STA (16:18)
[2022-02-26] MEDS ORDERED: SODIUM CHLORIDE 0.9% 1000ML 1,000 ML IV STA (16:25)
[2022-02-26] MEDS ORDERED: CALCIUM GLUCONATE 1,000 MG/60 ML BAG IV STA (16:26)
[2022-02-26] MEDS ORDERED: DAPTOmycin 550 MG in SYRINGE 0 ML IV SCH (16:30)
[2022-02-26 17:00] LABS: ALC (manual) 0.22 K/uL (1.2-3.4); ANC (manual) 0.38 K/uL (1.4-6.5); Acanthocytes 1+; Eosinophils # (manual) 0.01 K/uL (0-0.50); Eosinophils % (manual) 2 %; Lymphocytes # (manual) 0.22 K/uL (1.2-3.4); Lymphocytes % (manual) 36 %; Neutrophils # (manual) 0.38 K/uL (1.4-6.5); Neutrophils % (manual) 62 %; Polychromasia 1+; Tear Drop Cells 1+
--- NOTE | 2022-02-26 17:17 | History & Physical Report ---
Date of Service February 26, 2022 Assessment & Plan (1) Hypocalcemia: Plan: No tetany, carpopedal spasm or QT prolongation Unknown if Xgeva or bisphosphonate given at [facility] during induction chemotherapy - discharge summary requested. Calcium gluconate 1g IV given in the ER. Repeat level in 4 hours. (2) Hypomagnesemia: Plan: Mg level 1.1 mg /dL Mg sulphate total 4g IV Repeat level in AM (3) Emphysematous cystitis: Plan: Possibly air from recent catheterization vs. emphysematous cystitis In setting of neutropenia will continue broad spectrum coverage with IV cefepime and daptomycin pending blood and urine cultures. PICC line will need removed if bacteremic - very mild erythma surrounding this - marked but appears more related to swelling than cellulitis (4) Neutropenia: Plan: Isolation neutropenic precautions Neupogen 480 mcg subcu daily until ANC greater than [address] Ruvalcaba Continue on chronic suppressive therapy with fluconazole 200 mg p.o. daily and acyclovir 800 mg p.o. twice daily while ANC less than 1 Consult hematology (5) Pancytopenia: Plan: Secondary to chemotherapy Neupogen as above (6) Hypervolemia: Plan: Will require Lasix but deferred starting on admission until hypocalcemia improved and magnesium replacement given Repeat TTE to see if LVEF has been affected by chemotherapy (7) Atrial fibrillation with RVR: Plan: Suspect contributing towards hypervolemic state Continue dronedarone Hold anticoagulation until platelets > 50 (8) Hematuria: Plan: Suspect secondary to cystitis as above in setting of Eliquis use Hold Eliquis until platelets > 50 Insert hull catheter (9) Lymphoma: Plan: Discharge summary requested from [facility] Consult hematology Plan VTE Prophylaxis - Deferred chemical prophylaxis while Plt < 50 Diet - regular, boost drinks Disposition - admit to PCU Admission and Anticipated Discharge Date Admission Date: February 26, 2022 History of Present Illness Chief Complaint: Lethargy, hematuria Primary Care Provider: Clarence Valverde MD Wojciech Jacobsen is a 71 year old male with B Cell lymphoma who presents to the ER with hematuria and increased urinary frequency. 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 His is at bedside and provides history. He was recently admitted at [facility] from January 29 to February 15 with a new diagnosis of recurrent B-cell lymphoma with symptoms of confusion, generalized weakness and night sweats. Large pelvic mass was seen on CT causing bilateral hydronephrosis. This was treated initially with steroids but ultimately transferred to [facility] for induction chemotherapy. Discharge summary from that hospitalization is not available on admission. However his reports having a 5-day induction with Rituxan given as an outpatient the same day as discharge. He was discharged home but she reports struggling to get him inside the house and him not being able to walk. His weight is increased by around 35 pounds with significant generalized anasarca. His urine has been pink on discharge however is now much more bloody. Increased urinary frequency started Wednesday after he came home with frequent urination every 15 minutes. He had a Hull catheter for most of his hospitalization however this was removed with passing a trial without Hull on 23 February. She denies any fevers or chills. In the ER he was significantly hypocalcemic without QT prolongation, tetany or asterixis. He was treated with calcium gluconate 1 g IV. He was noted to be neutropenic with absolute neutrophil count 0.38. Given his urinary symptoms and emphysematous changes on CT he was started on broad spectrum antibiotics to cover for UTI. He was referred to medicine for admission and ongoing management. Allergies Allergy/AdvReac Type Severity Reaction Status Date / Time No Known Drug Allergies Allergy Unknown Verified 02/26/22 15:48 Aminoglycosides AdvReac Unknown contraindicated Verified 02/26/22 15:51 while receiving chemo Cephalosporins AdvReac Unknown contraindicated Verified 02/26/22 15:51 while receiving chemo NSAIDS (Non-Steroidal AdvReac Unknown contraindicated Verified 02/26/22 15:51 Anti-Inflamma while receiving chemo Penicillins AdvReac Unknown contraindicated Verified 02/26/22 15:51 while receiving chemo sulfamethoxazole AdvReac Unknown contraindicated Verified 02/26/22 15:51 [From Bactrim] while receiving chemo trimethoprim [From Bactrim] AdvReac Unknown contraindicated Verified 02/26/22 15:51 while receiving chemo Home Medications Medication Instructions Recorded Confirmed Type cetirizine 10 mg tablet 10 mg PO QAM 02/20/19 02/26/22 History cyanocobalamin (vitamin B-12) 1,000 mcg PO QAM 02/20/19 02/26/22 History 1,000 mcg tablet acyclovir 800 mg tablet 800 mg PO [facility] 02/26/22 02/26/22 History allopurinol 300 mg tablet 300 mg PO QAM 02/26/22 02/26/22 History apixaban 5 mg tablet 5 mg PO [facility] 02/26/22 02/26/22 History atorvastatin 40 mg tablet 40 mg PO HS 02/26/22 02/26/22 History cholecalciferol (vitamin D3) 25 25 mcg PO QAM 02/26/22 02/26/22 History mcg (1,000 unit) tablet (Vitamin D3) dronedarone 400 mg tablet 400 mg PO [facility] 02/26/22 02/26/22 History finasteride 5 mg tablet 5 mg PO QAM 02/26/22 02/26/22 History fluconazole 200 mg tablet 200 mg PO UD 02/26/22 02/26/22 History levofloxacin 500 mg tablet 500 mg PO UD 02/26/22 02/26/22 History tamsulosin 0.4 mg capsule 0.4 mg PO [facility] 02/26/22 02/26/22 History Past Med/Surg History Medical History (Updated 02/26/22 @ 19:09 by Javier Willams MD) Acute cholecystitis with chronic cholecystitis Anemia Atrial flutter Benign prostatic hyperplasia with urinary obstruction 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 Cold intolerance Diffuse well-differentiated lymphocytic lymphoma Dyslipidemia Fatigue Hypotension Lymphoma Memory problem Multiple thyroid nodules Nonischemic cardiomyopathy Vertigo Surgical History History of bone marrow biopsy History of brain surgery History of cholecystectomy History of lithotripsy History of thoracentesis S/P cystoscopy with ureteral stent placement Family History Mother Cardiac disorder Hypertension FHx: deafness or hearing loss Stroke Leukemia Father Cardiac disorder Hypertension Lung cancer Recurrent kidney stones Social History Smoking Status: Former smoker Tobacco Type: Cigarettes Age Started Using Tobacco: 23; Age Quit Using Tobacco: 42; packs per day: 0.75; Second Hand Exposure: No; Hx Alcohol Use: No Hx Substance Use: No Preferred Language: Citizen [place] Communication Ability: Effective Visual Impairment: Limited Hearing Ability: Use of Hearing Aid Table Games Manager Required: No Beliefs That Will Affect Care: None marital status: Current Living Situation: Spouse Current Living Situation Comment: Home with current occupational status: retired Feels Safe at Home: Yes Childhood Exposure to Second-Hand Smoke: Yes Dental Care, Regularly: Yes Physical Activity Frequency: Does not Exercise Seatbelt Use: always Sunscreen Use: Yes (sometimes) Assistive Devices: Cane and Glasses Review of Systems Review of Systems: Unobtainable due to cognitive status Physical Exam Constitutional: well developed, + lethargic and + edematous; + not well nourished and no acute distress Eyes: + anicteric sclerae; normal pupil size ENMT: external ear and nose normal, oropharynx normal Neck: trachea midline, no thyromegaly Respiratory: normal respiratory effort, lungs clear to auscultation Cardiovascular: Rate/Rhythm: + tachycardic and + irregularly irregular Heart Sounds: no murmur Extremities: + edema (3+ pitting generalized on b/l LE, abdo, UE) Gastrointestinal (Abdomen): Inspection/Auscultation: normal bowel sounds Percussion/Palpation: abdomen soft; abdomen nontender, no guarding and abdomen not rigid Musculoskeletal: Extremities: no carpal pedal spasm Skin: + erythema (marked around PICC and on upper thighs appears related to swelling) Neurologic: moves all extremities, awake and + confused Motor/Sensory: no tremor, no asterixis and no sensory deficit (denied by patient) Psychiatric: Orientation: alert and oriented to person (self); + not oriented to place and + not oriented to time Eye Contact: + fair eye contact Genitourinary: no CVA tenderness Results & Data Results & Data ([facility]) Vital Signs (Past 12 Hours) Vital Signs Temp Pulse Pulse Resp BP BP Pulse Ox 02/26/22 16:49 114 H 20 100/79 97 02/26/22 15:15 122 H 20 95 02/26/22 15:15 113 H 20 95 02/26/22 13:01 36.5 C 102 H 20 110/72 97 O2 Del Method 02/26/22 16:49 Room Air 02/26/22 15:15 Room Air 02/26/22 15:15 Room Air 02/26/22 13:01 Room Air Laboratory Results Abnormal lab results 02/26/22 02/26/22 02/26/22 Range/Units 15:20 15:20 15:20 WBC 0.62 L* (4.8-10.8) K/ul RBC 2.83 L (4.63-6.08) M/uL Hgb 9.1 L (14.0-18.0) g/dl Hct 26.9 L (40.1-51.0) % RDW Std Deviation 50.3 H (36.4-46.3) fL RDW Coeff of Belén 14.6 H (11.5-14.5) % Plt Count 33 L (130-400) K/uL Neutrophils # (Manual) 0.38 L (1.4-6.5) K/uL Total Absolute Neuts 0.38 L* (1.4-6.5) K/uL Lymphocytes # (Manual) 0.22 L (1.2-3.4) K/uL Total Abs Lymphocytes 0.22 L (1.2-3.4) K/uL Potassium 3.4 L (3.5-5.1) mmol/L BUN 25 H (6-23) mg/dl BUN/Creatinine Ratio 20.7 H (10-20) Calcium 5.4 L* (8.5-10.1) mg/dl Magnesium (1.7-2.4) mg/dl Total Bilirubin 1.3 H (0.2-1.0) mg/dl Total Protein 4.4 L (6.0-8.3) gm/dl Albumin 2.4 L (3.4-5.0) gm/dl Globulin 2.0 L (2.5-4.0) gm/dl Urine Appearance Cloudy A (Clear) Urine Protein 2+ H (Negative) Urine Glucose (UA) Trace H (Negative) Urine Ketones 1+ H (Negative) Urine Blood 3+ H (Negative) Ur Leukocyte Esterase Trace H (Negative) Urine WBC (Auto) 10-30 H (0-5) /hpf Urine RBC (Auto) >30 H (0-4) /hpf U Epithel Cells (Auto) >30 H (0-5) /lpf 02/26/22 Range/Units 15:20 WBC (4.8-10.8) K/ul RBC (4.63-6.08) M/uL Hgb (14.0-18.0) g/dl Hct (40.1-51.0) % RDW Std Deviation (36.4-46.3) fL RDW Coeff of Belén (11.5-14.5) % Plt Count (130-400) K/uL Neutrophils # (Manual) (1.4-6.5) K/uL Total Absolute Neuts (1.4-6.5) K/uL Lymphocytes # (Manual) (1.2-3.4) K/uL Total Abs Lymphocytes (1.2-3.4) K/uL Potassium (3.5-5.1) mmol/L BUN (6-23) mg/dl BUN/Creatinine Ratio (10-20) Calcium (8.5-10.1) mg/dl Magnesium 1.1 L (1.7-2.4) mg/dl Total Bilirubin (0.2-1.0) mg/dl Total Protein (6.0-8.3) gm/dl Albumin (3.4-5.0) gm/dl Globulin (2.5-4.0) gm/dl Urine Appearance (Clear) Urine Protein (Negative) Urine Glucose (UA) (Negative) Urine Ketones (Negative) Urine Blood (Negative) Ur Leukocyte Esterase (Negative) Urine WBC (Auto) (0-5) /hpf Urine RBC (Auto) (0-4) /hpf U Epithel Cells (Auto) (0-5) /lpf Diagnostic Findings CT abd pelvis wo con CLINICAL HISTORY: hematuria, hx of lymphoma TECHNIQUE: Helical axial images of the abdomen and pelvis were obtained. Automated dose lowering techniques and/or adjustment according to patient size were utilized for this exam. This exam was performed without intravenous contrast. CT DOSE: 1232.41 mGycm COMPARISON: Comparison is made to CT abdomen pelvis 01/29/2022 FINDINGS: Lower chest: Small bilateral pleural effusions are seen. There is cardiomegaly. Liver: A 17 mm hypodensity is seen in the left lobe of the liver. Gallbladder and biliary tree: No calcified gallstones. Normal caliber wall. No intra- or extrahepatic biliary ductal dilation. Pancreas: Unremarkable, no focal lesions. Spleen: Unremarkable. Adrenals: Nodular appearance of left adrenal is unchanged from prior exam. Kidneys and ureters: There is dilation of the bilateral collecting systems with foci of air noted. Ureters are thickened. Bladder: There is an air-fluid level in the bladder and circumferential bladder gas with bladder wall thickening and stranding. Reproductive organs: Patient is status post hysterectomy. Bowel: Unremarkable appearance of the bowel. The appendix is normal. A hiatal hernia is seen. Lymph nodes Retroperitoneal: Unremarkable. Pelvic: Previously noted large pelvic mass has improved from prior exam. Within the limits of noncontrast imaging, there is suggestion of external iliac lymph nodes which are less prominent than on prior exam. Mesenteric: Unremarkable. Peritoneum: Diffuse fluid stranding is seen in the abdomen and pelvis likely representing ascites. Vessels: Atherosclerotic calcifications are seen. Abdominal wall: Likely injection granulomas are seen bilaterally. Skin thickening is noted. Bones: Degenerative changes in the visualized spine. IMPRESSION: 1. Circumferential gas in the bladder wall is concerning for emphysematous cystitis with tracking of air into the bilateral kidneys. Ascending infection cannot be excluded. No evidence of perforation is seen. 2. Within the limits of a noncontrast exam, interval improvement in previously noted pelvic masses which were biopsy-proven to represent B-cell lymphoma. 3. Additional findings as above. Medications Administered ER Medications Given: Daptomycin 550mg IV Cefepime 2 g IV NSS @ 125ml/hr (discontinued by myself) Calcium gluconate 1 g IV Magnesium sulfate 1 g IV ECG Rate (beats per minute): 104 Rhythm: atrial fibrillation Findings: no acute ischemic change Comparison ECG Date: from (January 29, 2022) Change: the following changes noted (Atrial fibrillation now present, PVCs now present) Code Status & VTE Plan Code Status DNR/DNI VTE Prophylaxis Plan VTE Prophylaxis will be ordered: No PG Care Time/CCT Total # of Minutes Spent Total Time Spent with Patient: Total time spent is greater than 50% in coordination of care (as documented) at patient's floor/unit and/or counseling patient: Coding Level of Care Code 14008 Initial Inpt Care Lvl 3 Diagnoses Hypocalcemia E83.51 Hypomagnesemia E83.42 Emphysematous cystitis N30.80 Neutropenia D70.9 Pancytopenia D61.818 Hypervolemia E87.70 Atrial fibrillation with RVR I48.91 Hematuria R31.9 Lymphoma C85.90
[2022-02-26 17:19] LABS: Appearance Urine Cloudy (Clear); Color Urine Red
[2022-02-26 17:24] LABS: Bacteria Urine Automated Negative (Negative); Bilirubin Urine Negative (Negative); Blood Urine 3+ (Negative); Cast Urine Automated 0 /lpf (0-5); Epithelial Cell Urine Auto >30 /lpf (0-5); Glucose Urine UA Trace (Negative); Ketones Urine 1+ (Negative); Leukocyte Esterase Urine Trace (Negative); Nitrite Urine Negative (Negative); Protein Urine 2+ (Negative); Specific Gravity Urine 1.014 (1.000-1.030); Urobilinogen Urine Negative (Negative); pH Urine 6.5 (4.5-7.5)
[2022-02-26] MEDS ORDERED: MAGNESIUM SULFATE / D5W 1 GM/100 ML BAG IV STA (17:41)
[2022-02-26 17:42] LABS: RBC Urine Automated >30 /hpf (0-4)
[2022-02-26] MEDS ORDERED: ACETAMINOPHEN 325 MG TAB PO PRN (20:29)
[2022-02-26] MEDS: MAGNESIUM SULFATE / D5W 1 GM/100 ML BAG IV SCH ×2 (20:39→23:33)
--- NOTE | 2022-02-26 21:01 | XRay Report ---
SINGLE VIEW CHEST CLINICAL HISTORY: Hypervolemia. FINDINGS: An AP, portable, upright chest radiograph is compared to study dated 02/01/2022 and correlat ed with chest CT dated 01/29/2022. A left subclavian central venous infusion port is unchanged in posi tion. A right PICC line is new from previous. The tip projects over the SVC. The heart is enlarged no ting atherosclerotic calcification of the thoracic aorta. The pulmonary vascular is noncongested. Chr onic interstitial thickening similar to previous. There are small pleural effusions, left larger than right with dependent consolidation. No pneumothorax is seen. The skeletal structures are osteopenic. The bony thorax is grossly intact. IMPRESSION: 1. Cardiomegaly without radiographic evidence of congestive failure. 2. Left larger than right pleural effusions with dependent consolidation. This likely represents atel ectasis and clinical correlation will be required. 3. A right PICC line is new from previous. ACT 112: Negative or not required by law. Electronically signed by: Bertin Rivera M.D. 02/26/2022 8:59 PM
[2022-02-26 21:06] LABS: BUN Creatinine Ratio 21.3 (10-20); Calcium 5.5 mg/dl (8.5-10.1); Creatinine Clr Calc Pharmacy 83.3 ml/min; Est GFR (African American) 80.7 ml/min; Est GFR (Non-African American) 69.7 ml/min; Potassium 2.5 mmol/L (3.5-5.1)
[2022-02-26] MEDS ORDERED: FILGRASTIM 480 MCG/1.6 ML VIAL SQ ONE (21:15)
[2022-02-26] MEDS ORDERED: STAT IV STA (21:16)
[2022-02-26] MEDS ORDERED: POTASSIUM CHLORIDE CRTAB 20 MEQ TABCR PO STA (21:16)
[2022-02-26] MEDS ORDERED: CALCIUM GLUCONATE 10% 2,000 MG in DEXTROSE 5% 50 ML IV ONE (21:30)
[2022-02-26] MEDS: DRONEDARONE HCL 400 MG TAB PO SCH (21:53)
[2022-02-26] MEDS: ACYCLOVIR 400 MG TAB PO SCH (21:54)
[2022-02-26] MEDS: POTASSIUM CHLORIDE / WTR 10 MEQ/100 ML PLCT IV SCH ×2 (22:17→23:34)
[2022-02-26] MEDS: TAMSULOSIN HCL 0.4 MG CAP PO SCH (23:32)
[2022-02-26] MEDS: CEFEPIME 2,000 MG in SYRINGE 0 ML IV SCH (23:35)
[2022-02-27] MEDS: POTASSIUM CHLORIDE / WTR 10 MEQ/100 ML PLCT IV SCH ×5 (00:15→12:04)
[2022-02-27 01:33] LABS: BUN Creatinine Ratio 20.5 (10-20); Calcium 5.8 mg/dl (8.5-10.1); Creatinine Clr Calc Pharmacy 79.6 ml/min; Est GFR (African American) 77.3 ml/min; Est GFR (Non-African American) 66.7 ml/min; Potassium 2.7 mmol/L (3.5-5.1)
[2022-02-27] MEDS ORDERED: STAT IV STA ×3 (01:37→20:29)
[2022-02-27] MEDS ORDERED: CALCIUM GLUCONATE 10% 2,000 MG in DEXTROSE 5% 50 ML IV ONE ×3 (01:45→21:00)
[2022-02-27] MEDS: MAGNESIUM SULFATE / D5W 1 GM/100 ML BAG IV SCH ×5 (01:49→21:12)
[2022-02-27 08:41] LABS: Hematocrit (blood only) 22.9 % (40.1-51.0); Hemoglobin 7.6 g/dl (14.0-18.0); Mean Corpuscular Hemoglobin 31.7 pg (25.0-34.0); Mean Corpuscular Hgb Conc 33.2 g/dL (32.0-36.0); Mean Corpuscular Volume 95.4 fL (80.0-100.0); Mean Platelet Volume 11.2 fL (9.4-12.4); Platelet Count 23 K/uL (130-400); RDW Coefficient of Variation 14.4 % (11.5-14.5); White Blood Count 0.24 K/ul (4.8-10.8)
[2022-02-27 08:50] LABS: BUN Creatinine Ratio 20.4 (10-20); Calcium 5.8 mg/dl (8.5-10.1); Creatinine Clr Calc Pharmacy 90.9 ml/min; Est GFR (African American) 90.8 ml/min; Est GFR (Non-African American) 78.4 ml/min; Magnesium 1.6 mg/dl (1.7-2.4); Potassium 2.5 mmol/L (3.5-5.1)
[2022-02-27] MEDS ORDERED: CHOLECALCIFEROL 1,000 UNITS 25 MCG TAB PO SCH (09:00)
[2022-02-27] MEDS ORDERED: CALCIUM CARBONATE 1,250 MG/5 ML UDC PO SCH (09:35)
[2022-02-27] MEDS: CEFEPIME 2,000 MG in SYRINGE 0 ML IV SCH ×2 (09:50→17:17)
[2022-02-27] MEDS: FLUCONAZOLE 100 MG TAB PO SCH (10:01)
[2022-02-27] MEDS: FINASTERIDE 5 MG TAB PO SCH (10:01)
[2022-02-27] MEDS: ACYCLOVIR 400 MG TAB PO SCH ×2 (10:01→21:39)
[2022-02-27] MEDS: DRONEDARONE HCL 400 MG TAB PO SCH ×2 (10:01→21:39)
[2022-02-27] MEDS: CETIRIZINE HCL 10 MG TABLET PO SCH (10:02)
[2022-02-27] MEDS: allopurinoL 300 MG TAB PO SCH (10:02)
[2022-02-27] MEDS: TAMSULOSIN HCL 0.4 MG CAP PO SCH ×2 (10:02→21:39)
[2022-02-27] MEDS: CYANOCOBALAMIN (B-12) 500 MCG TABLET PO SCH (10:02)
[2022-02-27] MEDS: CHOLECALCIFEROL 1,000 UNITS 25 MCG TAB PO SCH (10:02)
[2022-02-27] MEDS: POTASSIUM CHLORIDE CRTAB 20 MEQ TABCR PO SCH ×3 (10:03→21:39)
--- NOTE | 2022-02-27 11:08 | XCELERA ---
[id number]
--- NOTE | 2022-02-27 11:12 | Electrocardiogram Report ---
Test Reason : Blood Pressure : / mmHG Vent. Rate : 104 BPM Atrial Rate : 104 BPM P-R Int : 130 ms QRS Dur : 108 ms QT Int : 310 ms P-R-T Axes : 061 008 175 degrees QTc Int : 407 ms Sinus tachycardia with occasional Premature ventricular complexes Nonspecific T wave abnormality Abnormal ECG When compared with ECG of 29-JAN-2022 13:02, Premature ventricular complexes are now Present Nonspecific T wave abnormality now evident in Anterolateral leads QT has shortened Confirmed by Luis E Razo ([id number]) on 02/27/2022 11:11:52 AM Referred By: REFERRED SELF Confirmed By:Luis E Rzao
--- NOTE | 2022-02-27 14:22 | Hospitalist Progress Note ---
Date of Service February 27, 2022 Assessment & Plan (1) Hypocalcemia: Plan: Discharge summary obtained from [facility] and patient received induction chemotherapy consisting of "ESHAP" therapy on 02/18 and ending 02/23. ESHAP includes etoposide, methylprednisolone, cisplatin, and cytarabine. I believe that the profound electrolyte disturbances seen are due to cisplatin induced nephrotoxicity. These can be challenging to correct. Will focus on correcting his hypomagnesemia first, and then the low Ca/K/phos. To that end he has received copious amounts of IV calcium gluconate since admission. Starting calcitriol 0.25mcg daily. Ergocalciferol 80092 units x 1. Consult nephrology Dr Milan in the am (I did speak with him this evening regarding these issues). Serial BMP/mag/phos/K. Continue telemetry status. (2) Hypomagnesemia: Plan: Suspect 2nd to cisplatin induced renal dysfunction/nephrotoxicity. Large amounts of IV magnesium sulfate given yesterday/today. Slowly approaching normal. Repeat mag level am. See #1 above. (3) Hypokalemia: Plan: See above. Continue KCL 40meq PO TID. Potassium in K-phos IV will help. Also received additional IV K-riders today. Serial labs. Fix the low mag and low calcium. (4) Hypophosphatemia: Plan: K-phos 30mmol IV x 1 with repeat level am. see #1 above. (5) Lymphoma: Plan: B-Cell Lymphoma. Recurrence. Hospitalized here at [facility] from 01/29/22 to 02/15/22 at which time he was transferred to [facility] in [place]. Underwent ESHAP induction chemotherapy regimen starting 02/18 and ending 02/23. D/c from hospital 02/24, then received Rituxan & neulasta at that time. MRI brain negative during stay in [place] for evidence of lymphoma. However, LP with cytology + for malignant cells. Intra-thecal methotrexate being planned under the care of Dr Gonsalves in [place] - they were planning first treatment next week, but clearly at this time he is too sick for such. Formal oncology consult by Dr Ruvalcaba appreciated. Continue daily neupogen injections for severe neutropenia. Continue broad-spectrum abx while awaiting cultures. (6) Pancytopenia due to antineoplastic chemotherapy: Plan: severe. with severe neutropenia. daily CBC. likely to need PRBCs and platelets tomorrow. poor candidate for diuretics following colloid given his profound electrolyte disturbances. continue daily neupogen until ANC has normalized. (7) Emphysematous cystitis: Plan: Possibly air from recent catheterization vs. emphysematous cystitis. In setting of neutropenia will continue broad spectrum coverage with IV cefepime and daptomycin pending blood and urine cultures. PICC line will need removed if bacteremic. Given his severe hematuria and the ?emphysematous cystitis likely to need urology consult who knows him from prior hospital stay. Continue hull. (8) Neutropenia: Plan: Continue neutropenic precautions. Neupogen 480 mcg subcu daily until ANC greater than [address] Ruvalcaba. Continue on chronic suppressive therapy with fluconazole 200 mg p.o. daily and acyclovir 800 mg p.o. twice daily while ANC less than 1000. (9) Hypervolemia: Plan: Likely multifactorial - copious IV fluids between the previous hospital stay here and his stay in [place], hypoalbuminemia, low-normal systolic LV function (50-55% EF on echo), steroids, etc. Poor candidate for diuretics given his profound electrolyte disturbances. Fortunately his respiratory status is stable at this time. (10) Hematuria: Plan: Eliquis use, low platelets, ?UTI, other factors likely all playing roles. Eliquis on hold. Antibiotics in place and culture pending. May need platelet infusion if platelets drop any lower. Monitor H/H. Likely urology consultation. (11) Acute metabolic encephalopathy: Plan: 2nd to sepsis from UTI or other source? Other? Supportive care, serial exams, etc. (12) Benign prostatic hyperplasia with urinary obstruction: Plan: Cont flomax Cont finasteride Cont hull (13) Paroxysmal atrial flutter: Plan: There was concern for rapid a.fib yesterday at admission but formal reading on EKG was NSR with ectopy. Overnight he was in NSR. HOLD ELIQUIS. Cont multaq. Cont telemetry. Plan VTE Prophylaxis - Deferred chemical prophylaxis given severe thrombocytopenia, hematuria, etc. Plan of care d/w Dr Ruvalcaba and Dr Milan Plan of care extensively discussed with pt's Records from [place] extensively reviewed complex care coordination in this very ill patient - total time today 75 minutes including the above care activities and ongoing efforts at correcting numerous electrolyte issues and other factors Admission and Anticipated Discharge Date Admission Date: February 26, 2022 Subjective tele overnight - NSR with ectopy during the visit the pt's was at bedside patient himself was lethargic/sleeping/snoring the entire visit did not wake during the exam portion of the encounter pt's recounts that when he was d/c on 02/24 from [facility] he was very weak, couldn't really walk, and was eating/drinking poorly that same day on 02/24 he went to the [facility] and received Rituxan and neulasta (per records) upon return home to [place] he could "barely walk into the house" over the subsequent 2 days PO intake was poor, he was tired & napping alot, couldn't really get around the house at home was having urinary issues & incontinence, and ultimately developed gross hematuria s/p hull insertion here at [facility] - gross hematuria continues overwhelmed by the events of this past week she has received calls from [facility] in [place] that intrathecal MTx is being recommended for this coming week Review of Systems Review of Systems: Unobtainable due to cognitive status Physical Exam Physical Exam: gen - face is puffy/edematous; snoring; lying flat in bed comfortably eyes - 2-3MM pupils and reactive mouth - MM dry, no obvious thrush neck - no JVD heart - RRR, s1 s2, no murmur (or at least nothing obvious as snoring makes it hard to hear) lungs - decreased BS bases, otherwise CTA b/l; snoring abd - soft, ?tender RUQ, BS+, bloated with body wall edema? ext - anasarca of all 4 limbs, pulses 1-2+ b/l vasc - right arm PICC with ecchymoses near insertion site skin - mild erythema of b/l inner thighs - penile edema, hull with gross hematuria/wiggins red Results & Data Results & Data ([facility]) Vital Signs (Past 12 Hours) Vital Signs Temp Pulse Resp BP Pulse Ox O2 Del Method 02/27/22 12:06 36.8 C 93 H 18 130/80 97 Room Air 02/27/22 08:01 36.8 C 86 18 117/81 961 H Room Air 02/27/22 04:00 36.8 C 84 18 106/71 96 Room Air Laboratory Results Laboratory Results - last 24 hr 02/26/22 02/26/22 02/26/22 15:20 15:20 15:20 WBC 0.62 L* RBC 2.83 L Hgb 9.1 L Hct 26.9 L MCV 95.1 MCH 32.2 MCHC 33.8 RDW Std Deviation 50.3 H RDW Coeff of Belén 14.6 H Plt Count 33 L MPV 11.3 Immature Gran % (Auto) Neut % (Auto) Lymph % (Auto) Eaton % (Auto) Eos % (Auto) Baso % (Auto) Neut # (Auto) Lymph # (Auto) Eaton # (Auto) Eos # (Auto) Baso # (Auto) Immature Gran # (Auto) Neutrophils % (Manual) 62 Band Neutrophils % Lymphocytes % (Manual) 36 Prolymphocyte % Reactive Lymphs % (Man) Monocytes % (Manual) Eosinophils % (Manual) 2 Basophils % (Manual) Metamyelocytes % (Man) Myelocytes % (Man) Promyelocytes % (Man) Blast Cells % (Manual) Plasma Cell % (Manual) Other Cells % Nucleated RBC % Neutrophils # (Manual) 0.38 L Band Neutrophils # Total Absolute Neuts 0.38 L* Lymphocytes # (Manual) 0.22 L Prolymphocyte # Reactive Lymphs # Total Abs Lymphocytes 0.22 L Monocytes # (Manual) Eosinophils # (Manual) 0.01 Basophils # (Manual) Metamyelocytes # (Man) Myelocytes # (Manual) Promyelocytes # (Man) Blast Cells # (Man) Plasma Cell # (Manual) Other Cells # Nucleated RBCs # (Man) Hypersegmented Neuts Hyposegmented Neuts Hypogranular Neuts Large Granular Lymphs # Lrg Granular Lymphs Hairy Cells Smudge Cells Toxic Granulation Toxic Vacuolation Dohle Bodies Ludmila Rods Hypogranular Platelets Clumped Platelets Giant Platelets Platelet Satelliting RBC Morphology Polychromasia 1+ Hypochromasia Poikilocytosis Basophilic Stippling Anisocytosis Microcytosis Macrocytosis Spherocytes Pappenheimer Bodies Sickle Cells Target Cells Tear Drop Cells 1+ Ovalocytes Stomatocytes Bateman-Cherryvale Bodies Echinocytes Acanthocytes (Spur) 1+ Rouleaux RBC Agglutinates Schistocytes Sezary Cell Sodium 140 Potassium 3.4 L Chloride 105 Carbon Dioxide 27 Anion Gap 8 BUN 25 H Creatinine 1.21 Est Cr Clr Drug Dosing 74.3 Est GFR ( Amer) 70.4 Est GFR (Non-Af Amer) 60.7 BUN/Creatinine Ratio 20.7 H Glucose 81 Calcium 5.4 L* Ionized Calcium Magnesium Total Bilirubin 1.3 H AST 29 ALT 22 Alkaline Phosphatase 45 Total Protein 4.4 L Albumin 2.4 L Globulin 2.0 L Albumin/Globulin Ratio 1.2 Lipase 46 Procalcitonin Urine Color Red Urine Appearance Cloudy A Urine pH 6.5 Ur Specific [place] 1.014 Urine Protein 2+ H Urine Glucose (UA) Trace H Urine Ketones 1+ H Urine Blood 3+ H Urine Nitrite Negative Urine Bilirubin Negative Urine Urobilinogen Negative Ur Leukocyte Esterase Trace H Urine WBC (Auto) 10-30 H Urine RBC (Auto) >30 H U Hyaline Cast (Auto) 0 U Epithel Cells (Auto) >30 H Urine Bacteria (Auto) Negative Ur Renal Epithelial Cell Not Reportable Urine Yeast Not Reportable SARS-CoV-2, RNA, NAAT Blood Parasites ID 02/26/22 02/26/22 02/26/22 15:20 19:32 20:21 WBC RBC Hgb Hct MCV MCH MCHC RDW Std Deviation RDW Coeff of Belén Plt Count MPV Immature Gran % (Auto) Neut % (Auto) Lymph % (Auto) Eaton % (Auto) Eos % (Auto) Baso % (Auto) Neut # (Auto) Lymph # (Auto) Eaton # (Auto) Eos # (Auto) Baso # (Auto) Immature Gran # (Auto) Neutrophils % (Manual) Band Neutrophils % Lymphocytes % (Manual) Prolymphocyte % Reactive Lymphs % (Man) Monocytes % (Manual) Eosinophils % (Manual) Basophils % (Manual) Metamyelocytes % (Man) Myelocytes % (Man) Promyelocytes % (Man) Blast Cells % (Manual) Plasma Cell % (Manual) Other Cells % Nucleated RBC % Neutrophils # (Manual) Band Neutrophils # Total Absolute Neuts Lymphocytes # (Manual) Prolymphocyte # Reactive Lymphs # Total Abs Lymphocytes Monocytes # (Manual) Eosinophils # (Manual) Basophils # (Manual) Metamyelocytes # (Man) Myelocytes # (Manual) Promyelocytes # (Man) Blast Cells # (Man) Plasma Cell # (Manual) Other Cells # Nucleated RBCs # (Man) Hypersegmented Neuts Hyposegmented Neuts Hypogranular Neuts Large Granular Lymphs # Lrg Granular Lymphs Hairy Cells Smudge Cells Toxic Granulation Toxic Vacuolation Dohle Bodies Ludmila Rods Hypogranular Platelets Clumped Platelets Giant Platelets Platelet Satelliting RBC Morphology Polychromasia Hypochromasia Poikilocytosis Basophilic Stippling Anisocytosis Microcytosis Macrocytosis Spherocytes Pappenheimer Bodies Sickle Cells Target Cells Tear Drop Cells Ovalocytes Stomatocytes Bateman-Cherryvale Bodies Echinocytes Acanthocytes (Spur) Rouleaux RBC Agglutinates Schistocytes Sezary Cell Sodium 140 Potassium 2.5 L* D Chloride 105 Carbon Dioxide 27 Anion Gap 8 BUN 23 Creatinine 1.08 Est Cr Clr Drug Dosing 83.3 Est GFR ( Amer) 80.7 Est GFR (Non-Af Amer) 69.7 BUN/Creatinine Ratio 21.3 H Glucose 86 Calcium 5.5 L* Ionized Calcium Magnesium 1.1 L Total Bilirubin AST ALT Alkaline Phosphatase Total Protein Albumin Globulin Albumin/Globulin Ratio Lipase Procalcitonin Urine Color Urine Appearance Urine pH Ur Specific [place] Urine Protein Urine Glucose (UA) Urine Ketones Urine Blood Urine Nitrite Urine Bilirubin Urine Urobilinogen Ur Leukocyte Esterase Urine WBC (Auto) Urine RBC (Auto) U Hyaline Cast (Auto) U Epithel Cells (Auto) Urine Bacteria (Auto) Ur Renal Epithelial Cell Urine Yeast SARS-CoV-2, RNA, NAAT NEGATIVE Blood Parasites ID 02/27/22 02/27/22 02/27/22 00:26 01:11 07:55 WBC 0.24 L* RBC 2.40 L Hgb 7.6 L Hct 22.9 L MCV 95.4 MCH 31.7 MCHC 33.2 RDW Std Deviation 48.0 H RDW Coeff of Belén 14.4 Plt Count 23 L* MPV 11.2 Immature Gran % (Auto) Cancelled Neut % (Auto) Cancelled Lymph % (Auto) Cancelled Eaton % (Auto) Cancelled Eos % (Auto) Cancelled Baso % (Auto) Cancelled Neut # (Auto) Cancelled Lymph # (Auto) Cancelled Eaton # (Auto) Cancelled Eos # (Auto) Cancelled Baso # (Auto) Cancelled Immature Gran # (Auto) Cancelled Neutrophils % (Manual) Cancelled Band Neutrophils % Cancelled Lymphocytes % (Manual) Cancelled Prolymphocyte % Cancelled Reactive Lymphs % (Man) Cancelled Monocytes % (Manual) Cancelled Eosinophils % (Manual) Cancelled Basophils % (Manual) Cancelled Metamyelocytes % (Man) Cancelled Myelocytes % (Man) Cancelled Promyelocytes % (Man) Cancelled Blast Cells % (Manual) Cancelled Plasma Cell % (Manual) Cancelled Other Cells % Cancelled Nucleated RBC % Cancelled Neutrophils # (Manual) Cancelled Band Neutrophils # Cancelled Total Absolute Neuts Cancelled Lymphocytes # (Manual) Cancelled Prolymphocyte # Cancelled Reactive Lymphs # Cancelled Total Abs Lymphocytes Cancelled Monocytes # (Manual) Cancelled Eosinophils # (Manual) Cancelled Basophils # (Manual) Cancelled Metamyelocytes # (Man) Cancelled Myelocytes # (Manual) Cancelled Promyelocytes # (Man) Cancelled Blast Cells # (Man) Cancelled Plasma Cell # (Manual) Cancelled Other Cells # Cancelled Nucleated RBCs # (Man) Cancelled Hypersegmented Neuts Cancelled Hyposegmented Neuts Cancelled Hypogranular Neuts Cancelled Large Granular Lymphs Cancelled # Lrg Granular Lymphs Cancelled Hairy Cells Cancelled Smudge Cells Cancelled Toxic Granulation Cancelled Toxic Vacuolation Cancelled Dohle Bodies Cancelled Ludmila Rods Cancelled Hypogranular Platelets Cancelled Clumped Platelets Cancelled Giant Platelets Cancelled Platelet Satelliting Cancelled RBC Morphology Cancelled Polychromasia Cancelled Hypochromasia Cancelled Poikilocytosis Cancelled Basophilic Stippling Cancelled Anisocytosis Cancelled Microcytosis Cancelled Macrocytosis Cancelled Spherocytes Cancelled Pappenheimer Bodies Cancelled Sickle Cells Cancelled Target Cells Cancelled Tear Drop Cells Cancelled Ovalocytes Cancelled Stomatocytes Cancelled Bateman-Cherryv[place] Bodies Cancelled Echinocytes Cancelled Acanthocytes (Spur) Cancelled Rouleaux Cancelled RBC Agglutinates Cancelled Schistocytes Cancelled Sezary Cell Cancelled Sodium 138 Potassium 2.7 L Chloride 103 Carbon Dioxide 28 Anion Gap 7 BUN 23 Creatinine 1.12 Est Cr Clr Drug Dosing 79.6 Est GFR ( Amer) 77.3 Est GFR (Non-Af Amer) 66.7 BUN/Creatinine Ratio 20.5 H Glucose 93 Calcium 5.8 L* Ionized Calcium 0.87 L Magnesium Total Bilirubin AST ALT Alkaline Phosphatase Total Protein Albumin Globulin Albumin/Globulin Ratio Lipase Procalcitonin Urine Color Urine Appearance Urine pH Ur Specific [place] Urine Protein Urine Glucose (UA) Urine Ketones Urine Blood Urine Nitrite Urine Bilirubin Urine Urobilinogen Ur Leukocyte Esterase Urine WBC (Auto) Urine RBC (Auto) U Hyaline Cast (Auto) U Epithel Cells (Auto) Urine Bacteria (Auto) Ur Renal Epithelial Cell Urine Yeast SARS-CoV-2, RNA, NAAT Blood Parasites ID Cancelled 02/27/22 02/27/22 02/27/22 07:55 07:55 07:55 WBC RBC Hgb Hct MCV MCH MCHC RDW Std Deviation RDW Coeff of Belén Plt Count MPV Immature Gran % (Auto) Neut % (Auto) Lymph % (Auto) Eaton % (Auto) Eos % (Auto) Baso % (Auto) Neut # (Auto) Lymph # (Auto) Eaton # (Auto) Eos # (Auto) Baso # (Auto) Immature Gran # (Auto) Neutrophils % (Manual) Band Neutrophils % Lymphocytes % (Manual) Prolymphocyte % Reactive Lymphs % (Man) Monocytes % (Manual) Eosinophils % (Manual) Basophils % (Manual) Metamyelocytes % (Man) Myelocytes % (Man) Promyelocytes % (Man) Blast Cells % (Manual) Plasma Cell % (Manual) Other Cells % Nucleated RBC % Neutrophils # (Manual) Band Neutrophils # Total Absolute Neuts Lymphocytes # (Manual) Prolymphocyte # Reactive Lymphs # Total Abs Lymphocytes Monocytes # (Manual) Eosinophils # (Manual) Basophils # (Manual) Metamyelocytes # (Man) Myelocytes # (Manual) Promyelocytes # (Man) Blast Cells # (Man) Plasma Cell # (Manual) Other Cells # Nucleated RBCs # (Man) Hypersegmented Neuts Hyposegmented Neuts Hypogranular Neuts Large Granular Lymphs # Lrg Granular Lymphs Hairy Cells Smudge Cells Toxic Granulation Toxic Vacuolation Dohle Bodies Ludmila Rods Hypogranular Platelets Clumped Platelets Giant Platelets Platelet Satelliting RBC Morphology Polychromasia Hypochromasia Poikilocytosis Basophilic Stippling Anisocytosis Microcytosis Macrocytosis Spherocytes Pappenheimer Bodies Sickle Cells Target Cells Tear Drop Cells Ovalocytes Stomatocytes Bateman-[place] Bodies Echinocytes Acanthocytes (Spur) Rouleaux RBC Agglutinates Schistocytes Sezary Cell Sodium 138 Potassium 2.5 L* Chloride 104 Carbon Dioxide 28 Anion Gap 6 BUN 20 Creatinine 0.98 Est Cr Clr Drug Dosing 90.9 Est GFR ( Amer) 90.8 Est GFR (Non-Af Amer) 78.4 BUN/Creatinine Ratio 20.4 H Glucose 77 Calcium 5.8 L* Ionized Calcium 0.90 L Magnesium 1.6 L Total Bilirubin AST ALT Alkaline Phosphatase Total Protein Albumin Globulin Albumin/Globulin Ratio Lipase Procalcitonin 5.84 H Urine Color Urine Appearance Urine pH Ur Specific [place] Urine Protein Urine Glucose (UA) Urine Ketones Urine Blood Urine Nitrite Urine Bilirubin Urine Urobilinogen Ur Leukocyte Esterase Urine WBC (Auto) Urine RBC (Auto) U Hyaline Cast (Auto) U Epithel Cells (Auto) Urine Bacteria (Auto) Ur Renal Epithelial Cell Urine Yeast SARS-CoV-2, RNA, NAAT Blood Parasites ID PG Care Time/CCT Total # of Minutes Spent Total Time Spent with Patient: Total time spent is greater than 50% in coordination of care (as documented) at patient's floor/unit and/or counseling patient: Prolonged Care Time Prolonged Care Time: Yes Total Prolonged Care Time: 75 Coding Level of Care Code 23488 Subseq Hosp Care Lvl 3 (25 - SIGNIFICANT, SEPARATELY IDENTIFIABLE ) Diagnoses Hypocalcemia E83.51 Hypomagnesemia E83.42 Hypokalemia E87.6 Hypophosphatemia E83.39 Lymphoma C85.90 Pancytopenia due to antineoplastic chemotherapy D61.810; T45.1X5A Emphysematous cystitis N30.80 Neutropenia D70.9 Hypervolemia E87.70 Hematuria R31.9 Acute metabolic encephalopathy G93.41 Benign prostatic hyperplasia with urinary obstruction N40.1; N13.8 Paroxysmal atrial flutter I48.92 Additional Codes Prolonged Care Time - Prolonged Care Time: Yes ([id number]) Time Spent (min) 75
[2022-02-27] MEDS: DAPTOmycin 550 MG in SYRINGE 0 ML IV SCH (17:17)
[2022-02-27 17:51] LABS: Hematocrit (blood only) 22.3 % (40.1-51.0); Hemoglobin 7.6 g/dl (14.0-18.0); Mean Corpuscular Hemoglobin 32.2 pg (25.0-34.0); Mean Corpuscular Hgb Conc 34.1 g/dL (32.0-36.0); Mean Corpuscular Volume 94.5 fL (80.0-100.0); Mean Platelet Volume 10.8 fL (9.4-12.4); Platelet Count 20 K/uL (130-400); RDW Coefficient of Variation 14.4 % (11.5-14.5); RDW Standard Deviation 49.9 fL (36.4-46.3); Red Blood Count 2.36 M/uL (4.63-6.08); White Blood Count 0.19 K/ul (4.8-10.8)
[2022-02-27 18:24] LABS: Calcium 5.9 mg/dl (8.5-10.1); Creatinine Clr Calc Pharmacy 93.8 ml/min; Est GFR (African American) 94.3 ml/min; Est GFR (Non-African American) 81.3 ml/min; Magnesium 1.6 mg/dl (1.7-2.4); Potassium 2.7 mmol/L (3.5-5.1)
[2022-02-27 18:28] LABS: Platelet Estimate Decreased (Normal)
[2022-02-27] MEDS ORDERED: ERGOCALCIFEROL 50,000 UNITS 1250 MCG CAP PO ONE (18:53)
[2022-02-27] MEDS: CALCITRIOL 0.25 MCG CAPSULE PO SCH (19:26)
[2022-02-27] MEDS ORDERED: POTASSIUM PHOS 3 MMOL/1 ML INFUSION IV STA (19:53)
[2022-02-27] MEDS ORDERED: POTASSIUM PHOSPHATE 30 MMOL in SODIUM CHLORIDE 0.9% 500 ML IV ONE (21:00)
[2022-02-27] MEDS: FILGRASTIM 480 MCG/1.6 ML VIAL SQ SCH (22:35)
[2022-02-28] MEDS: CEFEPIME 2,000 MG in SYRINGE 0 ML IV SCH ×3 (00:23→21:55)
[2022-02-28 06:21] LABS: Hematocrit (blood only) 20.8 % (40.1-51.0); Hemoglobin 7.1 g/dl (14.0-18.0); Mean Corpuscular Hgb Conc 34.1 g/dL (32.0-36.0); Mean Corpuscular Volume 93.7 fL (80.0-100.0); Mean Platelet Volume 11.6 fL (9.4-12.4); Platelet Count 15 K/uL (130-400); RDW Coefficient of Variation 14.4 % (11.5-14.5); Red Blood Count 2.22 M/uL (4.63-6.08); White Blood Count 0.21 K/ul (4.8-10.8)
[2022-02-28 06:25] LABS: Albumin Globulin Ratio 1.2 (0.9-2); BUN Creatinine Ratio 16.5 (10-20); Bilirubin,Total 1.2 mg/dl (0.2-1.0); Calcium 5.9 mg/dl (8.5-10.1); Creatinine Clr Calc Pharmacy 96.6 ml/min; Est GFR (African American) 99.3 ml/min; Est GFR (Non-African American) 85.7 ml/min; Globulin 1.7 gm/dl (2.5-4.0); Magnesium 1.6 mg/dl (1.7-2.4); Phosphorus 2.2 mg/dl (2.5-4.9); Total Protein 3.7 gm/dl (6.0-8.3)
[2022-02-28] MEDS: MAGNESIUM SULFATE / D5W 1 GM/100 ML BAG IV SCH ×3 (08:06→11:34)
[2022-02-28] MEDS: POTASSIUM CHLORIDE CRTAB 20 MEQ TABCR PO SCH ×3 (08:09→22:16)
[2022-02-28] MEDS: FINASTERIDE 5 MG TAB PO SCH (08:10)
[2022-02-28] MEDS: ACYCLOVIR 400 MG TAB PO SCH ×2 (08:10→20:31)
[2022-02-28] MEDS: TAMSULOSIN HCL 0.4 MG CAP PO SCH ×2 (08:10→20:28)
[2022-02-28] MEDS: CHOLECALCIFEROL 1,000 UNITS 25 MCG TAB PO SCH (08:10)
[2022-02-28] MEDS: DRONEDARONE HCL 400 MG TAB PO SCH ×2 (08:10→20:27)
[2022-02-28] MEDS: CYANOCOBALAMIN (B-12) 500 MCG TABLET PO SCH (08:11)
[2022-02-28] MEDS: allopurinoL 300 MG TAB PO SCH (08:11)
[2022-02-28] MEDS: FLUCONAZOLE 100 MG TAB PO SCH (08:11)
[2022-02-28] MEDS: CALCITRIOL 0.25 MCG CAPSULE PO SCH (08:11)
[2022-02-28] MEDS: CETIRIZINE HCL 10 MG TABLET PO SCH (08:11)
[2022-02-28] MEDS: POT PHOSPHATE MONOBASIC W/ SOD TAB PO SCH ×4 (09:22→20:28)
[2022-02-28] MEDS ORDERED: SODIUM CHLORIDE 0.9% 250 ML IV PRN ×2 (12:04→13:04)
--- NOTE | 2022-02-28 12:06 | Hospitalist Progress Note ---
Date of Service February 28, 2022 Assessment & Plan (1) Hypocalcemia: Plan: Discharge summary obtained from [facility] and patient received induction chemotherapy consisting of "ESHAP" therapy on 02/18 and ending 02/23. ESHAP includes etoposide, methylprednisolone, cisplatin, and cytarabine. I believe that the profound electrolyte disturbances seen are due to cisplatin induced nephrotoxicity. Appreciate Dr Milan's consultation from nephrology. Continue IV calcium gluconate replacement today. Continue calcitriol 0.25mcg daily. s/p Ergocalciferol 26444 units x 1 yesterday. Serial BMP/mag/phos/K. Replete other lytes as below. Continue telemetry status. (2) Hypomagnesemia: Plan: Suspect 2nd to cisplatin induced renal dysfunction/nephrotoxicity. Large amounts of IV magnesium sulfate given since admission. Remains refractory, but mag level slowly approaching normal. Give another 3 grams mag sulfate today. Repeat mag level am. See #1 above. (3) Hypokalemia: Plan: Slowly improving. Continue KCL 40meq PO TID. Potassium in K-phos supplementation will help as well. Serial labs. Fix the low mag and low calcium. (4) Hypophosphatemia: Plan: s/p IV K-phos yesterday. Improved. Place on K-phos neutral 1 QID. Repeat level am. see #1 above. (5) Lymphoma: Plan: B-Cell Lymphoma. Recurrence. Hospitalized here at [facility] from 01/29/22 to 02/15/22 at which time he was transferred to [facility] in [place]. Underwent ESHAP induction chemotherapy regimen starting 02/18 and ending 02/23. D/c from hospital 02/24, then received Rituxan & neulasta at that time. MRI brain negative during stay in [place] for evidence of lymphoma. However, LP with cytology + for malignant cells. Intra-thecal methotrexate being planned under the care of Dr Gonsalves in [place] - they were planning first treatment next week, but clearly at this time he is too sick for such. Formal oncology consult by Dr Ruvalcaba appreciated. Continue daily neupogen injections for severe neutropenia. Neutropenic precautions. Continue broad-spectrum abx as below. (6) Pancytopenia due to antineoplastic chemotherapy: Plan: severe. with severe neutropenia. daily CBC. Transfuse 1 unit PRBCs and 1 unit platelets today. Defer on diuretics today after his blood due to profound electrolyte disturbances. continue daily neupogen until ANC has normalized. (7) Emphysematous cystitis: Plan: Formal consult placed to urology today. They advise ongoing cefepime/daptomycin for UTI coverage despite negative urine culture. Continue hull. They will continue to follow him. (8) Neutropenia: Plan: Continue neutropenic precautions. Neupogen 480 mcg subcu daily until ANC greater than [address] Ruvalcaba. Continue on chronic suppressive therapy with fluconazole 200 mg p.o. daily and acyclovir 800 mg p.o. twice daily while ANC less than 1000. (9) Hypervolemia: Plan: Likely multifactorial - copious IV fluids between the previous hospital stay here and his stay in [place], hypoalbuminemia, low-normal systolic LV function (50-55% EF on echo), steroids, etc. Poor candidate for diuretics given his profound electrolyte disturbances. Fortunately his respiratory status remains stable. (10) Hematuria: Plan: Eliquis use, low platelets, UTI, other factors likely all playing roles. Eliquis on hold. Antibiotics in place. Tx platelets today - 1 unit. Monitor H/H. Monitor platelet count. Urology consultation appreciated. (11) Acute metabolic encephalopathy: Plan: Improved today. 2nd UTI more than likely. (12) Benign prostatic hyperplasia with urinary obstruction: Plan: Cont flomax Cont finasteride Cont hull (13) Paroxysmal atrial flutter: Plan: There was concern for rapid a.fib at admission but formal reading on EKG was NSR with ectopy. Overnight again he was in NSR. HOLD ELIQUIS. Cont multaq. Cont telemetry. Plan VTE Prophylaxis - SCDs only Plan of care d/w Dr Milan and urology team today Plan of care extensively discussed with pt's he will ultimately need PT/OT - hold off for today Admission and Anticipated Discharge Date Admission Date: February 26, 2022 Subjective tele stable overnight - NSR; no afib/flutter patient much more awake/alert today talkative eating better he is not able to offer much, however, in the way of history due to his cognitive impairment he did state he was "Very tired" however gross hematuria continues but hull draining well Review of Systems Review of Systems: gen - fatigue/weak cv - denies chest pain pulm - denies cough or dyspnea GI - denies abd pain skin - concerned about groin rash Physical Exam Physical Exam: gen - face is puffy/edematous - mild and unchanged; much more awake/alert today mouth - MM more moist today, no obvious thrush; no mucositis neck - no JVD heart - RRR, s1 s2, no murmur lungs - decreased BS bases, otherwise CTA b/l abd - soft, NT, BS+ ext - anasarca of all 4 limbs, pulses 1-2+ b/l vasc - right arm PICC with ecchymoses near insertion site skin - mild erythema of b/l inner thighs along with warmth - no change - penile edema, hull with gross hematuria/wiggins red Results & Data Results & Data ([facility]) Vital Signs (Past 12 Hours) Vital Signs Temp Pulse Pulse Resp BP Pulse Ox O2 Del Method 02/28/22 11:31 36.5 C 86 20 94/63 L 95 Room Air 02/28/22 08:00 80 02/28/22 08:00 Room Air 02/28/22 08:02 36.6 C 78 18 106/70 94 Room Air 02/28/22 03:54 36.7 C 71 18 100/67 96 Room Air Laboratory Results Laboratory Results - last 24 hr 02/27/22 02/27/22 02/27/22 17:32 17:32 17:32 WBC 0.19 L* RBC 2.36 L Hgb 7.6 L Hct 22.3 L MCV 94.5 MCH 32.2 MCHC 34.1 RDW Std Deviation 49.9 H RDW Coeff of Belén 14.4 Plt Count 20 L* MPV 10.8 Immature Gran % (Auto) Neut % (Auto) Lymph % (Auto) [place] % (Auto) Eos % (Auto) Baso % (Auto) Neut # (Auto) Lymph # (Auto) [place] # (Auto) Eos # (Auto) Baso # (Auto) Immature Gran # (Auto) Neutrophils % (Manual) Band Neutrophils % Lymphocytes % (Manual) Prolymphocyte % Reactive Lymphs % (Man) Monocytes % (Manual) Eosinophils % (Manual) Basophils % (Manual) Metamyelocytes % (Man) Myelocytes % (Man) Promyelocytes % (Man) Blast Cells % (Manual) Plasma Cell % (Manual) Other Cells % Nucleated RBC % Neutrophils # (Manual) Band Neutrophils # Total Absolute Neuts Lymphocytes # (Manual) Prolymphocyte # Reactive Lymphs # Total Abs Lymphocytes Monocytes # (Manual) Eosinophils # (Manual) Basophils # (Manual) Metamyelocytes # (Man) Myelocytes # (Manual) Promyelocytes # (Man) Blast Cells # (Man) Plasma Cell # (Manual) Other Cells # Nucleated RBCs # (Man) Hypersegmented Neuts Hyposegmented Neuts Hypogranular Neuts Large Granular Lymphs # Lrg Granular Lymphs Hairy Cells Smudge Cells Toxic Granulation Toxic Vacuolation Dohle Bodies Ludmila Rods Platelet Estimate Decreased L Hypogranular Platelets Clumped Platelets Giant Platelets Platelet Satelliting RBC Morphology Polychromasia Hypochromasia Poikilocytosis Basophilic Stippling Anisocytosis Microcytosis Macrocytosis Spherocytes Pappenheimer Bodies Sickle Cells Target Cells Tear Drop Cells Ovalocytes Stomatocytes Bateman-Crescent Bodies Echinocytes Acanthocytes (Spur) Rouleaux RBC Agglutinates Schistocytes Sezary Cell Sodium 137 Potassium 2.7 L Chloride 104 Carbon Dioxide 29 Anion Gap 4 BUN 19 Creatinine 0.95 Est Cr Clr Drug Dosing 93.8 Est GFR ( Amer) 94.3 Est GFR (Non-Af Amer) 81.3 BUN/Creatinine Ratio 20.0 Glucose 152 H Calcium 5.9 L* Ionized Calcium Phosphorus 1.4 L* Magnesium 1.6 L Total Bilirubin AST ALT Alkaline Phosphatase Total Protein Albumin Globulin Albumin/Globulin Ratio Blood Parasites ID 02/28/22 02/28/22 02/28/22 05:18 05:18 05:18 WBC 0.21 L* RBC 2.22 L Hgb 7.1 L Hct 20.8 L* MCV 93.7 MCH 32.0 MCHC 34.1 RDW Std Deviation 49.0 H RDW Coeff of Belén 14.4 Plt Count 15 L* MPV 11.6 Immature Gran % (Auto) Cancelled Neut % (Auto) Cancelled Lymph % (Auto) Cancelled [place] % (Auto) Cancelled Eos % (Auto) Cancelled Baso % (Auto) Cancelled Neut # (Auto) Cancelled Lymph # (Auto) Cancelled [place] # (Auto) Cancelled Eos # (Auto) Cancelled Baso # (Auto) Cancelled Immature Gran # (Auto) Cancelled Neutrophils % (Manual) Cancelled Band Neutrophils % Cancelled Lymphocytes % (Manual) Cancelled Prolymphocyte % Cancelled Reactive Lymphs % (Man) Cancelled Monocytes % (Manual) Cancelled Eosinophils % (Manual) Cancelled Basophils % (Manual) Cancelled Metamyelocytes % (Man) Cancelled Myelocytes % (Man) Cancelled Promyelocytes % (Man) Cancelled Blast Cells % (Manual) Cancelled Plasma Cell % (Manual) Cancelled Other Cells % Cancelled Nucleated RBC % Cancelled Neutrophils # (Manual) Cancelled Band Neutrophils # Cancelled Total Absolute Neuts Cancelled Lymphocytes # (Manual) Cancelled Prolymphocyte # Cancelled Reactive Lymphs # Cancelled Total Abs Lymphocytes Cancelled Monocytes # (Manual) Cancelled Eosinophils # (Manual) Cancelled Basophils # (Manual) Cancelled Metamyelocytes # (Man) Cancelled Myelocytes # (Manual) Cancelled Promyelocytes # (Man) Cancelled Blast Cells # (Man) Cancelled Plasma Cell # (Manual) Cancelled Other Cells # Cancelled Nucleated RBCs # (Man) Cancelled Hypersegmented Neuts Cancelled Hyposegmented Neuts Cancelled Hypogranular Neuts Cancelled Large Granular Lymphs Cancelled # Lrg Granular Lymphs Cancelled Hairy Cells Cancelled Smudge Cells Cancelled Toxic Granulation Cancelled Toxic Vacuolation Cancelled Dohle Bodies Cancelled Ludmila Rods Cancelled Platelet Estimate Hypogranular Platelets Cancelled Clumped Platelets Cancelled Giant Platelets Cancelled Platelet Satelliting Cancelled RBC Morphology Cancelled Polychromasia Cancelled Hypochromasia Cancelled Poikilocytosis Cancelled Basophilic Stippling Cancelled Anisocytosis Cancelled Microcytosis Cancelled Macrocytosis Cancelled Spherocytes Cancelled Pappenheimer Bodies Cancelled Sickle Cells Cancelled Target Cells Cancelled Tear Drop Cells Cancelled Ovalocytes Cancelled Stomatocytes Cancelled Bateman-Crescent Bodies Cancelled Echinocytes Cancelled Acanthocytes (Spur) Cancelled Rouleaux Cancelled RBC Agglutinates Cancelled Schistocytes Cancelled Sezary Cell Cancelled Sodium 138 Potassium 3.0 L Chloride 104 Carbon Dioxide 28 Anion Gap 6 BUN 15 Creatinine 0.91 Est Cr Clr Drug Dosing 96.6 Est GFR ( Amer) 99.3 Est GFR (Non-Af Amer) 85.7 BUN/Creatinine Ratio 16.5 Glucose 95 Calcium 5.9 L* Ionized Calcium 0.94 L Phosphorus 2.2 L Magnesium 1.6 L Total Bilirubin 1.2 H AST 20 ALT 18 Alkaline Phosphatase 37 Total Protein 3.7 L Albumin 2.0 L Globulin 1.7 L Albumin/Globulin Ratio 1.2 Blood Parasites ID Cancelled PG Care Time/CCT Total # of Minutes Spent Total Time Spent with Patient: Total time spent is greater than 50% in coordination of care (as documented) at patient's floor/unit and/or counseling patient: Coding Level of Care Code 74966 Subseq Hosp Care Lvl 3 Diagnoses Hypocalcemia E83.51 Hypomagnesemia E83.42 Hypokalemia E87.6 Hypophosphatemia E83.39 Lymphoma C85.90 Pancytopenia due to antineoplastic chemotherapy D61.810; [id number] Emphysematous cystitis N30.80 Neutropenia D70.9 Hypervolemia E87.70 Hematuria R31.9 Acute metabolic encephalopathy G93.41 Benign prostatic hyperplasia with urinary obstruction N40.1; N13.8 Paroxysmal atrial flutter I48.92
--- NOTE | 2022-02-28 12:26 | Nephrology Consultation ---
Date of Consultation February 28, 2022 Assessment & Plan (1) Hypomagnesemia: Additional 3 grams IV MgSO4 provided this AM. (2) Hypophosphatemia: Oral K phos 8 mmol QID. Encourage nutrition. (3) Hypokalemia: Magnesium replacement. KCl 40 mEq TID. (4) Hypocalcemia: Additional 2 grams calcium gluconate today. Ergocalciferol 48665 units provided. Calcitriol 0.25 mcg daily started yesterday. (5) Hypervolemia: Diuretics held due to electrolyte abnormalities. Encourage dietary protein supplements. (6) Acute kidney injury: Creatinine stable. Volume status acceptable. Non-oliguric. (7) Hematuria: (8) Hydronephrosis: Imaging reviewed. Farrar intact. Non-oliguric. Kidney function stable. (9) H/O diffuse large B-cell lymphoma: Clinical condition consistent with proximal tubule dysfunction and renal wasting s/p cisplatin. Poor PO intake. Electrolyte replacement as above. History of Present Illness Reason for Consultation: Multiple electrolyte abnormalities Requesting Physician: Jurgen Abreu Attending Physician: Jurgen Abreu History of Present Illness Mr. Wojciech Jacobsen is a 71 year-old male with B Cell lymphoma who presented to the ER at [facility] 02/26 with hematuria and increased urinary frequency. CT of the abdomen and pelvis demonstrating air in the bladder and dilation of BL renal c ollecting system concerning for emphysematous colitis. Urine and blood cultures NGTD. Mr. Jacobsen remains on treatment with daptomycin and cefepime. He was admitted with cytopenias and suspected UTI complicated by multiple electrolyte abnormalities, including notable hypocalcemia, hypomagnesemia, hypokalemia, and hypophosphatemia. Wojciech is a somewhat poor historian. He states that he feels lousy and remains notably weak. He remains in good spirits but expressed frustration regarding continued hospitalization. The patient's medical history and plan of care were discussed with Dr. Red yesterday evening and this morning. Mr. Jacobsen was admitted to [facility] in January with weakness, mental status changes, and night sweats. Evaluation notable for recurrent B-cell lymphoma, findings included a pelvic mass causing bilateral hydronephrosis. He was transferred to [facility] for induction chemotherapy. Treatment included R-ESHAP (Rituxan followed by etoposide, Solu-Medrol, high dose cytarabine, and cisplatin). Unfortunately, Wojciech returned home with notable fluid retention and profound weakness. Hematuria was present prior to returning home but symptoms, notable frequency notably increased. Wojciech has not experienced fevers or chills. Appetite is fair. He ate 50% of his breakfast this AM. He has not had diarrhea. Farrar continues to drain red urine without clots. Wojciech denies pain. Allergies Allergy/AdvReac Type Severity Reaction Status Date / Time No Known Drug Allergies Allergy Unknown Verified 02/26/22 15:48 Aminoglycosides AdvReac Unknown contraindicated Verified 02/26/22 15:51 while receiving chemo Cephalosporins AdvReac Unknown contraindicated Verified 02/26/22 15:51 while receiving chemo NSAIDS (Non-Steroidal AdvReac Unknown contraindicated Verified 02/26/22 15:51 Anti-Inflamma while receiving chemo Penicillins AdvReac Unknown contraindicated Verified 02/26/22 15:51 while receiving chemo sulfamethoxazole AdvReac Unknown contraindicated Verified 02/26/22 15:51 [From Bactrim] while receiving chemo trimethoprim [From Bactrim] AdvReac Unknown contraindicated Verified 02/26/22 15:51 while receiving chemo Home Medications Medication Instructions Recorded Confirmed Type cetirizine 10 mg tablet 10 mg PO [facility] 02/20/19 02/26/22 History cyanocobalamin (vitamin B-12) 1,000 mcg PO QA 02/20/19 02/26/22 History 1,000 mcg tablet acyclovir 800 mg tablet 800 mg PO [facility] 02/26/22 02/26/22 History allopurinol 300 mg tablet 300 mg PO [facility] 02/26/22 02/26/22 History apixaban 5 mg tablet 5 mg PO [facility] 02/26/22 02/26/22 History atorvastatin 40 mg tablet 40 mg PO 02/26/22 02/26/22 History cholecalciferol (vitamin D3) 25 25 mcg PO QA 02/26/22 02/26/22 History mcg (1,000 unit) tablet (Vitamin D3) dronedarone 400 mg tablet 400 mg PO [facility] 02/26/22 02/26/22 History finasteride 5 mg tablet 5 mg PO QA 02/26/22 02/26/22 History fluconazole 200 mg tablet 200 mg PO 02/26/22 02/26/22 History levofloxacin 500 mg tablet 500 mg PO UD 02/26/22 02/26/22 History tamsulosin 0.4 mg capsule 0.4 mg PO [facility] 02/26/22 02/26/22 History Patient History Medical History Acute cholecystitis with chronic cholecystitis Anemia Atrial flutter Benign prostatic hyperplasia with urinary obstruction Chronic combined systolic and diastolic congestive heart failure [employer] lymphoma Cold intolerance Diffuse well-differentiated lymphocytic lymphoma Dyslipidemia Fatigue Hypotension Lymphoma Memory problem Multiple thyroid nodules Nonischemic cardiomyopathy Vertigo Surgical History History of bone marrow biopsy History of brain surgery History of cholecystectomy History of lithotripsy History of thoracentesis S/P cystoscopy with ureteral stent placement Family History Mother Cardiac disorder Hypertension FHx: deafness or hearing loss Stroke Leukemia Father Cardiac disorder Hypertension Lung cancer Recurrent kidney stones Social History Smoking Status: Former smoker Tobacco Type: Cigarettes Age Started Using Tobacco: 23; Age Quit Using Tobacco: 42; packs per day: 0.75; Second Hand Exposure: No; Hx Alcohol Use: No Hx Substance Use: No Preferred Language: [place] Communication Ability: Unable Visual Impairment: Limited Hearing Ability: Use of Hearing Aid Greeter Required: No Beliefs That Will Affect Care: None marital status: Current Living Situation: Spouse Current Living Situation Comment: Home with current occupational status: retired How many Children do You have: 2 Feels Safe at Home: Yes Childhood Exposure to Second-Hand Smoke: Yes Dental Care, Regularly: Yes Physical Activity Frequency: Does not Exercise Seatbelt Use: always Sunscreen Use: Yes (sometimes) Assistive Devices: Cane and Walker Review of Systems Review of Systems: All systems reviewed & are unremarkable except as noted in HPI & below Constitutional: + fatigue, + weakness and + weight gain; no fever, no chills and no anorexia Eyes: no problem reported Ear, Nose, Mouth, Throat: no dry mouth, no sore throat and no dysphagia Respiratory: no cough and no dyspnea Cardiovascular: + edema; no chest pain, no orthopnea and no palpitations Gastrointestinal: no abdominal pain, no nausea, no constipation and no melena Genitourinary: + as per Subjective / HPI and + hematuria Musculoskeletal: + stiffness; no joint pain and no body aches Integumentary: + dry skin and + unusual bruising Neurologic: + confusion and + memory loss Psychiatric: no problem reported Endocrine: + fatigue and + polyuria Hematologic / Lymphatic: + easy bleeding and + easy bruising Physical Exam Constitutional: + ill appearing and + edematous; no acute distress Eyes: + anicteric sclerae; no corneal abnormality ENMT: Mouth: no oral mucosal abnormality and oral mucous membranes not dry Neck: normal visual inspection and trachea midline Respiratory: normal respiratory effort Auscultation: lungs clear to auscultation bilaterally and + diminished lung sounds Cardiovascular: Rate/Rhythm: regular rate Heart Sounds: normal S1 and normal S2 Extremities: + edema Gastrointestinal (Abdomen): Percussion/Palpation: abdomen soft; abdomen nontender Musculoskeletal: Extremities: no cyanosis and no clubbing Skin: + turgor decreased and + ecchymosis; no lesions Neurologic: Motor/Sensory: no tremor and no asterixis Psychiatric: Orientation: alert and oriented x 3 Results & Data ([facility]) Vital Signs (Past 12 Hours) Vital Signs Temp Pulse Pulse Resp BP Pulse Ox O2 Del Method 02/28/22 11:31 36.5 C 86 20 94/63 L 95 Room Air 02/28/22 08:00 80 02/28/22 08:00 Room Air 02/28/22 08:02 36.6 C 78 18 106/70 94 Room Air 02/28/22 03:54 36.7 C 71 18 100/67 96 Room Air Laboratory Results Laboratory Results - last 24 hr 02/27/22 02/27/22 02/27/22 17:32 17:32 17:32 WBC 0.19 L* RBC 2.36 L Hgb 7.6 L Hct 22.3 L MCV 94.5 MCH 32.2 MCHC 34.1 RDW Std Deviation 49.9 H RDW Coeff of Belén 14.4 Plt Count 20 L* MPV 10.8 Immature Gran % (Auto) Neut % (Auto) Lymph % (Auto) [place] % (Auto) Eos % (Auto) Baso % (Auto) Neut # (Auto) Lymph # (Auto) [place] # (Auto) Eos # (Auto) Baso # (Auto) Immature Gran # (Auto) Neutrophils % (Manual) Band Neutrophils % Lymphocytes % (Manual) Prolymphocyte % Reactive Lymphs % (Man) Monocytes % (Manual) Eosinophils % (Manual) Basophils % (Manual) Metamyelocytes % (Man) Myelocytes % (Man) Promyelocytes % (Man) Blast Cells % (Manual) Plasma Cell % (Manual) Other Cells % Nucleated RBC % Neutrophils # (Manual) Band Neutrophils # Total Absolute Neuts Lymphocytes # (Manual) Prolymphocyte # Reactive Lymphs # Total Abs Lymphocytes Monocytes # (Manual) Eosinophils # (Manual) Basophils # (Manual) Metamyelocytes # (Man) Myelocytes # (Manual) Promyelocytes # (Man) Blast Cells # (Man) Plasma Cell # (Manual) Other Cells # Nucleated RBCs # (Man) Hypersegmented Neuts Hyposegmented Neuts Hypogranular Neuts Large Granular Lymphs # Lrg Granular Lymphs Hairy Cells Smudge Cells Toxic Granulation Toxic Vacuolation Dohle Bodies Ludmila Rods Platelet Estimate Decreased L Hypogranular Platelets Clumped Platelets Giant Platelets Platelet Satelliting RBC Morphology Polychromasia Hypochromasia Poikilocytosis Basophilic Stippling Anisocytosis Microcytosis Macrocytosis Spherocytes Pappenheimer Bodies Sickle Cells Target Cells Tear Drop Cells Ovalocytes Stomatocytes Bateman-Boyce Bodies Echinocytes Acanthocytes (Spur) Rouleaux RBC Agglutinates Schistocytes Sezary Cell Sodium 137 Potassium 2.7 L Chloride 104 Carbon Dioxide 29 Anion Gap 4 BUN 19 Creatinine 0.95 Est Cr Clr Drug Dosing 93.8 Est GFR ( Amer) 94.3 Est GFR (Non-Af Amer) 81.3 BUN/Creatinine Ratio 20.0 Glucose 152 H Calcium 5.9 L* Ionized Calcium Phosphorus 1.4 L* Magnesium 1.6 L Total Bilirubin AST ALT Alkaline Phosphatase Total Protein Albumin Globulin Albumin/Globulin Ratio Blood Parasites ID 02/28/22 02/28/22 02/28/22 05:18 05:18 05:18 WBC 0.21 L* RBC 2.22 L Hgb 7.1 L Hct 20.8 L* MCV 93.7 MCH 32.0 MCHC 34.1 RDW Std Deviation 49.0 H RDW Coeff of Belén 14.4 Plt Count 15 L* MPV 11.6 Immature Gran % (Auto) Cancelled Neut % (Auto) Cancelled Lymph % (Auto) Cancelled [place] % (Auto) Cancelled Eos % (Auto) Cancelled Baso % (Auto) Cancelled Neut # (Auto) Cancelled Lymph # (Auto) Cancelled [place] # (Auto) Cancelled Eos # (Auto) Cancelled Baso # (Auto) Cancelled Immature Gran # (Auto) Cancelled Neutrophils % (Manual) Cancelled Band Neutrophils % Cancelled Lymphocytes % (Manual) Cancelled Prolymphocyte % Cancelled Reactive Lymphs % (Man) Cancelled Monocytes % (Manual) Cancelled Eosinophils % (Manual) Cancelled Basophils % (Manual) Cancelled Metamyelocytes % (Man) Cancelled Myelocytes % (Man) Cancelled Promyelocytes % (Man) Cancelled Blast Cells % (Manual) Cancelled Plasma Cell % (Manual) Cancelled Other Cells % Cancelled Nucleated RBC % Cancelled Neutrophils # (Manual) Cancelled Band Neutrophils # Cancelled Total Absolute Neuts Cancelled Lymphocytes # (Manual) Cancelled Prolymphocyte # Cancelled Reactive Lymphs # Cancelled Total Abs Lymphocytes Cancelled Monocytes # (Manual) Cancelled Eosinophils # (Manual) Cancelled Basophils # (Manual) Cancelled Metamyelocytes # (Man) Cancelled Myelocytes # (Manual) Cancelled Promyelocytes # (Man) Cancelled Blast Cells # (Man) Cancelled Plasma Cell # (Manual) Cancelled Other Cells # Cancelled Nucleated RBCs # (Man) Cancelled Hypersegmented Neuts Cancelled Hyposegmented Neuts Cancelled Hypogranular Neuts Cancelled Large Granular Lymphs Cancelled # Lrg Granular Lymphs Cancelled Hairy Cells Cancelled Smudge Cells Cancelled Toxic Granulation Cancelled Toxic Vacuolation Cancelled Dohle Bodies Cancelled Ludmila Rods Cancelled Platelet Estimate Hypogranular Platelets Cancelled Clumped Platelets Cancelled Giant Platelets Cancelled Platelet Satelliting Cancelled RBC Morphology Cancelled Polychromasia Cancelled Hypochromasia Cancelled Poikilocytosis Cancelled Basophilic Stippling Cancelled Anisocytosis Cancelled Microcytosis Cancelled Macrocytosis Cancelled Spherocytes Cancelled Pappenheimer Bodies Cancelled Sickle Cells Cancelled Target Cells Cancelled Tear Drop Cells Cancelled Ovalocytes Cancelled Stomatocytes Cancelled Bateman-Boyce Bodies Cancelled Echinocytes Cancelled Acanthocytes (Spur) Cancelled Rouleaux Cancelled RBC Agglutinates Cancelled Schistocytes Cancelled Sezary Cell Cancelled Sodium 138 Potassium 3.0 L Chloride 104 Carbon Dioxide 28 Anion Gap 6 BUN 15 Creatinine 0.91 Est Cr Clr Drug Dosing 96.6 Est GFR ( Amer) 99.3 Est GFR (Non-Af Amer) 85.7 BUN/Creatinine Ratio 16.5 Glucose 95 Calcium 5.9 L* Ionized Calcium 0.94 L Phosphorus 2.2 L Magnesium 1.6 L Total Bilirubin 1.2 H AST 20 ALT 18 Alkaline Phosphatase 37 Total Protein 3.7 L Albumin 2.0 L Globulin 1.7 L Albumin/Globulin Ratio 1.2 Blood Parasites ID Cancelled PG Care Time/CCT Total # of Minutes Spent Total Time Spent with Patient: Total time spent is greater than 50% in coordination of care (as documented) at patient's floor/unit and/or counseling patient: Coding Level of Care Code 89843 Inpt Consult Level 4 Diagnoses Hypomagnesemia E83.42 Hypophosphatemia E83.39 Hypokalemia E87.6 Hypocalcemia E83.51 Hypervolemia E87.70 Acute kidney injury N17.9 Hematuria R31.9 Hydronephrosis N13.30 H/O diffuse large B-cell lymphoma Z85.72
[2022-02-28] MEDS ORDERED: ACETAMINOPHEN 500 MG TAB PO ONE (13:05)
[2022-02-28] MEDS ORDERED: STAT IV STA (13:08)
[2022-02-28] MEDS ORDERED: CALCIUM GLUCONATE 10% 1,000 MG in DEXTROSE 5% 50 ML IV ONE (13:15)
[2022-02-28] MEDS: NYSTATIN POWDER 15GM BTL EXT SCH ×2 (13:54→20:32)
[2022-02-28] MEDS: DAPTOmycin 550 MG in SYRINGE 0 ML IV SCH (18:10)
[2022-02-28] MEDS: FILGRASTIM 480 MCG/1.6 ML VIAL SQ SCH (20:31)
--- NOTE | 2022-02-28 20:42 | Urology Consultation ---
Date of Consultation February 28, 2022 Assessment & Plan (1) Emphysematous cystitis: (2) Hematuria: Patient has been admitted on the hospitalist service. We recommend the following: Due to the underlying emphysematous cystitis we recommend continue with Hull catheter drainage. As noted previously in this document the patient does have a Hull catheter in place and appears to be patent draining well. There is no residual urine noted on bladder scan. Recommend continuing broad-spectrum antibiotics. Patient is currently receiving daptomycin. He was previously receiving cefepime which we recommend resuming. I did convey this to the treating hospitalist. The patient has had a urine culture on 02/26/2022 which was negative for growth. He is also had blood cultures from the same date which are thus far negative. Continue to follow for results of this. Patient is noted to have gross hematuria which is likely due in part to patient's thrombocytopenia along with the fact that he was taking Eliquis. His Eliquis has been placed on hold and he has received platelet transfusion secondary to his thrombocytopenia. Recommend continuing to follow serial labs At the present time the patient is noted to be hemodynamically stable. Initially at time of presentation his blood pressure was in the 80s systolic and this has improved. He is not noted to be tachycardic. He has also been noted to be afebrile since admission. We will therefore continue to follow the patient clinically with the above-noted measures in place. If patient would clinically deteriorate consideration can be given to performing a cystoscopy with potential stent placement, however this would be preferable to avoid this at the present time due to the patient's known pancytopenia. Supervising Physician Co-Signing Physician Notes Discussed patient with CRYSTAL. Agree with plan. Reviewed patient's chart, labs, vitals and imaging. Complicated medical picture with no easy options at this point. Patient has a history of hydronephrosis not requiring intervention due to previous pelvic mass, which has decreased in size following chemotherapy. CT scan on admission yesterday shows significant air in bladder wall consistent with emphysematous cystitis as well as air in both collect systems concerning for ascending infection. Blood and urine cultures negative but given CT findings, need to treat patient as if infected. There is not significant hydronephrosis of either kidney and patient's creatinine is stable. He has been afebrile. His initial tachycardia has resolved. In a typical situation such as his, I would consider cystoscopy with bilateral stent placement. However, patient has been admitted for roughly 48 hours prior to urologic consultation and has been relatively stable. Additionally, I suspect cystoscopy with stent placement would be very challenging due to inflammation in bladder making ureteral orifices difficult to visualize and also thrombocytopenia putting him at significant risk for bleeding during/after the procedure. His hematuria is mild at this point and his catheter is draining without issue. At this time, given his relative stability over the past 48 hours and above-noted complicating factors, I would recommend continued observation with antibiotics. I would recommend restarting cefepime for complete gram-positive and negative-coverage. He will likely need reimaging in the next several days to ensure air in system is resolving since we cannot follow blood and urine cultures. Maintain hull catheter indefinitely at this point. Please contact urology if patient were to decompensate as we would need to discuss further options. History of Present Illness Reason for Consultation: Gross hematuria Attending Physician: Jurgen Abreu History of Present Illness This is a 71-year-old male with an underlying history of B-cell lymphoma who presented to the emergency department secondary to hematuria and urinary frequency. The patient has underlying confusion and was noted to be a poor historian therefore historical information was obtained from review of the chart as well as discussion from the treating hospitalist as well as the nurse attending to the patient's care. Patient was admitted to [facility] in January of this year and was hospitalized until February 15 at which time he received a new diagnosis of recurrent B-cell lymphoma. Patient was noted to have a large pelvic mass on CT scan causing bilateral hydronephrosis. This was treated with steroid therapy and the patient was ultimately transferred to [facility] in [place] for induction chemotherapy. Upon return home from [facility] patient's family brought him to the emergency department as the patient has had some generalized weakness and a great deal of difficulty walking. Patient has developed gross hematuria as well as increased urinary frequency. There were reportedly no fevers or chills noted. I was able to converse with the patient briefly at bedside and when asked how he was feeling he said he feels generally weak. He specifically denied any shortness of breath. He denies any fevers, shakes, or chills. He denies any abdominal or back pain. The patient did have a Hull catheter in place and to the best of the patient's knowledge this was placed during this hospitalization. Since arrival to [facility] this patient has had labs and imaging which I independent reviewed. Chest x-ray showed bilateral pleural effusions with the left side representing a larger effusion than the right. There is no other evidence of congestive heart failure. CT scan of the abdomen pelvis showed circumferential gas in the bladder which was concerning for emphysematous cystitis with tracking into the kidneys bilaterally. No evidence of perforation noted. Most recent labs include a CBC from today showing a white blood cell count of 0.2. His hemoglobin and hematocrit are noted to be 7.1 and 20.8. Platelet count is noted to be 15,000. Chemistry profile shows sodium is 138 with a potassium of 3.0. His BUN and creatinine are both noted to be normal. His most recent urinalysis was from 02/26/2022 which showed that it was negative for nitrites. There was trace leukocyte esterase and 10-30 white blood cells per high-power field. No bacteria were noted on the study. Patient was noted to have a negative COVID test at time of admission. At the time of my interview the patient was resting comfortably in bed. He was in no distress. I did have a discussion with the nurse at bedside and she notes that the patient has been stable throughout the day. Allergies Allergy/AdvReac Type Severity Reaction Status Date / Time No Known Drug Allergies Allergy Unknown Verified 02/26/22 15:48 Aminoglycosides AdvReac Unknown contraindicated Verified 02/26/22 15:51 while receiving chemo Cephalosporins AdvReac Unknown contraindicated Verified 02/26/22 15:51 while receiving chemo NSAIDS (Non-Steroidal AdvReac Unknown contraindicated Verified 02/26/22 15:51 Anti-Inflamma while receiving chemo Penicillins AdvReac Unknown contraindicated Verified 02/26/22 15:51 while receiving chemo sulfamethoxazole AdvReac Unknown contraindicated Verified 02/26/22 15:51 [From Bactrim] while receiving chemo trimethoprim [From Bactrim] AdvReac Unknown contraindicated Verified 02/26/22 15:51 while receiving chemo Home Medications Medication Instructions Recorded Confirmed Type cetirizine 10 mg tablet 10 mg PO QAM 02/20/19 02/26/22 History cyanocobalamin (vitamin B-12) 1,000 mcg PO QAM 02/20/19 02/26/22 History 1,000 mcg tablet acyclovir 800 mg tablet 800 mg PO AMHS 02/26/22 02/26/22 History allopurinol 300 mg tablet 300 mg PO QAM 02/26/22 02/26/22 History apixaban 5 mg tablet 5 mg PO AMHS 02/26/22 02/26/22 History atorvastatin 40 mg tablet 40 mg PO HS 02/26/22 02/26/22 History cholecalciferol (vitamin D3) 25 25 mcg PO QAM 02/26/22 02/26/22 History mcg (1,000 unit) tablet (Vitamin D3) dronedarone 400 mg tablet 400 mg PO AMHS 02/26/22 02/26/22 History finasteride 5 mg tablet 5 mg PO QAM 02/26/22 02/26/22 History fluconazole 200 mg tablet 200 mg PO UD 02/26/22 02/26/22 History levofloxacin 500 mg tablet 500 mg PO UD 02/26/22 02/26/22 History tamsulosin 0.4 mg capsule 0.4 mg PO AMHS 02/26/22 02/26/22 History Patient History Medical History Acute cholecystitis with chronic cholecystitis Anemia Atrial flutter Benign prostatic hyperplasia with urinary obstruction Chronic combined systolic and diastolic congestive heart failure [employer] lymphoma Cold intolerance Diffuse well-differentiated lymphocytic lymphoma Dyslipidemia Fatigue Hypotension Lymphoma Memory problem Multiple thyroid nodules Nonischemic cardiomyopathy Vertigo Surgical History History of bone marrow biopsy History of brain surgery History of cholecystectomy History of lithotripsy History of thoracentesis S/P cystoscopy with ureteral stent placement Family History Mother Cardiac disorder Hypertension FHx: deafness or hearing loss Stroke Leukemia Father Cardiac disorder Hypertension Lung cancer Recurrent kidney stones Social History Smoking Status: Former smoker Tobacco Type: Cigarettes Age Started Using Tobacco: 23; Age Quit Using Tobacco: 42; packs per day: 0.75; Second Hand Exposure: No; Hx Alcohol Use: No Hx Substance Use: No Preferred Language: Romanian Communication Ability: Unable Visual Impairment: Limited Hearing Ability: Use of Hearing Aid Lab Intern Required: No Beliefs That Will Affect Care: None marital status: Current Living Situation: Spouse Current Living Situation Comment: Home with current occupational status: retired How many Children do You have: 2 Feels Safe at Home: Yes Childhood Exposure to Second-Hand Smoke: Yes Dental Care, Regularly: Yes Physical Activity Frequency: Does not Exercise Seatbelt Use: always Sunscreen Use: Yes (sometimes) Assistive Devices: Cane and Walker Review of Systems Review of Systems: Complete review of systems attempted but unable to be obtained due to the cognitive status of the patient. All pertinent information concerning review of systems are located in the history of present illness Physical Exam Constitutional: well developed and well nourished; no acute distress Eyes: Wears glasses ENMT: Ears: no hearing impairment and no external ear abnormality Mouth: no oropharynx abnormality Neck: trachea midline Respiratory: Breath sounds are decreased at bases bilaterally. No use of accessory muscles. No respiratory distress Cardiovascular: Rate/Rhythm: regular rate and regular rhythm Gastrointestinal (Abdomen): Abdomen is soft, nonrigid, nondistended, and nontender to palpation Musculoskeletal: No calf tenderness. Feet are warm and nonmottled. Also pedis pulses are palpable Skin: no rashes Neurologic: moves all extremities Genitourinary: No CVA tenderness with percussion noted at the time of my exam. A Hull catheter was in place. Blood-tinged urine was noted in the Hull catheter collection bag. The catheter appeared to be patent and draining appropriately. A bladder scan was performed at bedside which revealed no residual urine. Results & Data ([facility]) Vital Signs (Past 12 Hours) Vital Signs Temp Pulse Pulse Resp BP BP Pulse Ox 02/28/22 20:07 37 C 86 18 100/63 96 02/28/22 19:37 36.8 C 92 H 18 99/61 L 97 02/28/22 19:22 36.8 C 86 16 97/61 L 95 02/28/22 19:06 36.8 C 89 18 98/63 L 97 02/28/22 17:08 37 C 89 16 100/69 98 02/28/22 16:19 36.9 C 87 16 112/69 98 02/28/22 15:19 37 C 90 20 91/63 L 97 02/28/22 14:49 36.3 C L 89 18 94/57 L 96 02/28/22 14:44 87 02/28/22 14:34 36.4 C L 90 18 81/54 L 97 02/28/22 14:34 36.4 C L 82 18 81/54 L 96 02/28/22 14:15 37.0 C 89 18 84/55 L 97 02/28/22 11:31 36.5 C 86 20 94/63 L 95 O2 Del Method 02/28/22 20:07 02/28/22 19:37 02/28/22 19:22 02/28/22 19:06 02/28/22 17:08 02/28/22 16:19 02/28/22 15:19 02/28/22 14:49 02/28/22 14:44 02/28/22 14:34 02/28/22 14:34 02/28/22 14:15 02/28/22 11:31 Room Air PG Care Time/CCT Total # of Minutes Spent Total Time Spent with Patient: Total time spent is greater than 50% in coordination of care (as documented) at patient's floor/unit and/or counseling patient: Coding Level of Care Code 88803 Inpt Consult Level 5 Diagnoses Emphysematous cystitis N30.80 Hematuria R31.9
[2022-02-28 21:55] LABS: BUN Creatinine Ratio 17.6 (10-20); Calcium 6.1 mg/dl (8.5-10.1); Creatinine Clr Calc Pharmacy 81.4 ml/min; Est GFR (African American) 80.7 ml/min; Est GFR (Non-African American) 69.7 ml/min; Phosphorus 1.9 mg/dl (2.5-4.9); Potassium 3.1 mmol/L (3.5-5.1)
[2022-02-28 23:09] LABS: Cdiff Antigen Positive; Cdiff Toxin A+B Negative Cdiff Toxin (Negative)
--- NOTE | 2022-02-28 23:38 | Communication Note ---
Date of Service: February 28, 2022 Night resident note 21:30- I was notified by RN that patient had developed frequent voluminous liquid bowel movements; C. diff gene testing was positive, toxin test pending. Escalated isolation precautions from neutropenic precautions to neutropenic + contact precautions Fidaxomicin 200mg PO bid ordered (oral flagyl and oral vancomycin would be suboptimal given immunosuppression, current broad-spectrum antibiotic treatment, and age over 65) Dignishield ordered 06:30- Notified by RN of critical labs - calcium of 5.9 and phosphorous of 1.5 Hypocalcemia not significantly changed from recent days - ionized calcium level ordered to be run on this morning's blood sample Hypophosphatemia - added K phos 2 tabs stat on top of scheduled K phos 1 tab qid Electrolyte disturbances likely secondary to chemotherapy-induced nephrotoxicity as has been suspected; further workup per day team Resident Activity Tracking Resident Involvement: Resident Care Provided and Maintainer Central Office Coverage Note Care Provided: Adult Hospital Medicine
[2022-03-01] MEDS: FIDAXOMICIN 200 MG TAB PO SCH ×3 (00:07→21:13)
[2022-03-01] MEDS: HEPARIN 100 UNIT/ML 5ML FLUSH FLUSH PRN (05:35)
[2022-03-01 05:41] LABS: Hematocrit (blood only) 22.3 % (40.1-51.0); Hemoglobin 7.8 g/dl (14.0-18.0); Mean Corpuscular Hemoglobin 32.1 pg (25.0-34.0); Mean Corpuscular Volume 91.8 fL (80.0-100.0); Mean Platelet Volume 11.9 fL (9.4-12.4); Platelet Count 14 K/uL (130-400); RDW Coefficient of Variation 15.2 % (11.5-14.5); RDW Standard Deviation 50.6 fL (36.4-46.3); Red Blood Count 2.43 M/uL (4.63-6.08)
[2022-03-01 06:24] LABS: BUN Creatinine Ratio 18.8 (10-20); Calcium 5.9 mg/dl (8.5-10.1); Creatinine Clr Calc Pharmacy 92.2 ml/min; Est GFR (African American) 93.1 ml/min; Est GFR (Non-African American) 80.3 ml/min; Magnesium 1.5 mg/dl (1.7-2.4); Phosphorus 1.5 mg/dl (2.5-4.9); Potassium 3.4 mmol/L (3.5-5.1)
[2022-03-01] MEDS ORDERED: POT PHOSPHATE MONOBASIC W/ SOD TAB PO STA (06:26)
[2022-03-01] MEDS: CEFEPIME 2,000 MG in SYRINGE 0 ML IV SCH ×2 (08:24→21:27)
[2022-03-01] MEDS: allopurinoL 300 MG TAB PO SCH (08:25)
[2022-03-01] MEDS: ACYCLOVIR 400 MG TAB PO SCH ×2 (08:25→21:14)
[2022-03-01] MEDS: CALCITRIOL 0.25 MCG CAPSULE PO SCH (08:25)
[2022-03-01] MEDS: CETIRIZINE HCL 10 MG TABLET PO SCH (08:26)
[2022-03-01] MEDS: CHOLECALCIFEROL 1,000 UNITS 25 MCG TAB PO SCH (08:26)
[2022-03-01] MEDS: CYANOCOBALAMIN (B-12) 500 MCG TABLET PO SCH (08:26)
[2022-03-01] MEDS: FLUCONAZOLE 100 MG TAB PO SCH (08:27)
[2022-03-01] MEDS: DRONEDARONE HCL 400 MG TAB PO SCH ×2 (08:27→21:14)
[2022-03-01] MEDS: NYSTATIN POWDER 15GM BTL EXT SCH ×3 (08:27→21:12)
[2022-03-01] MEDS: FINASTERIDE 5 MG TAB PO SCH (08:27)
[2022-03-01] MEDS: TAMSULOSIN HCL 0.4 MG CAP PO SCH ×2 (08:28→21:14)
[2022-03-01] MEDS: POTASSIUM CHLORIDE CRTAB 20 MEQ TABCR PO SCH ×3 (08:28→21:13)
[2022-03-01] MEDS: POT PHOSPHATE MONOBASIC W/ SOD TAB PO SCH ×4 (08:28→21:12)
--- NOTE | 2022-03-01 08:32 | Urology Progress Note ---
Date of Service March 01, 2022 Assessment & Plan (1) Emphysematous cystitis: (2) Hematuria: Plan 71-year-old male with a history of B-cell lymphoma who was admitted to the hospital for hematuria and urinary frequency. CT scan showed emphysematous cystitis with air in both collecting system suggesting a sending infection. Farrar catheter was placed. Blood and urine cultures are negative to date. No acute urologic intervention necessary. Patient has remained stable and is asymptomatic. Discussed clinical situation with patient. Explained that his cultures are negative but CT scan shows findings consistent with infection. We will need to follow this with repeat imaging in the form of a CT scan of the abdomen and pelvis in the next few days. Urology will update primary team when next scan is necessary. Recommend continuing broad-spectrum antibiotics for both gram-positive and gram-negative coverage even in the setting of negative cultures as CT scan is consistent with severe infection Maintain Farrar catheter. This likely will need to be in for 1 to 2 weeks. Hematuria is minimal and does not require further evaluation or intervention at this time. Urology to follow Admission and Anticipated Discharge Date Admission Date: February 26, 2022 Subjective No acute issues overnight. Afebrile and vitals otherwise unchanged. Patient subjectively reports feeling well. He denies any abdominal or flank pain. Review of Systems Review of Systems: 14 point review of systems negative outside of what is listed above in HPI Physical Exam Physical Exam: General: Alert and oriented, no acute distress HEENT: Normocephalic, mucous membranes moist Pulmonary: Nonlabored respirations Abdomen: Nondistended, nontender, nondistended : Farrar catheter draining red-tinged urine. Extremities: Moves all 4 spontaneously Neuro: No gross deficits Skin: Warm, dry, no rashes noted Results & Data ([facility]) Vital Signs (Past 12 Hours) Vital Signs Temp Pulse Pulse Resp BP BP Pulse Ox 03/01/22 07:39 36.8 C 70 20 97/63 L 95 02/28/22 23:00 87 03/01/22 03:37 36.6 C 91 H 15 98/68 L 96 02/28/22 23:29 36.6 C 82 14 113/73 96 02/28/22 22:24 36.8 C 87 16 114/70 96 02/28/22 21:07 36.3 C L 80 18 109/71 97 O2 Del Method 03/01/22 07:39 Room Air 02/28/22 23:00 03/01/22 03:37 Room Air 02/28/22 23:29 Room Air 02/28/22 22:24 02/28/22 21:07 PG Care Time/CCT Total # of Minutes Spent Total Time Spent with Patient: Total time spent is greater than 50% in coordination of care (as documented) at patient's floor/unit and/or counseling patient: Coding Level of Care Code 87123 Subseq Hosp Care Lvl 2 Diagnoses Emphysematous cystitis N30.80 Hematuria R31.9
[2022-03-01] MEDS ORDERED: CALCIUM GLUCONATE 10% 1,000 MG in DEXTROSE 5% 50 ML IV ONE (09:45)
--- NOTE | 2022-03-01 10:49 | Nephrology Progress Note ---
Date of Service March 01, 2022 Assessment & Plan (1) Hypomagnesemia: Plan: Additional 3 grams IV MgSO4 provided this AM. (2) Hypophosphatemia: Plan: K phos 1 tab QID. Additional 2 tab provided this AM. Encourage nutrition. Monitor BID. Additional IV replacement this afternoon, if no improvement with PO. (3) Hypokalemia: Plan: Magnesium replacement. KCl 40 mEq TID. (4) Hypocalcemia: Plan: Additional 1 gram calcium gluconate today. Ergocalciferol 81786 units 02/27. Calcitriol 0.25 mcg daily. (5) Hypervolemia: Plan: Diuretics held due to electrolyte abnormalities. Encourage dietary protein supplements. (6) Acute kidney injury: Plan: Creatinine stable. Volume status acceptable. Non-oliguric. (7) Hematuria: (8) Hydronephrosis: Plan: Imaging reviewed. Farrar intact. Non-oliguric. Kidney function stable. (9) H/O diffuse large B-cell lymphoma: Plan: Clinical condition consistent with proximal tubule dysfunction and renal wasting s/p cisplatin. Poor PO intake. Electrolyte replacement as above. Admission and Anticipated Discharge Date Admission Date: February 26, 2022 Subjective No acute events overnight. Wojciech reports a good appetite. Ate ~90% breakfast. Noted loose BM reported yesterday. Wojciech denies abdominal pain. C diff gene positive but toxin negative. Wojciech states that he is was not aware that he had a [place] or Farrar in place. Review of Systems Review of Systems: All systems reviewed & are unremarkable except as noted in HPI & below Physical Exam Constitutional: + ill appearing and + edematous; no acute distress Eyes: + anicteric sclerae; no corneal abnormality ENMT: Mouth: no oral mucosal abnormality and oral mucous membranes not dry Neck: normal visual inspection and trachea midline Respiratory: normal respiratory effort Auscultation: lungs clear to auscultation bilaterally and + diminished lung sounds Cardiovascular: Rate/Rhythm: regular rate Heart Sounds: normal S1 and normal S2 Extremities: + edema Gastrointestinal (Abdomen): Percussion/Palpation: abdomen soft; abdomen nontender Musculoskeletal: Extremities: no cyanosis and no clubbing Skin: + turgor decreased and + ecchymosis; no lesions Neurologic: Motor/Sensory: no tremor and no asterixis Psychiatric: Eye Contact: good eye contact Affect: + blunted affect Results & Data ([facility]) Vital Signs (Past 12 Hours) Vital Signs Temp Pulse Pulse Resp BP Pulse Ox O2 Del Method 03/01/22 07:39 36.8 C 70 20 97/63 L 95 Room Air 02/28/22 23:00 87 03/01/22 03:37 36.6 C 91 H 15 98/68 L 96 Room Air 02/28/22 23:29 36.6 C 82 14 113/73 96 Room Air Laboratory Results Laboratory Results - last 24 hr 02/28/22 02/28/22 02/28/22 12:31 21:19 Unknown WBC RBC Hgb Hct MCV MCH MCHC RDW Std Deviation RDW Coeff of Belén Plt Count MPV Immature Gran % (Auto) Neut % (Auto) Lymph % (Auto) [place] % (Auto) Eos % (Auto) Baso % (Auto) Neut # (Auto) Lymph # (Auto) [place] # (Auto) Eos # (Auto) Baso # (Auto) Immature Gran # (Auto) Neutrophils % (Manual) Band Neutrophils % Lymphocytes % (Manual) Prolymphocyte % Reactive Lymphs % (Man) Monocytes % (Manual) Eosinophils % (Manual) Basophils % (Manual) Metamyelocytes % (Man) Myelocytes % (Man) Promyelocytes % (Man) Blast Cells % (Manual) Plasma Cell % (Manual) Other Cells % Nucleated RBC % Neutrophils # (Manual) Band Neutrophils # Total Absolute Neuts Lymphocytes # (Manual) Prolymphocyte # Reactive Lymphs # Total Abs Lymphocytes Monocytes # (Manual) Eosinophils # (Manual) Basophils # (Manual) Metamyelocytes # (Man) Myelocytes # (Manual) Promyelocytes # (Man) Blast Cells # (Man) Plasma Cell # (Manual) Other Cells # Nucleated RBCs # (Man) Hypersegmented Neuts Hyposegmented Neuts Hypogranular Neuts Large Granular Lymphs # Lrg Granular Lymphs Hairy Cells Smudge Cells Toxic Granulation Toxic Vacuolation Dohle Bodies Ludmila Rods Hypogranular Platelets Clumped Platelets Giant Platelets Platelet Satelliting RBC Morphology Polychromasia Hypochromasia Poikilocytosis Basophilic Stippling Anisocytosis Microcytosis Macrocytosis Spherocytes Pappenheimer Bodies Sickle Cells Target Cells Tear Drop Cells Ovalocytes Stomatocytes [place] Bodies Echinocytes Acanthocytes (Spur) Rouleaux RBC Agglutinates Schistocytes Sezary Cell Sodium 140 Potassium 3.1 L Chloride 107 Carbon Dioxide 28 Anion Gap 5 BUN 19 Creatinine 1.08 Est Cr Clr Drug Dosing 81.4 Est GFR ( Amer) 80.7 Est GFR (Non-Af Amer) 69.7 BUN/Creatinine Ratio 17.6 Glucose 118 H Calcium 6.1 L Ionized Calcium Phosphorus 1.9 L Magnesium Albumin 2.0 L Stl C. diff Tox B Gene Positive Cdiff Gene H Stl C.difficile Tox A&B Negative Cdiff Toxin Blood Parasites ID Blood Type O Positive Antibody Screen NEGATIVE Crossmatch See Detail 03/01/22 03/01/22 03/01/22 05:11 05:11 07:52 WBC 0.30 L* RBC 2.43 L Hgb 7.8 L Hct 22.3 L MCV 91.8 MCH 32.1 MCHC 35.0 RDW Std Deviation 50.6 H RDW Coeff of Belén 15.2 H Plt Count 14 L* MPV 11.9 Immature Gran % (Auto) Cancelled Neut % (Auto) Cancelled Lymph % (Auto) Cancelled [place] % (Auto) Cancelled Eos % (Auto) Cancelled Baso % (Auto) Cancelled Neut # (Auto) Cancelled Lymph # (Auto) Cancelled [place] # (Auto) Cancelled Eos # (Auto) Cancelled Baso # (Auto) Cancelled Immature Gran # (Auto) Cancelled Neutrophils % (Manual) Cancelled Band Neutrophils % Cancelled Lymphocytes % (Manual) Cancelled Prolymphocyte % Cancelled Reactive Lymphs % (Man) Cancelled Monocytes % (Manual) Cancelled Eosinophils % (Manual) Cancelled Basophils % (Manual) Cancelled Metamyelocytes % (Man) Cancelled Myelocytes % (Man) Cancelled Promyelocytes % (Man) Cancelled Blast Cells % (Manual) Cancelled Plasma Cell % (Manual) Cancelled Other Cells % Cancelled Nucleated RBC % Cancelled Neutrophils # (Manual) Cancelled Band Neutrophils # Cancelled Total Absolute Neuts Cancelled Lymphocytes # (Manual) Cancelled Prolymphocyte # Cancelled Reactive Lymphs # Cancelled Total Abs Lymphocytes Cancelled Monocytes # (Manual) Cancelled Eosinophils # (Manual) Cancelled Basophils # (Manual) Cancelled Metamyelocytes # (Man) Cancelled Myelocytes # (Manual) Cancelled Promyelocytes # (Man) Cancelled Blast Cells # (Man) Cancelled Plasma Cell # (Manual) Cancelled Other Cells # Cancelled Nucleated RBCs # (Man) Cancelled Hypersegmented Neuts Cancelled Hyposegmented Neuts Cancelled Hypogranular Neuts Cancelled Large Granular Lymphs Cancelled # Lrg Granular Lymphs Cancelled Hairy Cells Cancelled Smudge Cells Cancelled Toxic Granulation Cancelled Toxic Vacuolation Cancelled Dohle Bodies Cancelled Ludmila Rods Cancelled Hypogranular Platelets Cancelled Clumped Platelets Cancelled Giant Platelets Cancelled Platelet Satelliting Cancelled RBC Morphology Cancelled Polychromasia Cancelled Hypochromasia Cancelled Poikilocytosis Cancelled Basophilic Stippling Cancelled Anisocytosis Cancelled Microcytosis Cancelled Macrocytosis Cancelled Spherocytes Cancelled Pappenheimer Bodies Cancelled Sickle Cells Cancelled Target Cells Cancelled Tear Drop Cells Cancelled Ovalocytes Cancelled Stomatocytes Cancelled [place] Bodies Cancelled Echinocytes Cancelled Acanthocytes (Spur) Cancelled Rouleaux Cancelled RBC Agglutinates Cancelled Schistocytes Cancelled Sezary Cell Cancelled Sodium 141 Potassium 3.4 L Chloride 108 H Carbon Dioxide 28 Anion Gap 5 BUN 18 Creatinine 0.96 Est Cr Clr Drug Dosing 92.2 Est GFR ( Amer) 93.1 Est GFR (Non-Af Amer) 80.3 BUN/Creatinine Ratio 18.8 Glucose 109 H Calcium 5.9 L* Ionized Calcium 0.96 L Phosphorus 1.5 L* Magnesium 1.5 L Albumin Stl C. diff Tox B Gene Stl C.difficile Tox A&B Blood Parasites ID Cancelled Blood Type Antibody Screen Crossmatch PG Care Time/CCT Total # of Minutes Spent Total Time Spent with Patient: Total time spent is greater than 50% in coordination of care (as documented) at patient's floor/unit and/or counseling patient: Coding Level of Care Code 93689 Subseq Hosp Care Lvl 3 Diagnoses Hypomagnesemia E83.42 Hypophosphatemia E83.39 Hypokalemia E87.6 Hypocalcemia E83.51 Hypervolemia E87.70 Acute kidney injury N17.9 Hematuria R31.9 Hydronephrosis N13.30 H/O diffuse large B-cell lymphoma Z85.72
[2022-03-01] MEDS: MAGNESIUM SULFATE / D5W 1 GM/100 ML BAG IV SCH ×3 (10:56→14:33)
[2022-03-01 17:20] LABS: Albumin Level 2.1 gm/dl (3.4-5.0); BUN Creatinine Ratio 20.4 (10-20); Calcium 6.3 mg/dl (8.5-10.1); Creatinine Clr Calc Pharmacy 95.2 ml/min; Est GFR (African American) 96.7 ml/min; Est GFR (Non-African American) 83.5 ml/min; Magnesium 1.7 mg/dl (1.7-2.4); Phosphorus 1.7 mg/dl (2.5-4.9); Potassium 3.4 mmol/L (3.5-5.1)
--- NOTE | 2022-03-01 21:08 | Hospitalist Progress Note ---
Date of Service March 01, 2022 Assessment & Plan (1) C. difficile diarrhea: Plan: started on dificid yesterday when test returned +. cont such 200mg BID x 10 days. rectal tube was placed; need to use cautiously in light of severe neutropenia and immunosuppression. contact precautions. (2) Hypocalcemia: Plan: Discharge summary obtained from [facility] and patient received induction chemotherapy consisting of "ESHAP" therapy on 02/18 and ending 02/23. ESHAP includes etoposide, methylprednisolone, cisplatin, and cytarabine. I believe that the profound electrolyte disturbances seen are due to cisplatin induced nephrotoxicity. Appreciate Dr Milan's consultation from nephrology. IV calcium gluconate replacement again today. Continue calcitriol 0.25mcg daily. s/p Ergocalciferol 88625 units x 1 two days ago. Serial BMP/mag/phos/K. Replete other lytes as below. Continue telemetry status. (3) Hypomagnesemia: Plan: Suspect 2nd to cisplatin induced renal dysfunction/nephrotoxicity. Large amounts of IV magnesium sulfate given since admission. Remains refractory. Give additional mag sulfate today. Repeat mag level am. See #1 above. (4) Hypokalemia: Plan: Slowly improving. Continue KCL 40meq PO TID. Potassium in K-phos supplementation will help as well. Serial labs. Fix the low mag and low calcium. (5) Hypophosphatemia: Plan: s/p IV K-phos. Improving albeit slowly. Given the large volume IV Phos requires and his severe anasarca will simply increase his K-phos neutral to 2 capsules QID. Repeat level am. see #1 above. (6) Lymphoma: Plan: B-Cell Lymphoma. Recurrence. Hospitalized here at [facility] from 01/29/22 to 02/15/22 at which time he was transferred to [facility] in [place]. Underwent ESHAP induction chemotherapy regimen starting 02/18 and ending 02/23. D/c from hospital 02/24, then received Rituxan & neulasta at that time. MRI brain negative during stay in [place] for evidence of lymphoma. However, LP with cytology + for malignant cells. Intra-thecal methotrexate being planned under the care of Dr Gonsalves in [place] - they were planning first treatment next week, but clearly at this time he is too sick for such. Formal oncology consult by Dr Ruvalcaba appreciated. Continue daily neupogen injections for severe neutropenia. Neutropenic precautions. Continue broad-spectrum abx as below. (7) Pancytopenia due to antineoplastic chemotherapy: Plan: severe. with severe neutropenia. daily CBC. s/p transfusion of 1 unit PRBCs and 1 unit platelets - 02/28. will give another unit of platelets today due to ongoing bleeding. Defer on diuretics today after his blood due to profound electrolyte disturbances. continue daily neupogen until ANC has normalized. (8) Emphysematous cystitis: Plan: Formal consult placed to urology. They advise ongoing cefepime/daptomycin for UTI coverage despite negative urine culture. Continue hull. They will continue to follow him. (9) Neutropenia: Plan: Continue neutropenic precautions. Neupogen 480 mcg subcu daily until ANC greater than [address] Ruvalcaba. Continue on chronic suppressive therapy with fluconazole 200 mg p.o. daily and acyclovir 800 mg p.o. twice daily while ANC less than 1000. (10) Hypervolemia: Plan: Likely multifactorial - copious IV fluids between the previous hospital stay here and his stay in [place], hypoalbuminemia, low-normal systolic LV function (50-55% EF on echo), steroids, etc. Poor candidate for diuretics given his profound electrolyte disturbances. Fortunately his respiratory status remains stable. (11) Hematuria: Plan: Eliquis use, low platelets, UTI, other factors likely all playing roles. Eliquis on hold. Antibiotics in place. Tx platelets again today - 1 unit. Monitor H/H. Monitor platelet count. Urology consultation appreciated. (12) Acute metabolic encephalopathy: Plan: Improved. 2nd UTI more than likely. Cont abx, supportive care. (13) Benign prostatic hyperplasia with urinary obstruction: Plan: Cont flomax Cont finasteride Cont hull (14) Paroxysmal atrial flutter: Plan: There was concern for rapid a.fib at admission but formal reading on EKG was NSR with ectopy. Overnight again he was in NSR. HOLD ELIQUIS. Cont multaq. Cont telemetry. Plan VTE Prophylaxis - SCDs only Plan of care d/w Dr Milan Plan of care extensively discussed with pt's at bedside he will ultimately need PT/OT - will order Admission and Anticipated Discharge Date Admission Date: February 26, 2022 Subjective no events overnight hull with improved gross hematuria tele with NSR patient sitting up in bed - pleasant, talkative, at neurocognitive baseline today developed severe diarrhea last pm - cdiff gene +, toxin-- he had cdiff colitis many years ago at bedside - asks questions about plan of care PICC line 1/2 ports clotted per nursing staff Review of Systems Review of Systems: gen - strength is a little better; appetite improved cv - no chest pain pulm - no cough, no dyspnea GI - no abd pain or vomiting Physical Exam Physical Exam: gen - awake, alert - he is near his typical baseline; face still puffy especially around his eyes mouth - MMM neck - no JVD heart - RRR, s1 s2, no murmur lungs - decreased BS bases, otherwise CTA b/l abd - soft, NT, BS+ ext - anasarca of all 4 limbs, pulses 2+ b/l skin - mild erythema of b/l inner thighs along with warmth - no change - penile edema, hull with gross hematuria but improved today from yesterday Results & Data Results & Data ([facility]) Vital Signs (Past 12 Hours) Vital Signs Temp Pulse Pulse Resp BP BP Pulse Ox 03/01/22 19:35 36.7 C 96 H 18 101/67 95 03/01/22 18:53 37.3 C 88 20 109/73 96 03/01/22 16:00 88 03/01/22 15:00 37.3 C 83 20 98/63 L 96 03/01/22 12:50 36.6 C 88 18 109/73 96 03/01/22 12:44 36.6 C 89 20 107/70 97 03/01/22 12:14 36.6 C 94 H 20 106/72 95 03/01/22 11:59 36.4 C L 76 20 100/68 97 03/01/22 11:43 36.6 C 90 18 104/64 97 O2 Del Method 03/01/22 19:35 Room Air 03/01/22 18:53 03/01/22 16:00 03/01/22 15:00 Room Air 03/01/22 12:50 03/01/22 12:44 03/01/22 12:14 03/01/22 11:59 03/01/22 11:43 Laboratory Results Laboratory Results - last 24 hr 02/28/22 02/28/22 02/28/22 12:31 21:19 Unknown WBC RBC Hgb Hct MCV MCH MCHC RDW Std Deviation RDW Coeff of Belén Plt Count MPV Immature Gran % (Auto) Neut % (Auto) Lymph % (Auto) [place] % (Auto) Eos % (Auto) Baso % (Auto) Neut # (Auto) Lymph # (Auto) [place] # (Auto) Eos # (Auto) Baso # (Auto) Immature Gran # (Auto) Neutrophils % (Manual) Band Neutrophils % Lymphocytes % (Manual) Prolymphocyte % Reactive Lymphs % (Man) Monocytes % (Manual) Eosinophils % (Manual) Basophils % (Manual) Metamyelocytes % (Man) Myelocytes % (Man) Promyelocytes % (Man) Blast Cells % (Manual) Plasma Cell % (Manual) Other Cells % Nucleated RBC % Neutrophils # (Manual) Band Neutrophils # Total Absolute Neuts Lymphocytes # (Manual) Prolymphocyte # Reactive Lymphs # Total Abs Lymphocytes Monocytes # (Manual) Eosinophils # (Manual) Basophils # (Manual) Metamyelocytes # (Man) Myelocytes # (Manual) Promyelocytes # (Man) Blast Cells # (Man) Plasma Cell # (Manual) Other Cells # Nucleated RBCs # (Man) Hypersegmented Neuts Hyposegmented Neuts Hypogranular Neuts Large Granular Lymphs # Lrg Granular Lymphs Hairy Cells Smudge Cells Toxic Granulation Toxic Vacuolation Dohle Bodies Ludmila Rods Hypogranular Platelets Clumped Platelets Giant Platelets Platelet Satelliting RBC Morphology Polychromasia Hypochromasia Poikilocytosis Basophilic Stippling Anisocytosis Microcytosis Macrocytosis Spherocytes Pappenheimer Bodies Sickle Cells Target Cells Tear Drop Cells Ovalocytes Stomatocytes [place] Bodies Echinocytes Acanthocytes (Spur) Rouleaux RBC Agglutinates Schistocytes Sezary Cell Sodium 140 Potassium 3.1 L Chloride 107 Carbon Dioxide 28 Anion Gap 5 BUN 19 Creatinine 1.08 Est Cr Clr Drug Dosing 81.4 Est GFR ( Amer) 80.7 Est GFR (Non-Af Amer) 69.7 BUN/Creatinine Ratio 17.6 Glucose 118 H Calcium 6.1 L Ionized Calcium Phosphorus 1.9 L Magnesium Albumin 2.0 L Stl C. diff Tox B Gene Positive Cdiff Gene H Stl C.difficile Tox A&B Negative Cdiff Toxin Blood Parasites ID Blood Type O Positive Antibody Screen NEGATIVE Crossmatch See Detail 03/01/22 03/01/22 03/01/22 05:11 05:11 07:52 WBC 0.30 L* RBC 2.43 L Hgb 7.8 L Hct 22.3 L MCV 91.8 MCH 32.1 MCHC 35.0 RDW Std Deviation 50.6 H RDW Coeff of Belén 15.2 H Plt Count 14 L* MPV 11.9 Immature Gran % (Auto) Cancelled Neut % (Auto) Cancelled Lymph % (Auto) Cancelled [place] % (Auto) Cancelled Eos % (Auto) Cancelled Baso % (Auto) Cancelled Neut # (Auto) Cancelled Lymph # (Auto) Cancelled [place] # (Auto) Cancelled Eos # (Auto) Cancelled Baso # (Auto) Cancelled Immature Gran # (Auto) Cancelled Neutrophils % (Manual) Cancelled Band Neutrophils % Cancelled Lymphocytes % (Manual) Cancelled Prolymphocyte % Cancelled Reactive Lymphs % (Man) Cancelled Monocytes % (Manual) Cancelled Eosinophils % (Manual) Cancelled Basophils % (Manual) Cancelled Metamyelocytes % (Man) Cancelled Myelocytes % (Man) Cancelled Promyelocytes % (Man) Cancelled Blast Cells % (Manual) Cancelled Plasma Cell % (Manual) Cancelled Other Cells % Cancelled Nucleated RBC % Cancelled Neutrophils # (Manual) Cancelled Band Neutrophils # Cancelled Total Absolute Neuts Cancelled Lymphocytes # (Manual) Cancelled Prolymphocyte # Cancelled Reactive Lymphs # Cancelled Total Abs Lymphocytes Cancelled Monocytes # (Manual) Cancelled Eosinophils # (Manual) Cancelled Basophils # (Manual) Cancelled Metamyelocytes # (Man) Cancelled Myelocytes # (Manual) Cancelled Promyelocytes # (Man) Cancelled Blast Cells # (Man) Cancelled Plasma Cell # (Manual) Cancelled Other Cells # Cancelled Nucleated RBCs # (Man) Cancelled Hypersegmented Neuts Cancelled Hyposegmented Neuts Cancelled Hypogranular Neuts Cancelled Large Granular Lymphs Cancelled # Lrg Granular Lymphs Cancelled Hairy Cells Cancelled Smudge Cells Cancelled Toxic Granulation Cancelled Toxic Vacuolation Cancelled Dohle Bodies Cancelled Ludmila Rods Cancelled Hypogranular Platelets Cancelled Clumped Platelets Cancelled Giant Platelets Cancelled Platelet Satelliting Cancelled RBC Morphology Cancelled Polychromasia Cancelled Hypochromasia Cancelled Poikilocytosis Cancelled Basophilic Stippling Cancelled Anisocytosis Cancelled Microcytosis Cancelled Macrocytosis Cancelled Spherocytes Cancelled Pappenheimer Bodies Cancelled Sickle Cells Cancelled Target Cells Cancelled Tear Drop Cells Cancelled Ovalocytes Cancelled Stomatocytes Cancelled [place] Bodies Cancelled Echinocytes Cancelled Acanthocytes (Spur) Cancelled Rouleaux Cancelled RBC Agglutinates Cancelled Schistocytes Cancelled Sezary Cell Cancelled Sodium 141 Potassium 3.4 L Chloride 108 H Carbon Dioxide 28 Anion Gap 5 BUN 18 Creatinine 0.96 Est Cr Clr Drug Dosing 92.2 Est GFR ( Amer) 93.1 Est GFR (Non-Af Amer) 80.3 BUN/Creatinine Ratio 18.8 Glucose 109 H Calcium 5.9 L* Ionized Calcium 0.96 L Phosphorus 1.5 L* Magnesium 1.5 L Albumin Stl C. diff Tox B Gene Stl C.difficile Tox A&B Blood Parasites ID Cancelled Blood Type Antibody Screen Crossmatch 03/01/22 16:40 WBC RBC Hgb Hct MCV MCH MCHC RDW Std Deviation RDW Coeff of Belén Plt Count MPV Immature Gran % (Auto) Neut % (Auto) Lymph % (Auto) [place] % (Auto) Eos % (Auto) Baso % (Auto) Neut # (Auto) Lymph # (Auto) [place] # (Auto) Eos # (Auto) Baso # (Auto) Immature Gran # (Auto) Neutrophils % (Manual) Band Neutrophils % Lymphocytes % (Manual) Prolymphocyte % Reactive Lymphs % (Man) Monocytes % (Manual) Eosinophils % (Manual) Basophils % (Manual) Metamyelocytes % (Man) Myelocytes % (Man) Promyelocytes % (Man) Blast Cells % (Manual) Plasma Cell % (Manual) Other Cells % Nucleated RBC % Neutrophils # (Manual) Band Neutrophils # Total Absolute Neuts Lymphocytes # (Manual) Prolymphocyte # Reactive Lymphs # Total Abs Lymphocytes Monocytes # (Manual) Eosinophils # (Manual) Basophils # (Manual) Metamyelocytes # (Man) Myelocytes # (Manual) Promyelocytes # (Man) Blast Cells # (Man) Plasma Cell # (Manual) Other Cells # Nucleated RBCs # (Man) Hypersegmented Neuts Hyposegmented Neuts Hypogranular Neuts Large Granular Lymphs # Lrg Granular Lymphs Hairy Cells Smudge Cells Toxic Granulation Toxic Vacuolation Dohle Bodies Ludmila Rods Hypogranular Platelets Clumped Platelets Giant Platelets Platelet Satelliting RBC Morphology Polychromasia Hypochromasia Poikilocytosis Basophilic Stippling Anisocytosis Microcytosis Macrocytosis Spherocytes Pappenheimer Bodies Sickle Cells Target Cells Tear Drop Cells Ovalocytes Stomatocytes [place] Bodies Echinocytes Acanthocytes (Spur) Rouleaux RBC Agglutinates Schistocytes Sezary Cell Sodium 140 Potassium 3.4 L Chloride 107 Carbon Dioxide 29 Anion Gap 4 BUN 19 Creatinine 0.93 Est Cr Clr Drug Dosing 95.2 Est GFR ( Amer) 96.7 Est GFR (Non-Af Amer) 83.5 BUN/Creatinine Ratio 20.4 H Glucose 110 H Calcium 6.3 L Ionized Calcium Phosphorus 1.7 L Magnesium 1.7 Albumin 2.1 L Stl C. diff Tox B Gene Stl C.difficile Tox A&B Blood Parasites ID Blood Type Antibody Screen Crossmatch PG Care Time/CCT Total # of Minutes Spent Total Time Spent with Patient: Total time spent is greater than 50% in coordination of care (as documented) at patient's floor/unit and/or counseling patient: Coding Level of Care Code 47613 Subseq Hosp Care Lvl 3 Diagnoses C. difficile diarrhea A04.72 Hypocalcemia E83.51 Hypomagnesemia E83.42 Hypokalemia E87.6 Hypophosphatemia E83.39 Lymphoma C85.90 Pancytopenia due to antineoplastic chemotherapy D61.810; [id number] Emphysematous cystitis N30.80 Neutropenia D70.9 Hypervolemia E87.70 Hematuria R31.9 Acute metabolic encephalopathy G93.41 Benign prostatic hyperplasia with urinary obstruction N40.1; N13.8 Paroxysmal atrial flutter I48.92
[2022-03-02 06:46] LABS: BUN Creatinine Ratio 19.8 (10-20); Calcium 6.4 mg/dl (8.5-10.1); Creatinine Clr Calc Pharmacy 96.8 ml/min; Est GFR (African American) 99.3 ml/min; Est GFR (Non-African American) 85.7 ml/min; Magnesium 1.3 mg/dl (1.7-2.4); Phosphorus 1.9 mg/dl (2.5-4.9); Potassium 3.6 mmol/L (3.5-5.1)
[2022-03-02 06:53] LABS: Hematocrit (blood only) 22.1 % (40.1-51.0); Hemoglobin 7.5 g/dl (14.0-18.0); Mean Corpuscular Hemoglobin 31.5 pg (25.0-34.0); Mean Corpuscular Hgb Conc 33.9 g/dL (32.0-36.0); Mean Corpuscular Volume 92.9 fL (80.0-100.0); Mean Platelet Volume 11.2 fL (9.4-12.4); Platelet Count 16 K/uL (130-400); RDW Coefficient of Variation 15.5 % (11.5-14.5); RDW Standard Deviation 51.8 fL (36.4-46.3); Red Blood Count 2.38 M/uL (4.63-6.08); White Blood Count 0.39 K/ul (4.8-10.8)
[2022-03-02] MEDS ORDERED: SODIUM PHOSPHATE 3 MMOL/1 ML INFUSION IV STA (08:29)
[2022-03-02] MEDS ORDERED: SODIUM PHOSPHATE 15 MMOL in SODIUM CHLORIDE 0.9% 250 ML IV STA (08:36)
--- NOTE | 2022-03-02 08:43 | Urology Progress Note ---
Date of Service March 02, 2022 Assessment & Plan (1) Emphysematous cystitis: (2) Hematuria: Plan 71-year-old male with a history of B-cell lymphoma who was admitted to the hospital for hematuria and urinary frequency. CT scan showed emphysematous cystitis with air in both collecting system suggesting ascending infection. Farrar catheter was placed. Blood and urine cultures are negative to date. -Afebrile and hemodynamically stable. -Labs reviewed-White count 0.39, hemoglobin 7.5, creatinine 0.91. -Urine culture negative, blood cultures preliminary negative x48 hours. -No acute urologic intervention necessary. -Continues on IV Cefepime. Recommend continuing broad-spectrum antibiotics even in the setting of negative cultures as CT scan is consistent with severe infection. -Given he continues to clinically improve, will likely need to follow-up with repeat imaging in the form of a CT a/p in the next few days. -Maintain Farrar catheter. This likely will need to be in for 1 to 2 weeks. Hematuria is minimal and does not require further evaluation or intervention at this time. -Urology to follow Admission and Anticipated Discharge Date Admission Date: February 26, 2022 Subjective Patient examined at bedside this AM. Asleep on arrival, awakened to name. No acute distress. Reports he feels "lousy." Denies abdominal and flank pain. Farrar catheter intact, draining pink-tinged urine with sediment in tubing. Review of Systems Constitutional: as per Subjective / HPI Genitourinary: + as per Subjective / HPI Physical Exam Constitutional: + ill appearing and + edematous; no acute distress Respiratory: no respiratory distress and no labored breathing Skin: Warm and dry, no rashes visualized Neurologic: awake Psychiatric: Orientation: alert, oriented to person and cooperative Genitourinary: Farrar catheter intact, draining pink-tinged urine with some sediment in tubing. Results & Data ([facility]) Vital Signs (Past 12 Hours) Vital Signs Temp Pulse Resp BP Pulse Ox O2 Del Method 03/02/22 08:11 36.9 C 96 H 18 100/69 94 Room Air 03/02/22 03:53 36.6 C 80 18 105/72 93 Room Air 03/01/22 23:45 36.8 C 84 18 106/71 93 Room Air PG Care Time/CCT Total # of Minutes Spent Total Time Spent with Patient: Total time spent is greater than 50% in coordination of care (as documented) at patient's floor/unit and/or counseling patient: Coding Level of Care Code 03280 Subseq Hosp Care Lvl 2 Diagnoses Emphysematous cystitis N30.80 Hematuria R31.9
[2022-03-02] MEDS ORDERED: STAT IV STA (08:47)
[2022-03-02] MEDS ORDERED: CALCIUM GLUCONATE 10% 1,000 MG in DEXTROSE 5% 50 ML IV ONE (09:15)
--- NOTE | 2022-03-02 09:45 | Nephrology Progress Note ---
Date of Service March 02, 2022 Assessment & Plan (1) Hypomagnesemia: Plan: Additional 2 grams IV MgSO4 provided this AM. Persistent low PO4 and Mg likely related to recent chemotherapy. Avoid aggressive PO magnesium replacement due to GI symptoms. May consider adding amiloride, if no notable improvement with replacement today. (2) Hypophosphatemia: Plan: K phos 1 tab QID. Additional 15 mmol sodium phos IV provided this AM. Monitor BID. Additional IV replacement this afternoon, if no improvement with PO. (3) Hypokalemia: Plan: Magnesium replacement. KCl 40 mEq TID. (4) Hypocalcemia: Plan: Ergocalciferol 11629 units 02/27. Calcitriol 0.25 mcg daily. Improving. (5) Hypervolemia: Plan: Diuretics held due to electrolyte abnormalities. Encourage dietary protein supplements. (6) Hematuria: Plan: Persistent wiggins colored urine. Farrar to gravity. Some clots in catheter. (7) Hydronephrosis: Plan: Non-oliguric. Kidney function stable. (8) H/O diffuse large B-cell lymphoma: Plan: Clinical condition consistent with proximal tubule dysfunction and renal wasting s/p cisplatin. Poor PO intake. Electrolyte replacement as above. Admission and Anticipated Discharge Date Admission Date: February 26, 2022 Subjective No acute events overnight. Wojciech reports that he continues to feel "lousy." Appetite is good. Continues to have liquid stool output. Review of Systems Review of Systems: All systems reviewed & are unremarkable except as noted in HPI & below Physical Exam Constitutional: + edematous; no acute distress Eyes: + anicteric sclerae; no corneal abnormality ENMT: Mouth: no oral mucosal abnormality and oral mucous membranes not dry Neck: normal visual inspection and trachea midline Respiratory: normal respiratory effort Auscultation: lungs clear to auscultation bilaterally and + diminished lung sounds Cardiovascular: Rate/Rhythm: regular rate Heart Sounds: normal S1 and normal S2 Extremities: + edema Musculoskeletal: Extremities: no cyanosis and no clubbing Skin: + turgor decreased and + ecchymosis Neurologic: Motor/Sensory: no tremor and no asterixis Psychiatric: Eye Contact: good eye contact Affect: + blunted affect Results & Data ([facility]) Vital Signs (Past 12 Hours) Vital Signs Temp Pulse Resp BP Pulse Ox O2 Del Method 03/02/22 08:11 36.9 C 96 H 18 100/69 94 Room Air 03/02/22 03:53 36.6 C 80 18 105/72 93 Room Air 03/01/22 23:45 36.8 C 84 18 106/71 93 Room Air Laboratory Results Laboratory Results - last 24 hr 02/28/22 03/01/22 03/02/22 12:31 16:40 06:13 WBC 0.39 L* RBC 2.38 L Hgb 7.5 L Hct 22.1 L MCV 92.9 MCH 31.5 MCHC 33.9 RDW Std Deviation 51.8 H RDW Coeff of Belén 15.5 H Plt Count 16 L* MPV 11.2 Immature Gran % (Auto) Cancelled Neut % (Auto) Cancelled Lymph % (Auto) Cancelled [place] % (Auto) Cancelled Eos % (Auto) Cancelled Baso % (Auto) Cancelled Neut # (Auto) Cancelled Lymph # (Auto) Cancelled [place] # (Auto) Cancelled Eos # (Auto) Cancelled Baso # (Auto) Cancelled Immature Gran # (Auto) Cancelled Neutrophils % (Manual) Cancelled Band Neutrophils % Cancelled Lymphocytes % (Manual) Cancelled Prolymphocyte % Cancelled Reactive Lymphs % (Man) Cancelled Monocytes % (Manual) Cancelled Eosinophils % (Manual) Cancelled Basophils % (Manual) Cancelled Metamyelocytes % (Man) Cancelled Myelocytes % (Man) Cancelled Promyelocytes % (Man) Cancelled Blast Cells % (Manual) Cancelled Plasma Cell % (Manual) Cancelled Other Cells % Cancelled Nucleated RBC % Cancelled Neutrophils # (Manual) Cancelled Band Neutrophils # Cancelled Total Absolute Neuts Cancelled Lymphocytes # (Manual) Cancelled Prolymphocyte # Cancelled Reactive Lymphs # Cancelled Total Abs Lymphocytes Cancelled Monocytes # (Manual) Cancelled Eosinophils # (Manual) Cancelled Basophils # (Manual) Cancelled Metamyelocytes # (Man) Cancelled Myelocytes # (Manual) Cancelled Promyelocytes # (Man) Cancelled Blast Cells # (Man) Cancelled Plasma Cell # (Manual) Cancelled Other Cells # Cancelled Nucleated RBCs # (Man) Cancelled Hypersegmented Neuts Cancelled Hyposegmented Neuts Cancelled Hypogranular Neuts Cancelled Large Granular Lymphs Cancelled # Lrg Granular Lymphs Cancelled Hairy Cells Cancelled Smudge Cells Cancelled Toxic Granulation Cancelled Toxic Vacuolation Cancelled Dohle Bodies Cancelled Ludmila Rods Cancelled Hypogranular Platelets Cancelled Clumped Platelets Cancelled Giant Platelets Cancelled Platelet Satelliting Cancelled RBC Morphology Cancelled Polychromasia Cancelled Hypochromasia Cancelled Poikilocytosis Cancelled Basophilic Stippling Cancelled Anisocytosis Cancelled Microcytosis Cancelled Macrocytosis Cancelled Spherocytes Cancelled Pappenheimer Bodies Cancelled Sickle Cells Cancelled Target Cells Cancelled Tear Drop Cells Cancelled Ovalocytes Cancelled Stomatocytes Cancelled [place] Bodies Cancelled Echinocytes Cancelled Acanthocytes (Spur) Cancelled Rouleaux Cancelled RBC Agglutinates Cancelled Schistocytes Cancelled Sezary Cell Cancelled Sodium 140 Potassium 3.4 L Chloride 107 Carbon Dioxide 29 Anion Gap 4 BUN 19 Creatinine 0.93 Est Cr Clr Drug Dosing 95.2 Est GFR ( Amer) 96.7 Est GFR (Non-Af Amer) 83.5 BUN/Creatinine Ratio 20.4 H Glucose 110 H Calcium 6.3 L Phosphorus 1.7 L Magnesium 1.7 Albumin 2.1 L Blood Parasites ID Cancelled Blood Type O Positive Antibody Screen NEGATIVE Crossmatch See Detail 03/02/22 06:13 WBC RBC Hgb Hct MCV MCH MCHC RDW Std Deviation RDW Coeff of Belén Plt Count MPV Immature Gran % (Auto) Neut % (Auto) Lymph % (Auto) [place] % (Auto) Eos % (Auto) Baso % (Auto) Neut # (Auto) Lymph # (Auto) [place] # (Auto) Eos # (Auto) Baso # (Auto) Immature Gran # (Auto) Neutrophils % (Manual) Band Neutrophils % Lymphocytes % (Manual) Prolymphocyte % Reactive Lymphs % (Man) Monocytes % (Manual) Eosinophils % (Manual) Basophils % (Manual) Metamyelocytes % (Man) Myelocytes % (Man) Promyelocytes % (Man) Blast Cells % (Manual) Plasma Cell % (Manual) Other Cells % Nucleated RBC % Neutrophils # (Manual) Band Neutrophils # Total Absolute Neuts Lymphocytes # (Manual) Prolymphocyte # Reactive Lymphs # Total Abs Lymphocytes Monocytes # (Manual) Eosinophils # (Manual) Basophils # (Manual) Metamyelocytes # (Man) Myelocytes # (Manual) Promyelocytes # (Man) Blast Cells # (Man) Plasma Cell # (Manual) Other Cells # Nucleated RBCs # (Man) Hypersegmented Neuts Hyposegmented Neuts Hypogranular Neuts Large Granular Lymphs # Lrg Granular Lymphs Hairy Cells Smudge Cells Toxic Granulation Toxic Vacuolation Dohle Bodies Ludmila Rods Hypogranular Platelets Clumped Platelets Giant Platelets Platelet Satelliting RBC Morphology Polychromasia Hypochromasia Poikilocytosis Basophilic Stippling Anisocytosis Microcytosis Macrocytosis Spherocytes Pappenheimer Bodies Sickle Cells Target Cells Tear Drop Cells Ovalocytes Stomatocytes [place] Bodies Echinocytes Acanthocytes (Spur) Rouleaux RBC Agglutinates Schistocytes Sezary Cell Sodium 142 Potassium 3.6 Chloride 109 H Carbon Dioxide 29 Anion Gap 4 BUN 18 Creatinine 0.91 Est Cr Clr Drug Dosing 96.8 Est GFR ( Amer) 99.3 Est GFR (Non-Af Amer) 85.7 BUN/Creatinine Ratio 19.8 Glucose 75 Calcium 6.4 L Phosphorus 1.9 L Magnesium 1.3 L Albumin Blood Parasites ID Blood Type Antibody Screen Crossmatch PG Care Time/CCT Total # of Minutes Spent Total Time Spent with Patient: Total time spent is greater than 50% in coordination of care (as documented) at patient's floor/unit and/or counseling patient: Coding Level of Care Code 23035 Subseq Hosp Care Lvl 3 Diagnoses Hypomagnesemia E83.42 Hypophosphatemia E83.39 Hypokalemia E87.6 Hypocalcemia E83.51 Hypervolemia E87.70 Hematuria R31.9 Hydronephrosis N13.30 H/O diffuse large B-cell lymphoma Z85.72
[2022-03-02] MEDS: CEFEPIME 2,000 MG in SYRINGE 0 ML IV SCH ×2 (09:55→21:44)
[2022-03-02] MEDS: MAGNESIUM SULFATE / D5W 1 GM/100 ML BAG IV SCH ×2 (09:55→12:19)
[2022-03-02] MEDS: TAMSULOSIN HCL 0.4 MG CAP PO SCH ×2 (10:16→21:53)
[2022-03-02] MEDS: FIDAXOMICIN 200 MG TAB PO SCH ×2 (10:16→21:50)
[2022-03-02] MEDS: ACYCLOVIR 400 MG TAB PO SCH ×2 (10:16→21:42)
[2022-03-02] MEDS: CYANOCOBALAMIN (B-12) 500 MCG TABLET PO SCH (10:16)
[2022-03-02] MEDS: FINASTERIDE 5 MG TAB PO SCH (10:16)
[2022-03-02] MEDS: DRONEDARONE HCL 400 MG TAB PO SCH ×2 (10:16→21:43)
[2022-03-02] MEDS: allopurinoL 300 MG TAB PO SCH (10:17)
[2022-03-02] MEDS: CHOLECALCIFEROL 1,000 UNITS 25 MCG TAB PO SCH (10:17)
[2022-03-02] MEDS: CALCITRIOL 0.25 MCG CAPSULE PO SCH (10:17)
[2022-03-02] MEDS: FLUCONAZOLE 100 MG TAB PO SCH (10:17)
[2022-03-02] MEDS: CETIRIZINE HCL 10 MG TABLET PO SCH (10:17)
[2022-03-02] MEDS: NYSTATIN POWDER 15GM BTL EXT SCH ×3 (10:17→21:52)
[2022-03-02] MEDS: POT PHOSPHATE MONOBASIC W/ SOD TAB PO SCH ×4 (10:18→21:52)
[2022-03-02] MEDS: POTASSIUM CHLORIDE CRTAB 20 MEQ TABCR PO SCH ×3 (10:18→21:53)
[2022-03-02] MEDS: COLESTIPOL HCL 1 GM TAB PO SCH ×2 (14:29→21:42)
[2022-03-02] MEDS: TRIAMCINOLONE ACET 0.1% CR 15 GM TUBE EXT SCH ×2 (17:29→21:53)
--- NOTE | 2022-03-02 20:26 | Hospitalist Progress Note ---
Date of Service March 02, 2022 Assessment & Plan (1) C. difficile diarrhea: Plan: gene +, toxin negative, but I do believe he has active infection. day #3 of dificid 200mg BID - plan 10 days of Rx. rectal tube was placed; didn't drain much stool since placement - it was removed. following removal, however, started to drain copious amounts of liquid stool and thus rectal tube system placed back. add colestipol 1gm BID for bulking. cont contact precautions. (2) Hypocalcemia: Plan: Discharge summary obtained from [facility] and patient received induction chemotherapy consisting of "ESHAP" therapy on 02/18 and ending 02/23. ESHAP includes etoposide, methylprednisolone, cisplatin, and cytarabine. I believe that the profound electrolyte disturbances seen are due to cisplatin induced nephrotoxicity. Appreciate Dr Milan's consultation from nephrology. IV calcium gluconate replacement again today. Continue calcitriol 0.25mcg daily. s/p Ergocalciferol 85306 units x 1 given this past weekend. Serial BMP/mag/phos/K. Replete other lytes as below. Continue telemetry status. (3) Hypomagnesemia: Plan: Suspect 2nd to cisplatin induced renal dysfunction/nephrotoxicity. Also with GI loss from diarrhea, and not really eating mag-rich foods either. Large amounts of IV magnesium sulfate given since admission. Remains refractory. Give additional mag sulfate today. Repeat mag level am. See #1 above. (4) Hypokalemia: Plan: Resolved. Continue KCL 40meq PO TID but LIKELY WILL NEED TO CUT THIS BACK TOMORROW ON 03/03. Potassium in K-phos supplementation will help as well. Serial labs. Fix the low mag and low calcium. (5) Hypophosphatemia: Plan: s/p IV K-phos over weekend. Now on K-phos neutral PO. Improving albeit slowly. Given the large volume IV Phos requires and his severe anasarca will simply increase his K-phos neutral to 2 capsules QID. Repeat level am. see #1 above. (6) Lymphoma: Plan: B-Cell Lymphoma. Recurrence. Hospitalized here at [facility] from 01/29/22 to 02/15/22 at which time he was transferred to [facility] in [place]. Underwent ESHAP induction chemotherapy regimen starting 02/18 and ending 02/23. D/c from hospital 02/24, then received Rituxan & neulasta at that time. MRI brain negative during stay in [place] for evidence of lymphoma. However, LP with cytology + for malignant cells. Intra-thecal methotrexate being planned under the care of Dr Gonsalves in [place]. Formal oncology consult by Dr Ruvalcaba appreciated. Continue daily neupogen injections for severe neutropenia. Neutropenic precautions. Continue broad-spectrum abx as below. (7) Pancytopenia due to antineoplastic chemotherapy: Plan: severe. with severe neutropenia. daily CBC. s/p transfusion of 1 unit PRBCs and 1 unit platelets - 02/28. s/p transfusion of 1 unit platelets 03/01. no significant response to transfusional support. since hematuria has slowed will defer on PRBCs or platelets today. repeat CBC w/ diff AM. cont daily neupogen until ANC has normalized. (8) Emphysematous cystitis: Plan: Formal consult placed to urology. They advise ongoing cefepime/daptomycin for UTI coverage despite negative urine culture. Continue hull. They will continue to follow him. Day #5 of IV abx today. (9) Neutropenia: Plan: Continue neutropenic precautions. Neupogen 480 mcg subcu daily until ANC greater than [address] Ruvalcaba. Continue on chronic suppressive therapy with fluconazole 200 mg p.o. daily and acyclovir 800 mg p.o. twice daily while ANC less than 1000. (10) Hypervolemia: Plan: Likely multifactorial - copious IV fluids between the previous hospital stay here and his stay in [place], hypoalbuminemia, low-normal systolic LV function (50-55% EF on echo), steroids, etc. Poor candidate for diuretics given his profound electrolyte disturbances. Fortunately his respiratory status remains stable. And it appears he is beginning to "auto-diurese." Follow. (11) Hematuria: Plan: Eliquis use, low platelets, UTI, other factors likely all playing roles. Eliquis on hold. Antibiotics in place. s/p 2 units of platelets since admission. Hematuria resolving. Monitor H/H. Monitor platelet count. Urology consultation appreciated. (12) Acute metabolic encephalopathy: Plan: Improved. 2nd UTI more than likely. Cont abx, supportive care. (13) Benign prostatic hyperplasia with urinary obstruction: Plan: Cont flomax Cont finasteride Cont hull (14) Paroxysmal atrial flutter: Plan: There was concern for rapid a.fib at admission but formal reading on EKG was NSR with ectopy. Overnight again he was in NSR. HOLD ELIQUIS. Cont multaq. Cont telemetry. (15) Cellulitis: Plan: b/l inner thighs and posterior left leg cefepime/daptomycin for UTI should suffice serial exams Plan VTE Prophylaxis - SCDs only; chemical means contraindicated Plan of care extensively discussed with pt's at bedside once again PT/OT consults placed slow improvement .... Admission and Anticipated Discharge Date Admission Date: February 26, 2022 Subjective tele stable overnight - frequent ectopy, NSR during my visit the pt's was at bedside nursing was at bedside rectal tube and hull remain despite rectal tube in place there was stool on the buttocks suggesting a leak very little stool in collection bag since it was placed 2 days ago decision made to remove rectal tube patient eating fair - during the visit he was eating cookies he is very awake and alert but pleasantly confused urine in hull improving with pink-tinged urine only Review of Systems Review of Systems: gen - "I feel ok" cv - no chest pain pulm - no dyspnea GI - no vomiting; no abd pain Physical Exam Physical Exam: gen - awake, alert - he is near his typical baseline; face less edematous mouth - no thrush, no mucositis, MMM neck - no JVD heart - RRR, s1 s2, no murmur lungs - minimal decreased BS bases, otherwise CTA b/l abd - soft, NT, BS+, ND, no HSM ext - anasarca of all 4 limbs but improved today, pulses 2+ b/l skin - mild erythema of b/l inner thighs and more extensive erythema on posterior left thigh; erythema is warm; he has a contact dermatitis on his back with scattered erythematous papules; on buttock and area there are scattered candidal type satellite lesions; PICC line right arm clean - penile edema improved; hull with pink-tinged urine psych - oriented to person only (baseline) Results & Data Results & Data ([facility]) Vital Signs (Past 12 Hours) Vital Signs Temp Pulse Pulse Resp BP Pulse Ox O2 Del Method 03/02/22 19:49 36.6 C 95 H 20 95/66 L 97 Room Air 03/02/22 14:56 36.5 C 82 18 102/65 95 Room Air 03/02/22 10:00 84 03/02/22 10:00 Room Air 03/02/22 11:47 36.7 C 87 17 118/79 96 Room Air Laboratory Results Laboratory Results - last 24 hr 03/02/22 03/02/22 06:13 06:13 WBC 0.39 L* RBC 2.38 L Hgb 7.5 L Hct 22.1 L MCV 92.9 MCH 31.5 MCHC 33.9 RDW Std Deviation 51.8 H RDW Coeff of Belén 15.5 H Plt Count 16 L* MPV 11.2 Immature Gran % (Auto) Cancelled Neut % (Auto) Cancelled Lymph % (Auto) Cancelled [place] % (Auto) Cancelled Eos % (Auto) Cancelled Baso % (Auto) Cancelled Neut # (Auto) Cancelled Lymph # (Auto) Cancelled [place] # (Auto) Cancelled Eos # (Auto) Cancelled Baso # (Auto) Cancelled Immature Gran # (Auto) Cancelled Neutrophils % (Manual) Cancelled Band Neutrophils % Cancelled Lymphocytes % (Manual) Cancelled Prolymphocyte % Cancelled Reactive Lymphs % (Man) Cancelled Monocytes % (Manual) Cancelled Eosinophils % (Manual) Cancelled Basophils % (Manual) Cancelled Metamyelocytes % (Man) Cancelled Myelocytes % (Man) Cancelled Promyelocytes % (Man) Cancelled Blast Cells % (Manual) Cancelled Plasma Cell % (Manual) Cancelled Other Cells % Cancelled Nucleated RBC % Cancelled Neutrophils # (Manual) Cancelled Band Neutrophils # Cancelled Total Absolute Neuts Cancelled Lymphocytes # (Manual) Cancelled Prolymphocyte # Cancelled Reactive Lymphs # Cancelled Total Abs Lymphocytes Cancelled Monocytes # (Manual) Cancelled Eosinophils # (Manual) Cancelled Basophils # (Manual) Cancelled Metamyelocytes # (Man) Cancelled Myelocytes # (Manual) Cancelled Promyelocytes # (Man) Cancelled Blast Cells # (Man) Cancelled Plasma Cell # (Manual) Cancelled Other Cells # Cancelled Nucleated RBCs # (Man) Cancelled Hypersegmented Neuts Cancelled Hyposegmented Neuts Cancelled Hypogranular Neuts Cancelled Large Granular Lymphs Cancelled # Lrg Granular Lymphs Cancelled Hairy Cells Cancelled Smudge Cells Cancelled Toxic Granulation Cancelled Toxic Vacuolation Cancelled Dohle Bodies Cancelled Ludmila Rods Cancelled Hypogranular Platelets Cancelled Clumped Platelets Cancelled Giant Platelets Cancelled Platelet Satelliting Cancelled RBC Morphology Cancelled Polychromasia Cancelled Hypochromasia Cancelled Poikilocytosis Cancelled Basophilic Stippling Cancelled Anisocytosis Cancelled Microcytosis Cancelled Macrocytosis Cancelled Spherocytes Cancelled Pappenheimer Bodies Cancelled Sickle Cells Cancelled Target Cells Cancelled Tear Drop Cells Cancelled Ovalocytes Cancelled Stomatocytes Cancelled [place] Bodies Cancelled Echinocytes Cancelled Acanthocytes (Spur) Cancelled Rouleaux Cancelled RBC Agglutinates Cancelled Schistocytes Cancelled Sezary Cell Cancelled Sodium 142 Potassium 3.6 Chloride 109 H Carbon Dioxide 29 Anion Gap 4 BUN 18 Creatinine 0.91 Est Cr Clr Drug Dosing 96.8 Est GFR ( Amer) 99.3 Est GFR (Non-Af Amer) 85.7 BUN/Creatinine Ratio 19.8 Glucose 75 Calcium 6.4 L Phosphorus 1.9 L Magnesium 1.3 L Blood Parasites ID Cancelled Diagnostic Findings blood/urine cx's negative PG Care Time/CCT Total # of Minutes Spent Total Time Spent with Patient: Total time spent is greater than 50% in coordination of care (as documented) at patient's floor/unit and/or counseling patient: Coding Level of Care Code 39187 Subseq Hosp Care Lvl 3 Diagnoses C. difficile diarrhea A04.72 Hypocalcemia E83.51 Hypomagnesemia E83.42 Hypokalemia E87.6 Hypophosphatemia E83.39 Lymphoma C85.90 Pancytopenia due to antineoplastic chemotherapy D61.810; [id number] Emphysematous cystitis N30.80 Neutropenia D70.9 Hypervolemia E87.70 Hematuria R31.9 Acute metabolic encephalopathy G93.41 Benign prostatic hyperplasia with urinary obstruction N40.1; N13.8 Paroxysmal atrial flutter I48.92 Cellulitis L03.90
[2022-03-03 07:58] LABS: BUN Creatinine Ratio 19.8 (10-20); Calcium 6.7 mg/dl (8.5-10.1); Creatinine Clr Calc Pharmacy 98.6 ml/min; Est GFR (African American) 102.5 ml/min; Est GFR (Non-African American) 88.5 ml/min; Magnesium 1.1 mg/dl (1.7-2.4); Phosphorus 2.5 mg/dl (2.5-4.9); Potassium 3.6 mmol/L (3.5-5.1)
[2022-03-03 08:48] LABS: Hematocrit (blood only) 21.2 % (40.1-51.0); Hemoglobin 7.2 g/dl (14.0-18.0); Mean Corpuscular Hemoglobin 31.3 pg (25.0-34.0); Mean Corpuscular Volume 92.2 fL (80.0-100.0); Mean Platelet Volume 12.4 fL (9.4-12.4); Platelet Count 15 K/uL (130-400); RDW Coefficient of Variation 14.8 % (11.5-14.5); White Blood Count 0.57 K/ul (4.8-10.8)
[2022-03-03 08:54] LABS: Acanthocytes 1+
[2022-03-03 08:55] LABS: Lymphocytes # (auto) 0.48 K/uL (1.2-3.4); Lymphocytes % (auto) 84.2 %; Monocytes # (auto) 0.04 K/uL (0.24-0.82); Neutrophils # (auto) 0.05 K/uL (1.4-6.5); Neutrophils % (auto) 8.8 %
[2022-03-03] MEDS: FIDAXOMICIN 200 MG TAB PO SCH ×2 (08:59→20:15)
[2022-03-03] MEDS: ACYCLOVIR 400 MG TAB PO SCH ×2 (08:59→20:15)
[2022-03-03] MEDS: DRONEDARONE HCL 400 MG TAB PO SCH ×2 (08:59→20:14)
[2022-03-03] MEDS: POT PHOSPHATE MONOBASIC W/ SOD TAB PO SCH ×4 (08:59→20:16)
[2022-03-03] MEDS: FINASTERIDE 5 MG TAB PO SCH (09:00)
[2022-03-03] MEDS: POTASSIUM CHLORIDE CRTAB 20 MEQ TABCR PO SCH ×3 (09:00→20:16)
[2022-03-03] MEDS: CALCITRIOL 0.25 MCG CAPSULE PO SCH (09:00)
[2022-03-03] MEDS: allopurinoL 300 MG TAB PO SCH (09:01)
[2022-03-03] MEDS: CHOLECALCIFEROL 1,000 UNITS 25 MCG TAB PO SCH (09:01)
[2022-03-03] MEDS: CYANOCOBALAMIN (B-12) 500 MCG TABLET PO SCH (09:01)
[2022-03-03] MEDS: CETIRIZINE HCL 10 MG TABLET PO SCH (09:01)
[2022-03-03] MEDS: FLUCONAZOLE 100 MG TAB PO SCH (09:01)
[2022-03-03] MEDS: TAMSULOSIN HCL 0.4 MG CAP PO SCH ×2 (09:02→20:14)
[2022-03-03] MEDS: NYSTATIN POWDER 15GM BTL EXT SCH ×3 (09:02→20:17)
[2022-03-03] MEDS: TRIAMCINOLONE ACET 0.1% CR 15 GM TUBE EXT SCH ×3 (09:02→20:17)
[2022-03-03] MEDS: CEFEPIME 2,000 MG in SYRINGE 0 ML IV SCH ×2 (09:09→20:14)
--- NOTE | 2022-03-03 10:07 | Nephrology Progress Note ---
Date of Service March 03, 2022 Assessment & Plan (1) Hypomagnesemia: Plan: Persistent low PO4 and Mg consistent with prox tubule dysfunction following recent chemotherapy. Will add some PO replacement now to see how this is tolerated -- MgOx 400 mg BID. May consider adding amiloride, if no notable improvement with replacement today. I have opted to defer this option due to relatively hypotension and poor oral intake. (2) Hypophosphatemia: Plan: K phos 1 tab QID. (3) Hypokalemia: Plan: Magnesium replacement. KCl 40 mEq TID. (4) Hypocalcemia: Plan: Ergocalciferol 75181 units 02/27. Calcitriol 0.25 mcg daily. Improving. (5) Hypervolemia: Plan: Diuretics held due to electrolyte abnormalities. Encourage dietary protein supplements. (6) Hematuria: Plan: Farrar to gravity pending urology follow up. (7) Hydronephrosis: Plan: Non-oliguric. Kidney function stable. (8) H/O diffuse large B-cell lymphoma: Plan: Clinical condition consistent with proximal tubule dysfunction and renal wasting s/p cisplatin. Poor PO intake. Electrolyte replacement as above. Will require close outpatient follow up and anticipated continued IV replacement in the outpatient setting post discharge. Admission and Anticipated Discharge Date Admission Date: February 26, 2022 Subjective No acute events overnight. Wojciech was sitting up in bed eating breakfast this AM. Appetite is "not great." Wojciech reports continuing to feel "lousy." However, he denies any acute concerns. Minimal stool output from [facility] despite some increased BM reported yesterday. No melena reported. Hematuria clearing with pink urine in Farrar bag. Tolerating PO electrolyte replacement. Review of Systems Review of Systems: All systems reviewed & are unremarkable except as noted in HPI & below Physical Exam Constitutional: + ill appearing and + edematous; no acute distress Eyes: + anicteric sclerae; no corneal abnormality ENMT: Mouth: no oral mucosal abnormality and oral mucous membranes not dry Neck: normal visual inspection and trachea midline Respiratory: normal respiratory effort Auscultation: lungs clear to auscultation bilaterally and + diminished lung sounds Cardiovascular: Rate/Rhythm: regular rate Heart Sounds: normal S1 and normal S2 Extremities: + edema Gastrointestinal (Abdomen): Percussion/Palpation: abdomen soft; abdomen nontender Musculoskeletal: Extremities: no cyanosis and no clubbing Skin: + turgor decreased and + ecchymosis; no lesions Neurologic: Motor/Sensory: no tremor and no asterixis Psychiatric: Orientation: alert and oriented x 3 Eye Contact: good eye contact Affect: + blunted affect Results & Data ([facility]) Vital Signs (Past 12 Hours) Vital Signs Temp Pulse Pulse Resp BP Pulse Ox O2 Del Method 03/03/22 07:51 36.6 C 87 18 100/67 97 Room Air 03/03/22 03:44 36.7 C 72 18 104/70 98 Room Air 03/02/22 22:17 93 H 03/02/22 23:35 36.5 C 87 18 105/69 97 Room Air Laboratory Results Laboratory Results - last 24 hr 03/03/22 03/03/22 07:21 07:21 WBC 0.57 L* RBC 2.30 L Hgb 7.2 L Hct 21.2 L MCV 92.2 MCH 31.3 MCHC 34.0 RDW Std Deviation 50.0 H RDW Coeff of Belén 14.8 H Plt Count 15 L* MPV 12.4 Immature Gran % (Auto) 0.0 Neut % (Auto) 8.8 Lymph % (Auto) 84.2 [place] % (Auto) 7.0 Eos % (Auto) 0.0 Baso % (Auto) 0.0 Neut # (Auto) 0.05 L* Lymph # (Auto) 0.48 L [place] # (Auto) 0.04 L Eos # (Auto) 0.00 Baso # (Auto) 0.00 Immature Gran # (Auto) 0.00 Acanthocytes (Spur) 1+ Sodium 144 Potassium 3.6 Chloride 111 H Carbon Dioxide 29 Anion Gap 4 BUN 17 Creatinine 0.86 Est Cr Clr Drug Dosing 98.6 Est GFR ( Amer) 102.5 Est GFR (Non-Af Amer) 88.5 BUN/Creatinine Ratio 19.8 Glucose 78 Calcium 6.7 L Phosphorus 2.5 Magnesium 1.1 L PG Care Time/CCT Total # of Minutes Spent Total Time Spent with Patient: Total time spent is greater than 50% in coordination of care (as documented) at patient's floor/unit and/or counseling patient: Coding Level of Care Code 57837 Subseq Hosp Care Lvl 3 Diagnoses Hypomagnesemia E83.42 Hypophosphatemia E83.39 Hypokalemia E87.6 Hypocalcemia E83.51 Hypervolemia E87.70 Hematuria R31.9 Hydronephrosis N13.30 H/O diffuse large B-cell lymphoma Z85.72
[2022-03-03] MEDS ORDERED: STAT IV STA (10:27)
[2022-03-03] MEDS ORDERED: CALCIUM GLUCONATE 10% 1,000 MG in DEXTROSE 5% 50 ML IV ONE (10:45)
[2022-03-03] MEDS: MAGNESIUM SULFATE / D5W 1 GM/100 ML BAG IV SCH ×4 (11:23→17:40)
--- NOTE | 2022-03-03 12:48 | Hospitalist Progress Note ---
Date of Service March 03, 2022 Assessment & Plan (1) C. difficile diarrhea: Plan: gene +, toxin negative, but I do believe he has active infection. Continue dificid 200mg BID - plan 10 days of Rx. last day tx will be 03/09/22 rectal tube was placed; didn't drain much stool since placement - it was removed. following removal, however, started to drain copious amounts of liquid stool and thus rectal tube system placed back.continue for now continue colestipol 1gm BID for bulking. cont contact precautions. (2) Hypocalcemia: Plan: Discharge summary obtained from [facility] and patient received induction chemotherapy consisting of "ESHAP" therapy on 02/18 and ending 02/23. ESHAP includes etoposide, methylprednisolone, cisplatin, and cytarabine. I believe that the profound electrolyte disturbances seen are due to cisplatin induced nephrotoxicity. Appreciate Dr Milan's consultation from nephrology. IV calcium gluconate replacement again today. Continue calcitriol 0.25mcg daily. s/p Ergocalciferol 28749 units x 1 given this past weekend. Serial BMP/mag/phos/K. Replete other lytes with IV mag, po mag, po KCl Continue telemetry status. (3) Hypomagnesemia: Plan: Suspect 2nd to cisplatin induced renal dysfunction/nephrotoxicity. Also with GI loss from diarrhea, and not really eating mag-rich foods either. Large amounts of IV magnesium sulfate given since admission. Remains refractory. Give additional mag sulfate today. Repeat mag level am. may add amiloride as per Nephro if BPs can tolerate (4) Hypokalemia: Plan: Resolved. Continue KCL 40meq PO TID but LIKELY WILL NEED TO CUT THIS BACK-continue same for now Potassium in K-phos supplementation will help as well. Serial labs. Fix the low mag and low calcium. (5) Hypophosphatemia: Plan: s/p IV K-phos over weekend. Now on K-phos neutral PO. Improving albeit slowly. Repeat level am. (6) Lymphoma: Plan: B-Cell Lymphoma. Recurrence. Hospitalized here at [facility] from 01/29/22 to 02/15/22 at which time he was transferred to [facility] in [place]. Underwent ESHAP induction chemotherapy regimen starting 02/18 and ending 02/23. D/c from hospital 02/24, then received Rituxan & neulasta at that time. MRI brain negative during stay in [place] for evidence of lymphoma. However, LP with cytology + for malignant cells. Intra-thecal methotrexate being planned under the care of Dr Gonsalves in [place]. Formal oncology consult by Dr Ruvalcaba appreciated. received daily neupogen injections for severe neutropenia x 3 days. Neutropenic precautions. Continue broad-spectrum abx as below. (7) Pancytopenia due to antineoplastic chemotherapy: Plan: severe. with severe neutropenia. daily CBC. s/p transfusion of 1 unit PRBCs and 1 unit platelets - 02/28. s/p transfusion of 1 unit platelets 03/01. no significant response to transfusional support. since hematuria has slowed will defer on PRBCs or platelets today. repeat CBC w/ diff AM. received 3 doses of daily neupogen 02/26-02/28 -ANC improving to 50 today (8) Emphysematous cystitis: Plan: Formal consult placed to urology. They advise ongoing cefepime/daptomycin for UTI coverage despite negative urine culture. Continue hull. They will continue to follow him. Last day of tx will be 03/08 (9) Neutropenia: Plan: Continue neutropenic precautions. Neupogen 480 mcg subcu daily until ANC greater than [address] Ruvalcaba. WIll give another dose today Continue on chronic suppressive therapy with fluconazole 200 mg p.o. daily and acyclovir 800 mg p.o. twice daily while ANC less than 1000. Holding home Levaquin while on Cefepime (10) Hypervolemia: Plan: Likely multifactorial - copious IV fluids between the previous hospital stay here and his stay in [place], hypoalbuminemia, low-normal systolic LV function (50-55% EF on echo), steroids, etc. Poor candidate for diuretics given his profound electrolyte disturbances. Fortunately his respiratory status remains stable. And it appears he is beginning to "auto-diurese." Edema seems improved Follow. (11) Hematuria: Plan: Eliquis use, low platelets, UTI, other factors likely all playing roles. Eliquis on hold and also for low plts, hold Eliquis. Antibiotics in place. s/p 2 units of platelets since admission. Hematuria resolving. Monitor H/H. Monitor platelet count. Urology consultation appreciated. (12) Acute metabolic encephalopathy: Plan: Improved. 2nd UTI more than likely. Cont abx, supportive care. (13) Benign prostatic hyperplasia with urinary obstruction: Plan: Cont flomax Cont finasteride Cont hull (14) Paroxysmal atrial flutter: Plan: There was concern for rapid a.fib at admission but formal reading on EKG was NSR with ectopy. Overnight again he was in NSR. HOLD ELIQUIS. Cont multaq. Cont telemetry. (15) Cellulitis: Plan: b/l inner thighs and posterior left leg cefepime/daptomycin for UTI should suffice appears improved serial exams Plan VTE Prophylaxis - SCDs only; chemical means contraindicated Plan of care extensively discussed with pt's at bedside once again PT/OT consults placed slow improvement .... Admission and Anticipated Discharge Date Admission Date: February 26, 2022 Subjective Pt has no complaints.Is feeding himself lunch and OOB to chair when I saw him. Denies pain, SOB, abd pain. Diarrhea has slowed way down as per nursing. Discussed his care with his . Tele with NSR, PACs, PVCs, frequent small runs AT. Review of Systems Review of Systems: All systems reviewed & are unremarkable except as noted in HPI & below Physical Exam Constitutional: WD/WN, vitals as above Eyes: + anicteric sclerae Neck: trachea midline, no thyromegaly Respiratory: normal respiratory effort, lungs clear to auscultation Cardiovascular: Rate/Rhythm: regular rate and regular rhythm Heart Sounds: no murmur Extremities: + edema (2+ pitting edema legs,improved from previous) Gastrointestinal (Abdomen): normal bowel sounds, soft, nontender, no hepatosplenomegaly Musculoskeletal: Extremities: extremities normal to inspection; no cyanosis and no clubbing Skin: no rashes, warm and dry Neurologic: moves all extremities and awake; no focal motor deficits Psychiatric: Orientation: alert, oriented to person and cooperative Genitourinary: Hull with dark yellow urine with pink tinge Results & Data Results & Data ([facility]) Vital Signs (Past 12 Hours) Vital Signs Temp Pulse Resp BP Pulse Ox O2 Del Method 03/03/22 07:51 36.6 C 87 18 100/67 97 Room Air 03/03/22 03:44 36.7 C 72 18 104/70 98 Room Air Laboratory Results 03/03/22 03/03/22 Range/Units 07:21 07:21 WBC 0.57 L* (4.8-10.8) K/ul RBC 2.30 L (4.63-6.08) M/uL Hgb 7.2 L (14.0-18.0) g/dl Hct 21.2 L (40.1-51.0) % MCV 92.2 (80.0-100.0) fL MCH 31.3 (25.0-34.0) pg MCHC 34.0 (32.0-36.0) g/dL RDW Std Deviation 50.0 H (36.4-46.3) fL RDW Coeff of Belén 14.8 H (11.5-14.5) % Plt Count 15 L* (130-400) K/uL MPV 12.4 (9.4-12.4) fL Immature Gran % (Auto) 0.0 % Neut % (Auto) 8.8 % Lymph % (Auto) 84.2 % [place] % (Auto) 7.0 % Eos % (Auto) 0.0 % Baso % (Auto) 0.0 % Neut # (Auto) 0.05 L* (1.4-6.5) K/uL Lymph # (Auto) 0.48 L (1.2-3.4) K/uL [place] # (Auto) 0.04 L (0.24-0.82) K/uL Eos # (Auto) 0.00 (0-0.50) K/uL Baso # (Auto) 0.00 (0-0.2) K/uL Immature Gran # (Auto) 0.00 (0.00-0.02) K/uL Acanthocytes (Spur) 1+ Sodium 144 (136-145) mmol/L Potassium 3.6 (3.5-5.1) mmol/L Chloride 111 H (98-107) mmol/L Carbon Dioxide 29 (21-32) mmol/L Anion Gap 4 (3-11) BUN 17 (6-23) mg/dl Creatinine 0.86 (0.6-1.4) mg/dl Est Cr Clr Drug Dosing 98.6 ml/min Est GFR ( Amer) 102.5 ml/min Est GFR (Non-Af Amer) 88.5 ml/min BUN/Creatinine Ratio 19.8 (10-20) Glucose 78 (70-99(Fasting)) mg/dl Calcium 6.7 L (8.5-10.1) mg/dl Phosphorus 2.5 (2.5-4.9) mg/dl Magnesium 1.1 L (1.7-2.4) mg/dl PG Care Time/CCT Total # of Minutes Spent Total Time Spent with Patient: Total time spent is greater than 50% in coordination of care (as documented) at patient's floor/unit and/or counseling patient: Coding Level of Care Code 80078 Subseq Hosp Care Lvl 3 Diagnoses C. difficile diarrhea A04.72 Hypocalcemia E83.51 Hypomagnesemia E83.42 Hypokalemia E87.6 Hypophosphatemia E83.39 Lymphoma C85.90 Pancytopenia due to antineoplastic chemotherapy D61.810; T45.1X5A Emphysematous cystitis N30.80 Neutropenia D70.9 Hypervolemia E87.70 Hematuria R31.9 Acute metabolic encephalopathy G93.41 Benign prostatic hyperplasia with urinary obstruction N40.1; N13.8 Paroxysmal atrial flutter I48.92 Cellulitis L03.90
[2022-03-03] MEDS ORDERED: FILGRASTIM 480 MCG/1.6 ML VIAL SC SCH (13:30)
--- NOTE | 2022-03-03 13:58 | Urology Progress Note ---
Date of Service March 03, 2022 Assessment & Plan (1) Emphysematous cystitis: (2) Hematuria: Plan 71-year-old male with a history of B-cell lymphoma who was admitted to the hospital for hematuria and urinary frequency. CT scan showed emphysematous cystitis with air in both collecting system suggesting ascending infection. Farrar catheter was placed. Blood and urine cultures are negative to date. -Afebrile and hemodynamically stable. -Labs reviewed-White count 0.57, hemoglobin 7.2, creatinine 0.86. -Urine culture negative, blood cultures preliminary negative x48 hours. -Continues on IV Cefepime. -Recommend continuing broad-spectrum antibiotics even in the setting of negative cultures as CT scan is consistent with severe infection. We will need to follow this with repeat imaging in the form of a CT scan of the abdomen and pelvis prior to his discharge. -Continue supportive care and antibiotic therapy. -Maintain Farrar catheter. -Urology will follow. Admission and Anticipated Discharge Date Admission Date: February 26, 2022 Subjective Patient examined at bedside this afternoon. Awake, sitting in bedside chair on arrival. No acute distress. at bedside. Denies any pain or discomfort at present. Farrar catheter intact, draining pink-tinged urine with a few small clots noted in tubing. No fevers. Tolerating diet. Reports feeling a little better today than yesterday. Review of Systems Constitutional: as per Subjective / HPI Genitourinary: + as per Subjective / HPI Physical Exam Constitutional: + ill appearing and + edematous; no acute distress Respiratory: no respiratory distress and no labored breathing Neurologic: awake Psychiatric: Orientation: alert, oriented to person and cooperative Genitourinary: Farrar catheter intact Results & Data ([facility]) Vital Signs (Past 12 Hours) Vital Signs Temp Pulse Resp BP Pulse Ox O2 Del Method 03/03/22 12:00 36.9 C 91 H 18 96/66 L 97 03/03/22 07:51 36.6 C 87 18 100/67 97 Room Air 03/03/22 03:44 36.7 C 72 18 104/70 98 Room Air PG Care Time/CCT Total # of Minutes Spent Total Time Spent with Patient: Total time spent is greater than 50% in coordination of care (as documented) at patient's floor/unit and/or counseling patient: Coding Level of Care Code 10303 Subseq Hosp Care Lvl 2 Diagnoses Emphysematous cystitis N30.80 Hematuria R31.9
[2022-03-03] MEDS: MAGNESIUM OXIDE 400 MG TAB PO SCH ×2 (14:14→20:15)
[2022-03-03] MEDS: COLESTIPOL HCL 1 GM TAB PO SCH ×2 (15:22→21:52)
[2022-03-03] MEDS: HEPARIN 100 UNIT/ML 5ML FLUSH FLUSH PRN (20:21)
[2022-03-04 06:12] LABS: Albumin Globulin Ratio 1.2 (0.9-2); Albumin Level 2.3 gm/dl (3.4-5.0); BUN Creatinine Ratio 17.7 (10-20); Bilirubin,Total 0.9 mg/dl (0.2-1.0); Calcium 6.9 mg/dl (8.5-10.1); Creatinine Clr Calc Pharmacy 86.6 ml/min; Est GFR (African American) 93.1 ml/min; Est GFR (Non-African American) 80.3 ml/min; Globulin 1.9 gm/dl (2.5-4.0); Magnesium 1.4 mg/dl (1.7-2.4); Phosphorus 2.2 mg/dl (2.5-4.9); Total Protein 4.2 gm/dl (6.0-8.3)
[2022-03-04 06:31] LABS: Hematocrit (blood only) 20.4 % (40.1-51.0); Hemoglobin 6.8 g/dl (14.0-18.0); Immature Granulocytes # (auto) 0.01 K/uL (0.00-0.02); Immature Granulocytes % (auto) 0.9 %; Lymphocytes # (auto) 0.61 K/uL (1.2-3.4); Lymphocytes % (auto) 52.6 %; Mean Corpuscular Hemoglobin 31.1 pg (25.0-34.0); Mean Corpuscular Hgb Conc 33.3 g/dL (32.0-36.0); Mean Corpuscular Volume 93.2 fL (80.0-100.0); Mean Platelet Volume 13.4 fL (9.4-12.4); Monocytes # (auto) 0.16 K/uL (0.24-0.82); Monocytes % (auto) 13.8 %; Neutrophils # (auto) 0.38 K/uL (1.4-6.5); Neutrophils % (auto) 32.7 %; Platelet Count 11 K/uL (130-400); RDW Coefficient of Variation 14.6 % (11.5-14.5); RDW Standard Deviation 49.4 fL (36.4-46.3); Red Blood Count 2.19 M/uL (4.63-6.08); White Blood Count 1.16 K/ul (4.8-10.8)
[2022-03-04] MEDS ORDERED: SODIUM CHLORIDE 0.9% 250 ML IV PRN (06:45)
[2022-03-04] MEDS: CETIRIZINE HCL 10 MG TABLET PO SCH (08:32)
[2022-03-04] MEDS: DRONEDARONE HCL 400 MG TAB PO SCH ×2 (08:32→19:41)
[2022-03-04] MEDS: FIDAXOMICIN 200 MG TAB PO SCH ×2 (08:32→19:39)
[2022-03-04] MEDS: CHOLECALCIFEROL 1,000 UNITS 25 MCG TAB PO SCH (08:32)
[2022-03-04] MEDS: FLUCONAZOLE 100 MG TAB PO SCH (08:32)
[2022-03-04] MEDS: allopurinoL 300 MG TAB PO SCH (08:32)
[2022-03-04] MEDS: COLESTIPOL HCL 1 GM TAB PO SCH ×2 (08:32→19:39)
[2022-03-04] MEDS: TRIAMCINOLONE ACET 0.1% CR 15 GM TUBE EXT SCH ×3 (08:32→19:44)
[2022-03-04] MEDS: TAMSULOSIN HCL 0.4 MG CAP PO SCH ×2 (08:32→19:43)
[2022-03-04] MEDS: CALCITRIOL 0.25 MCG CAPSULE PO SCH (08:32)
[2022-03-04] MEDS: ACYCLOVIR 400 MG TAB PO SCH ×2 (08:32→19:42)
[2022-03-04] MEDS: FINASTERIDE 5 MG TAB PO SCH (08:32)
[2022-03-04] MEDS: POT PHOSPHATE MONOBASIC W/ SOD TAB PO SCH ×4 (08:32→19:39)
[2022-03-04] MEDS: MAGNESIUM OXIDE 400 MG TAB PO SCH ×2 (08:32→19:44)
[2022-03-04] MEDS: CYANOCOBALAMIN (B-12) 500 MCG TABLET PO SCH (08:32)
[2022-03-04] MEDS: POTASSIUM CHLORIDE CRTAB 20 MEQ TABCR PO SCH ×3 (08:32→19:41)
[2022-03-04] MEDS: NYSTATIN POWDER 15GM BTL EXT SCH ×3 (08:33→19:44)
[2022-03-04] MEDS: CEFEPIME 2,000 MG in SYRINGE 0 ML IV SCH ×2 (08:37→17:58)
[2022-03-04] MEDS ORDERED: STAT IV STA (08:42)
[2022-03-04] MEDS ORDERED: CALCIUM GLUCONATE 10% 1,000 MG in DEXTROSE 5% 50 ML IV ONE (09:00)
[2022-03-04] MEDS: MAGNESIUM SULFATE / D5W 1 GM/100 ML BAG IV SCH ×2 (09:21→11:35)
--- NOTE | 2022-03-04 09:34 | Nephrology Progress Note ---
Date of Service March 04, 2022 Assessment & Plan (1) Hypomagnesemia: Plan: Wojciech appears to be tolerating PO Magnesium Oxide reasonably well. Continue 400 mg BID. (2) Hypophosphatemia: Plan: K phos 1 tab QID. (3) Hypokalemia: Plan: KCl 40 mEq TID. (4) Hypocalcemia: Plan: Ergocalciferol 48275 units 02/27. Calcitriol 0.25 mcg daily. (5) Hydronephrosis: Plan: Non-oliguric. Kidney function stable. (6) H/O diffuse large B-cell lymphoma: Plan: Clinical condition consistent with proximal tubule dysfunction and renal wasting s/p cisplatin. Poor PO intake. Electrolyte replacement as above. Will require close outpatient follow up and anticipated continued IV replacement in the outpatient setting post discharge. Admission and Anticipated Discharge Date Admission Date: February 26, 2022 Subjective No acute events overnight. Wojciech states that he feels "fine." This morning. He told me that he was surprised that he didn't feel "lousy." Urine is clearning. He'd forgotten that the Farrar catheter is in. He is tolerating PO magnesium reasonably well. Review of Systems Review of Systems: All systems reviewed & are unremarkable except as noted in HPI & below Physical Exam Constitutional: + ill appearing and + edematous; no acute distress Eyes: + anicteric sclerae; no corneal abnormality ENMT: Mouth: no oral mucosal abnormality and oral mucous membranes not dry Neck: normal visual inspection and trachea midline Respiratory: normal respiratory effort Auscultation: lungs clear to auscultation bilaterally and + diminished lung sounds Cardiovascular: Rate/Rhythm: regular rate Heart Sounds: normal S1 and normal S2 Extremities: + edema Gastrointestinal (Abdomen): Percussion/Palpation: abdomen soft; abdomen nontender Musculoskeletal: Extremities: no cyanosis and no clubbing Skin: + turgor decreased and + ecchymosis; no lesions Neurologic: Motor/Sensory: no tremor and no asterixis Psychiatric: Orientation: alert and oriented x 3 Eye Contact: good eye contact Affect: + blunted affect Results & Data ([facility]) Vital Signs (Past 12 Hours) Vital Signs Temp Pulse Pulse Resp BP Pulse Ox O2 Del Method 03/04/22 07:50 36.7 C 80 18 109/65 96 Room Air 03/03/22 23:59 86 03/04/22 03:26 36.7 C 82 16 102/67 94 Room Air 03/03/22 23:00 36.5 C 81 16 96/65 L 98 Laboratory Results Laboratory Results - last 24 hr 03/04/22 03/04/22 03/04/22 05:18 05:18 07:17 WBC 1.16 L RBC 2.19 L Hgb 6.8 L* Hct 20.4 L* MCV 93.2 MCH 31.1 MCHC 33.3 RDW Std Deviation 49.4 H RDW Coeff of Belén 14.6 H Plt Count 11 L* MPV 13.4 H Immature Gran % (Auto) 0.9 Neut % (Auto) 32.7 Lymph % (Auto) 52.6 [place] % (Auto) 13.8 Eos % (Auto) 0.0 Baso % (Auto) 0.0 Neut # (Auto) 0.38 L* Lymph # (Auto) 0.61 L [place] # (Auto) 0.16 L Eos # (Auto) 0.00 Baso # (Auto) 0.00 Immature Gran # (Auto) 0.01 Sodium 141 Potassium 4.0 Chloride 110 H Carbon Dioxide 27 Anion Gap 4 BUN 17 Creatinine 0.96 Est Cr Clr Drug Dosing 86.6 Est GFR ( Amer) 93.1 Est GFR (Non-Af Amer) 80.3 BUN/Creatinine Ratio 17.7 Glucose 73 Calcium 6.9 L Phosphorus 2.2 L Magnesium 1.4 L Total Bilirubin 0.9 AST 14 ALT 15 Alkaline Phosphatase 53 Total Protein 4.2 L Albumin 2.3 L Globulin 1.9 L Albumin/Globulin Ratio 1.2 Blood Type O Positive Antibody Screen NEGATIVE Crossmatch See Detail PG Care Time/CCT Total # of Minutes Spent Total Time Spent with Patient: Total time spent is greater than 50% in coordination of care (as documented) at patient's floor/unit and/or counseling patient: Coding Level of Care Code 74121 Subseq Hosp Care Lvl 3 Diagnoses Hypomagnesemia E83.42 Hypophosphatemia E83.39 Hypokalemia E87.6 Hypocalcemia E83.51 Hydronephrosis N13.30 H/O diffuse large B-cell lymphoma Z85.72
--- NOTE | 2022-03-04 09:36 | Urology Progress Note ---
Date of Service March 04, 2022 Assessment & Plan (1) Emphysematous cystitis: (2) Hematuria: Plan 71-year-old male with a history of B-cell lymphoma who was admitted to the hospital for hematuria and urinary frequency. CT scan showed emphysematous cystitis with air in both collecting system suggesting ascending infection. Farrar catheter was placed. Blood and urine cultures are negative to date. -Afebrile and hemodynamically stable. -Labs reviewed-White count 1.16, hemoglobin 6.8, creatinine 0.96. -Urine and blood cultures negative. -Continues on IV Cefepime. -Recommend continuing broad-spectrum antibiotics even in the setting of negative cultures as CT scan is consistent with severe infection. We will need to follow this with repeat imaging in the form of a CT scan of the abdomen and pelvis prior to his discharge. -Maintain Farrar catheter. This likely will need to be in for 1 to 2 weeks. Hematuria is minimal and appears to be resolving. -Continue supportive care and antibiotic therapy. -Urology will follow peripherally. Admission and Anticipated Discharge Date Admission Date: February 26, 2022 Supervising Physician Co-Signing Physician Notes I have discussed Mr. Jacobsen' case with ISAI Mitchell and agree with the above documentation. Subjective Pt examined at bedside this AM. Awake, resting in bed on arrival. No acute distress. Reports he is feeling ok. No fevers. Farrar catheter intact, draining clear yellow urine. Denies any pain or discomfort. Review of Systems Constitutional: as per Subjective / HPI Genitourinary: + as per Subjective / HPI Physical Exam Constitutional: + ill appearing and + edematous; no acute distress Respiratory: no respiratory distress and no labored breathing Neurologic: awake Psychiatric: Orientation: alert, oriented to person and cooperative Genitourinary: Farrar catheter intact Results & Data ([facility]) Vital Signs (Past 12 Hours) Vital Signs Temp Pulse Pulse Resp BP Pulse Ox O2 Del Method 03/04/22 07:50 36.7 C 80 18 109/65 96 Room Air 03/03/22 23:59 86 03/04/22 03:26 36.7 C 82 16 102/67 94 Room Air 03/03/22 23:00 36.5 C 81 16 96/65 L 98 PG Care Time/CCT Total # of Minutes Spent Total Time Spent with Patient: Total time spent is greater than 50% in coordination of care (as documented) at patient's floor/unit and/or counseling patient: Coding Level of Care Code 98520 Subseq Hosp Care Lvl 2 Diagnoses Emphysematous cystitis N30.80 Hematuria R31.9
--- NOTE | 2022-03-04 15:48 | Hospitalist Progress Note ---
Date of Service March 04, 2022 Assessment & Plan (1) Pancytopenia due to antineoplastic chemotherapy: Plan: severe. Recently started chemotherapy in the last 2 weeks at [facility] with severe neutropenia now improving with multiple doses of Neupogen s/p transfusion of 1 unit PRBCs and 1 unit platelets - 02/28. s/p transfusion of 1 unit platelets 03/01. no significant response to transfusional support. Had some hematuria which is now resolved Hemoglobin down to 6.8 today-we will give 2 units PRBCs repeat CBC w/ diff AM. -Give another dose of Neupogen today (2) C. difficile diarrhea: Plan: gene +, toxin negative, but I do believe he has active infection. Diarrhea is now significantly improved Continue dificid 200mg BID - plan 10 days of Rx. last day tx will be 03/09/22 Discontinue rectal tube continue colestipol 1gm BID for bulking. cont contact precautions. (3) Hypocalcemia: Plan: Discharge summary obtained from [facility] and patient received induction chemotherapy consisting of "ESHAP" therapy on 02/18 and ending 02/23. ESHAP includes etoposide, methylprednisolone, cisplatin, and cytarabine. I believe that the profound electrolyte disturbances seen are due to cisplatin induced nephrotoxicity. Appreciate Dr Milan's consultation from nephrology. Will give IV calcium gluconate replacement again today. Continue calcitriol 0.25mcg daily. s/p Ergocalciferol 37816 units x 1 given this past weekend. Serial BMP/mag/phos/K. Replete other lytes with IV mag, po mag, po KCl Continue telemetry status. (4) Hypomagnesemia: Plan: Suspect 2nd to cisplatin induced renal dysfunction/nephrotoxicity. Also with GI loss from diarrhea, and not really eating mag-rich foods either. Large amounts of IV magnesium sulfate given since admission. Remains refractory. Give additional IV mag sulfate today in addition to p.o. Repeat mag level am. may add amiloride as per Nephro if BPs can tolerate (5) Hypokalemia: Plan: Resolved. Continue KCL 40meq PO TID but LIKELY WILL NEED TO CUT THIS BACK-continue same for now Potassium in K-phos supplementation will help as well. Serial labs. Fix the low mag and low calcium. (6) Hypophosphatemia: Plan: Improved with replacement -Continue K-phos neutral PO. (7) Lymphoma: Plan: B-Cell Lymphoma. Recurrence. Hospitalized here at [facility] from 01/29/22 to 02/15/22 at which time he was transferred to [facility] in [place]. Underwent ESHAP induction chemotherapy regimen starting 02/18 and ending 02/23. D/c from hospital 02/24, then received Rituxan & neulasta at that time. MRI brain negative during stay in [place] for evidence of lymphoma. However, LP with cytology + for malignant cells. Intra-thecal methotrexate being planned under the care of Dr Gonsalves in [place]. Formal oncology consult by Dr Ruvalcaba appreciated. received daily neupogen injections for severe neutropenia. Neutropenic precautions. Continue broad-spectrum abx as below. (8) Emphysematous cystitis: Plan: Formal consult placed to urology. They advise ongoing cefepime/daptomycin for UTI coverage despite negative urine culture. Unfortunately, the daptomycin it seems dropped off the MAR after his dose on the and he missed doses on 02/25-02/2026 -Restart daptomycin on 03/04 and continue cefepime as before Continue hull for 1-2 weeks as recommended by urology They will continue to follow him. Last day of tx will be 03/08 (9) Neutropenia: Plan: Continue neutropenic precautions. Improving today Neupogen 480 mcg subcu daily until ANC greater than [address] Ruvalcaba. WIll give another dose today Continue on chronic suppressive therapy with fluconazole 200 mg p.o. daily and acyclovir 800 mg p.o. twice daily while ANC less than 1000. Holding home Levaquin while on Cefepime (10) Hypervolemia: Plan: Likely multifactorial - copious IV fluids between the previous hospital stay here and his stay in [place], hypoalbuminemia, low-normal systolic LV function (50-55% EF on echo), steroids, etc. Poor candidate for diuretics given his profound electrolyte disturbances. Fortunately his respiratory status remains stable. And it appears he is beginning to "auto-diurese." Edema seems improved Follow. (11) Hematuria: Plan: Eliquis use, low platelets, UTI, other factors likely all playing roles. Eliquis on hold for bleeding and also for low plts, will continue to hold Eliquis. Antibiotics in place. s/p 2 units of platelets since admission. Hematuria now resolved Monitor H/H which did drop further today-transfusing Monitor platelet count. Urology consultation appreciated. (12) Acute metabolic encephalopathy: Plan: Resolved 2nd UTI Cont abx, supportive care. (13) Benign prostatic hyperplasia with urinary obstruction: Plan: Cont flomax Cont finasteride Cont hull (14) Paroxysmal atrial flutter: Plan: There was concern for rapid a.fib at admission but formal reading on EKG was NSR with ectopy. Overnight again he was in NSR. HOLD ELIQUIS. Cont multaq. Cont telemetry. (15) Cellulitis: Plan: b/l inner thighs and posterior left leg cefepime/daptomycin for UTI should suffice appears improved serial exams Plan VTE Prophylaxis - SCDs only; chemical means contraindicated Plan of care extensively discussed with pt's at bedside once again PT/OT consults placed and he will need rehab-possibly in the next 2 to 3 days Admission and Anticipated Discharge Date Admission Date: February 26, 2022 Subjective Patient has no complaints today. Remains with short-term memory loss at baseline. He is eating well today. He has no further blood in his Hull bag. He has not had any further diarrhea output from his rectal tube. Telemetry with normal sinus rhythm, rates in the 80s to 90s, some multifocal PVCs and couplets. Review of Systems Review of Systems: All systems reviewed & are unremarkable except as noted in HPI & below Physical Exam Constitutional: WD/WN, vitals as above Eyes: + anicteric sclerae Neck: trachea midline, no thyromegaly Respiratory: normal respiratory effort, lungs clear to auscultation Cardiovascular: Rate/Rhythm: regular rate and regular rhythm Heart Sounds: no murmur Extremities: + edema (2+ pitting edema legs,improved from previous) Gastrointestinal (Abdomen): normal bowel sounds, soft, nontender, no hepatosplenomegaly Musculoskeletal: Extremities: extremities normal to inspection; no cyanosis and no clubbing Skin: no rashes, warm and dry Neurologic: moves all extremities and awake; no focal motor deficits Psychiatric: Orientation: alert, oriented to person and cooperative Results & Data Results & Data ([facility]) Vital Signs (Past 12 Hours) Vital Signs Temp Pulse Pulse Resp BP BP Pulse Ox 03/04/22 12:51 36.7 C 86 18 104/69 97 07/27/22 13:17 36.8 C 61 16 101/66 95 03/04/22 12:32 36.8 C 86 18 127/81 98 03/04/22 11:38 36.8 C 84 19 105/69 03/04/22 11:08 36.9 C 85 17 109/72 98 03/04/22 10:53 36.8 C 77 17 111/70 98 03/04/22 10:33 36.9 C 89 109/70 95 03/04/22 07:50 36.7 C 80 18 109/65 96 O2 Del Method 03/04/22 12:51 03/04/22 13:17 03/04/22 12:32 03/04/22 11:38 03/04/22 11:08 03/04/22 10:53 03/04/22 10:33 03/04/22 07:50 Room Air Laboratory Results 03/04/22 03/04/22 03/04/22 Range/Units 07:17 05:18 05:18 WBC 1.16 L (4.8-10.8) K/ul RBC 2.19 L (4.63-6.08) M/uL Hgb 6.8 L* (14.0-18.0) g/dl Hct 20.4 L* (40.1-51.0) % MCV 93.2 (80.0-100.0) fL MCH 31.1 (25.0-34.0) pg MCHC 33.3 (32.0-36.0) g/dL RDW Std Deviation 49.4 H (36.4-46.3) fL RDW Coeff of Belén 14.6 H (11.5-14.5) % Plt Count 11 L* (130-400) K/uL MPV 13.4 H (9.4-12.4) fL Immature Gran % (Auto) 0.9 % Neut % (Auto) 32.7 % Lymph % (Auto) 52.6 % [place] % (Auto) 13.8 % Eos % (Auto) 0.0 % Baso % (Auto) 0.0 % Neut # (Auto) 0.38 L* (1.4-6.5) K/uL Lymph # (Auto) 0.61 L (1.2-3.4) K/uL [place] # (Auto) 0.16 L (0.24-0.82) K/uL Eos # (Auto) 0.00 (0-0.50) K/uL Baso # (Auto) 0.00 (0-0.2) K/uL Immature Gran # (Auto) 0.01 (0.00-0.02) K/uL Sodium 141 (136-145) mmol/L Potassium 4.0 (3.5-5.1) mmol/L Chloride 110 H (98-107) mmol/L Carbon Dioxide 27 (21-32) mmol/L Anion Gap 4 (3-11) BUN 17 (6-23) mg/dl Creatinine 0.96 (0.6-1.4) mg/dl Est Cr Clr Drug Dosing 86.6 ml/min Est GFR ( Amer) 93.1 ml/min Est GFR (Non-Af Amer) 80.3 ml/min BUN/Creatinine Ratio 17.7 (10-20) Glucose 73 (70-99(Fasting)) mg/dl Calcium 6.9 L (8.5-10.1) mg/dl Phosphorus 2.2 L (2.5-4.9) mg/dl Magnesium 1.4 L (1.7-2.4) mg/dl Total Bilirubin 0.9 (0.2-1.0) mg/dl AST 14 (13-39) U/L ALT 15 (7-52) U/L Alkaline Phosphatase 53 (34-104) U/L Total Protein 4.2 L (6.0-8.3) gm/dl Albumin 2.3 L (3.4-5.0) gm/dl Globulin 1.9 L (2.5-4.0) gm/dl Albumin/Globulin Ratio 1.2 (0.9-2) Blood Type O Positive Antibody Screen NEGATIVE Crossmatch See Detail PG Care Time/CCT Total # of Minutes Spent Total Time Spent with Patient: Total time spent is greater than 50% in coordination of care (as documented) at patient's floor/unit and/or counseling patient: Coding Level of Care Code 58827 Subseq Hosp Care Lvl 3 Diagnoses Pancytopenia due to antineoplastic chemotherapy D61.810; T45.1X5A C. difficile diarrhea A04.72 Hypocalcemia E83.51 Hypomagnesemia E83.42 Hypokalemia E87.6 Hypophosphatemia E83.39 Lymphoma C85.90 Emphysematous cystitis N30.80 Neutropenia D70.9 Hypervolemia E87.70 Hematuria R31.9 Acute metabolic encephalopathy G93.41 Benign prostatic hyperplasia with urinary obstruction N40.1; N13.8 Paroxysmal atrial flutter I48.92 Cellulitis L03.90
[2022-03-04] MEDS ORDERED: FILGRASTIM 480 MCG/1.6 ML VIAL SC ONE (16:00)
[2022-03-04] MEDS: DAPTOmycin 450 MG in SYRINGE 0 ML IV SCH (22:27)
[2022-03-05 08:25] LABS: BUN Creatinine Ratio 18.4 (10-20); Calcium 7.5 mg/dl (8.5-10.1); Creatinine Clr Calc Pharmacy 84.8 ml/min; Est GFR (African American) 90.8 ml/min; Est GFR (Non-African American) 78.4 ml/min; Potassium 3.8 mmol/L (3.5-5.1)
[2022-03-05] MEDS: CEFEPIME 2,000 MG in SYRINGE 0 ML IV SCH ×2 (08:30→21:59)
[2022-03-05 08:54] LABS: Hematocrit (blood only) 23.8 % (40.1-51.0); Hemoglobin 8.2 g/dl (14.0-18.0); Mean Corpuscular Hemoglobin 30.1 pg (25.0-34.0); Mean Corpuscular Hgb Conc 34.5 g/dL (32.0-36.0); Mean Corpuscular Volume 87.5 fL (80.0-100.0); Mean Platelet Volume 13.9 fL (9.4-12.4); Nucleated RBC # (auto) 0.03 K/uL (0-0); Nucleated RBC % (auto) 0.5 %; Platelet Count 15 K/uL (130-400); RDW Coefficient of Variation 15.9 % (11.5-14.5); Red Blood Count 2.72 M/uL (4.63-6.08); White Blood Count 5.85 K/ul (4.8-10.8)
[2022-03-05 09:05] LABS: Albumin Globulin Ratio 1.2 (0.9-2); Albumin Level 2.4 gm/dl (3.4-5.0); Bilirubin,Total 0.8 mg/dl (0.2-1.0); Phosphorus 2.9 mg/dl (2.5-4.9); Total Protein 4.4 gm/dl (6.0-8.3)
[2022-03-05 09:20] LABS: Magnesium 1.2 mg/dl (1.7-2.4)
[2022-03-05] MEDS: FIDAXOMICIN 200 MG TAB PO SCH ×2 (09:36→22:43)
[2022-03-05] MEDS: CETIRIZINE HCL 10 MG TABLET PO SCH (09:37)
[2022-03-05] MEDS: POTASSIUM CHLORIDE CRTAB 20 MEQ TABCR PO SCH ×3 (09:37→22:43)
[2022-03-05] MEDS: TAMSULOSIN HCL 0.4 MG CAP PO SCH ×2 (09:37→22:45)
[2022-03-05] MEDS: ACYCLOVIR 400 MG TAB PO SCH ×2 (09:37→22:42)
[2022-03-05] MEDS: FLUCONAZOLE 100 MG TAB PO SCH (09:38)
[2022-03-05] MEDS: FINASTERIDE 5 MG TAB PO SCH (09:38)
[2022-03-05] MEDS: DRONEDARONE HCL 400 MG TAB PO SCH ×2 (09:38→22:46)
[2022-03-05] MEDS: allopurinoL 300 MG TAB PO SCH (09:39)
[2022-03-05] MEDS: MAGNESIUM OXIDE 400 MG TAB PO SCH ×2 (09:39→22:44)
[2022-03-05] MEDS: POT PHOSPHATE MONOBASIC W/ SOD TAB PO SCH ×4 (09:39→22:42)
[2022-03-05] MEDS: CHOLECALCIFEROL 1,000 UNITS 25 MCG TAB PO SCH (09:39)
[2022-03-05] MEDS: COLESTIPOL HCL 1 GM TAB PO SCH ×2 (09:40→22:47)
[2022-03-05] MEDS: CALCITRIOL 0.25 MCG CAPSULE PO SCH (09:40)
[2022-03-05] MEDS: CYANOCOBALAMIN (B-12) 500 MCG TABLET PO SCH (09:40)
[2022-03-05] MEDS: TRIAMCINOLONE ACET 0.1% CR 15 GM TUBE EXT SCH ×3 (09:41→22:43)
[2022-03-05] MEDS: NYSTATIN POWDER 15GM BTL EXT SCH ×3 (09:41→22:43)
[2022-03-05 11:02] LABS: ALC (manual) 3.04 K/uL (1.2-3.4); ANC (manual) 2.34 K/uL (1.4-6.5); Acanthocytes 1+; Blast # (manual) 0.12 K/uL (0-0); Blast Cells % (manual) 2 %; Echinocytes 1+; Eosinophils # (manual) 0.06 K/uL (0-0.50); Eosinophils % (manual) 1 %; Lymphocytes # (manual) 3.04 K/uL (1.2-3.4); Lymphocytes % (manual) 52 %; Metamyelocytes # (manual) 0.06 K/uL (0-0); Metamyelocytes % (manual) 1 %; Monocytes # (manual) 0.18 K/uL (0.24-0.82); Monocytes % (manual) 3 %; Myelocytes # (manual) 0.12 K/uL (0-0); Myelocytes % (manual) 2 %; Neutrophils # (manual) 2.34 K/uL (1.4-6.5); Neutrophils % (manual) 40 %; Ovalocytes 1+
[2022-03-05] MEDS: MAGNESIUM SULFATE / D5W 1 GM/100 ML BAG IV SCH ×5 (11:33→19:52)
--- NOTE | 2022-03-05 12:11 | Hospitalist Progress Note ---
Date of Service March 05, 2022 Assessment & Plan (1) Pancytopenia due to antineoplastic chemotherapy: Plan: severe. Recently started chemotherapy in the last 2 weeks at [facility] with severe neutropenia now improving with multiple doses of Neupogen s/p transfusion of 1 unit PRBCs and 1 unit platelets - 02/28. s/p transfusion of 1 unit platelets 03/01. Had some hematuria which is now resolved Hemoglobin down to 6.8 on 03/04 and received 2 units PRBCs All cell counts rising today, neutropenia resolved With blasts on diff but likely as response to bone marrow recovery and neupogen (2) C. difficile diarrhea: Plan: gene +, toxin negative, but I do believe he has active infection. Diarrhea is now significantly improved Continue dificid 200mg BID - plan 10 days of Rx. last day tx will be 03/09/22 Discontinue rectal tube-again discussed with nursing today who will remove continue colestipol 1gm BID for bulking. cont contact precautions. (3) Hypocalcemia: Plan: Discharge summary obtained from [facility] and patient received induction chemotherapy consisting of "ESHAP" therapy on 02/18 and ending 02/23. ESHAP includes etoposide, methylprednisolone, cisplatin, and cytarabine. I believe that the profound electrolyte disturbances seen are due to cisplatin induced nephrotoxicity. Appreciate Dr Milan's consultation from nephrology. Calcium levels finally now improved with many doses of replacement both IV and po Continue calcitriol 0.25mcg daily. s/p Ergocalciferol 55345 units x 1 given this past weekend. Serial BMP/mag/phos/K. Replete other lytes with IV mag, po mag, po KCl Continue telemetry status. (4) Hypomagnesemia: Plan: Suspect 2nd to cisplatin induced renal dysfunction/nephrotoxicity. Also with GI loss from diarrhea, and not really eating mag-rich foods either. Large amounts of IV magnesium sulfate given since admission. Remains refractory. Give additional 5 grams IV mag sulfate today in addition to p.o. Repeat mag level am. may add amiloride as per Nephro if BPs can tolerate although they remain soft today (5) Hypokalemia: Plan: Resolved. Continue KCL 40meq PO TID but LIKELY WILL NEED TO CUT THIS BACK-continue same for now Potassium in K-phos supplementation will help as well. Serial labs. Fix the low mag and low calcium. (6) Hypophosphatemia: Plan: Improved with replacement -Continue K-phos neutral PO. (7) Lymphoma: Plan: B-Cell Lymphoma. Recurrence. Hospitalized here at [facility] from 01/29/22 to 02/15/22 at which time he was transferred to [facility] in [place]. Underwent ESHAP induction chemotherapy regimen starting 02/18 and ending 02/23. D/c from hospital 02/24, then received Rituxan & neulasta at that time. MRI brain negative during stay in [place] for evidence of lymphoma. However, LP with cytology + for malignant cells. Intra-thecal methotrexate being planned under the care of Dr Gonsalves in [place]. Formal oncology consult by Dr Ruvalcaba appreciated. Asked Dr. Ruvalcaba to see patient and talk to again today about multiple questions regarding his future therapy received daily neupogen injections for severe neutropenia. Neutropenic precautions. Continue broad-spectrum abx as below. (8) Emphysematous cystitis: Plan: Formal consult placed to urology. They advise ongoing cefepime/daptomycin for UTI coverage despite negative urine culture. Unfortunately, the daptomycin it seems dropped off the MAR after his dose on the and he missed doses on 02/25-02/2026 -Restarted daptomycin on 03/04 and continue cefepime as before Continue hull for 1-2 weeks as recommended by urology and will need outpt Urology f/u for TOV They will continue to follow him. Last day of tx will be 03/08 (9) Neutropenia: Plan: Now resolved with multiple doses neupogen Continue on chronic suppressive therapy with fluconazole 200 mg p.o. daily and acyclovir 800 mg p.o. twice daily Holding home Levaquin while on Cefepime (10) Hypervolemia: Plan: Likely multifactorial - copious IV fluids between the previous hospital stay here and his stay in [place], hypoalbuminemia, low-normal systolic LV function (50-55% EF on echo), steroids, etc. Poor candidate for diuretics given his profound electrolyte disturbances. Fortunately his respiratory status remains stable. And it appears he is beginning to "auto-diurese." Edema continues to improve daily Follow. (11) Hematuria: Plan: Eliquis use, low platelets, UTI, other factors likely all playing roles. Eliquis on hold for bleeding and also for low plts, will continue to hold Eliquis. Antibiotics in place. s/p 2 units of platelets since admission. Hematuria now resolved Monitor H/H Monitor platelet count. Urology consultation appreciated. (12) Acute metabolic encephalopathy: Plan: Was Resolved, now seems to have returned on 03/05-was agitated, sleeping more than usual No fevers, and UTI adequately treated, cellulitis on thighs improving Cont abx, supportive care. Maintain good sleep/wake cycle, will ask PT to get OOB to chair today Also has ongoing back pain from being in bed a lot--> treat with tylenol as needed (13) Benign prostatic hyperplasia with urinary obstruction: Plan: Cont flomax Cont finasteride Cont hull (14) Paroxysmal atrial flutter: Plan: There was concern for rapid a.fib at admission but formal reading on EKG was NSR with ectopy. Overnight again he was in NSR. HOLD ELIQUIS due to anemia and thrombocytopenia Cont multaq. Cont telemetry. (15) Cellulitis: Plan: b/l inner thighs and posterior left thigh -improving cefepime/daptomycin for UTI should suffice appears improved serial exams Plan VTE Prophylaxis - SCDs only; chemical means contraindicated Plan of care extensively discussed with pt's at bedside once again PT/OT consults placed and he will need rehab-possibly in the next 2 to 3 days Admission and Anticipated Discharge Date Admission Date: February 26, 2022 Subjective Pt agitated this AM and yelling at times. Wants to be left alone. RN got in report overnight that he was frequently yelling out. He is c/o back pain to his and RN but refusing to take tylenol. No significant output in rectal tube-remained in place since yesterday despite order to discontinue such. RN reports pt has been sleeping most of the morning. Review of Systems Review of Systems: Unobtainable due to cognitive status Physical Exam Constitutional: WD/WN, vitals as above Eyes: + anicteric sclerae Neck: trachea midline, no thyromegaly Respiratory: normal respiratory effort, lungs clear to auscultation Cardiovascular: Rate/Rhythm: regular rate and regular rhythm Heart Sounds: no murmur Extremities: + edema (1+ pitting edema legs,improved from previous) Gastrointestinal (Abdomen): normal bowel sounds, soft, nontender, no hepatosplenomegaly Musculoskeletal: Extremities: extremities normal to inspection; no cyanosis and no clubbing Skin: + erythema (mild right inner thigh and left posterior thigh) Neurologic: + not awake Genitourinary: Hull in place with clear yellow urine Results & Data Results & Data ([facility]) Vital Signs (Past 12 Hours) Vital Signs Temp Pulse Pulse Resp BP Pulse Ox O2 Del Method 03/05/22 11:12 36.7 C 87 20 93/56 L 92 Room Air 03/05/22 06:12 90 03/05/22 07:55 37.4 C 84 20 118/73 92 Room Air 03/05/22 03:31 36.7 C 87 20 118/74 92 Room Air Laboratory Results 03/05/22 03/05/22 03/04/22 Range/Units 06:47 06:47 07:17 WBC 5.85 (4.8-10.8) K/ul RBC 2.72 L (4.63-6.08) M/uL Hgb 8.2 L (14.0-18.0) g/dl Hct 23.8 L (40.1-51.0) % MCV 87.5 D (80.0-100.0) fL MCH 30.1 (25.0-34.0) pg MCHC 34.5 (32.0-36.0) g/dL RDW Std Deviation 51.0 H (36.4-46.3) fL RDW Coeff of Belén 15.9 H (11.5-14.5) % Plt Count 15 L* (130-400) K/uL MPV 13.9 H (9.4-12.4) fL Absolute Nucleated RBC 0.03 H (0-0) K/uL Nucleated RBC % (auto) 0.5 % Neutrophils % (Manual) 40 % Lymphocytes % (Manual) 52 % Monocytes % (Manual) 3 % Eosinophils % (Manual) 1 % Metamyelocytes % (Man) 1 % Myelocytes % (Man) 2 % Blast Cells % (Manual) 2 % Neutrophils # (Manual) 2.34 (1.4-6.5) K/uL Total Absolute Neuts 2.34 (1.4-6.5) K/uL Lymphocytes # (Manual) 3.04 (1.2-3.4) K/uL Total Abs Lymphocytes 3.04 (1.2-3.4) K/uL Monocytes # (Manual) 0.18 L (0.24-0.82) K/uL Eosinophils # (Manual) 0.06 (0-0.50) K/uL Metamyelocytes # (Man) 0.06 H (0-0) K/uL Myelocytes # (Manual) 0.12 H (0-0) K/uL Blast Cells # (Man) 0.12 H (0-0) K/uL Blood Smear Review Pending Ovalocytes 1+ Echinocytes 1+ Acanthocytes (Spur) 1+ Sodium 144 (136-145) mmol/L Potassium 3.8 (3.5-5.1) mmol/L Chloride 112 H (98-107) mmol/L Carbon Dioxide 27 (21-32) mmol/L Anion Gap 5 (3-11) BUN 18 (6-23) mg/dl Creatinine 0.98 (0.6-1.4) mg/dl Est Cr Clr Drug Dosing 84.8 ml/min Est GFR ( Amer) 90.8 ml/min Est GFR (Non-Af Amer) 78.4 ml/min BUN/Creatinine Ratio 18.4 (10-20) Glucose 74 (70-99(Fasting)) mg/dl Calcium 7.5 L (8.5-10.1) mg/dl Phosphorus 2.9 (2.5-4.9) mg/dl Magnesium 1.2 L (1.7-2.4) mg/dl Total Bilirubin 0.8 (0.2-1.0) mg/dl AST 18 (13-39) U/L ALT 15 (7-52) U/L Alkaline Phosphatase 61 (34-104) U/L Total Protein 4.4 L (6.0-8.3) gm/dl Albumin 2.4 L (3.4-5.0) gm/dl Globulin 2.0 L (2.5-4.0) gm/dl Albumin/Globulin Ratio 1.2 (0.9-2) Blood Type O Positive Antibody Screen NEGATIVE Crossmatch See Detail PG Care Time/CCT Total # of Minutes Spent Total Time Spent with Patient: Total time spent is greater than 50% in coordination of care (as documented) at patient's floor/unit and/or counseling patient: Coding Level of Care Code 66067 Subseq Hosp Care Lvl 3 Diagnoses Pancytopenia due to antineoplastic chemotherapy D61.810; T45.1X5A C. difficile diarrhea A04.72 Hypocalcemia E83.51 Hypomagnesemia E83.42 Hypokalemia E87.6 Hypophosphatemia E83.39 Lymphoma C85.90 Emphysematous cystitis N30.80 Neutropenia D70.9 Hypervolemia E87.70 Hematuria R31.9 Acute metabolic encephalopathy G93.41 Benign prostatic hyperplasia with urinary obstruction N40.1; N13.8 Paroxysmal atrial flutter I48.92 Cellulitis L03.90
--- NOTE | 2022-03-05 12:18 | Nephrology Progress Note ---
Date of Service March 05, 2022 Assessment & Plan (1) Hypomagnesemia: Plan: Continue Magnesium oxide 400 mg PO BID. (2) Hypophosphatemia: Plan: K phos 1 tab QID. (3) Hypokalemia: Plan: KCl 40 mEq TID. (4) Hypocalcemia: Plan: Ergocalciferol 73716 units 02/27. Calcitriol 0.25 mcg daily. (5) Hydronephrosis: Plan: Non-oliguric. Kidney function stable. (6) H/O diffuse large B-cell lymphoma: Plan: Clinical condition consistent with proximal tubule dysfunction and renal wasting s/p cisplatin. Poor PO intake. Electrolyte replacement as above. Will require close outpatient follow up and anticipated continued IV replacement in the outpatient setting post discharge. Monitor CK weekly on daptomycin. Admission and Anticipated Discharge Date Admission Date: February 26, 2022 Subjective No acute events overnight. No complaints this AM. Review of Systems Review of Systems: All systems reviewed & are unremarkable except as noted in HPI & below Physical Exam Constitutional: + ill appearing and + edematous; no acute distress Eyes: + anicteric sclerae; no corneal abnormality ENMT: Mouth: no oral mucosal abnormality and oral mucous membranes not dry Neck: normal visual inspection and trachea midline Respiratory: normal respiratory effort Auscultation: lungs clear to auscultation bilaterally and + diminished lung sounds Cardiovascular: Rate/Rhythm: regular rate Heart Sounds: normal S1 and normal S2 Extremities: + edema Gastrointestinal (Abdomen): Percussion/Palpation: abdomen soft; abdomen nontender Musculoskeletal: Extremities: no cyanosis and no clubbing Skin: + turgor decreased and + ecchymosis; no lesions Neurologic: Motor/Sensory: no tremor and no asterixis Psychiatric: Orientation: alert and oriented x 3 Eye Contact: good eye contact Affect: + blunted affect Results & Data ([facility]) Vital Signs (Past 12 Hours) Vital Signs Temp Pulse Pulse Resp BP Pulse Ox O2 Del Method 03/05/22 11:12 36.7 C 87 20 93/56 L 92 Room Air 03/05/22 06:12 90 03/05/22 07:55 37.4 C 84 20 118/73 92 Room Air 03/05/22 03:31 36.7 C 87 20 118/74 92 Room Air Laboratory Results Laboratory Results - last 24 hr 03/04/22 03/05/2203/05/22 07:17 06:47 06:47 WBC 5.85 RBC 2.72 L Hgb 8.2 L Hct 23.8 L MCV 87.5 D MCH 30.1 MCHC 34.5 RDW Std Deviation 51.0 H RDW Coeff of Belén 15.9 H Plt Count 15 L* MPV 13.9 H Absolute Nucleated RBC 0.03 H Nucleated RBC % (auto) 0.5 Neutrophils % (Manual) 40 Lymphocytes % (Manual) 52 Monocytes % (Manual) 3 Eosinophils % (Manual) 1 Metamyelocytes % (Man) 1 Myelocytes % (Man) 2 Blast Cells % (Manual) 2 Neutrophils # (Manual) 2.34 Total Absolute Neuts 2.34 Lymphocytes # (Manual) 3.04 Total Abs Lymphocytes 3.04 Monocytes # (Manual) 0.18 L Eosinophils # (Manual) 0.06 Metamyelocytes # (Man) 0.06 H Myelocytes # (Manual) 0.12 H Blast Cells # (Man) 0.12 H Blood Smear Review Pending Ovalocytes 1+ Echinocytes 1+ Acanthocytes (Spur) 1+ Sodium 144 Potassium 3.8 Chloride 112 H Carbon Dioxide 27 Anion Gap 5 BUN 18 Creatinine 0.98 Est Cr Clr Drug Dosing 84.8 Est GFR ( Amer) 90.8 Est GFR (Non-Af Amer) 78.4 BUN/Creatinine Ratio 18.4 Glucose 74 Calcium 7.5 L Phosphorus 2.9 Magnesium 1.2 L Total Bilirubin 0.8 AST 18 ALT 15 Alkaline Phosphatase 61 Total Protein 4.4 L Albumin 2.4 L Globulin 2.0 L Albumin/Globulin Ratio 1.2 Blood Type O Positive Antibody Screen NEGATIVE Crossmatch See Detail PG Care Time/CCT Total # of Minutes Spent Total Time Spent with Patient: Total time spent is greater than 50% in coordination of care (as documented) at patient's floor/unit and/or counseling patient: Coding Level of Care Code 81706 Subseq Hosp Care Lvl 3 Diagnoses Hypomagnesemia E83.42 Hypophosphatemia E83.39 Hypokalemia E87.6 Hypocalcemia E83.51 Hydronephrosis N13.30 H/O diffuse large B-cell lymphoma Z85.72
[2022-03-05] MEDS: DAPTOmycin 450 MG in SYRINGE 0 ML IV SCH (21:59)
[2022-03-06 07:05] LABS: BUN Creatinine Ratio 15.7 (10-20); Calcium 7.5 mg/dl (8.5-10.1); Creatinine Clr Calc Pharmacy 79.9 ml/min; Est GFR (African American) 86.5 ml/min; Est GFR (Non-African American) 74.6 ml/min; Magnesium 1.6 mg/dl (1.7-2.4); Phosphorus 3.2 mg/dl (2.5-4.9); Potassium 4.2 mmol/L (3.5-5.1)
[2022-03-06 07:26] LABS: ALC (manual) 1.63 K/uL (1.2-3.4); ANC (manual) 12.14 K/uL (1.4-6.5); Acanthocytes 2+; Hematocrit (blood only) 25.5 % (40.1-51.0); Hemoglobin 8.7 g/dl (14.0-18.0); Lymphocytes # (manual) 1.63 K/uL (1.2-3.4); Lymphocytes % (manual) 11 %; Mean Corpuscular Hemoglobin 30.7 pg (25.0-34.0); Mean Corpuscular Hgb Conc 34.1 g/dL (32.0-36.0); Mean Corpuscular Volume 90.1 fL (80.0-100.0); Mean Platelet Volume 11.8 fL (9.4-12.4); Metamyelocytes # (manual) 0.44 K/uL (0-0); Metamyelocytes % (manual) 3 %; Monocytes % (manual) 2 %; Myelocytes % (manual) 2 %; Neutrophils # (manual) 12.14 K/uL (1.4-6.5); Neutrophils % (manual) 82 %; Nucleated RBC # (auto) 0.03 K/uL (0-0); Nucleated RBC % (auto) 0.2 %; Platelet Count 21 K/uL (130-400); RDW Coefficient of Variation 15.8 % (11.5-14.5); Red Blood Count 2.83 M/uL (4.63-6.08); White Blood Count 14.81 K/ul (4.8-10.8)
[2022-03-06] MEDS: CEFEPIME 2,000 MG in SYRINGE 0 ML IV SCH ×2 (09:14→20:49)
[2022-03-06] MEDS: MAGNESIUM SULFATE / D5W 1 GM/100 ML BAG IV SCH ×2 (09:15→11:10)
[2022-03-06] MEDS: ACYCLOVIR 400 MG TAB PO SCH ×2 (09:15→20:50)
[2022-03-06] MEDS: allopurinoL 300 MG TAB PO SCH (09:16)
[2022-03-06] MEDS: CETIRIZINE HCL 10 MG TABLET PO SCH (09:17)
[2022-03-06] MEDS: CALCITRIOL 0.25 MCG CAPSULE PO SCH (09:17)
[2022-03-06] MEDS: CHOLECALCIFEROL 1,000 UNITS 25 MCG TAB PO SCH (09:17)
[2022-03-06] MEDS: COLESTIPOL HCL 1 GM TAB PO SCH ×2 (09:18→20:50)
[2022-03-06] MEDS: CYANOCOBALAMIN (B-12) 500 MCG TABLET PO SCH (09:18)
[2022-03-06] MEDS: DRONEDARONE HCL 400 MG TAB PO SCH ×2 (09:19→20:50)
[2022-03-06] MEDS: FIDAXOMICIN 200 MG TAB PO SCH ×2 (09:19→20:50)
[2022-03-06] MEDS: FLUCONAZOLE 100 MG TAB PO SCH (09:20)
[2022-03-06] MEDS: MAGNESIUM OXIDE 400 MG TAB PO SCH ×2 (09:20→20:50)
[2022-03-06] MEDS: FINASTERIDE 5 MG TAB PO SCH (09:20)
[2022-03-06] MEDS: POT PHOSPHATE MONOBASIC W/ SOD TAB PO SCH ×4 (09:21→20:50)
[2022-03-06] MEDS: NYSTATIN POWDER 15GM BTL EXT SCH ×3 (09:21→20:50)
[2022-03-06] MEDS: TRIAMCINOLONE ACET 0.1% CR 15 GM TUBE EXT SCH ×3 (09:22→20:51)
[2022-03-06] MEDS: TAMSULOSIN HCL 0.4 MG CAP PO SCH ×2 (09:22→20:50)
[2022-03-06] MEDS: POTASSIUM CHLORIDE CRTAB 20 MEQ TABCR PO SCH ×3 (09:22→20:50)
--- NOTE | 2022-03-06 10:51 | Nephrology Progress Note ---
Date of Service March 06, 2022 Assessment & Plan (1) Hypomagnesemia: Plan: Improvement following aggressive IV replacement. Hold amiloride option this AM. Continue Magnesium oxide 400 mg PO BID. I reviewed the plan of care with Dr. Smith this AM. No current changes. Nephrology will sign-off. Please call with questions or concerns. Outpatient follow up can be arranged at discharge. (2) Hypophosphatemia: Plan: K phos 1 tab QID. (3) Hypokalemia: Plan: KCl 40 mEq TID. (4) Hypocalcemia: Plan: Ergocalciferol 75914 units 02/27, continue weekly x 8 weeks. Calcitriol 0.25 mcg daily. (5) Hydronephrosis: Plan: Non-oliguric. Kidney function stable. (6) H/O diffuse large B-cell lymphoma: Plan: Clinical condition consistent with proximal tubule dysfunction and renal wasting s/p cisplatin. Poor PO intake. Electrolyte replacement as above. Will require close outpatient follow up and anticipated continued IV replacement in the outpatient setting post discharge. Monitor CK weekly on daptomycin. Admission and Anticipated Discharge Date Admission Date: February 26, 2022 Subjective No acute events overnight. No complaints this AM. Review of Systems Review of Systems: All systems reviewed & are unremarkable except as noted in HPI & below Constitutional: + weakness Physical Exam Constitutional: + ill appearing and + edematous; no acute distress Eyes: + anicteric sclerae; no corneal abnormality ENMT: Mouth: no oral mucosal abnormality and oral mucous membranes not dry Neck: normal visual inspection and trachea midline Respiratory: normal respiratory effort Auscultation: lungs clear to auscultation bilaterally and + diminished lung sounds Cardiovascular: Rate/Rhythm: regular rate Heart Sounds: normal S1 and normal S2 Extremities: + edema Musculoskeletal: Extremities: no cyanosis and no clubbing Skin: + turgor decreased Neurologic: Motor/Sensory: no tremor and no asterixis Results & Data ([facility]) Vital Signs (Past 12 Hours) Vital Signs Temp Pulse Pulse Resp BP Pulse Ox O2 Del Method 03/06/22 03:57 36.8 C 78 18 112/76 92 Room Air 03/06/22 00:00 94 H 03/05/22 23:34 37.2 C 88 19 105/66 92 Room Air Laboratory Results Laboratory Results - last 24 hr 03/05/22 03/06/2203/06/22 06:47 06:16 06:16 WBC 14.81 H RBC 2.83 L Hgb 8.7 L Hct 25.5 L MCV 90.1 MCH 30.7 MCHC 34.1 RDW Std Deviation 52.0 H RDW Coeff of Belén 15.8 H Plt Count 21 L* MPV 11.8 Absolute Nucleated RBC 0.03 H Nucleated RBC % (auto) 0.2 Neutrophils % (Manual) 40 82 Lymphocytes % (Manual) 52 11 Monocytes % (Manual) 3 2 Eosinophils % (Manual) 1 Metamyelocytes % (Man) 1 3 Myelocytes % (Man) 2 2 Blast Cells % (Manual) 2 Neutrophils # (Manual) 2.34 12.14 H Total Absolute Neuts 2.34 12.14 H Lymphocytes # (Manual) 3.04 1.63 Total Abs Lymphocytes 3.04 1.63 Monocytes # (Manual) 0.18 L 0.30 Eosinophils # (Manual) 0.06 Metamyelocytes # (Man) 0.06 H 0.44 H Myelocytes # (Manual) 0.12 H 0.30 H Blast Cells # (Man) 0.12 H Blood Smear Review Ovalocytes 1+ Echinocytes 1+ Acanthocytes (Spur) 1+ 2+ Sodium 143 Potassium 4.2 Chloride 112 H Carbon Dioxide 26 Anion Gap 5 BUN 16 Creatinine 1.02 Est Cr Clr Drug Dosing 79.9 Est GFR ( Amer) 86.5 Est GFR (Non-Af Amer) 74.6 BUN/Creatinine Ratio 15.7 Glucose 71 Calcium 7.5 L Phosphorus 3.2 Magnesium 1.6 L PG Care Time/CCT Total # of Minutes Spent Total Time Spent with Patient: Total time spent is greater than 50% in coordination of care (as documented) at patient's floor/unit and/or counseling patient: Coding Level of Care Code 52022 Subseq Hosp Care Lvl 3 Diagnoses Hypomagnesemia E83.42 Hypophosphatemia E83.39 Hypokalemia E87.6 Hypocalcemia E83.51 Hydronephrosis N13.30 H/O diffuse large B-cell lymphoma Z85.72
--- NOTE | 2022-03-06 11:04 | Urology Progress Note ---
Date of Service March 06, 2022 Assessment & Plan (1) Emphysematous cystitis: (2) Hematuria: Plan 71-year-old male with a history of B-cell lymphoma who was admitted to the hospital for hematuria and urinary frequency. CT scan showed emphysematous cystitis with air in both collecting system suggesting ascending infection. Farrar catheter was placed. Blood and urine cultures are negative to date. -Afebrile and hemodynamically stable. -Labs reviewed-White count 14.81, hemoglobin 8.7, creatinine 1.02. -Urine and blood cultures negative. -Continues on IV Cefepime and Daptomycin. -Maintain Farrar catheter. This likely will need to be in for 1 to 2 weeks while treating infection. -Hematuria appears to have resolved. Continue to monitor. -Continue supportive care and antibiotic therapy. -Will arrange repeat imaging in a few weeks as an outpatient and then follow-up with urology for possible voiding trial. -Urology will sign-off. Please contact us for any further questions, concerns, or changes in patient status. Admission and Anticipated Discharge Date Admission Date: February 26, 2022 Subjective Pt examined at bedside this AM. Awake, resting in bed on arrival. No acute distress. Reports he is feeling ok. No fevers. Farrar catheter intact, draining clear yellow urine. Denies any pain or discomfort. Review of Systems Constitutional: as per Subjective / HPI Genitourinary: + as per Subjective / HPI Physical Exam Constitutional: + ill appearing; no acute distress Respiratory: no respiratory distress and no labored breathing Neurologic: awake Psychiatric: Orientation: alert, oriented to person and cooperative Genitourinary: Farrar catheter intact, draining clear yellow urine Results & Data ([facility]) Vital Signs (Past 12 Hours) Vital Signs Temp Pulse Pulse Resp BP Pulse Ox O2 Del Method 03/06/22 03:57 36.8 C 78 18 112/76 92 Room Air 03/06/22 00:00 94 H 03/05/22 23:34 37.2 C 88 19 105/66 92 Room Air PG Care Time/CCT Total # of Minutes Spent Total Time Spent with Patient: Total time spent is greater than 50% in coordination of care (as documented) at patient's floor/unit and/or counseling patient: Coding Level of Care Code 02919 Subseq Hosp Care Lvl 2 Diagnoses Emphysematous cystitis N30.80 Hematuria R31.9
--- NOTE | 2022-03-06 16:35 | Hospitalist Progress Note ---
Date of Service March 06, 2022 Assessment & Plan (1) Pancytopenia due to antineoplastic chemotherapy: Plan: severe. Recently started chemotherapy in the last 2 weeks at [facility] with severe neutropenia now resolved after multiple doses of Neupogen s/p transfusion of 1 unit PRBCs and 1 unit platelets - 02/28. s/p transfusion of 1 unit platelets 03/01. Had some hematuria which is now resolved Hemoglobin down to 6.8 on 03/04 and received 2 units PRBCs All cell counts continue to be rising today, neutropenia resolved With blasts on diff but likely as response to bone marrow recovery and neupogen Follow CBC in the morning (2) C. difficile diarrhea: Plan: gene +, toxin negative, but I do believe he has active infection. Diarrhea is now significantly improved Continue dificid 200mg BID - plan 10 days of Rx. last day tx will be 03/09/22 rectal tube has since been removed Has had a few loose stools today but is overall improved continue colestipol 1gm BID for bulking. cont contact precautions. (3) Hypocalcemia: Plan: Discharge summary obtained from [facility] and patient received induction chemotherapy consisting of "ESHAP" therapy on 02/18 and ending 02/23. ESHAP includes etoposide, methylprednisolone, cisplatin, and cytarabine. I believe that the profound electrolyte disturbances seen are due to cisplatin induced nephrotoxicity. Appreciate Dr Milan's consultation from nephrology. Calcium levels finally now improved with many doses of replacement both IV and po Continue calcitriol 0.25mcg daily. s/p Ergocalciferol 56495 units x 1 given this past weekend. Serial BMP/mag/phos/K. Replete other lytes with IV mag, po mag, po KCl and p.o. Neutra-Phos Continue telemetry status. (4) Hypomagnesemia: Plan: Suspect 2nd to cisplatin induced renal dysfunction/nephrotoxicity. Also with GI loss from diarrhea, and not really eating mag-rich foods either. Large amounts of IV magnesium sulfate given since admission. Remains refractory but is improving now the diarrhea is also improving Give additional 2 grams IV mag sulfate today in addition to p.o. Repeat mag level am. may add amiloride as per Nephro if BPs can tolerate although they remain soft today (5) Hypokalemia: Plan: Resolved. Continue KCL 40meq PO TID Potassium in K-phos supplementation will help as well. Serial labs. (6) Hypophosphatemia: Plan: Now resolved with replacement -Continue K-phos neutral PO. (7) Lymphoma: Plan: B-Cell Lymphoma. Recurrence. Hospitalized here at [facility] from 01/29/22 to 02/15/22 at which time he was transferred to [facility] in [place]. Underwent ESHAP induction chemotherapy regimen starting 02/18 and ending 02/23. D/c from hospital 02/24, then received Rituxan & neulasta at that time. MRI brain negative during stay in [place] for evidence of lymphoma. However, LP with cytology + for malignant cells. Intra-thecal methotrexate being planned under the care of Dr Gonsalves in [place]. Formal oncology consult by Dr Jordon alvarez. received daily neupogen injections for severe neutropenia. Neutropenic precautions. Continue broad-spectrum abx as below. (8) Emphysematous cystitis: Plan: Formal consult placed to urology. They advise ongoing cefepime/daptomycin for UTI coverage despite negative urine culture. Unfortunately, the daptomycin it seems dropped off the MAR after his dose on the and he missed doses on 02/25-02/2026 -Restarted daptomycin on 03/04 and continue cefepime as before Continue hull for 1-2 weeks as recommended by urology and will need outpt Urology f/u for TOV They will continue to follow him. Last day of tx will be 03/08 (9) Neutropenia: Plan: Now resolved with multiple doses neupogen Continue on chronic suppressive therapy with fluconazole 200 mg p.o. daily and acyclovir 800 mg p.o. twice daily Holding home Levaquin while on Cefepime (10) Hypervolemia: Plan: Likely multifactorial - copious IV fluids between the previous hospital stay here and his stay in [place], hypoalbuminemia, low-normal systolic LV function (50-55% EF on echo), steroids, etc. Poor candidate for diuretics given his profound electrolyte disturbances. Fortunately his respiratory status remains stable. And it appears he is beginning to "auto-diurese." Edema in lower extremities is significantly improved Follow. (11) Hematuria: Plan: Eliquis use, low platelets, UTI, other factors likely all playing roles. Eliquis on hold for bleeding and also for low plts, will continue to hold Eliquis. Antibiotics in place. s/p 2 units of platelets since admission. Hematuria now resolved Monitor H/H Monitor platelet count. Urology consultation appreciated. (12) Acute metabolic encephalopathy: Plan: Was Resolved, then seemed to have returned on 03/05-was agitated, sleeping more than usual No fevers, and UTI adequately treated, cellulitis on thighs improving On 03/06, improved but still a little bit more drowsy in the afternoon than he ribeiro d been Cont abx, supportive care. Maintain good sleep/wake cycle, continue to encourage patient to get out of bed with PT-that did not happen today Also has ongoing back pain from being in bed a lot--> treat with tylenol as needed (13) Benign prostatic hyperplasia with urinary obstruction: Plan: Cont flomax Cont finasteride Cont hull (14) Paroxysmal atrial flutter: Plan: There was concern for rapid a.fib at admission but formal reading on EKG was NSR with ectopy. Overnight again he was in NSR. HOLD ELIQUIS due to anemia and thrombocytopenia Cont multaq. Cont telemetry. (15) Cellulitis: Plan: b/l inner thighs and posterior left thigh -improving cefepime/daptomycin for UTI should suffice appears improved serial exams Plan VTE Prophylaxis - SCDs only; chemical means contraindicated Plan of care extensively discussed with pt's at bedside once again PT/OT consults placed and he will need rehab-likely early next week as long as magnesium is improved Admission and Anticipated Discharge Date Admission Date: February 26, 2022 Subjective Patient was more awake and alert throughout the day but is now napping when I saw him. He wakes up easily and denies any pain in his back. No problems at all. He did have a few loose bowel movements today as per nursing. Telemetry with normal sinus rhythm, PACs and PVCs, rates in 80s to 90s. I discussed his care with nephrology. Review of Systems Review of Systems: All systems reviewed & are unremarkable except as noted in HPI & below Physical Exam Constitutional: WD/WN, vitals as above Eyes: + anicteric sclerae Neck: trachea midline, no thyromegaly Respiratory: normal respiratory effort, lungs clear to auscultation Cardiovascular: Rate/Rhythm: regular rate and regular rhythm Heart Sounds: no murmur Extremities: + edema (Trace pitting edema legs,improved from previous) Gastrointestinal (Abdomen): normal bowel sounds, soft, nontender, no hepatosplenomegaly Musculoskeletal: Extremities: extremities normal to inspection; no cyanosis and no clubbing Skin: no rashes, warm and dry + erythema (mild right inner thigh and left posterior thigh) Neurologic: moves all extremities; no focal motor deficits and + not awake Psychiatric: Orientation: alert, oriented to person and cooperative Results & Data Results & Data ([facility]) Vital Signs (Past 12 Hours) Vital Signs Temp Pulse Resp BP Pulse Ox O2 Del Method 03/06/22 15:56 36.9 C 81 18 108/70 93 Room Air 03/06/22 13:24 36.7 C 87 18 108/67 94 Room Air Laboratory Results 03/06/22 03/06/22 Range/Units 06:16 06:16 WBC 14.81 H (4.8-10.8) K/ul RBC 2.83 L (4.63-6.08) M/uL Hgb 8.7 L (14.0-18.0) g/dl Hct 25.5 L (40.1-51.0) % MCV 90.1 (80.0-100.0) fL MCH 30.7 (25.0-34.0) pg MCHC 34.1 (32.0-36.0) g/dL RDW Std Deviation 52.0 H (36.4-46.3) fL RDW Coeff of Belén 15.8 H (11.5-14.5) % Plt Count 21 L* (130-400) K/uL MPV 11.8 (9.4-12.4) fL Absolute Nucleated RBC 0.03 H (0-0) K/uL Nucleated RBC % (auto) 0.2 % Neutrophils % (Manual) 82 % Lymphocytes % (Manual) 11 % Monocytes % (Manual) 2 % Metamyelocytes % (Man) 3 % Myelocytes % (Man) 2 % Neutrophils # (Manual) 12.14 H (1.4-6.5) K/uL Total Absolute Neuts 12.14 H (1.4-6.5) K/uL Lymphocytes # (Manual) 1.63 (1.2-3.4) K/uL Total Abs Lymphocytes 1.63 (1.2-3.4) K/uL Monocytes # (Manual) 0.30 (0.24-0.82) K/uL Metamyelocytes # (Man) 0.44 H (0-0) K/uL Myelocytes # (Manual) 0.30 H (0-0) K/uL Acanthocytes (Spur) 2+ Sodium 143 (136-145) mmol/L Potassium 4.2 (3.5-5.1) mmol/L Chloride 112 H (98-107) mmol/L Carbon Dioxide 26 (21-32) mmol/L Anion Gap 5 (3-11) BUN 16 (6-23) mg/dl Creatinine 1.02 (0.6-1.4) mg/dl Est Cr Clr Drug Dosing 79.9 ml/min Est GFR ( Amer) 86.5 ml/min Est GFR (Non-Af Amer) 74.6 ml/min BUN/Creatinine Ratio 15.7 (10-20) Glucose 71 (70-99(Fasting)) mg/dl Calcium 7.5 L (8.5-10.1) mg/dl Phosphorus 3.2 (2.5-4.9) mg/dl Magnesium 1.6 L (1.7-2.4) mg/dl PG Care Time/CCT Total # of Minutes Spent Total Time Spent with Patient: Total time spent is greater than 50% in coordination of care (as documented) at patient's floor/unit and/or counseling patient: Coding Level of Care Code 63308 Subseq Hosp Care Lvl 2 Diagnoses Pancytopenia due to antineoplastic chemotherapy D61.810; T45.1X5A C. difficile diarrhea A04.72 Hypocalcemia E83.51 Hypomagnesemia E83.42 Hypokalemia E87.6 Hypophosphatemia E83.39 Lymphoma C85.90 Emphysematous cystitis N30.80 Neutropenia D70.9 Hypervolemia E87.70 Hematuria R31.9 Acute metabolic encephalopathy G93.41 Benign prostatic hyperplasia with urinary obstruction N40.1; N13.8 Paroxysmal atrial flutter I48.92 Cellulitis L03.90
[2022-03-06] MEDS: DAPTOmycin 450 MG in SYRINGE 0 ML IV SCH (20:49)
[2022-03-07] MEDS: CEFEPIME 2,000 MG in SYRINGE 0 ML IV SCH ×2 (07:40→21:11)
[2022-03-07] MEDS: NYSTATIN POWDER 15GM BTL EXT SCH ×3 (09:03→21:11)
[2022-03-07] MEDS: TRIAMCINOLONE ACET 0.1% CR 15 GM TUBE EXT SCH ×3 (09:03→21:10)
[2022-03-07] MEDS: ACYCLOVIR 400 MG TAB PO SCH ×2 (09:03→21:10)
[2022-03-07] MEDS: TAMSULOSIN HCL 0.4 MG CAP PO SCH ×2 (09:04→21:10)
[2022-03-07] MEDS: MAGNESIUM OXIDE 400 MG TAB PO SCH ×2 (09:04→21:10)
[2022-03-07] MEDS: CALCITRIOL 0.25 MCG CAPSULE PO SCH (09:04)
[2022-03-07] MEDS: DRONEDARONE HCL 400 MG TAB PO SCH ×2 (09:05→21:10)
[2022-03-07] MEDS: COLESTIPOL HCL 1 GM TAB PO SCH ×2 (09:05→21:10)
[2022-03-07] MEDS: CETIRIZINE HCL 10 MG TABLET PO SCH (09:06)
[2022-03-07] MEDS: FINASTERIDE 5 MG TAB PO SCH (09:06)
[2022-03-07] MEDS: allopurinoL 300 MG TAB PO SCH (09:06)
[2022-03-07] MEDS: POT PHOSPHATE MONOBASIC W/ SOD TAB PO SCH ×4 (09:06→21:10)
[2022-03-07] MEDS: FLUCONAZOLE 100 MG TAB PO SCH (09:07)
[2022-03-07] MEDS: CHOLECALCIFEROL 1,000 UNITS 25 MCG TAB PO SCH (09:07)
[2022-03-07] MEDS: CYANOCOBALAMIN (B-12) 500 MCG TABLET PO SCH (09:07)
[2022-03-07] MEDS: POTASSIUM CHLORIDE CRTAB 20 MEQ TABCR PO SCH ×3 (09:08→21:10)
[2022-03-07] MEDS: FIDAXOMICIN 200 MG TAB PO SCH ×2 (09:13→21:09)
[2022-03-07 09:52] LABS: Hematocrit (blood only) 26.1 % (40.1-51.0); Hemoglobin 8.7 g/dl (14.0-18.0); Mean Corpuscular Hemoglobin 30.1 pg (25.0-34.0); Mean Corpuscular Hgb Conc 33.3 g/dL (32.0-36.0); Mean Corpuscular Volume 90.3 fL (80.0-100.0); Mean Platelet Volume 11.7 fL (9.4-12.4); Nucleated RBC # (auto) 0.07 K/uL (0-0); Nucleated RBC % (auto) 0.3 %; Platelet Count 33 K/uL (130-400); RDW Coefficient of Variation 15.6 % (11.5-14.5); RDW Standard Deviation 51.8 fL (36.4-46.3); Red Blood Count 2.89 M/uL (4.63-6.08)
[2022-03-07 10:19] LABS: BUN Creatinine Ratio 16.2 (10-20); Calcium 7.7 mg/dl (8.5-10.1); Creatinine Clr Calc Pharmacy 78.6 ml/min; Est GFR (African American) 83.5 ml/min; Est GFR (Non-African American) 72.1 ml/min; Magnesium 1.3 mg/dl (1.7-2.4); Phosphorus 3.2 mg/dl (2.5-4.9); Potassium 3.9 mmol/L (3.5-5.1)
[2022-03-07 10:49] LABS: ALC (manual) 3.22 K/uL (1.2-3.4); ANC (manual) 15.64 K/uL (1.4-6.5); Acanthocytes 1+; Blast # (manual) 0.69 K/uL (0-0); Blast Cells % (manual) 3 %; Lymphocytes # (manual) 3.22 K/uL (1.2-3.4); Lymphocytes % (manual) 14 %; Metamyelocytes # (manual) 0.69 K/uL (0-0); Metamyelocytes % (manual) 3 %; Monocytes # (manual) 0.69 K/uL (0.24-0.82); Monocytes % (manual) 3 %; Myelocytes # (manual) 1.38 K/uL (0-0); Myelocytes % (manual) 6 %; Neutrophils # (manual) 15.64 K/uL (1.4-6.5); Neutrophils % (manual) 68 %; Ovalocytes 1+; Promyelocytes # (manual) 0.69 K/uL (0-0); Promyelocytes % (manual) 3 %; Toxic Granulation 1+
[2022-03-07] MEDS: MAGNESIUM SULFATE / D5W 1 GM/100 ML BAG IV SCH ×4 (11:26→17:35)
--- NOTE | 2022-03-07 16:57 | Hospitalist Progress Note ---
Date of Service March 07, 2022 Assessment & Plan (1) Pancytopenia due to antineoplastic chemotherapy: Plan: severe. Recently started chemotherapy in the last 2 weeks at [facility] with severe neutropenia now resolved after multiple doses of Neupogen s/p transfusion of 1 unit PRBCs and 1 unit platelets - 02/28. s/p transfusion of 1 unit platelets 03/01. Had some hematuria which is now resolved Hemoglobin down to 6.8 on 03/04 and received 2 units PRBCs All cell counts continue to be rising today, neutropenia resolved With blasts on diff but likely as response to bone marrow recovery and neupogen Follow CBC in the morning (2) C. difficile diarrhea: Plan: gene +, toxin negative, but I do believe he has active infection. Diarrhea is now significantly improved to almost resolved Continue dificid 200mg BID - plan 10 days of Rx. last day tx will be 03/09/22 rectal tube has since been removed continue colestipol 1gm BID for bulking. cont contact precautions. (3) Hypocalcemia: Plan: Discharge summary obtained from [facility] and patient received induction chemotherapy consisting of "ESHAP" therapy on 02/18 and ending 02/23. ESHAP includes etoposide, methylprednisolone, cisplatin, and cytarabine. I believe that the profound electrolyte disturbances seen are due to cisplatin induced nephrotoxicity. Appreciate Dr Milan's consultation from nephrology. Calcium levels finally now improved with many doses of replacement both IV and po Continue calcitriol 0.25mcg daily. s/p Ergocalciferol 85157 units x 1 given this past weekend. Serial BMP/mag/phos/K. Replete other lytes with IV mag, po mag, po KCl and p.o. Neutra-Phos Continue telemetry status. (4) Hypomagnesemia: Plan: Suspect 2nd to cisplatin induced renal dysfunction/nephrotoxicity. Also with GI loss from diarrhea, and not really eating mag-rich foods either. Large amounts of IV magnesium sulfate given since admission. Remains refractory but now the diarrhea is also improving so hopefully will resolve Give additional 3 grams IV mag sulfate today in addition to p.o. Repeat mag level am. may add amiloride as per Nephro if BPs can tolerate although they remain soft today (5) Hypokalemia: Plan: Resolved. Continue KCL 40meq PO TID Potassium in K-phos supplementation will help as well. Serial labs. (6) Hypophosphatemia: Plan: Now resolved with replacement -Continue K-phos neutral PO. (7) Lymphoma: Plan: B-Cell Lymphoma. Recurrence. Hospitalized here at [facility] from 01/29/22 to 02/15/22 at which time he was transferred to [facility] in [place]. Underwent ESHAP induction chemotherapy regimen starting 02/18 and ending 02/23. D/c from hospital 02/24, then received Rituxan & neulasta at that time. MRI brain negative during stay in [place] for evidence of lymphoma. However, LP with cytology + for malignant cells. 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 Formal oncology consult by Dr Jordon alvarez. received daily Neupogen injections for severe neutropenia. Neutropenic precautions. Continue broad-spectrum abx as below. (8) Emphysematous cystitis: Plan: Formal consult placed to urology. They advise ongoing cefepime/daptomycin for UTI coverage despite negative urine culture. Unfortunately, the daptomycin it seems dropped off the MAR after his dose on the and he missed doses on 02/25-02/2026 -Restarted daptomycin on 03/04 and continue cefepime as before Continue hull for 1-2 weeks as recommended by urology and will need outpt Urology f/u for TOV They will continue to follow him. Last day of tx will be 03/08 (9) Neutropenia: Plan: Now resolved with multiple doses neupogen Continue on chronic suppressive therapy with fluconazole 200 mg p.o. daily and acyclovir 800 mg p.o. twice daily Holding home Levaquin while on Cefepime (10) Hypervolemia: Plan: Likely multifactorial - copious IV fluids between the previous hospital stay here and his stay in [place], hypoalbuminemia, low-normal systolic LV function (50-55% EF on echo), steroids, etc. Poor candidate for diuretics given his profound electrolyte disturbances. Fortunately his respiratory status remains stable. And it appears he is beginning to "auto-diurese." Edema in lower extremities is significantly improved Follow. (11) Hematuria: Plan: Eliquis use, low platelets, UTI, other factors likely all playing roles. Eliquis on hold for bleeding and also for low plts, will continue to hold Eliquis. Antibiotics in place. s/p 2 units of platelets since admission. Hematuria now resolved Monitor H/H Monitor platelet count. Urology consultation appreciated. (12) Acute metabolic encephalopathy: Plan: Was Resolved, then seemed to have returned on 03/05-was agitated, sleeping more than usual No fevers, and UTI adequately treated, cellulitis on thighs improving On 03/06, improved but still a little bit more drowsy in the afternoon than he had been Cont abx, supportive care. Maintain good sleep/wake cycle, continue to encourage patient to get out of bed with PT-that did not happen today Also has ongoing back pain from being in bed a lot--> treat with tylenol as needed (13) Benign prostatic hyperplasia with urinary obstruction: Plan: Cont flomax Cont finasteride Cont hull (14) Paroxysmal atrial flutter: Plan: There was concern for rapid a.fib at admission but formal reading on EKG was NSR with ectopy. Overnight again he was in NSR. HOLD ELIQUIS due to anemia and thrombocytopenia Cont multaq. Cont telemetry. (15) Cellulitis: Plan: b/l inner thighs and posterior left thigh -improving cefepime/daptomycin for UTI should suffice appears improved serial exams Plan VTE Prophylaxis - SCDs only; chemical means contraindicated Plan of care extensively discussed with pt's at bedside once again PT/OT consults placed and he will need rehab-likely early next week as long as magnesium is improved Admission and Anticipated Discharge Date Admission Date: February 26, 2022 Subjective Pt doing great today. Is much more awake and alert, interactive,pleasant. Is eating his meals. Has not had any diarrhea today, just a few very small smears of stool with changing positions as per RN. Denies pain anywhere. Tele with NSR, PACs,PVCs, and one 8 beat run of VT Review of Systems Review of Systems: All systems reviewed & are unremarkable except as noted in HPI & below Physical Exam Constitutional: WD/WN, vitals as above Eyes: + anicteric sclerae Neck: trachea midline, no thyromegaly Respiratory: normal respiratory effort, lungs clear to auscultation Cardiovascular: Rate/Rhythm: regular rate and regular rhythm Heart Sounds: no murmur Extremities: + edema (Trace pitting edema legs,improved from previous) Gastrointestinal (Abdomen): normal bowel sounds, soft, nontender, no h epatosplenomegaly Musculoskeletal: Extremities: extremities normal to inspection; no cyanosis and no clubbing Skin: no rashes, warm and dry + erythema (almost completely resolved inner thighs) Neurologic: moves all extremities; no focal motor deficits and + not awake Psychiatric: Orientation: alert, oriented to person and cooperative Genitourinary: no penis abnormality (Hull in place) and no scrotum abnormality Results & Data Results & Data ([facility]) Vital Signs (Past 12 Hours) Vital Signs Temp Pulse Pulse Resp BP Pulse Ox O2 Del Method 03/07/22 16:00 36.5 C 74 18 108/72 94 Room Air 03/07/22 14:17 82 03/07/22 11:36 36.4 C L 93 H 16 101/64 92 Room Air 03/07/22 07:44 36.7 C 70 16 105/63 93 Room Air 03/07/22 06:00 78 Laboratory Results 03/07/22 03/07/22 Range/Units 09:34 09:34 WBC 23.00 H (4.8-10.8) K/ul RBC 2.89 L (4.63-6.08) M/uL Hgb 8.7 L (14.0-18.0) g/dl Hct 26.1 L (40.1-51.0) % MCV 90.3 (80.0-100.0) fL MCH 30.1 (25.0-34.0) pg MCHC 33.3 (32.0-36.0) g/dL RDW Std Deviation 51.8 H (36.4-46.3) fL RDW Coeff of Belén 15.6 H (11.5-14.5) % Plt Count 33 L D (130-400) K/uL MPV 11.7 (9.4-12.4) fL Absolute Nucleated RBC 0.07 H (0-0) K/uL Nucleated RBC % (auto) 0.3 % Neutrophils % (Manual) 68 % Lymphocytes % (Manual) 14 % Monocytes % (Manual) 3 % Metamyelocytes % (Man) 3 % Myelocytes % (Man) 6 % Promyelocytes % (Man) 3 % Blast Cells % (Manual) 3 % Neutrophils # (Manual) 15.64 H (1.4-6.5) K/uL Total Absolute Neuts 15.64 H (1.4-6.5) K/uL Lymphocytes # (Manual) 3.22 (1.2-3.4) K/uL Total Abs Lymphocytes 3.22 (1.2-3.4) K/uL Monocytes # (Manual) 0.69 (0.24-0.82) K/uL Metamyelocytes # (Man) 0.69 H (0-0) K/uL Myelocytes # (Manual) 1.38 H (0-0) K/uL Promyelocytes # (Man) 0.69 H (0-0) K/uL Blast Cells # (Man) 0.69 H (0-0) K/uL Toxic Granulation 1+ Ovalocytes 1+ Acanthocytes (Spur) 1+ Sodium 141 (136-145) mmol/L Potassium 3.9 (3.5-5.1) mmol/L Chloride 110 H (98-107) mmol/L Carbon Dioxide 26 (21-32) mmol/L Anion Gap 5 (3-11) BUN 17 (6-23) mg/dl Creatinine 1.05 (0.6-1.4) mg/dl Est Cr Clr Drug Dosing 78.6 ml/min Est GFR ( Amer) 83.5 ml/min Est GFR (Non-Af Amer) 72.1 ml/min BUN/Creatinine Ratio 16.2 (10-20) Glucose 132 H (70-99(Fasting)) mg/dl Calcium 7.7 L (8.5-10.1) mg/dl Phosphorus 3.2 (2.5-4.9) mg/dl Magnesium 1.3 L (1.7-2.4) mg/dl PG Care Time/CCT Total # of Minutes Spent Total Time Spent with Patient: Total time spent is greater than 50% in coordination of care (as documented) at patient's floor/unit and/or counseling patient: Coding Level of Care Code 31828 Subseq Hosp Care Lvl 2 Diagnoses Pancytopenia due to antineoplastic chemotherapy D61.810; T45.1X5A C. difficile diarrhea A04.72 Hypocalcemia E83.51 Hypomagnesemia E83.42 Hypokalemia E87.6 Hypophosphatemia E83.39 Lymphoma C85.90 Emphysematous cystitis N30.80 Neutropenia D70.9 Hypervolemia E87.70 Hematuria R31.9 Acute metabolic encephalopathy G93.41 Benign prostatic hyperplasia with urinary obstruction N40.1; N13.8 Paroxysmal atrial flutter I48.92 Cellulitis L03.90
[2022-03-07] MEDS: DAPTOmycin 450 MG in SYRINGE 0 ML IV SCH (21:11)
[2022-03-08] MEDS: CEFEPIME 2,000 MG in SYRINGE 0 ML IV SCH ×2 (07:32→20:31)
[2022-03-08 07:38] LABS: Hematocrit (blood only) 25.8 % (40.1-51.0); Hemoglobin 8.6 g/dl (14.0-18.0); Mean Corpuscular Hemoglobin 30.1 pg (25.0-34.0); Mean Corpuscular Hgb Conc 33.3 g/dL (32.0-36.0); Mean Corpuscular Volume 90.2 fL (80.0-100.0); Mean Platelet Volume 11.4 fL (9.4-12.4); Nucleated RBC # (auto) 0.09 K/uL (0-0); Nucleated RBC % (auto) 0.3 %; Platelet Count 38 K/uL (130-400); RDW Coefficient of Variation 15.8 % (11.5-14.5); RDW Standard Deviation 51.8 fL (36.4-46.3); Red Blood Count 2.86 M/uL (4.63-6.08); White Blood Count 28.27 K/ul (4.8-10.8)
[2022-03-08 07:50] LABS: ALC (manual) 3.68 K/uL (1.2-3.4); ANC (manual) 19.51 K/uL (1.4-6.5); Acanthocytes 1+; BUN Creatinine Ratio 13.1 (10-20); Calcium 7.6 mg/dl (8.5-10.1); Creatinine Clr Calc Pharmacy 76.8 ml/min; Est GFR (African American) 81.7 ml/min; Est GFR (Non-African American) 70.5 ml/min; Lymphocytes # (manual) 3.68 K/uL (1.2-3.4); Lymphocytes % (manual) 13 %; Magnesium 1.8 mg/dl (1.7-2.4); Metamyelocytes # (manual) 2.54 K/uL (0-0); Metamyelocytes % (manual) 9 %; Monocytes # (manual) 1.13 K/uL (0.24-0.82); Monocytes % (manual) 4 %; Myelocytes # (manual) 1.13 K/uL (0-0); Myelocytes % (manual) 4 %; Neutrophils # (manual) 19.51 K/uL (1.4-6.5); Neutrophils % (manual) 69 %; Potassium 4.5 mmol/L (3.5-5.1)
[2022-03-08] MEDS ORDERED: MAGNESIUM SULFATE / D5W 1 GM/100 ML BAG IV ONE (08:11)
[2022-03-08] MEDS: FIDAXOMICIN 200 MG TAB PO SCH ×2 (08:49→20:31)
[2022-03-08] MEDS: allopurinoL 300 MG TAB PO SCH (08:54)
[2022-03-08] MEDS: CALCITRIOL 0.25 MCG CAPSULE PO SCH (08:54)
[2022-03-08] MEDS: ACYCLOVIR 400 MG TAB PO SCH ×2 (08:54→20:21)
[2022-03-08] MEDS: COLESTIPOL HCL 1 GM TAB PO SCH ×2 (08:55→20:20)
[2022-03-08] MEDS: CETIRIZINE HCL 10 MG TABLET PO SCH (08:55)
[2022-03-08] MEDS: DRONEDARONE HCL 400 MG TAB PO SCH ×2 (08:55→20:20)
[2022-03-08] MEDS: TAMSULOSIN HCL 0.4 MG CAP PO SCH ×2 (08:55→20:20)
[2022-03-08] MEDS: CHOLECALCIFEROL 1,000 UNITS 25 MCG TAB PO SCH (08:55)
[2022-03-08] MEDS: FINASTERIDE 5 MG TAB PO SCH (08:56)
[2022-03-08] MEDS: MAGNESIUM OXIDE 400 MG TAB PO SCH ×2 (08:56→20:20)
[2022-03-08] MEDS: FLUCONAZOLE 100 MG TAB PO SCH (08:56)
[2022-03-08] MEDS: CYANOCOBALAMIN (B-12) 500 MCG TABLET PO SCH (08:56)
[2022-03-08] MEDS: NYSTATIN POWDER 15GM BTL EXT SCH ×3 (08:57→20:20)
[2022-03-08] MEDS: POT PHOSPHATE MONOBASIC W/ SOD TAB PO SCH ×4 (08:57→20:20)
[2022-03-08] MEDS: POTASSIUM CHLORIDE CRTAB 20 MEQ TABCR PO SCH ×3 (08:57→20:20)
[2022-03-08] MEDS: TRIAMCINOLONE ACET 0.1% CR 15 GM TUBE EXT SCH ×3 (08:58→20:20)
--- NOTE | 2022-03-08 11:02 | Hospitalist Progress Note ---
Date of Service March 08, 2022 Assessment & Plan (1) Pancytopenia due to antineoplastic chemotherapy: Plan: severe. Recently started chemotherapy in the last 2 weeks at [facility] with severe neutropenia now resolved after multiple doses of Neupogen and infact now has leukocytosis due to Neupogen (no new infection, no fevers, etc.) s/p transfusion of 1 unit PRBCs and 1 unit platelets - 02/28. s/p transfusion of 1 unit platelets 03/01. Had some hematuria which is now resolved Hemoglobin down to 6.8 on 03/04 and received 2 units PRBCs All cell counts continue to be rising today-plts up to 38, hgb 8.6, WBC 28)- neutropenia resolved With blasts on diff but likely as response to bone marrow recovery and neupogen Follow CBC again in the morning (2) C. difficile diarrhea: Plan: gene +, toxin negative, but I do believe he has active infection. Diarrhea is now significantly improved but still having some loose stools--> may also be related to chemotherapy effect and also on po magnesium Continue dificid 200mg BID - plan 10 days of Rx. last day tx will be 03/09/22 rectal tube has since been removed continue colestipol 1gm BID for bulking. cont contact precautions. (3) Hypocalcemia: Plan: Discharge summary obtained from [facility] and patient received induction chemotherapy consisting of "ESHAP" therapy on 02/18 and ending 02/23. ESHAP includes etoposide, methylprednisolone, cisplatin, and cytarabine. I believe that the profound electrolyte disturbances seen are due to cisplatin induced nephrotoxicity. Appreciate Dr Milan's consultation from nephrology. Calcium levels finally now improved with many doses of replacement both IV and po Continue calcitriol 0.25mcg daily. s/p Ergocalciferol 22916 units x 1 given this past weekend. Serial BMP/mag/phos/K. Replete other lytes with IV mag, po mag, po KCl and p.o. Neutra-Phos Continue telemetry status. Occasionally has some short runs of VT but none in last 24 hrs (4) Hypomagnesemia: Plan: Suspect 2nd to cisplatin induced renal dysfunction/nephrotoxicity. Also with GI loss from diarrhea, and not really eating mag-rich foods either. Large amounts of IV magnesium sulfate given since admission. Remains refractory but now the diarrhea is also improving so hopefully will resolve--> on 03/08 it is finally up to 1.8 Give additional 1 gram IV mag sulfate today in addition to p.o. Repeat mag level am. may add amiloride as per Nephro if BPs can tolerate although they remain soft (5) Hypokalemia: Plan: Resolved. Continue KCL 40meq PO TID Potassium in K-phos supplementation will help as well. Serial labs. (6) Hypophosphatemia: Plan: Now resolved with replacement -Continue K-phos neutral PO. (7) Lymphoma: Plan: B-Cell Lymphoma. Recurrence. Hospitalized here at [facility] from 01/29/22 to 02/15/22 at which time he was transferred to [facility] in [place]. Underwent ESHAP induction chemotherapy regimen starting 02/18 and ending 02/23. D/c from hospital 02/24, then received Rituxan & neulasta at that time. MRI brain negative during stay in [place] for evidence of lymphoma. However, LP with cytology + for malignant cells. DRUG AND [employer]COHOL COUNSELLOR methotrexate via [place]mmaya reservoir being planned under the care of Dr Gonsalves in [place]. Formal oncology consult by Dr Ruvalcaba appreciated. received daily Neupogen injections for severe neutropenia. Neutropenic precautions. Continue broad-spectrum abx as below for UTI and cellulitis of thighs. (8) Emphysematous cystitis: Plan: Formal consult placed to urology. They advise ongoing cefepime/daptomycin for UTI coverage despite negative urine culture. Unfortunately, the daptomycin it seems dropped off the MAR after his dose on the and he missed doses on 03/01-03/03 -Restarted daptomycin on 03/04 and continue cefepime as before Continue hull for 1-2 weeks as recommended by urology and will need outpt Urology f/u for TOV They will continue to follow him. Last day of tx for Cefepime will be 03/08, and last day of Dapto 03/11 as he missed 3 doses (9) Neutropenia: Plan: Now resolved with multiple doses neupogen Continue on chronic suppressive therapy with fluconazole 200 mg p.o. daily and acyclovir 800 mg p.o. twice daily Holding home Levaquin while on Cefepime but will restart for tomorrow now that Cefepime completed (10) Hypervolemia: Plan: Likely multifactorial - copious IV fluids between the previous hospital stay here and his stay in [place], hypoalbuminemia, low-normal systolic LV func tion (50-55% EF on echo), steroids, etc. Poor candidate for diuretics given his profound electrolyte disturbances. Fortunately his respiratory status remains stable. And it appears he has now "auto-diuresed." Edema in lower extremities is significantly improved Follow. (11) Hematuria: Plan: Eliquis use, low platelets, UTI, other factors likely all playing roles. Eliquis remains on hold for previous hematuria and also for low plts, will continue to hold Eliquis. Antibiotics in place. s/p 2 units of platelets since admission. Hematuria now resolved Monitor H/H Monitor platelet count. Urology consultation appreciated. (12) Acute metabolic encephalopathy: Plan: Was Resolved, then seemed to have returned on 03/05-was agitated, sleeping more than usual No fevers, and UTI adequately treated, cellulitis on thighs improving Now much improved. Is at baseline with short term memory loss-can't remember things from 20 min ago Cont abx, supportive care. Maintain good sleep/wake cycle, continue to encourage patient to get out of bed with PT Also has ongoing back pain from being in bed a lot--> treat with tylenol as needed (13) Benign prostatic hyperplasia with urinary obstruction: Plan: Cont flomax Cont finasteride Cont hull (14) Paroxysmal atrial flutter: Plan: There was concern for rapid a.fib at admission but formal reading on EKG was NSR with ectopy. Overnight again he was in NSR. HOLD ELIQUIS due to anemia and thrombocytopenia Cont multaq. Cont telemetry. (15) Cellulitis: Plan: b/l inner thighs and posterior left thigh -improving cefepime/daptomycin for UTI should suffice appears improved serial exams Plan VTE Prophylaxis - SCDs only; chemical means contraindicated Plan of care extensively discussed with pt's on a daily basis PT/OT consults placed and he will need rehab-likely early next week as long as magnesium is improved Admission and Anticipated Discharge Date Admission Date: February 26, 2022 Subjective Pt has no complaints. Had 2 large loose stools this AM. Denies pain. Is eating. Tele with NSR, normal rates, PACs, PVCs Review of Systems Review of Systems: All systems reviewed & are unremarkable except as noted in HPI & below Physical Exam Constitutional: WD/WN, vitals as above Eyes: + anicteric sclerae Neck: trachea midline, no thyromegaly Respiratory: normal respiratory effort, lungs clear to auscultation Cardiovascular: Rate/Rhythm: regular rate and regular rhythm Heart Sounds: no murmur Extremities: + edema (Trace pitting edema legs,improved from previous) Gastrointestinal (Abdomen): normal bowel sounds, soft, nontender, no hepatosplenomegaly Musculoskeletal: Extremities: extremities normal to inspection; no cyanosis and no clubbing Skin: no rashes, warm and dry + erythema (almost completely resolved inner thighs) Neurologic: moves all extremities; no focal motor deficits and + not awake Psychiatric: Orientation: alert, oriented to person and cooperative Genitourinary: no penis abnormality (Hull in place) and no scrotum abnormality Results & Data Results & Data ([facility]) Vital Signs (Past 12 Hours) Vital Signs Temp Pulse Pulse Resp BP Pulse Ox O2 Del Method 03/08/22 10:38 36.6 C 75 16 109/68 96 Room Air 03/08/22 06:44 70 03/08/22 06:45 36.9 C 75 17 108/71 97 Room Air 03/08/22 03:36 37.0 C 74 17 108/71 94 Room Air 03/07/22 23:53 74 03/07/22 23:30 36.8 C 84 18 98/60 L 92 Room Air Laboratory Results 03/08/22 03/08/22 Range/Units 06:05 06:05 WBC 28.27 H (4.8-10.8) K/ul RBC 2.86 L (4.63-6.08) M/uL Hgb 8.6 L (14.0-18.0) g/dl Hct 25.8 L (40.1-51.0) % MCV 90.2 (80.0-100.0) fL MCH 30.1 (25.0-34.0) pg MCHC 33.3 (32.0-36.0) g/dL RDW Std Deviation 51.8 H (36.4-46.3) fL RDW Coeff of Belén 15.8 H (11.5-14.5) % Plt Count 38 L (130-400) K/uL MPV 11.4 (9.4-12.4) fL Absolute Nucleated RBC 0.09 H (0-0) K/uL Nucleated RBC % (auto) 0.3 % Neutrophils % (Manual) 69 % Lymphocytes % (Manual) 13 % Monocytes % (Manual) 4 % Metamyelocytes % (Man) 9 % Myelocytes % (Man) 4 % Neutrophils # (Manual) 19.51 H (1.4-6.5) K/uL Total Absolute Neuts 19.51 H (1.4-6.5) K/uL Lymphocytes # (Manual) 3.68 H (1.2-3.4) K/uL Total Abs Lymphocytes 3.68 H (1.2-3.4) K/uL Monocytes # (Manual) 1.13 H (0.24-0.82) K/uL Metamyelocytes # (Man) 2.54 H (0-0) K/uL Myelocytes # (Manual) 1.13 H (0-0) K/uL Acanthocytes (Spur) 1+ Sodium 144 (136-145) mmol/L Potassium 4.5 (3.5-5.1) mmol/L Chloride 113 H (98-107) mmol/L Carbon Dioxide 26 (21-32) mmol/L Anion Gap 5 (3-11) BUN 14 (6-23) mg/dl Creatinine 1.07 (0.6-1.4) mg/dl Est Cr Clr Drug Dosing 76.8 ml/min Est GFR ( Amer) 81.7 ml/min Est GFR (Non-Af Amer) 70.5 ml/min BUN/Creatinine Ratio 13.1 (10-20) Glucose 71 (70-99(Fasting)) mg/dl Calcium 7.6 L (8.5-10.1) mg/dl Magnesium 1.8 (1.7-2.4) mg/dl PG Care Time/CCT Total # of Minutes Spent Total Time Spent with Patient: Total time spent is greater than 50% in coordination of care (as documented) at patient's floor/unit and/or counseling patient: Coding Level of Care Code 94146 Subseq Hosp Care Lvl 2 Diagnoses Pancytopenia due to antineoplastic chemotherapy D61.810; T45.1X5A C. difficile diarrhea A04.72 Hypocalcemia E83.51 Hypomagnesemia E83.42 Hypokalemia E87.6 Hypophosphatemia E83.39 Lymphoma C85.90 Emphysematous cystitis N30.80 Neutropenia D70.9 Hypervolemia E87.70 Hematuria R31.9 Acute metabolic encephalopathy G93.41 Benign prostatic hyperplasia with urinary obstruction N40.1; N13.8 Paroxysmal atrial flutter I48.92 Cellulitis L03.90
[2022-03-08] MEDS: DAPTOmycin 450 MG in SYRINGE 0 ML IV SCH (21:24)
[2022-03-09 07:01] LABS: BUN Creatinine Ratio 12.1 (10-20); Calcium 7.9 mg/dl (8.5-10.1); Est GFR (African American) 74.1 ml/min; Est GFR (Non-African American) 63.9 ml/min; Magnesium 1.5 mg/dl (1.7-2.4); Phosphorus 3.9 mg/dl (2.5-4.9); Potassium 4.8 mmol/L (3.5-5.1)
[2022-03-09 07:03] LABS: Hematocrit (blood only) 27.5 % (40.1-51.0); Hemoglobin 9.1 g/dl (14.0-18.0); Mean Corpuscular Hemoglobin 30.2 pg (25.0-34.0); Mean Corpuscular Hgb Conc 33.1 g/dL (32.0-36.0); Mean Corpuscular Volume 91.4 fL (80.0-100.0); Mean Platelet Volume 11.5 fL (9.4-12.4); Nucleated RBC # (auto) 0.19 K/uL (0-0); Nucleated RBC % (auto) 0.6 %; Platelet Count 59 K/uL (130-400); RDW Coefficient of Variation 15.4 % (11.5-14.5); RDW Standard Deviation 51.9 fL (36.4-46.3); Red Blood Count 3.01 M/uL (4.63-6.08); White Blood Count 33.87 K/ul (4.8-10.8)
[2022-03-09 07:56] LABS: ALC (manual) 3.73 K/uL (1.2-3.4); ANC (manual) 24.05 K/uL (1.4-6.5); Acanthocytes 1+; Blast # (manual) 0.34 K/uL (0-0); Blast Cells % (manual) 1 %; Lymphocytes # (manual) 3.73 K/uL (1.2-3.4); Lymphocytes % (manual) 11 %; Metamyelocytes # (manual) 1.35 K/uL (0-0); Metamyelocytes % (manual) 4 %; Monocytes # (manual) 1.35 K/uL (0.24-0.82); Monocytes % (manual) 4 %; Myelocytes # (manual) 3.05 K/uL (0-0); Myelocytes % (manual) 9 %; Neutrophils # (manual) 24.05 K/uL (1.4-6.5); Neutrophils % (manual) 71 %; Ovalocytes 1+; Tear Drop Cells 1+
[2022-03-09] MEDS: POTASSIUM CHLORIDE CRTAB 20 MEQ TABCR PO SCH ×2 (08:35→13:19)
[2022-03-09] MEDS: FIDAXOMICIN 200 MG TAB PO SCH ×2 (08:35→20:36)
[2022-03-09] MEDS: ACYCLOVIR 400 MG TAB PO SCH ×2 (08:36→20:36)
[2022-03-09] MEDS: COLESTIPOL HCL 1 GM TAB PO SCH ×2 (08:36→20:36)
[2022-03-09] MEDS: TAMSULOSIN HCL 0.4 MG CAP PO SCH ×2 (08:36→20:36)
[2022-03-09] MEDS: DRONEDARONE HCL 400 MG TAB PO SCH ×2 (08:36→20:36)
[2022-03-09] MEDS: CHOLECALCIFEROL 1,000 UNITS 25 MCG TAB PO SCH (08:36)
[2022-03-09] MEDS: POT PHOSPHATE MONOBASIC W/ SOD TAB PO SCH ×2 (08:37→13:17)
[2022-03-09] MEDS: CALCITRIOL 0.25 MCG CAPSULE PO SCH (08:37)
[2022-03-09] MEDS: MAGNESIUM OXIDE 400 MG TAB PO SCH ×2 (08:37→20:36)
[2022-03-09] MEDS: CYANOCOBALAMIN (B-12) 500 MCG TABLET PO SCH (08:38)
[2022-03-09] MEDS: allopurinoL 300 MG TAB PO SCH (08:38)
[2022-03-09] MEDS: CETIRIZINE HCL 10 MG TABLET PO SCH (08:38)
[2022-03-09] MEDS: NYSTATIN POWDER 15GM BTL EXT SCH ×3 (08:40→20:34)
[2022-03-09] MEDS: TRIAMCINOLONE ACET 0.1% CR 15 GM TUBE EXT SCH ×3 (08:41→20:34)
[2022-03-09] MEDS: MAGNESIUM SULFATE / D5W 1 GM/100 ML BAG IV SCH ×3 (09:25→13:17)
[2022-03-09] MEDS: FINASTERIDE 5 MG TAB PO SCH (10:44)
[2022-03-09] MEDS ORDERED: levoFLOXacin 500 MG TAB PO SCH (11:00)
--- NOTE | 2022-03-09 15:02 | Hospitalist Progress Note ---
Date of Service March 09, 2022 Assessment & Plan (1) Pancytopenia due to antineoplastic chemotherapy: Plan: severe. Recently started chemotherapy in the last 2 weeks at [facility] with severe neutropenia now resolved after multiple doses of Neupogen and infact now has leukocytosis due to Neupogen (no new infection, no fevers, etc.) s/p transfusion of 1 unit PRBCs and 1 unit platelets - 02/28. s/p transfusion of 1 unit platelets 03/01. Had some hematuria which is now resolved Hemoglobin down to 6.8 on 03/04 and received 2 units PRBCs All cell counts continue to be rising today-plts up to 38, hgb 8.6, WBC 28)- neutropenia resolved With blasts on diff but likely as response to bone marrow recovery and neupogen 03/09: Further rising WBC, still could be Neupogen effect; if persists might consult hematology; platelets and hemoglobin better (2) C. difficile diarrhea: Plan: gene +, toxin negative, but I do believe he has active infection. Diarrhea is now significantly improved but still having some loose stools--> may also be related to chemotherapy effect and also on po magnesium Continue dificid 200mg BID - plan 10 days of Rx. last day tx will be 03/10/22 rectal tube has since been removed continue colestipol 1gm BID for bulking. cont contact precautions. 03/09: No change (3) Hypocalcemia: Plan: Discharge summary obtained from [facility] and patient received induction chemotherapy consisting of "ESHAP" therapy on 02/18 and ending 02/23. ESHAP includes etoposide, methylprednisolone, cisplatin, and cytarabine. I believe that the profound electrolyte disturbances seen are due to cisplatin induced nephrotoxicity. Appreciate Dr Milan's consultation from nephrology. Calcium levels finally now improved with many doses of replacement both IV and po Continue calcitriol 0.25mcg daily. s/p Ergocalciferol 68618 units x 1 given this past weekend. Serial BMP/mag/phos/K. Replete other lytes with IV mag, po mag, po KCl and p.o. Neutra-Phos Continue telemetry status. Occasionally has some short runs of VT but none in last 24 hrs 03/09: Calcium levels acceptable, no change Echo shows preserved LV function relativelyobserve ventricular rhythm; correct electrolytes (4) Hypomagnesemia: Plan: Suspect 2nd to cisplatin induced renal dysfunction/nephrotoxicity. Also with GI loss from diarrhea, and not really eating mag-rich foods either. Large amounts of IV magnesium sulfate given since admission. Remains refractory but now the diarrhea is also improving so hopefully will resolve--> on 03/08 it is finally up to 1.8 Give additional 1 gram IV mag sulfate today in addition to p.o. Repeat mag level am. may add amiloride as per Nephro if BPs can tolerate although they remain soft 03/09: IV magnesium sulfate; potassium on high side, consider amiloride in a.m. (5) Lymphoma: Plan: B-Cell Lymphoma. Recurrence. Hospitalized here at [facility] from 01/29/22 to 02/15/22 at which time he was transferred to [facility] in [place]. Underwent ESHAP induction chemotherapy regimen starting 02/18 and ending 02/23. D/c from hospital 02/24, then received Rituxan & neulasta at that time. MRI brain negative during stay in [place] for evidence of lymphoma. However, LP with cytology + for malignant cells. [employer] methotrexate via [place] reservoir being planned under the care of Dr Gonsalves in [place]. Formal oncology consult by Dr Ruvalcaba appreciated. received daily Neupogen injections for severe neutropenia. Neutropenic precautions. #oncology follow-up in this regard; for the moment nothing immediate but may need to call them if needed (6) Emphysematous cystitis: Plan: Formal consult placed to urology. They advise ongoing cefepime/daptomycin for UTI coverage despite negative urine culture. Unfortunately, the daptomycin it seems dropped off the MAR after his dose on the and he missed doses on 03/01-03/03 -Restarted daptomycin on 03/04 and continue cefepime as before Continue hull for 1-2 weeks as recommended by urology and will need outpt Urology f/u for TOV They will continue to follow him. Last day of tx for Cefepime was 03/08, and last day of Dapto 03/11 as he missed 3 doses (7) Hypervolemia: Plan: Likely multifactorial - copious IV fluids between the previous hospital stay here and his stay in [place], hypoalbuminemia, low-normal systolic LV function (50-55% EF on echo), steroids, etc. Poor candidate for diuretics given his profound electrolyte disturbances. Fortunately his respiratory status remains stable. And it appears he has now "auto-diuresed." Edema in lower extremities is significantly improved Follow. 03/09: No change in this regard (8) Hematuria: Plan: Eliquis use, low platelets, UTI, other factors likely all playing roles. Eliquis remains on hold for previous hematuria and also for low plts, will continue to hold Eliquis. Antibiotics in place. s/p 2 units of platelets since admission. Hematuria now resolved Monitor H/H Monitor platelet count. Urology consultation appreciated. 03/09: Hematuria resolvedfollow (9) Benign prostatic hyperplasia with urinary obstruction: Plan: Cont flomax Cont finasteride Cont hull (10) Paroxysmal atrial flutter: Plan: There was concern for rapid a.fib at admission but formal reading on EKG was NSR with ectopy. Overnight again he was in NSR. HOLD ELIQUIS due to anemia and thrombocytopenia Cont multaq. Cont telemetry. (11) Cellulitis: Plan: b/l inner thighs and posterior left thigh -improving cefepime/daptomycin for UTI should suffice appears improved serial exams (12) Leukocytosis: Plan: Profound, likely colony factor induced but keep an open mind; blood cultures including from port. At present does not appear C. difficile induced Plan Observe lump on sacrum left side (small) agrees stop potassium, stop oral phosphorus VTE Prophylaxis -movement SCDs only; if platelets continue to improve can consider pharmacologic Admission and Anticipated Discharge Date Admission Date: February 26, 2022 Subjective Follow-up of original presentation with hematuria, urinary frequencypatient has impaired cognition, no specific complaints voiced; nursing incidentally noted small bump left sacral area Results & Data Results & Data ([facility]) Vital Signs (Past 12 Hours) Vital Signs Temp Pulse Pulse Resp BP Pulse Ox O2 Del Method 03/09/22 12:01 36.7 C 74 17 144/88 H 98 Room Air 03/09/22 06:06 78 03/09/22 06:45 37.1 C 78 17 97/64 L 97 Room Air 03/09/22 04:24 36.7 C 74 18 97/64 L 95 Room Air Laboratory Results Constitutional and general: No acute distress, looks biologic age Head and face: No puffiness, atraumatic Eyes: No scleral icterus, extraocular movements normal Neck: Supple, no JVD Musculoskeletal: No acute joint swelling, no bony abnormalities Skin/dermatologic/integument: No rash, no purpura Hematologic and lymphatic: pallor +, no petechia Gastrointestinal/abdomen: Nondistended, soft, nonacute Neurologic: Cranial nerves intact, nonfocal Impaired cognition Cardiovascular: Heart rhythm regular, no rub, no murmur, no gallop Respiratory: Chest movements equal, no use of accessory muscles, no adventitious sounds Extremities: No edema, no cyanosis Bruising Small nontender bump left sacrum with some superficial bruising PG Care Time/CCT Total # of Minutes Spent Total Time Spent with Patient: Total time spent is greater than 50% in coordination of care (as documented) at patient's floor/unit and/or counseling patient: Coding Level of Care Code 56877 Subseq Hosp Care Lvl 2 Diagnoses Pancytopenia due to antineoplastic chemotherapy D61.810; T45.1X5A C. difficile diarrhea A04.72 Hypocalcemia E83.51 Hypomagnesemia E83.42 Lymphoma C85.90 Emphysematous cystitis N30.80 Hypervolemia E87.70 Hematuria R31.9 Benign prostatic hyperplasia with urinary obstruction N40.1; N13.8 Paroxysmal atrial flutter I48.92 Cellulitis L03.90 Leukocytosis D72.829
[2022-03-09] MEDS: DAPTOmycin 450 MG in SYRINGE 0 ML IV SCH (21:49)
[2022-03-10 07:04] LABS: Hematocrit (blood only) 27.2 % (40.1-51.0); Hemoglobin 8.9 g/dl (14.0-18.0); Mean Corpuscular Hemoglobin 30.3 pg (25.0-34.0); Mean Corpuscular Hgb Conc 32.7 g/dL (32.0-36.0); Mean Corpuscular Volume 92.5 fL (80.0-100.0); Mean Platelet Volume 11.1 fL (9.4-12.4); Nucleated RBC # (auto) 0.32 K/uL (0-0); Platelet Count 88 K/uL (130-400); RDW Coefficient of Variation 15.3 % (11.5-14.5); RDW Standard Deviation 51.5 fL (36.4-46.3); Red Blood Count 2.94 M/uL (4.63-6.08); White Blood Count 33.39 K/ul (4.8-10.8)
[2022-03-10 07:08] LABS: ALC (manual) 3.01 K/uL (1.2-3.4); ANC (manual) 25.04 K/uL (1.4-6.5); Acanthocytes 1+; Blast # (manual) 0.33 K/uL (0-0); Blast Cells % (manual) 1 %; Lymphocytes # (manual) 3.01 K/uL (1.2-3.4); Lymphocytes % (manual) 9 %; Metamyelocytes % (manual) 3 %; Monocytes % (manual) 6 %; Myelocytes # (manual) 1.67 K/uL (0-0); Myelocytes % (manual) 5 %; Neutrophils # (manual) 25.04 K/uL (1.4-6.5); Neutrophils % (manual) 75 %; Promyelocytes # (manual) 0.33 K/uL (0-0); Promyelocytes % (manual) 1 %; Tear Drop Cells 1+
[2022-03-10 07:11] LABS: Albumin Globulin Ratio 1.3 (0.9-2); Albumin Level 2.8 gm/dl (3.4-5.0); Bilirubin,Total 0.4 mg/dl (0.2-1.0); Creatinine Clr Calc Pharmacy 69.9 ml/min; Est GFR (African American) 73.3 ml/min; Est GFR (Non-African American) 63.2 ml/min; Globulin 2.2 gm/dl (2.5-4.0); Magnesium 1.6 mg/dl (1.7-2.4); Phosphorus 3.7 mg/dl (2.5-4.9); Potassium 4.3 mmol/L (3.5-5.1)
[2022-03-10] MEDS: ACYCLOVIR 400 MG TAB PO SCH ×2 (08:44→20:30)
[2022-03-10] MEDS: allopurinoL 300 MG TAB PO SCH (08:45)
[2022-03-10] MEDS: CALCITRIOL 0.25 MCG CAPSULE PO SCH (08:45)
[2022-03-10] MEDS: CETIRIZINE HCL 10 MG TABLET PO SCH (08:46)
[2022-03-10] MEDS: CHOLECALCIFEROL 1,000 UNITS 25 MCG TAB PO SCH (08:46)
[2022-03-10] MEDS: COLESTIPOL HCL 1 GM TAB PO SCH ×2 (08:46→20:30)
[2022-03-10] MEDS: CYANOCOBALAMIN (B-12) 500 MCG TABLET PO SCH (08:47)
[2022-03-10] MEDS: DRONEDARONE HCL 400 MG TAB PO SCH ×2 (08:47→20:30)
[2022-03-10] MEDS: FINASTERIDE 5 MG TAB PO SCH (08:48)
[2022-03-10] MEDS: MAGNESIUM OXIDE 400 MG TAB PO SCH ×2 (08:48→20:30)
[2022-03-10] MEDS: NYSTATIN POWDER 15GM BTL EXT SCH ×3 (08:48→20:30)
[2022-03-10] MEDS: TAMSULOSIN HCL 0.4 MG CAP PO SCH ×2 (08:49→20:30)
[2022-03-10] MEDS: TRIAMCINOLONE ACET 0.1% CR 15 GM TUBE EXT SCH ×3 (08:49→20:30)
[2022-03-10] MEDS: FIDAXOMICIN 200 MG TAB PO SCH ×2 (08:57→20:30)
[2022-03-10] MEDS: HEPARIN 100 UNIT/ML 5ML FLUSH FLUSH PRN (09:30)
[2022-03-10] MEDS: MAGNESIUM SULFATE / D5W 1 GM/100 ML BAG IV SCH ×4 (10:18→15:33)
--- NOTE | 2022-03-10 13:29 | Hospitalist Progress Note ---
Date of Service March 10, 2022 Assessment & Plan (1) Pancytopenia due to antineoplastic chemotherapy: Plan: severe. Recently started chemotherapy in the last 2 weeks at [facility] with severe neutropenia now resolved after multiple doses of Neupogen and infact now has leukocytosis due to Neupogen (no new infection, no fevers, etc.) s/p transfusion of 1 unit PRBCs and 1 unit platelets - 02/28. s/p transfusion of 1 unit platelets 03/01. Had some hematuria which is now resolved Hemoglobin down to 6.8 on 03/04 and received 2 units PRBCs All cell counts continue to be rising today-plts up to 38, hgb 8.6, WBC 28)- neutropenia resolved With blasts on diff but likely as response to bone marrow recovery and neupogen 03/09: Further rising WBC, still could be Neupogen effect; if persists might consult hematology; platelets and hemoglobin better 03/10:Platelets better, hemoglobin stable; WBC still extremely high though stabilized or tad better (2) C. difficile diarrhea: Plan: gene +, toxin negative, but I do believe he has active infection. Diarrhea is now significantly improved but still having some loose stools--> may also be related to chemotherapy effect and also on po magnesium Continue dificid 200mg BID - plan 10 days of Rx. last day tx will be 03/10/22 rectal tube has since been removed continue colestipol 1gm BID for bulking. cont contact precautions. 03/09: No change 03/10: Denies abdominal symptoms, unclear how many bowel movements but at present does not seem to be complicated (3) Hypocalcemia: Plan: Discharge summary obtained from [facility] and patient received induction chemotherapy consisting of "ESHAP" therapy on 02/18 and ending 02/23. ESHAP includes etoposide, methylprednisolone, cisplatin, and cytarabine. I believe that the profound electrolyte disturbances seen are due to cisplatin induced nephrotoxicity. Appreciate Dr Milan's consultation from nephrology. Calcium levels finally now improved with many doses of replacement both IV and po Continue calcitriol 0.25mcg daily. s/p Ergocalciferol 87805 units x 1 given this past weekend. Serial BMP/mag/phos/K. Replete other lytes with IV mag, po mag, po KCl and p.o. Neutra-Phos Continue telemetry status. Occasionally has some short runs of VT but none in last 24 hrs 03/09: Calcium levels acceptable, no change Echo shows preserved LV function relativelyobserve ventricular rhythm; correct electrolytes 03/10: I believe corrected calcium is likely normal NSVT againcorrect magnesium (4) Hypomagnesemia: Plan: Suspect 2nd to cisplatin induced renal dysfunction/nephrotoxicity. Also with GI loss from diarrhea, and not really eating mag-rich foods either. Large amounts of IV magnesium sulfate given since admission. Remains refractory but now the diarrhea is also improving so hopefully will resolve--> on 03/08 it is finally up to 1.8 Give additional 1 gram IV mag sulfate today in addition to p.o. Repeat mag level am. may add amiloride as per Nephro if BPs can tolerate although they remain soft 03/09: IV magnesium sulfate; potassium on high side, consider amiloride in a.m. 03/10: Stubborn, aggressively continue replacement (5) Lymphoma: Plan: B-Cell Lymphoma. Recurrence. Hospitalized here at [facility] from 01/29/22 to 02/15/22 at which time he was transferred to [facility] in [place]. Underwent ESHAP induction chemotherapy regimen starting 02/18 and ending 02/23. D/c from hospital 02/24, then received Rituxan & neulasta at that time. MRI brain negative during stay in [place] for evidence of lymphoma. However, LP with cytology + for malignant cells. [employer] methotrexate via [place] reservoir being planned under the care of Dr Gonsalves in [place]. Formal oncology consult by Dr Jordon alvarez. received daily Neupogen injections for severe neutropenia. Neutropenic precautions. #oncology follow-up in this regard; for the moment nothing immediate but may need to call them if needed 03/10: Follow-up with oncology (6) Emphysematous cystitis: Plan: Formal consult placed to urology. They advise ongoing cefepime/daptomycin for UTI coverage despite negative urine culture. Unfortunately, the daptomycin it seems dropped off the MAR after his dose on the and he missed doses on 03/01-03/03 -Restarted daptomycin on 03/04 and continue cefepime as before Continue hull for 1-2 weeks as recommended by urology and will need outpt Urology f/u for TOV They will continue to follow him. Last day of tx for Cefepime was 03/08, and last day of Dapto 03/11 as he missed 3 doses (7) Hypervolemia: Plan: Likely multifactorial - copious IV fluids between the previous hospital stay here and his stay in [place], hypoalbuminemia, low-normal systolic LV function (50-55% EF on echo), steroids, etc. Poor candidate for diuretics given his profound electrolyte disturbances. Fortunately his respiratory status remains stable. And it appears he has now "auto-diuresed." Edema in lower extremities is significantly improved Follow. 03/09: No change in this regard 03/10: No change in this regard again (8) Hematuria: Plan: Eliquis use, low platelets, UTI, other factors likely all playing roles. Eliquis remains on hold for previous hematuria and also for low plts, will continue to hold Eliquis. Antibiotics in place. s/p 2 units of platelets since admission. Hematuria now resolved Monitor H/H Monitor platelet count. Urology consultation appreciated. 03/09: Hematuria resolvedfollow 03/10: Continue to observe (9) Benign prostatic hyperplasia with urinary obstruction: Plan: Cont flomax Cont finasteride Cont hull (10) Paroxysmal atrial flutter: Plan: There was concern for rapid a.fib at admission but formal reading on EKG was NSR with ectopy. Overnight again he was in NSR. HOLD ELIQUIS due to anemia and thrombocytopenia Cont multaq. Cont telemetry. (11) Cellulitis: Plan: b/l inner thighs and posterior left thigh -improving cefepime/daptomycin for UTI should suffice appears improved serial exams (12) Leukocytosis: Plan: Profound, likely colony factor induced but keep an open mind; blood cultures including from port. At present does not appear C. difficile induced (13) NSVT (nonsustained ventricular tachycardia): Plan Observe lump on sacrum right side (small) agrees VTE Prophylaxis -will add subcutaneous heparin cautiously Admission and Anticipated Discharge Date Admission Date: February 26, 2022 Subjective Follow-up of original presentation with hematuria, urinary frequencypatient has impaired cognition, no specific complaints voiced; nursing incidentally noted small bump left sacral area Results & Data Results & Data ([facility]) Vital Signs (Past 12 Hours) Vital Signs Temp Pulse Resp BP Pulse Ox O2 Del Method 03/10/22 10:53 36.5 C 76 17 102/68 96 Room Air 03/10/22 07:51 36.8 C 94 H 19 105/67 95 Room Air 03/10/22 02:56 36.7 C 84 18 106/86 97 Room Air PG Care Time/CCT Total # of Minutes Spent Total Time Spent with Patient: Total time spent is greater than 50% in coordination of care (as documented) at patient's floor/unit and/or counseling patient: Coding Level of Care Code 70792 Subseq Hosp Care Lvl 2 Diagnoses Pancytopenia due to antineoplastic chemotherapy D61.810; T45.1X5A C. difficile diarrhea A04.72 Hypocalcemia E83.51 Hypomagnesemia E83.42 Lymphoma C85.90 Emphysematous cystitis N30.80 Hypervolemia E87.70 Hematuria R31.9 Benign prostatic hyperplasia with urinary obstruction N40.1; N13.8 Paroxysmal atrial flutter I48.92 Cellulitis L03.90 Leukocytosis D72.829 NSVT (nonsustained ventricular tachycardia) I47.2
[2022-03-10] MEDS: DAPTOmycin 450 MG in SYRINGE 0 ML IV SCH (20:30)
[2022-03-10] MEDS: HEPARIN SOD 5,000 UNIT/0.5 ML VIAL SQ SCH (20:31)
[2022-03-11 06:25] LABS: Albumin Globulin Ratio 1.5 (0.9-2); Albumin Level 2.9 gm/dl (3.4-5.0); Bilirubin,Total 0.4 mg/dl (0.2-1.0); Calcium 8.3 mg/dl (8.5-10.1); Creatinine Clr Calc Pharmacy 72.1 ml/min; Est GFR (African American) 85.5 ml/min; Est GFR (Non-African American) 73.8 ml/min; Magnesium 1.7 mg/dl (1.7-2.4); Phosphorus 3.3 mg/dl (2.5-4.9); Total Protein 4.9 gm/dl (6.0-8.3)
[2022-03-11 06:45] LABS: Hematocrit (blood only) 26.3 % (40.1-51.0); Hemoglobin 8.8 g/dl (14.0-18.0); Mean Corpuscular Hemoglobin 30.9 pg (25.0-34.0); Mean Corpuscular Hgb Conc 33.5 g/dL (32.0-36.0); Mean Corpuscular Volume 92.3 fL (80.0-100.0); Nucleated RBC # (auto) 0.44 K/uL (0-0); Nucleated RBC % (auto) 1.2 %; Platelet Count 119 K/uL (130-400); RDW Coefficient of Variation 15.4 % (11.5-14.5); RDW Standard Deviation 51.4 fL (36.4-46.3); Red Blood Count 2.85 M/uL (4.63-6.08); White Blood Count 35.43 K/ul (4.8-10.8)
[2022-03-11 06:46] LABS: ALC (manual) 3.19 K/uL (1.2-3.4); Acanthocytes 1+; Lymphocytes # (manual) 3.19 K/uL (1.2-3.4); Lymphocytes % (manual) 9 %; Metamyelocytes # (manual) 2.13 K/uL (0-0); Metamyelocytes % (manual) 6 %; Monocytes # (manual) 2.13 K/uL (0.24-0.82); Monocytes % (manual) 6 %; Myelocytes # (manual) 3.19 K/uL (0-0); Myelocytes % (manual) 9 %; Neutrophils % (manual) 70 %; Tear Drop Cells 1+
[2022-03-11] MEDS: ACYCLOVIR 400 MG TAB PO SCH ×2 (08:01→20:31)
[2022-03-11] MEDS: CALCITRIOL 0.25 MCG CAPSULE PO SCH (08:01)
[2022-03-11] MEDS: allopurinoL 300 MG TAB PO SCH (08:01)
[2022-03-11] MEDS: CETIRIZINE HCL 10 MG TABLET PO SCH (08:02)
[2022-03-11] MEDS: CHOLECALCIFEROL 1,000 UNITS 25 MCG TAB PO SCH (08:02)
[2022-03-11] MEDS: COLESTIPOL HCL 1 GM TAB PO SCH ×2 (08:03→20:31)
[2022-03-11] MEDS: FINASTERIDE 5 MG TAB PO SCH (08:03)
[2022-03-11] MEDS: DRONEDARONE HCL 400 MG TAB PO SCH ×2 (08:03→20:31)
[2022-03-11] MEDS: CYANOCOBALAMIN (B-12) 500 MCG TABLET PO SCH (08:03)
[2022-03-11] MEDS: MAGNESIUM OXIDE 400 MG TAB PO SCH ×2 (08:04→20:32)
[2022-03-11] MEDS: NYSTATIN POWDER 15GM BTL EXT SCH ×3 (08:04→20:32)
[2022-03-11] MEDS: HEPARIN SOD 5,000 UNIT/0.5 ML VIAL SQ SCH (08:04)
[2022-03-11] MEDS: TRIAMCINOLONE ACET 0.1% CR 15 GM TUBE EXT SCH ×3 (08:05→20:32)
[2022-03-11] MEDS: TAMSULOSIN HCL 0.4 MG CAP PO SCH ×2 (08:05→20:32)
[2022-03-11] MEDS: HEPARIN 100 UNIT/ML 5ML FLUSH FLUSH PRN (09:58)
[2022-03-11] MEDS ORDERED: OPTIRAY 320 100ml IV ONE (11:59)
--- NOTE | 2022-03-11 12:23 | CT Scan Report ---
CHEST CT WITH CONTRAST CT DOSE: 1057.27 mGy.cm HISTORY: Acute leukocytosis profound leucocytosis TECHNIQUE: Multiaxial CT images of the chest were performed following the IV administration of 94 cc of Optiray. A dose lowering technique was utilized adhering to the principles of ALARA. COMPARISON: CT abdomen and pelvis of same day, Chest CT 01/29/2022. FINDINGS: No thyroid nodule. A right-sided PICC is present as well as a left subclavian [id number] catheter, both of which terminates in the inferior SVC. The heart is upper limits of normal in size. Moderate coronary artery calcifications. No thoracic aortic aneurysm. Unremarkable pulmonary artery. Trace right and small left pleural effusions. Linear consolidation of the basal left lower lobe with patchy groundglass and consolidative densities of the basal right lower lobe. No pneumothorax or over t pulmonary edema. The central airways are patent. Mild nonspecific distal esophageal wall thickening. Additional mild wall thickening of the distal sto mach. Indeterminate 1.6 cm lesion involving the posterior aspect of the superior pole left kidney. Pr obable cyst of the left hepatic lobe, 1.9 cm. There is additional indeterminate subcentimeter hypoech oic focus of the left hepatic lobe. Unremarkable soft tissues. No acute fracture or destructive bone lesion. IMPRESSION: 1. Subsegmental patchy groundglass/consolidative opacities of the basal right lower lobe are suggesti ve of an infectious or inflammatory pneumonitis. 2. Small left and trace right pleural effusions. 3. Left basilar consolidation suggests atelectasis. 4. Please refer to the CT abdomen and pelvis study of same day for additional findings. ACT 112: Negative or not required by law. Electronically signed by: Mc Mccarthy M.D. 03/11/2022 12:22 PM
--- NOTE | 2022-03-11 12:39 | CT Scan Report ---
CT OF THE ABDOMEN AND PELVIS WITH CONTRAST CLINICAL HISTORY: Profound leucocytosis. Lymphoma. COMPARISON STUDY: CT of the abdomen and pelvis January 29, 2022 and February 26, 2022. TECHNIQUE: Following IV administration of 94 mL of Optiray, axial images of the abdomen and pelvis we re obtained from the lung bases to the proximal femurs. Images were reviewed in the axial, sagittal, and coronal planes. IV contrast was administered without complication. Automated exposure control wa s utilized for the study. A dose lowering technique was utilized adhering to the principles of ALARA . FINDINGS: Please note that the chest CT will be reported separately. Small left pleural effusion has decreased in size since CT of February 26, 2022. Right pleural effusion has resolved. No pneumatosis, cynthia e air or portal venous gas is present. Lateral segment hepatic cyst is noted. No biliary or pancreati c ductal dilatation. There is no peripancreatic infiltration. Gallbladder is surgically absent. Splee n, right adrenal gland are unremarkable. A 1 cm left adrenal nodule is unchanged since CT of June 21, 2015. This is benign. Ascites and peritoneal nodularity has significantly improved since CT of J une 2021. No evidence for a bowel obstruction. No evidence for acute appendicitis. Moderate amoun t of stool within the colon and rectum. Retroperitoneal lymphadenopathy has significantly improved si nce CT of January 29, 2022. This is similar to CT of February 27, 2022. Farrar balloon and gas within the rene dder is noted. Hyperdense material within the bladder likely reflects a small amount of clot. Marked bladder wall thickening persists. However, gas within the bladder wall has nearly completely result s delfina prior CT. Gas within the ureters has resolved. Bilateral hydronephrosis has resolved. There is p ersistent bilateral urothelial thickening involving the ureters and collecting systems. Water attenua tion bilateral renal lesions reflect cysts. 1.4 cm intermediate attenuation focus within the midpole of the left kidney on image 150 is indeterminate. This appear to represent a 6 cm hypodense lesion on CT of January 29, 2022. The pelvic mass encasing the right aspect of the prostate and abutting the blad nawaf has significantly decreased in size since CT of January 29, 2022. This is similar to CT of February 26, 2022. Extensive pelvic infiltration persists. No acute fracture or suspicious lesion within visualize d skeletal structures. Body wall edema is present. IMPRESSION: 1. Persistent marked bladder wall thickening consistent with cystitis. Near complete resolution of g as within the bladder wall and resolution of gas within the bilateral ureters since CT of February 26 22. Persistent urothelial thickening of the ureters and collecting systems system with pyelitis. Reso lution of bilateral hydronephrosis. Small amount of clot within the bladder. 2. Significant improvement in peritoneal nodularity, ascites, retroperitoneal lymphadenopathy and the infiltrative pelvic mass since CT of January 29, 2022 consistent with a treatment response. 3. 1.4 cm intermediate attenuation left renal lesion. This appeared to represent a 6 mm hypodense les ion on CT of January 29, 2022. The rate of growth is likely too rapid for renal cell carcinoma. Therefor e, this is indeterminate and should be assessed on follow-up imaging studies. This does not represent a well-defined abscess however an infectious process is within the differential. 4. No bowel obstruction. No bowel wall thickening. ACT 112: Negative or not required by law. Electronically signed by: Usama Seaman M.D. 03/11/2022 12:38 PM
--- NOTE | 2022-03-11 15:38 | Hospitalist Progress Note ---
Date of Service March 11, 2022 Assessment & Plan (1) Leukocytosis: Plan: Profound, likely colony factor induced but counts if at all higher; probably leukemoid kind of reaction or G-CSF related; CT scans obtained, no clear evidence of acute bacterial infection; inclined to observe but will obtain ID input: As noted before does not appear to be C. difficile related (2) C. difficile diarrhea: Plan: gene +, toxin negativenot convincing for true C. difficile enterocolitis but completing treatment (3) Lymphoma: Plan: B-Cell Lymphoma. Recurrence. Hospitalized here at [facility] from 01/29/22 to 02/15/22 at which time he was transferred to [facility] in [place]. Underwent ESHAP induction chemotherapy regimen starting 02/18 and ending 02/23. D/c from hospital 02/24, then received Rituxan & neulasta at that time. MRI brain negative during stay in [place] for evidence of lymphoma. However, LP with cytology + for malignant cells. PRESTIDIGITATOR methotrexate via Ommaya reservoir being planned under the care of Dr Gonsalves in [place]. Formal oncology consult by Dr Jordon alvarez. received daily Neupogen injections for severe neutropenia. Neutropenic precautions. #oncology follow-up in this regard; for the moment nothing immediate but may need to call them if needed Touch base with oncology yesterday, blasts that was seen consistent with G-CSF; At present oncology outpatient with plans as made at [facility] At present I do not see a case for transfer but will keep an open mind (4) Emphysematous cystitis: Plan: Formal consult placed to urology. They advise ongoing cefepime/daptomycin for UTI coverage despite negative urine culture. Unfortunately, the daptomycin it seems dropped off the MAR after his dose on the and he missed doses on 03/01-03/03 -Restarted daptomycin on 03/04 and continue cefepime as before Continue hull for 1-2 weeks as recommended by urology and will need outpt Urology f/u for TOV They will continue to follow him. Last day of tx for Cefepime was 03/08, and last day of Dapto 03/11 as he missed 3 doses (5) Hypocalcemia: Plan: Improvednote (6) Hypomagnesemia: Plan: Likely cisplatin induced, replace as appropriate, can been and has been stubborn (7) Hypervolemia: Plan: Looks stable in this regardno change (8) Hematuria: Plan: Resolvedobserve (9) Benign prostatic hyperplasia with urinary obstruction: Plan: Cont flomax Cont finasteride Cont hull (10) Paroxysmal atrial flutter: Plan: There was concern for rapid a.fib at admission but formal reading on EKG was NSR with ectopy. Overnight again he was in NSR. HOLD ELIQUIS due to anemia and thrombocytopenia Cont multaq. Cont telemetry. (11) NSVT (nonsustained ventricular tachycardia): Plan: Echo relatively preserved LV function, correct magnesium and observe Plan Observe lump on sacrum right side (small) agreesnot seen today VTE Prophylaxis -switch to Lovenox Admission and Anticipated Discharge Date Admission Date: February 26, 2022 Subjective Follow-up of original presentation with hematuria, urinary frequencypatient has impaired cognition, no specific complaints voiced; diarrhea resolved Results & Data Results & Data ([facility]) Vital Signs (Past 12 Hours) Vital Signs Temp Pulse Resp BP Pulse Ox O2 Del Method 03/11/22 08:41 36.8 C 87 18 118/66 97 03/11/22 04:13 36.5 C 83 16 109/73 97 Room Air PG Care Time/CCT Total # of Minutes Spent Total Time Spent with Patient: Total time spent is greater than 50% in coordination of care (as documented) at patient's floor/unit and/or counseling patient: Coding Level of Care Code 29970 Subseq Hosp Care Lvl 2 Diagnoses Leukocytosis D72.829 C. difficile diarrhea A04.72 Lymphoma C85.90 Emphysematous cystitis N30.80 Hypocalcemia E83.51 Hypomagnesemia E83.42 Hypervolemia E87.70 Hematuria R31.9 Benign prostatic hyperplasia with urinary obstruction N40.1; N13.8 Paroxysmal atrial flutter I48.92 NSVT (nonsustained ventricular tachycardia) I47.2
[2022-03-11] MEDS: ENOXAPARIN INJ 40 MG/0.4 ML SYR SQ SCH (16:02)
[2022-03-11] MEDS: DAPTOmycin 450 MG in SYRINGE 0 ML IV SCH (20:33)
[2022-03-12 07:02] LABS: Hematocrit (blood only) 25.2 % (40.1-51.0); Hemoglobin 8.2 g/dl (14.0-18.0); Mean Corpuscular Hemoglobin 30.4 pg (25.0-34.0); Mean Corpuscular Hgb Conc 32.5 g/dL (32.0-36.0); Mean Corpuscular Volume 93.3 fL (80.0-100.0); Mean Platelet Volume 10.9 fL (9.4-12.4); Nucleated RBC # (auto) 0.55 K/uL (0-0); Nucleated RBC % (auto) 1.5 %; Platelet Count 142 K/uL (130-400); RDW Coefficient of Variation 15.4 % (11.5-14.5); RDW Standard Deviation 51.5 fL (36.4-46.3); White Blood Count 36.23 K/ul (4.8-10.8)
[2022-03-12 07:06] LABS: ALC (manual) 3.99 K/uL (1.2-3.4); ANC (manual) 27.53 K/uL (1.4-6.5); Acanthocytes 1+; Blast # (manual) 0.36 K/uL (0-0); Blast Cells % (manual) 1 %; Lymphocytes # (manual) 3.99 K/uL (1.2-3.4); Lymphocytes % (manual) 11 %; Metamyelocytes # (manual) 1.45 K/uL (0-0); Metamyelocytes % (manual) 4 %; Monocytes # (manual) 1.45 K/uL (0.24-0.82); Monocytes % (manual) 4 %; Myelocytes # (manual) 1.09 K/uL (0-0); Myelocytes % (manual) 3 %; Neutrophils # (manual) 27.53 K/uL (1.4-6.5); Neutrophils % (manual) 76 %; Promyelocytes # (manual) 0.36 K/uL (0-0); Promyelocytes % (manual) 1 %
[2022-03-12 07:09] LABS: Albumin Globulin Ratio 1.4 (0.9-2); Albumin Level 2.8 gm/dl (3.4-5.0); Bilirubin,Total 0.4 mg/dl (0.2-1.0); Creatinine Clr Calc Pharmacy 81.8 ml/min; Est GFR (African American) 89.7 ml/min; Est GFR (Non-African American) 77.4 ml/min; Magnesium 1.5 mg/dl (1.7-2.4); Phosphorus 2.9 mg/dl (2.5-4.9); Potassium 3.7 mmol/L (3.5-5.1); Total Protein 4.8 gm/dl (6.0-8.3)
[2022-03-12] MEDS: TAMSULOSIN HCL 0.4 MG CAP PO SCH ×2 (08:41→19:54)
[2022-03-12] MEDS: NYSTATIN POWDER 15GM BTL EXT SCH ×3 (08:41→19:53)
[2022-03-12] MEDS: TRIAMCINOLONE ACET 0.1% CR 15 GM TUBE EXT SCH ×3 (08:41→19:54)
[2022-03-12] MEDS: MAGNESIUM OXIDE 400 MG TAB PO SCH ×2 (08:42→19:53)
[2022-03-12] MEDS: FINASTERIDE 5 MG TAB PO SCH (08:42)
[2022-03-12] MEDS: DRONEDARONE HCL 400 MG TAB PO SCH ×2 (08:43→19:53)
[2022-03-12] MEDS: COLESTIPOL HCL 1 GM TAB PO SCH ×2 (08:44→19:53)
[2022-03-12] MEDS: CYANOCOBALAMIN (B-12) 500 MCG TABLET PO SCH (08:44)
[2022-03-12] MEDS: CHOLECALCIFEROL 1,000 UNITS 25 MCG TAB PO SCH (08:45)
[2022-03-12] MEDS: CETIRIZINE HCL 10 MG TABLET PO SCH (08:45)
[2022-03-12] MEDS: ACYCLOVIR 400 MG TAB PO SCH ×2 (08:46→19:52)
[2022-03-12] MEDS: allopurinoL 300 MG TAB PO SCH (08:46)
[2022-03-12] MEDS: CALCITRIOL 0.25 MCG CAPSULE PO SCH (08:47)
[2022-03-12] MEDS: MAGNESIUM SULFATE / D5W 1 GM/100 ML BAG IV SCH ×3 (11:31→17:17)
[2022-03-12] MEDS: ENOXAPARIN INJ 40 MG/0.4 ML SYR SQ SCH (17:17)
--- NOTE | 2022-03-12 17:56 | Hospitalist Progress Note ---
Date of Service March 12, 2022 Assessment & Plan (1) Leukocytosis: Plan: Profound and continues; long discussion with hem-oncology at [facility]; they still think related to filgrastim; they think this should not hold up discharge; they recommend lab twice a week lab if at rehab and fax to Dr. Srinivas Ayala and Dr. Del Gonsalves, fax number [phone] For the sake of completion and abundance of caution ID consult requested (2) C. difficile diarrhea: Plan: gene +, toxin negativenot convincing for true C. difficile enterocolitis but completed treatment (3) Lymphoma: Plan: B-Cell Lymphoma. Recurrence. Hospitalized here at [facility] from 01/29/22 to 02/15/22 at which time he was transferred to [facility] in [place]. Underwent ESHAP induction chemotherapy regimen starting 02/18 and ending 02/23. D/c from hospital 02/24, then received Rituxan & neulasta at that time. MRI brain negative during stay in [place] for evidence of lymphoma. However, LP with cytology + for malignant cells. CASE SPECIALIST methotrexate via Ommaya reservoir being planned under the care of Dr Gonsalves in [place]. Formal oncology consult by Dr Ruvalcaba appreciated. received daily Neupogen injections for severe neutropenia. Neutropenic precautions. #oncology follow-up in this regard; for the moment nothing immediate but may need to call them if needed Touch base with oncology yesterday, blasts that was seen consistent with G-CSF; At present oncology outpatient with plans as made at [facility] Per Dr. Ayala they would like to start chemo cycle again and will reach out to him early next week; wants different options since prior cycle washed him out; she does want to proceed with CASE SPECIALIST methotrexate (4) Emphysematous cystitis: Plan: Completed daptomycin plus cefepime even though cultures negative per discussion with urology; Repeat imaging betterkeep Hull per discussion with urology on 03/12 (5) Hypocalcemia: Plan: Stablefollow (6) Hypomagnesemia: Plan: Likely cisplatin induced, replace as appropriate, can been and has been stubborn (7) Hypervolemia: Plan: Looks stable in this regardno change (8) Hematuria: Plan: Resolvedobserve; on 03/12/2022 reached out to urologykeep Hull, follow-up with them as outpatient (9) Benign prostatic hyperplasia with urinary obstruction: Plan: Cont flomax Cont finasteride Cont hull as above (10) Paroxysmal atrial flutter: Plan: There was concern for rapid a.fib at admission but formal reading on EKG was NSR with ectopy. Overnight again he was in NSR. HOLD ELIQUIS due to anemia and thrombocytopenia Cont multaq. Cont telemetry. Thrombocytopenia improved but at present held off Eliquis; according to my calculation Chads Vasc 2 score is 1 therefore indication is equivocal-will discuss with family (11) NSVT (nonsustained ventricular tachycardia): Plan: Occurs intermittentlyecho relatively preserved LV function, correct magnesium and observe Plan Observe lump on sacrum right side (small) agreesnot seen today VTE Prophylaxis -switch to Lovenox Admission and Anticipated Discharge Date Admission Date: February 26, 2022 Subjective Follow-up of original presentation with hematuria, urinary frequencypatient has impaired cognition, no specific complaints voiced Physical Exam Physical Exam: For date of service Mar 10 Constitutional and general: No acute distress, looks biologic age Head and face: No puffiness, atraumatic Eyes: No scleral icterus, extraocular movements normal Neck: Supple, no JVD Musculoskeletal: No acute joint swelling, no bony abnormalities Skin/dermatologic/integument: No rash, no purpura Hematologic and lymphatic: pallor +, no petechia Gastrointestinal/abdomen: Nondistended, soft, nonacute Neurologic: Cranial nerves intact, nonfocal Impaired cognition Cardiovascular: Heart rhythm regular, no rub, no murmur, no gallop Respiratory: Chest movements equal, no use of accessory muscles, no adventitious sounds Extremities: No edema, no cyanosis Bruising Results & Data Results & Data ([facility]) Vital Signs (Past 12 Hours) Vital Signs Temp Pulse Pulse Resp BP BP Pulse Ox 03/12/22 16:05 36.4 C L 94 H 18 102/70 97 03/12/22 08:00 79 03/12/22 12:14 36.3 C L 109 H 18 101/70 97 03/12/22 08:00 36.8 C 89 18 108/68 95 O2 Del Method 03/12/22 16:05 Room Air 03/12/22 08:00 03/12/22 12:14 Room Air 03/12/22 08:00 Room Air Laboratory Results Laboratory Results - last 24 hr 03/12/22 03/12/22 06:02 06:02 WBC 36.23 H* RBC 2.70 L Hgb 8.2 L Hct 25.2 L MCV 93.3 MCH 30.4 MCHC 32.5 RDW Std Deviation 51.5 H RDW Coeff of Belén 15.4 H Plt Count 142 MPV 10.9 Absolute Nucleated RBC 0.55 H Nucleated RBC % (auto) 1.5 Neutrophils % (Manual) 76 Lymphocytes % (Manual) 11 Monocytes % (Manual) 4 Metamyelocytes % (Man) 4 Myelocytes % (Man) 3 Promyelocytes % (Man) 1 Blast Cells % (Manual) 1 Neutrophils # (Manual) 27.53 H Total Absolute Neuts 27.53 H Lymphocytes # (Manual) 3.99 H Total Abs Lymphocytes 3.99 H Monocytes # (Manual) 1.45 H Metamyelocytes # (Man) 1.45 H Myelocytes # (Manual) 1.09 H Promyelocytes # (Man) 0.36 H Blast Cells # (Man) 0.36 H Acanthocytes (Spur) 1+ Sodium 143 Potassium 3.7 Chloride 110 H Carbon Dioxide 26 Anion Gap 7 BUN 18 Creatinine 0.99 Est Cr Clr Drug Dosing 81.8 Est GFR ( Amer) 89.7 Est GFR (Non-Af Amer) 77.4 Fasting Glucose 74 Calcium 8.0 L Phosphorus 2.9 Magnesium 1.5 L Total Bilirubin 0.4 AST 15 ALT 9 Alkaline Phosphatase 110 H Total Protein 4.8 L Albumin 2.8 L Globulin 2.0 L Albumin/Globulin Ratio 1.4 PG Care Time/CCT Total # of Minutes Spent Total Time Spent with Patient: Total time spent is greater than 50% in coordination of care (as documented) at patient's floor/unit and/or counseling patient: Coding Level of Care Code 76439 Subseq Hosp Care Lvl 2 Diagnoses Leukocytosis D72.829 C. difficile diarrhea A04.72 Lymphoma C85.90 Emphysematous cystitis N30.80 Hypocalcemia E83.51 Hypomagnesemia E83.42 Hypervolemia E87.70 Hematuria R31.9 Benign prostatic hyperplasia with urinary obstruction N40.1; N13.8 Paroxysmal atrial flutter I48.92 NSVT (nonsustained ventricular tachycardia) I47.2
[2022-03-13 07:11] LABS: Hematocrit (blood only) 24.5 % (40.1-51.0); Hemoglobin 8.1 g/dl (14.0-18.0); Mean Corpuscular Hemoglobin 30.7 pg (25.0-34.0); Mean Corpuscular Hgb Conc 33.1 g/dL (32.0-36.0); Mean Corpuscular Volume 92.8 fL (80.0-100.0); Mean Platelet Volume 10.5 fL (9.4-12.4); Nucleated RBC # (auto) 0.56 K/uL (0-0); Nucleated RBC % (auto) 1.6 %; Platelet Count 182 K/uL (130-400); RDW Coefficient of Variation 15.2 % (11.5-14.5); RDW Standard Deviation 50.5 fL (36.4-46.3); Red Blood Count 2.64 M/uL (4.63-6.08); White Blood Count 36.11 K/ul (4.8-10.8)
[2022-03-13 07:28] LABS: Albumin Globulin Ratio 1.4 (0.9-2); Albumin Level 2.8 gm/dl (3.4-5.0); Bilirubin,Total 0.4 mg/dl (0.2-1.0); Calcium 8.1 mg/dl (8.5-10.1); Creatinine Clr Calc Pharmacy 93.5 ml/min; Est GFR (African American) 102.5 ml/min; Est GFR (Non-African American) 88.5 ml/min; Magnesium 1.7 mg/dl (1.7-2.4); Phosphorus 3.2 mg/dl (2.5-4.9); Potassium 3.6 mmol/L (3.5-5.1); Total Protein 4.8 gm/dl (6.0-8.3)
[2022-03-13 07:33] LABS: ALC (manual) 1.81 K/uL (1.2-3.4); ANC (manual) 28.89 K/uL (1.4-6.5); Acanthocytes 1+; Blast # (manual) 0.36 K/uL (0-0); Blast Cells % (manual) 1 %; Lymphocytes # (manual) 1.81 K/uL (1.2-3.4); Lymphocytes % (manual) 5 %; Metamyelocytes # (manual) 1.81 K/uL (0-0); Metamyelocytes % (manual) 5 %; Monocytes # (manual) 1.44 K/uL (0.24-0.82); Monocytes % (manual) 4 %; Myelocytes # (manual) 1.44 K/uL (0-0); Myelocytes % (manual) 4 %; Neutrophils # (manual) 28.89 K/uL (1.4-6.5); Neutrophils % (manual) 80 %
[2022-03-13] MEDS: MAGNESIUM OXIDE 400 MG TAB PO SCH ×2 (09:35→21:26)
[2022-03-13] MEDS: ACYCLOVIR 400 MG TAB PO SCH ×2 (09:35→21:26)
[2022-03-13] MEDS: TRIAMCINOLONE ACET 0.1% CR 15 GM TUBE EXT SCH ×3 (09:36→21:28)
[2022-03-13] MEDS: NYSTATIN POWDER 15GM BTL EXT SCH ×3 (09:36→21:28)
[2022-03-13] MEDS: CETIRIZINE HCL 10 MG TABLET PO SCH (09:38)
[2022-03-13] MEDS: CYANOCOBALAMIN (B-12) 500 MCG TABLET PO SCH (09:38)
[2022-03-13] MEDS: CALCITRIOL 0.25 MCG CAPSULE PO SCH (09:39)
[2022-03-13] MEDS: COLESTIPOL HCL 1 GM TAB PO SCH ×2 (09:39→21:27)
[2022-03-13] MEDS: DRONEDARONE HCL 400 MG TAB PO SCH ×2 (09:39→21:27)
[2022-03-13] MEDS: FINASTERIDE 5 MG TAB PO SCH (09:40)
[2022-03-13] MEDS: allopurinoL 300 MG TAB PO SCH (09:40)
[2022-03-13] MEDS: TAMSULOSIN HCL 0.4 MG CAP PO SCH ×2 (09:40→21:25)
[2022-03-13] MEDS: CHOLECALCIFEROL 1,000 UNITS 25 MCG TAB PO SCH (09:40)
[2022-03-13] MEDS: MAGNESIUM SULFATE / D5W 1 GM/100 ML BAG IV SCH ×2 (14:40→16:40)
--- NOTE | 2022-03-13 15:43 | Hospitalist Progress Note ---
Date of Service March 13, 2022 Assessment & Plan (1) Leukocytosis: Plan: Appears to have stabilized; see prior discussion with [facility] medical oncology; follow; if goes to rehab they recommend lab twice a week lab if at rehab and fax to Dr. Srinivas Ayala and Dr. Del Gonsalves, fax number [phone] (2) Lymphoma: Plan: B-Cell Lymphoma. Recurrence. Hospitalized here at [facility] from 01/29/22 to 02/15/22 at which time he was transferred to [facility] in [place]. Underwent ESHAP induction chemotherapy regimen starting 02/18 and ending 02/23. D/c from hospital 02/24, then received Rituxan & neulasta at that time. MRI brain negative during stay in [place] for evidence of lymphoma. However, LP with cytology + for malignant cells. FORK TRUCK OPERATOR methotrexate via Ommaya reservoir being planned under the care of Dr Gonsalves in [place]. Formal oncology consult by Dr Jordon alvarez. received daily Neupogen injections for severe neutropenia. Neutropenic precautions. #oncology follow-up in this regard; for the moment nothing immediate but may need to call them if needed Touch base with oncology yesterday, blasts that was seen consistent with G-CSF; At present oncology outpatient with plans as made at [facility] Per Dr. Ayala they would like to start chemo cycle again and will reach out to him early next week; wants different options since prior cycle washed him out; she does want to proceed with FORK TRUCK OPERATOR methotrexate (3) Emphysematous cystitis: Plan: Completed daptomycin plus cefepime even though cultures negative per discussion with urology; Repeat imaging betterkeep Hull per discussion with urology on 03/12 (4) Hypocalcemia: Plan: Stablefollow (5) Hypomagnesemia: Plan: Likely cisplatin induced, replace as appropriate, can been and has been stubborn (6) Hypervolemia: Plan: Looks stable in this regardno change (7) Hematuria: Plan: Resolvedobserve; [facility]2022 [facility]up with them as [facility]; discussion with wifehistory of CVA, therefore secondary pr evention for A. fibcautiously resume Eliquis (8) C. difficile diarrhea: Plan: gene +, toxin negativenot convincing for true C. difficile enterocolitis but completed treatment (9) Benign prostatic hyperplasia with urinary obstruction: Plan: Cont flomax Cont finasteride Cont hull as above (10) Paroxysmal atrial flutter: Plan: History of flutter/fibresumed Eliquis (11) NSVT (nonsustained ventricular tachycardia): Plan: Occurs intermittentlyecho relatively preserved LV function, maintain electrolytes and observe Plan Observe lump on sacrum right side (small) agreesnot seen today VTE Prophylaxis -switch to Lovenox They are thinking home; The patient requires the head of the bed to be elevated more than 30 degrees most of the time due to risk of aspiration given cognitive deficit and requires frequent change in body position and/or has immediate need for change in body position to prevent skin breakdown given mental state. Admission and Anticipated Discharge Date Admission Date: February 26, 2022 Subjective Follow-up of original presentation with hematuria, urinary frequencypatient has impaired cognition, no specific complaints voiced Physical Exam Physical Exam: Constitutional and general: No acute distress, looks biologic age Head and face: No puffiness, atraumatic Eyes: No scleral icterus, extraocular movements normal Neck: Supple, no JVD Musculoskeletal: No acute joint swelling, no bony abnormalities Skin/dermatologic/integument: No rash, no purpura Hematologic and lymphatic: pallor +, no petechia Gastrointestinal/abdomen: Nondistended, soft, nonacute Neurologic: Cranial nerves intact, nonfocal Impaired cognition Cardiovascular: Heart rhythm regular, no rub, no murmur, no gallop Respiratory: Chest movements equal, no use of accessory muscles, no adventitious sounds Extremities: No edema, no cyanosis Results & Data Results & Data ([facility]) Vital Signs (Past 12 Hours) Vital Signs Temp Pulse Resp BP BP Pulse Ox O2 Del Method 03/13/22 12:14 36.7 C 97 H 18 101/68 97 Room Air 03/13/22 07:58 36.4 C L 69 20 110/69 97 Room Air 03/13/22 03:55 36.5 C 73 16 95/63 L 96 Room Air Laboratory Results Laboratory Results - last 24 hr 03/13/22 03/13/22 06:35 06:35 WBC 36.11 H* RBC 2.64 L Hgb 8.1 L Hct 24.5 L MCV 92.8 MCH 30.7 MCHC 33.1 RDW Std Deviation 50.5 H RDW Coeff of Belén 15.2 H Plt Count 182 MPV 10.5 Absolute Nucleated RBC 0.56 H Nucleated RBC % (auto) 1.6 Neutrophils % (Manual) 80 Lymphocytes % (Manual) 5 Monocytes % (Manual) 4 Metamyelocytes % (Man) 5 Myelocytes % (Man) 4 Blast Cells % (Manual) 1 Neutrophils # (Manual) 28.89 H Total Absolute Neuts 28.89 H Lymphocytes # (Manual) 1.81 Total Abs Lymphocytes 1.81 Monocytes # (Manual) 1.44 H Metamyelocytes # (Man) 1.81 H Myelocytes # (Manual) 1.44 H Blast Cells # (Man) 0.36 H Acanthocytes (Spur) 1+ Sodium 142 Potassium 3.6 Chloride 109 H Carbon Dioxide 27 Anion Gap 6 BUN 18 Creatinine 0.86 Est Cr Clr Drug Dosing 93.5 Est GFR ( Amer) 102.5 Est GFR (Non-Af Amer) 88.5 Fasting Glucose 73 Calcium 8.1 L Phosphorus 3.2 Magnesium 1.7 Total Bilirubin 0.4 AST 15 ALT 9 Alkaline Phosphatase 117 H Total Protein 4.8 L Albumin 2.8 L Globulin 2.0 L Albumin/Globulin Ratio 1.4 PG Care Time/CCT Total # of Minutes Spent Total Time Spent with Patient: Total time spent is greater than 50% in coordination of care (as documented) at patient's floor/unit and/or counseling patient: Coding Level of Care Code 52898 Subseq Hosp Care Lvl 2 Diagnoses Leukocytosis D72.829 Lymphoma C85.90 Emphysematous cystitis N30.80 Hypocalcemia E83.51 Hypomagnesemia E83.42 Hypervolemia E87.70 Hematuria R31.9 C. difficile diarrhea A04.72 Benign prostatic hyperplasia with urinary obstruction N40.1; N13.8 Paroxysmal atrial flutter I48.92 NSVT (nonsustained ventricular tachycardia) I47.2
[2022-03-13] MEDS: APIXABAN 5 MG TABLET PO SCH (21:26)
[2022-03-14 07:41] LABS: Hematocrit (blood only) 25.1 % (40.1-51.0); Hemoglobin 8.1 g/dl (14.0-18.0); Mean Corpuscular Hemoglobin 30.1 pg (25.0-34.0); Mean Corpuscular Hgb Conc 32.3 g/dL (32.0-36.0); Mean Corpuscular Volume 93.3 fL (80.0-100.0); Mean Platelet Volume 10.2 fL (9.4-12.4); Nucleated RBC # (auto) 0.59 K/uL (0-0); Nucleated RBC % (auto) 1.8 %; Platelet Count 217 K/uL (130-400); RDW Coefficient of Variation 15.4 % (11.5-14.5); RDW Standard Deviation 50.2 fL (36.4-46.3); Red Blood Count 2.69 M/uL (4.63-6.08)
[2022-03-14] MEDS: MAGNESIUM OXIDE 400 MG TAB PO SCH ×3 (07:59→20:02)
[2022-03-14 08:00] LABS: ALC (manual) 1.99 K/uL (1.2-3.4); ANC (manual) 27.56 K/uL (1.4-6.5); Acanthocytes 1+; Basophils # (manual) 0.66 K/uL (0-0.2); Basophils % (manual) 2 %; Lymphocytes # (manual) 1.99 K/uL (1.2-3.4); Lymphocytes % (manual) 6 %; Metamyelocytes # (manual) 1.66 K/uL (0-0); Metamyelocytes % (manual) 5 %; Monocytes # (manual) 0.66 K/uL (0.24-0.82); Monocytes % (manual) 2 %; Myelocytes % (manual) 3 %; Neutrophils # (manual) 27.56 K/uL (1.4-6.5); Neutrophils % (manual) 83 %; Polychromasia 1+; Tear Drop Cells 1+
[2022-03-14] MEDS: DRONEDARONE HCL 400 MG TAB PO SCH ×2 (08:00→20:01)
[2022-03-14] MEDS: ACYCLOVIR 400 MG TAB PO SCH ×2 (08:00→20:01)
[2022-03-14] MEDS: APIXABAN 5 MG TABLET PO SCH ×2 (08:00→20:01)
[2022-03-14 08:01] LABS: Albumin Globulin Ratio 1.4 (0.9-2); Albumin Level 2.8 gm/dl (3.4-5.0); Bilirubin,Total 0.4 mg/dl (0.2-1.0); Calcium 8.1 mg/dl (8.5-10.1); Creatinine Clr Calc Pharmacy 95.9 ml/min; Est GFR (African American) 103.5 ml/min; Est GFR (Non-African American) 89.3 ml/min; Magnesium 1.6 mg/dl (1.7-2.4); Phosphorus 3.4 mg/dl (2.5-4.9); Potassium 3.9 mmol/L (3.5-5.1); Total Protein 4.8 gm/dl (6.0-8.3)
[2022-03-14] MEDS: CYANOCOBALAMIN (B-12) 500 MCG TABLET PO SCH (08:03)
[2022-03-14] MEDS: FINASTERIDE 5 MG TAB PO SCH (08:03)
[2022-03-14] MEDS: allopurinoL 300 MG TAB PO SCH (08:04)
[2022-03-14] MEDS: CALCITRIOL 0.25 MCG CAPSULE PO SCH (08:04)
[2022-03-14] MEDS: CETIRIZINE HCL 10 MG TABLET PO SCH (08:04)
[2022-03-14] MEDS: TAMSULOSIN HCL 0.4 MG CAP PO SCH ×2 (08:04→20:02)
[2022-03-14] MEDS: CHOLECALCIFEROL 1,000 UNITS 25 MCG TAB PO SCH (08:04)
[2022-03-14] MEDS: NYSTATIN POWDER 15GM BTL EXT SCH ×3 (08:05→20:02)
[2022-03-14] MEDS: TRIAMCINOLONE ACET 0.1% CR 15 GM TUBE EXT SCH ×3 (08:05→20:02)
[2022-03-14] MEDS: COLESTIPOL HCL 1 GM TAB PO SCH ×2 (09:10→20:01)
[2022-03-14] MEDS: MAGNESIUM SULFATE / D5W 1 GM/100 ML BAG IV SCH ×3 (12:00→15:54)
--- NOTE | 2022-03-14 16:07 | Hospitalist Progress Note ---
Date of Service March 14, 2022 Assessment & Plan (1) Leukocytosis: Plan: Appears to have stabilized; see prior discussion with [facility] medical oncology; follow; they recommend lab twice a week lab if at rehab and fax to Dr. Srinivas Ayala and Dr. Del Gonsalves, fax number [phone] (2) Lymphoma: Plan: B-Cell Lymphoma. Recurrence. Hospitalized here at [facility] from 01/29/22 to 02/15/22 at which time he was transferred to [facility] in [place]. Underwent ESHAP induction chemotherapy regimen starting 02/18 and ending 02/23. D/c from hospital 02/24, then received Rituxan & neulasta at that time. MRI brain negative during stay in [place] for evidence of lymphoma. However, LP with cytology + for malignant cells. EHS SPECIALIST methotrexate via Ommaya reservoir being planned under the care of Dr Gonsalves in [place]. Formal oncology consult by Dr Jordon alvarez. received daily Neupogen injections for severe neutropenia. Neutropenic precautions. #oncology follow-up in this regard; for the moment nothing immediate but may need to call them if needed Touch base with oncology yesterday, blasts that was seen consistent with G-CSF; At present oncology outpatient with plans as made at [facility] Per Dr. Ayala they would like to start chemo cycle again and will reach out to him early next week; wants different options since prior cycle washed him out; she does want to proceed with EHS SPECIALIST methotrexate (3) Emphysematous cystitis: Plan: Completed daptomycin plus cefepime even though cultures negative per discussion with urology; Repeat imaging betterkeep Hull per discussion with urology on 03/12 (4) Hypocalcemia: Plan: Stablefollow (5) Hypomagnesemia: Plan: Likely cisplatin induced, replace as appropriate, can been and has been stubborn (6) Hypervolemia: Plan: Looks stable in this regardno change (7) Hematuria: Plan: Resolvedobserve; [facility] 03[facility]12/2022 [facility]up with them as [facility]; discussion with wifehistory of CVA, therefore secondary prevention for A. fibcautiously resumed Eliquis (8) C. difficile diarrhea: Plan: gene +, toxin negativenot convincing for true C. difficile enterocolitis but completed treatment (9) Benign prostatic hyperplasia with urinary obstruction: Plan: Cont flomax Cont finasteride Cont hull as above (10) Paroxysmal atrial flutter: Plan: History of flutter/fibresumed Eliquis (11) NSVT (nonsustained ventricular tachycardia): Plan: Occurs intermittentlyecho relatively preserved LV function, maintain electrolytes and observe Plan Observe lump on sacrum right side (small) agreesnot seen today Original plan was rehab placement but among issues was availability and feasibility (cost) of private room; now they are thinking home with home health early next week; Admission and Anticipated Discharge Date Admission Date: February 26, 2022 Subjective Follow-up of original presentation with hematuria, urinary frequencyno specific complaints voiced; overall much improved with Physical Exam Physical Exam: Constitutional and general: No acute distress, looks biologic age Head and face: No puffiness, atraumatic Eyes: No scleral icterus, extraocular movements normal Neck: Supple, no JVD Musculoskeletal: No acute joint swelling, no bony abnormalities Skin/dermatologic/integument: No rash, no purpura Hematologic and lymphatic: pallor +, no petechia Gastrointestinal/abdomen: Nondistended, soft, nonacute Neurologic: Cranial nerves intact, nonfocal Impaired cognition Cardiovascular: Heart rhythm regular, no rub, no murmur, no gallop Respiratory: Chest movements equal, no use of accessory muscles, no adventitious sounds Extremities: No edema, no cyanosis Results & Data Results & Data ([facility]) Vital Signs (Past 12 Hours) Vital Signs Temp Pulse Pulse Resp BP Pulse Ox O2 Del Method 03/14/22 15:00 36.8 C 80 18 147/74 H 97 03/14/22 11:00 36.8 C 77 18 131/62 96 03/14/22 10:38 74 03/14/22 08:28 36.8 C 83 20 112/68 97 Room Air 03/14/22 04:09 36.4 C L 82 18 113/70 97 Room Air Laboratory Results Laboratory Results - last 24 hr 03/14/22 03/14/22 06:34 06:34 WBC 33.20 H* RBC 2.69 L Hgb 8.1 L Hct 25.1 L MCV 93.3 MCH 30.1 MCHC 32.3 RDW Std Deviation 50.2 H RDW Coeff of Belén 15.4 H Plt Count 217 MPV 10.2 Absolute Nucleated RBC 0.59 H Nucleated RBC % (auto) 1.8 Neutrophils % (Manual) 83 Lymphocytes % (Manual) 6 Monocytes % (Manual) 2 Basophils % (Manual) 2 Metamyelocytes % (Man) 5 Myelocytes % (Man) 3 Neutrophils # (Manual) 27.56 H Total Absolute Neuts 27.56 H Lymphocytes # (Manual) 1.99 Total Abs Lymphocytes 1.99 Monocytes # (Manual) 0.66 Basophils # (Manual) 0.66 H Metamyelocytes # (Man) 1.66 H Myelocytes # (Manual) 1.00 H Polychromasia 1+ Tear Drop Cells 1+ Acanthocytes (Spur) 1+ Sodium 141 Potassium 3.9 Chloride 108 H Carbon Dioxide 28 Anion Gap 5 BUN 17 Creatinine 0.84 Est Cr Clr Drug Dosing 95.9 Est GFR ( Amer) 103.5 Est GFR (Non-Af Amer) 89.3 Fasting Glucose 73 Calcium 8.1 L Phosphorus 3.4 Magnesium 1.6 L Total Bilirubin 0.4 AST 16 ALT 9 Alkaline Phosphatase 113 H Total Protein 4.8 L Albumin 2.8 L Globulin 2.0 L Albumin/Globulin Ratio 1.4 PG Care Time/CCT Total # of Minutes Spent Total Time Spent with Patient: Total time spent is greater than 50% in coordination of care (as documented) at patient's floor/unit and/or counseling patient: Coding Level of Care Code 41423 Subseq Hosp Care Lvl 2 Diagnoses Leukocytosis D72.829 Lymphoma C85.90 Emphysematous cystitis N30.80 Hypocalcemia E83.51 Hypomagnesemia E83.42 Hypervolemia E87.70 Hematuria R31.9 C. difficile diarrhea A04.72 Benign prostatic hyperplasia with urinary obstruction N40.1; N13.8 Paroxysmal atrial flutter I48.92 NSVT (nonsustained ventricular tachycardia) I47.2
[2022-03-15 06:05] LABS: Hematocrit (blood only) 24.3 % (40.1-51.0); Hemoglobin 7.9 g/dl (14.0-18.0); Mean Corpuscular Hemoglobin 30.4 pg (25.0-34.0); Mean Corpuscular Hgb Conc 32.5 g/dL (32.0-36.0); Mean Corpuscular Volume 93.5 fL (80.0-100.0); Mean Platelet Volume 9.9 fL (9.4-12.4); Nucleated RBC # (auto) 0.51 K/uL (0-0); Nucleated RBC % (auto) 1.6 %; Platelet Count 227 K/uL (130-400); RDW Coefficient of Variation 16.1 % (11.5-14.5); RDW Standard Deviation 49.2 fL (36.4-46.3); White Blood Count 32.38 K/ul (4.8-10.8)
[2022-03-15 06:26] LABS: Albumin Globulin Ratio 1.5 (0.9-2); Albumin Level 2.8 gm/dl (3.4-5.0); Bilirubin,Total 0.4 mg/dl (0.2-1.0); Calcium 7.9 mg/dl (8.5-10.1); Creatinine Clr Calc Pharmacy 88.7 ml/min; Est GFR (African American) 99.3 ml/min; Est GFR (Non-African American) 85.7 ml/min; Globulin 1.9 gm/dl (2.5-4.0); Magnesium 1.8 mg/dl (1.7-2.4); Phosphorus 3.1 mg/dl (2.5-4.9); Potassium 3.8 mmol/L (3.5-5.1); Total Protein 4.7 gm/dl (6.0-8.3)
[2022-03-15 06:42] LABS: ANC (manual) 27.85 K/uL (1.4-6.5); Anisocytosis Present; Basophils # (manual) 0.32 K/uL (0-0.2); Basophils % (manual) 1 %; Lymphocytes % (manual) 4 %; Metamyelocytes # (manual) 0.97 K/uL (0-0); Metamyelocytes % (manual) 3 %; Monocytes # (manual) 0.97 K/uL (0.24-0.82); Monocytes % (manual) 3 %; Myelocytes # (manual) 0.97 K/uL (0-0); Myelocytes % (manual) 3 %; Neutrophils # (manual) 27.85 K/uL (1.4-6.5); Neutrophils % (manual) 86 %; Polychromasia 1+; Schistocytes 1+
[2022-03-15] MEDS: CYANOCOBALAMIN (B-12) 500 MCG TABLET PO SCH (08:35)
[2022-03-15] MEDS: CETIRIZINE HCL 10 MG TABLET PO SCH (08:35)
[2022-03-15] MEDS: ACYCLOVIR 400 MG TAB PO SCH ×2 (08:35→21:04)
[2022-03-15] MEDS: CHOLECALCIFEROL 1,000 UNITS 25 MCG TAB PO SCH (08:36)
[2022-03-15] MEDS: CALCITRIOL 0.25 MCG CAPSULE PO SCH (08:36)
[2022-03-15] MEDS: APIXABAN 5 MG TABLET PO SCH ×2 (08:36→21:04)
[2022-03-15] MEDS: DRONEDARONE HCL 400 MG TAB PO SCH ×2 (08:36→21:05)
[2022-03-15] MEDS: MAGNESIUM OXIDE 400 MG TAB PO SCH ×3 (08:36→21:00)
[2022-03-15] MEDS: allopurinoL 300 MG TAB PO SCH (08:36)
[2022-03-15] MEDS: TAMSULOSIN HCL 0.4 MG CAP PO SCH ×2 (08:36→21:01)
[2022-03-15] MEDS: NYSTATIN POWDER 15GM BTL EXT SCH ×3 (08:36→21:00)
[2022-03-15] MEDS: FINASTERIDE 5 MG TAB PO SCH (08:36)
[2022-03-15] MEDS: TRIAMCINOLONE ACET 0.1% CR 15 GM TUBE EXT SCH ×3 (08:37→21:00)
[2022-03-15] MEDS: COLESTIPOL HCL 1 GM TAB PO SCH ×2 (09:45→21:04)
[2022-03-15] MEDS: aMILoride HCL 5 MG TAB PO SCH (14:11)
--- NOTE | 2022-03-15 16:46 | Hospitalist Progress Note ---
Date of Service March 15, 2022 Assessment & Plan (1) Leukocytosis: Plan: Appears to have stabilized; prior discussion with [facility] medical oncology more than oncethey feel related to filgrastim; follow; they recommend lab twice a week lab if at rehab and fax to Dr. Srinivas Ayala and Dr. Del Gonsalves, fax number [phone] However, at present wants to take him home with home health; if so, will need quick follow-up at [facility] (2) Lymphoma: Plan: B-Cell Lymphoma. Recurrence. Hospitalized here at [facility] from 01/29/22 to 02/15/22 at which time he was tr ansferred to [facility] in [place]. Underwent ESHAP induction chemotherapy regimen starting 02/18 and ending 02/23. D/c from hospital 02/24, then received Rituxan & neulasta at that time. MRI brain negative during stay in [place] for evidence of lymphoma. However, LP with cytology + for malignant cells. MEDICAL SECRETARY methotrexate via Ommaya reservoir being planned under the care of Dr Sherron bullock in [place]. Formal oncology consult by Dr Jordon alvarez. received daily Neupogen injections for severe neutropenia. Neutropenic precautions. #oncology follow-up in this regard; for the moment nothing immediate but may need to call them if needed Touch base with oncology yesterday, blasts that was seen consistent with G-CSF; At present oncology outpatient with plans as made at [facility] Per Dr. Ayala they would like to start chemo cycle again and will reach out to them early next week; wants different options since prior cycle washed him out; she does want to proceed with MEDICAL SECRETARY methotrexate (3) Emphysematous cystitis: Plan: Completed daptomycin plus cefepime even though cultures negative per discussion with urology; Repeat imaging betterkeep Hull per discussion with urology on 03/12 Urology follow-up (4) Hypocalcemia: Plan: Stablefollow (5) Hypomagnesemia: Plan: Likely cisplatin induced, replace as appropriate, can been and has been stubborn; today added amiloride (6) Hypervolemia: Plan: Does have more edema; and medial right will help (7) Hematuria: Plan: Resolvedobserve; on 03/12/2022 reached out to urologykeep [place], follow-up with them as outpatient; discussion with wifehistory of CVA, therefore secondary prevention for A. fibcautiously resumed Eliquis (8) C. difficile diarrhea: Plan: gene +, toxin negativenot convincing for true C. difficile enterocolitis but completed treatment (9) Benign prostatic hyperplasia with urinary obstruction: Plan: Cont flomax Cont finasteride Cont hull as above (10) Paroxysmal atrial flutter: Plan: History of flutter/fibresumed Eliquis (11) NSVT (nonsustained ventricular tachycardia): Plan: Occurs intermittentlyecho relatively preserved LV function, maintain electrolytes and observe Plan Anemic, noted hemoglobinno clinical bleeding noted including none in Foleyobserve low blood sugarprobably dietary; nutrition consult Also consulted speech therapy -was receiving in the past, today I noticed transient cough while he was eating; subtle oropharyngeal dysphagia can contribute to poor intake observe lump on sacrum right side (small) agreesnot seen today Original plan was rehab placement but among issues was availability and feasibility (cost) of private room; now they are thinking home with home health early next week; Admission and Anticipated Discharge Date Admission Date: February 26, 2022 Subjective Follow-up of original presentation with hematuria, urinary frequency and weakness after discharge from [facility] following induction therapy of recurrent B-cell lymphoma; diagnosed with emphysematous cystitis, given a course of antibiotics; during the course leukopenia, then filgrastim therapy, then leukocytosis; also, stubborn hypomagnesemiatoday nonspecific discomfort/aches and pains Physical Exam Physical Exam: Constitutional and general: No acute distress, looks biologic age Head and face: No puffiness, atraumatic Eyes: No scleral icterus, extraocular movements normal Neck: Supple, no JVD Musculoskeletal: No acute joint swelling, no bony abnormalities Skin/dermatologic/integument: No rash, no purpura Hematologic and lymphatic: pallor +, no petechia Gastrointestinal/abdomen: Nondistended, soft, nonacute Neurologic: Cranial nerves intact, nonfocal Impaired cognition Cardiovascular: Heart rhythm regular, no rub, no murmur, no gallop Respiratory: Chest movements equal, no use of accessory muscles, no adventitious sounds Extremities: edema +, no cyanosis Results & Data Results & Data ([facility]) Vital Signs (Past 12 Hours) Vital Signs Temp Pulse Pulse Resp BP Pulse Ox 03/15/22 15:00 36.6 C 87 18 110/67 97 03/15/22 10:00 37.1 C 90 18 110/71 97 03/15/22 08:00 92 H 03/15/22 07:00 37.0 C 78 18 102/76 Laboratory Results Laboratory Results - last 24 hr 03/15/22 03/15/22 05:21 05:21 WBC 32.38 H* RBC 2.60 L Hgb 7.9 L Hct 24.3 L MCV 93.5 MCH 30.4 MCHC 32.5 RDW Std Deviation 49.2 H RDW Coeff of Belén 16.1 H Plt Count 227 MPV 9.9 Absolute Nucleated RBC 0.51 H Nucleated RBC % (auto) 1.6 Neutrophils % (Manual) 86 Lymphocytes % (Manual) 4 Monocytes % (Manual) 3 Basophils % (Manual) 1 Metamyelocytes % (Man) 3 Myelocytes % (Man) 3 Neutrophils # (Manual) 27.85 H Total Absolute Neuts 27.85 H Lymphocytes # (Manual) 1.30 Total Abs Lymphocytes 1.30 Monocytes # (Manual) 0.97 H Basophils # (Manual) 0.32 H Metamyelocytes # (Man) 0.97 H Myelocytes # (Manual) 0.97 H Polychromasia 1+ Anisocytosis Present Schistocytes 1+ Sodium 141 Potassium 3.8 Chloride 107 Carbon Dioxide 28 Anion Gap 6 BUN 17 Creatinine 0.91 Est Cr Clr Drug Dosing 88.7 Est GFR ( Amer) 99.3 Est GFR (Non-Af Amer) 85.7 Fasting Glucose 67 L Calcium 7.9 L Phosphorus 3.1 Magnesium 1.8 Total Bilirubin 0.4 AST 14 ALT 9 Alkaline Phosphatase 107 H Total Protein 4.7 L Albumin 2.8 L Globulin 1.9 L Albumin/Globulin Ratio 1.5 PG Care Time/CCT Total # of Minutes Spent Total Time Spent with Patient: Total time spent is greater than 50% in coordination of care (as documented) at patient's floor/unit and/or counseling patient: Coding Level of Care Code 35167 Subseq Hosp Care Lvl 2 Diagnoses Leukocytosis D72.829 Lymphoma C85.90 Emphysematous cystitis N30.80 Hypocalcemia E83.51 Hypomagnesemia E83.42 Hypervolemia E87.70 Hematuria R31.9 C. difficile diarrhea A04.72 Benign prostatic hyperplasia with urinary obstruction N40.1; N13.8 Paroxysmal atrial flutter I48.92 NSVT (nonsustained ventricular tachycardia) I47.2
[2022-03-16 06:36] LABS: Hematocrit (blood only) 24.6 % (40.1-51.0); Mean Corpuscular Hemoglobin 30.8 pg (25.0-34.0); Mean Corpuscular Hgb Conc 32.5 g/dL (32.0-36.0); Mean Corpuscular Volume 94.6 fL (80.0-100.0); Mean Platelet Volume 9.9 fL (9.4-12.4); Nucleated RBC # (auto) 0.25 K/uL (0-0); Nucleated RBC % (auto) 0.9 %; Platelet Count 238 K/uL (130-400); RDW Coefficient of Variation 17.2 % (11.5-14.5); White Blood Count 27.44 K/ul (4.8-10.8)
[2022-03-16 07:00] LABS: Acanthocytes 1+; Basophils # (auto) 0.19 K/uL (0-0.2); Basophils % (auto) 0.7 %; Immature Granulocytes # (auto) 2.49 K/uL (0.00-0.02); Immature Granulocytes % (auto) 9.1 %; Lymphocytes # (auto) 2.42 K/uL (1.2-3.4); Lymphocytes % (auto) 8.8 %; Microcytosis Present; Monocytes # (auto) 1.94 K/uL (0.24-0.82); Monocytes % (auto) 7.1 %; Neutrophils % (auto) 74.3 %; Ovalocytes 1+; Polychromasia 1+
[2022-03-16 07:07] LABS: Albumin Globulin Ratio 1.4 (0.9-2); Albumin Level 2.8 gm/dl (3.4-5.0); Bilirubin,Total 0.4 mg/dl (0.2-1.0); Calcium 7.9 mg/dl (8.5-10.1); Creatinine Clr Calc Pharmacy 87.9 ml/min; Est GFR (Non-African American) 84.6 ml/min; Magnesium 1.6 mg/dl (1.7-2.4); Phosphorus 3.3 mg/dl (2.5-4.9); Potassium 4.2 mmol/L (3.5-5.1); Total Protein 4.8 gm/dl (6.0-8.3)
[2022-03-16] MEDS: APIXABAN 5 MG TABLET PO SCH ×2 (08:08→20:33)
[2022-03-16] MEDS: COLESTIPOL HCL 1 GM TAB PO SCH ×2 (08:08→20:28)
[2022-03-16] MEDS: FINASTERIDE 5 MG TAB PO SCH (08:09)
[2022-03-16] MEDS: MAGNESIUM OXIDE 400 MG TAB PO SCH ×3 (08:09→20:26)
[2022-03-16] MEDS: allopurinoL 300 MG TAB PO SCH (08:09)
[2022-03-16] MEDS: CETIRIZINE HCL 10 MG TABLET PO SCH (08:09)
[2022-03-16] MEDS: CHOLECALCIFEROL 1,000 UNITS 25 MCG TAB PO SCH (08:09)
[2022-03-16] MEDS: aMILoride HCL 5 MG TAB PO SCH (08:09)
[2022-03-16] MEDS: CALCITRIOL 0.25 MCG CAPSULE PO SCH (08:09)
[2022-03-16] MEDS: CYANOCOBALAMIN (B-12) 500 MCG TABLET PO SCH (08:09)
[2022-03-16] MEDS: ACYCLOVIR 400 MG TAB PO SCH ×2 (08:09→20:32)
[2022-03-16] MEDS: TRIAMCINOLONE ACET 0.1% CR 15 GM TUBE EXT SCH ×3 (08:10→20:31)
[2022-03-16] MEDS: TAMSULOSIN HCL 0.4 MG CAP PO SCH ×2 (08:10→20:29)
[2022-03-16] MEDS: NYSTATIN POWDER 15GM BTL EXT SCH ×3 (08:10→20:34)
[2022-03-16] MEDS: DRONEDARONE HCL 400 MG TAB PO SCH ×2 (08:11→20:32)
--- NOTE | 2022-03-16 12:33 | Hospitalist Progress Note ---
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 Presented w/ leukopenia. Leukocytosis to 30s, since stabilized. Per multiple prior discussion w/ [facility] medical oncology more than oncethey feel related to filgrastim. May also be from lymphoma. ID has been consulted for the significant leukocytosis as well. (2) Lymphoma: Plan: B-Cell Lymphoma. Recurrence. Hospitalized here at [facility] from 01/29/22 to 02/15/22 at which time he was transferred to [facility] in [place]. Underwent ESHAP induction chemotherapy regimen starting 02/18 and ending 02/23. D/c from hospital 02/24, then received Rituxan & neulasta at that time. MRI brain negative during stay in [place] for evidence of lymphoma. However, LP with cytology + for malignant cells. INSTRUCTIONAL DESIGN TECHNOLOGIST methotrexate via Ommaya reservoir being planned under the care of Dr Gonsalves (neuro oncology) in [place]. Patient and plan to follow up w/ Dr. Del Gonsalves and are searching for heme-onc provider. Previously followed Dr. Srinivas Ayala at [facility]. Per Dr. Ayala, would like to start chemo cycle again and will reach out to them early next week; wants different options since prior cycle resulted in sig nificant fatigue and side effects. Local oncologist at [place]: Dr. Ruvalcaba [facility]. (3) Emphysematous cystitis: Plan: Completed daptomycin plus cefepime even though cultures negative per discussion with urology; Urology follow-up as outpatient. Recommends keeping hull in until office visit (4) Sacral decubitus ulcer, stage II: Plan: Noted on exam. Wound care consulted. (5) Hypocalcemia: Plan: Resolved, corrected Ca 8.9 (6) Hypomagnesemia: Plan: Likely cisplatin induced, replete as needed (7) Hematuria: Plan: Resolved. A. fib (hx cva)cautiously resumed Eliquis (8) C. difficile diarrhea: Plan: gene +, toxin negative completed treatment (9) Benign prostatic hyperplasia with urinary obstruction: Plan: Cont flomax, finasteride, and hull (10) Paroxysmal atrial flutter: Plan: History of flutter/fibresumed Eliquis. Continue home regimen (11) NSVT (nonsustained ventricular tachycardia): Plan: Occurs intermittentlyecho relatively preserved LV function, maintain electrolytes and observe Plan Diet, Fluids: Regular. No IV fluids. anticoag: Eliquis code: [id number] dispo: continue PCU for now Admission and Anticipated Discharge Date Admission Date: February 26, 2022 Supervising Physician Co-Signing Physician Notes I also saw the patient confirmed hu portions of the history and physical examination. I agree with the impression and plan as noted in the resident documentation. Upon our afternoon rounds, the patient was in bed with his at bedside. The telehealth infectious disease consult was to begin shortly. Exam 127/63, 81, 20, 97% on room air, 37 C He is alert and oriented. No distress appreciated. He does have a approximately 1 cm stage II sacral ulcer without erythema Data WBC 20.44, hemoglobin 8, platelet count 238 Sodium 139, potassium 4.2, BUN 17, creatinine 0.92 Phosphorus 3.3, magnesium 1.6 Impression and plan B-cell lymphoma Cystitis sacral decubitus ulceration, stage II C differential, gene positive, toxin negative, completed treatment Plan is for placement at home with home health once hospital bed is secured Per the , patient's had a longstanding history of ulceration in this area, stage I-stage II Consult wound care Subjective Patient was seen at bedside and during rounds. He has fatigue, but denies other subjective complaints. is at bedside. Review of Systems Review of Systems: All systems reviewed & are unremarkable except as noted in HPI & below Physical Exam Physical Exam: General: Grossly A&O. NAD. Cooperative. HEENT: Atraumatic, normocephalic. EOMI Pulm: CTAB. -wheezes, -rales, -rhonchi. No respiratory distress. Cardiac: RRR, -mrg. No LE edema. Abdominal: Nontender, nondistended, soft. : + hull Intecm diameter open ulcer w/o surrounding erythema. Results & Data Results & Data ([facility]) Vital Signs (Past 12 Hours) Vital Signs Temp Pulse Pulse Resp BP BP Pulse Ox 03/16/22 12:17 36.8 C 82 18 100/66 94 03/16/22 11:57 81 03/16/22 07:09 36.5 C 80 16 105/67 95 03/16/22 03:56 36.4 C L 79 18 101/67 93 O2 Del Method 03/16/22 12:17 Room Air 03/16/22 11:57 03/16/22 07:09 Room Air 03/16/22 03:56 Room Air Resident Activity Tracking Resident Involvement: Resident Care Provided Care Provided: Adult Hospital Medicine
[2022-03-17] MEDS: TRIAMCINOLONE ACET 0.1% CR 15 GM TUBE EXT SCH ×2 (07:53→13:45)
[2022-03-17] MEDS: NYSTATIN POWDER 15GM BTL EXT SCH ×2 (07:53→13:45)
[2022-03-17] MEDS: MAGNESIUM OXIDE 400 MG TAB PO SCH (07:54)
[2022-03-17] MEDS: CYANOCOBALAMIN (B-12) 500 MCG TABLET PO SCH (07:54)
[2022-03-17] MEDS: COLESTIPOL HCL 1 GM TAB PO SCH (07:54)
[2022-03-17] MEDS: aMILoride HCL 5 MG TAB PO SCH (07:54)
[2022-03-17] MEDS: allopurinoL 300 MG TAB PO SCH (07:55)
[2022-03-17] MEDS: DRONEDARONE HCL 400 MG TAB PO SCH (07:55)
[2022-03-17] MEDS: CALCITRIOL 0.25 MCG CAPSULE PO SCH (07:55)
[2022-03-17] MEDS: APIXABAN 5 MG TABLET PO SCH (07:55)
[2022-03-17] MEDS: FINASTERIDE 5 MG TAB PO SCH (07:55)
[2022-03-17] MEDS: TAMSULOSIN HCL 0.4 MG CAP PO SCH (07:55)
[2022-03-17] MEDS: CHOLECALCIFEROL 1,000 UNITS 25 MCG TAB PO SCH (07:55)
[2022-03-17] MEDS: CETIRIZINE HCL 10 MG TABLET PO SCH (07:56)
[2022-03-17] MEDS: ACYCLOVIR 400 MG TAB PO SCH (07:56)
[2022-03-17 08:37] LABS: Hematocrit (blood only) 25.4 % (40.1-51.0); Hemoglobin 8.4 g/dl (14.0-18.0); Mean Corpuscular Hemoglobin 31.3 pg (25.0-34.0); Mean Corpuscular Hgb Conc 33.1 g/dL (32.0-36.0); Mean Corpuscular Volume 94.8 fL (80.0-100.0); Mean Platelet Volume 9.7 fL (9.4-12.4); Nucleated RBC # (auto) 0.18 K/uL (0-0); Nucleated RBC % (auto) 0.7 %; Platelet Count 251 K/uL (130-400); RDW Coefficient of Variation 18.2 % (11.5-14.5); RDW Standard Deviation 50.4 fL (36.4-46.3); Red Blood Count 2.68 M/uL (4.63-6.08); White Blood Count 24.15 K/ul (4.8-10.8)
[2022-03-17 09:00] LABS: BUN Creatinine Ratio 14.3 (10-20); Calcium 8.1 mg/dl (8.5-10.1); Creatinine Clr Calc Pharmacy 90.4 ml/min; Est GFR (African American) 99.3 ml/min; Est GFR (Non-African American) 85.7 ml/min; Magnesium 1.5 mg/dl (1.7-2.4)
[2022-03-17 09:03] LABS: Basophils # (auto) 0.21 K/uL (0-0.2); Basophils % (auto) 0.9 %; Immature Granulocytes % (auto) 6.6 %; Lymphocytes # (auto) 2.18 K/uL (1.2-3.4); Monocytes # (auto) 1.53 K/uL (0.24-0.82); Monocytes % (auto) 6.3 %; Neutrophils # (auto) 18.63 K/uL (1.4-6.5); Neutrophils % (auto) 77.2 %
[2022-03-17] MEDS: MAGNESIUM SULFATE / D5W 1 GM/100 ML BAG IV SCH ×3 (09:24→12:48)
--- NOTE | 2022-03-17 11:03 | Fluoroscopy Report ---
FL video swallow CLINICAL HISTORY: r/o silent aspiration TECHNIQUE: Video fluoroscopy of the pharyngeal region was performed as barium mixtures of varying con sistencies were administered to the patient by the speech pathologist. A formal esophagram was not pe rformed. COMPARISON: None. FINDINGS: Total fluoroscopy time: 1.3 minutes. Mild dysmotility was seen. Trace silent aspiration was noted which did not improve with chin tuck. Po oling of barium was noted in the bilateral piriform sinuses and valleculae. IMPRESSION: Silent aspiration was seen. Please see the speech pathology report for further details. ACT 112: Negative or not required by law. Electronically signed by: Brandon Burgess M.D. 03/17/2022 11:02 AM
--- NOTE | 2022-03-17 12:00 | Hospitalist Progress Note ---
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 Presented w/ leukopenia. Leukocytosis to 30s, since stabilized. Per multiple prior discussion w/ [facility] medical oncology more than oncethey feel related to filgrastim. May also be from lymphoma. ID has been consulted for the significant leukocytosis as well. (2) Lymphoma: Plan: B-Cell Lymphoma. Recurrence. Hospitalized here at [facility] from 01/29/22 to 02/15/22 at which time he was transferred to [facility] in [place]. Underwent ESHAP induction chemotherapy regimen starting 02/18 and ending 02/23. D/c from hospital 02/24, then received Rituxan & neulasta at that time. MRI brain negative during stay in [place] for evidence of lymphoma. However, LP with cytology + for malignant cells. PARTS DATA WRITER methotrexate via Ommaya reservoir being planned under the care of Dr Gonsalves (neuro oncology) in [place]. Patient and plan to follow up w/ Dr. Del Gonsalves and are searching for heme-onc provider. Previously followed Dr. Srinivas Ayala at [facility]. Per Dr. Ayala, would like to start chemo cycle again and will reach out to them early next week; wants different options since prior cycle resulted in sig nificant fatigue and side effects. Local oncologist at [place]: Dr. Ruvalcaba and [facility]. (3) Emphysematous cystitis: Plan: Completed daptomycin plus cefepime even though cultures negative per discussion with urology; Urology follow-up as outpatient. Recommends keeping hull in until office visit (4) Sacral decubitus ulcer, stage II: Plan: Noted on exam. Wound care consulted. (5) Hypocalcemia: Plan: Resolved, corrected Ca 8.9 (6) Hypomagnesemia: Plan: Likely cisplatin induced, replete as needed (7) Hematuria: Plan: Resolved. A. fib (hx cva)cautiously resumed Eliquis (8) C. difficile diarrhea: Plan: gene +, toxin negative completed treatment (9) Benign prostatic hyperplasia with urinary obstruction: Plan: Cont flomax, finasteride, and hull (10) Paroxysmal atrial flutter: Plan: History of flutter/fibresumed Eliquis. Continue home regimen (11) NSVT (nonsustained ventricular tachycardia): Plan: Occurs intermittentlyecho relatively preserved LV function, maintain electrolytes and observe Plan Diet, Fluids: Regular. No IV fluids. anticoag: Eliquis code: [id number] dispo: continue PCU for now Admission and Anticipated Discharge Date Admission Date: February 26, 2022 Review of Systems Review of Systems: All systems reviewed & are unremarkable except as noted in HPI & below Physical Exam 2 Physical Exam: General: Grossly A&O. NAD. Cooperative. HEENT: Atraumatic, normocephalic. EOMI Pulm: CTAB. -wheezes, -rales, -rhonchi. No respiratory distress. Cardiac: RRR, -mrg. Radial pulses intact and symmetrical. Abdominal: Nontender, nondistended, soft. Results & Data Results & Data ([facility]) Vital Signs (Past 12 Hours) Vital Signs Temp Pulse Pulse Resp BP BP Pulse Ox 03/17/22 11:51 36.5 C 90 20 100/66 96 03/17/22 08:00 82 03/17/22 08:24 36.8 C 89 20 103/68 94 03/17/22 02:32 36.7 C 78 18 106/65 95 O2 Del Method 03/17/22 11:51 Room Air 03/17/22 08:00 03/17/22 08:24 Room Air 03/17/22 02:32 Room Air Resident Activity Tracking Resident Involvement: Resident Care Provided Care Provided: Adult Hospital Medicine
--- NOTE | 2022-03-17 16:59 | Discharge Summary ---
Date of Service March 17, 2022 Admission HPI Per Admitting Provider Wojciech Jacobsen is a 71 year old male with B Cell lymphoma who presents to the ER with hematuria and increased urinary frequency. Unable to get any history from the patient as his reports he has chronic short-term memory loss after his previous [employer] relapse in 2014. His is at bedside and provides history. He was recently admitted at [facility] from January 29 to February 15 with a new diagnosis of recurrent B-cell lymphoma with symptoms of confusion, generalized weakness and night sweats. Large pelvic mass was seen on CT causing bilateral hydronephrosis. This was treated initially with steroids but ultimately transferred to [facility] for induction chemotherapy. Discharge summary from that hospitalization is not available on admission. However his reports having a 5-day induction with Rituxan given as an outpatient the same day as discharge. He was discharged home but she reports struggling to get him inside the house and him not being able to walk. His weight is increased by around 35 pounds with significant generalized anasarca. His urine has been pink on discharge however is now much more bloody. Increased urinary frequency started Wednesday after he came home with frequent urination every 15 minutes. He had a Hull catheter for most of his hospitalization however this was removed with passing a trial without Hull on 23 February. She denies any fevers or chills. In the ER he was significantly hypocalcemic without QT prolongation, tetany or asterixis. He was treated with calcium gluconate 1 g IV. He was noted to be neutropenic with absolute neutrophil count 0.38. Given his urinary symptoms and emphysematous changes on CT he was started on broad spectrum antibiotics to cover for UTI. He was referred to medicine for admission and ongoing management. Admission Exam Per Admitting Provider Constitutional: well developed, + lethargic and + edematous; + not well nourished and no acute distress Eyes: + anicteric sclerae; normal pupil size ENMT: external ear and nose normal, oropharynx normal Neck: trachea midline, no thyromegaly Respiratory: normal respiratory effort, lungs clear to auscultation Cardiovascular: Rate/Rhythm: + tachycardic and + irregularly irregular Heart Sounds: no murmur Extremities: + edema (3+ pitting generalized on b/l LE, abdo, UE) Gastrointestinal (Abdomen): Inspection/Auscultation: normal bowel sounds Percussion/Palpation: abdomen soft; abdomen nontender, no guarding and abdomen not rigid Musculoskeletal: Extremities: no carpal pedal spasm Skin: + erythema (marked around PICC and on up per thighs appears related to swelling) Neurologic: moves all extremities, awake and + confused Motor/Sensory: no tremor, no asterixis and no sensory deficit (denied by patient) Psychiatric: Orientation: alert and oriented to person (self); + not oriented to place and + not oriented to time Eye Contact: + fair eye contact Genitourinary: no CVA tenderness Principal Diagnosis generalized weakness anemia lymphoma Discharge Exam General: Grossly A&O. NAD. Cooperative. Conversational. HEENT: Atraumatic, normocephalic. EOMI Pulm: Faint/trace LLL crackles, otherwise CTAB. Good respiratory effort. No accessory muscle use. Cardiac: RRR, -mrg. No LE edema. Abdominal: Nontender, nondistended, soft. : + hull. Discharge Data Allergies Allergy/AdvReac Type Severity Reaction Status Date / Time Aminoglycosides AdvReac Unknown contraindicated Verified 02/26/22 15:51 while receiving chemo Cephalosporins AdvReac Unknown contraindicated Verified 02/26/22 15:51 while receiving chemo NSAIDS (Non-Steroidal AdvReac Unknown contraindicated Verified 02/26/22 15:51 Anti-Inflamma while receiving chemo Penicillins AdvReac Unknown contraindicated Verified 02/26/22 15:51 while receiving chemo sulfamethoxazole AdvReac Unknown contraindicated Verified 02/26/22 15:51 [From Bactrim] while receiving chemo trimethoprim [From Bactrim] AdvReac Unknown contraindicated Verified 02/26/22 15:51 while receiving chemo Consultations 02/26/22 21:28 Consult Hematology Routine 02/27/22 21:23 Consult Nephrology Routine 03/01/22 08:00 Consult Urology Routine 03/11/22 14:06 Consult Infectious Diseases Routine Ordered Studies CBC 03/17/22 Range/Units 08:00 WBC 24.15 H (4.8-10.8) K/ul RBC 2.68 L (4.63-6.08) M/uL Hgb 8.4 L (14.0-18.0) g/dl Hct 25.4 L (40.1-51.0) % Plt Count 251 (130-400) K/uL Neut # (Auto) 18.63 H (1.4-6.5) K/uL Lymph # (Auto) 2.18 (1.2-3.4) K/uL [place] # (Auto) 1.53 H (0.24-0.82) K/uL Eos # (Auto) 0.00 (0-0.50) K/uL Baso # (Auto) 0.21 H (0-0.2) K/uL Comprehensive Metabolic Panel 03/17/22 Range/Units 08:00 Sodium 139 (136-145) mmol/L Potassium 4.0 (3.5-5.1) mmol/L Chloride 107 (98-107) mmol/L Carbon Dioxide 27 (21-32) mmol/L BUN 13 (6-23) mg/dl Creatinine 0.91 (0.6-1.4) mg/dl Glucose 69 L (70-99(Fasting)) mg/dl Calcium 8.1 L (8.5-10.1) mg/dl Intake and Output 03/17/22 03/17/22 03/17/22 06:59 14:59 22:59 Intake Total 200 / 200 750.000 / 750.000 Output Total 875 / 1375 300 / 500 200 / 500 Balance -675 / -1175 450.000 / 250.000 -200 / 250.000 Intake: IV 270.000 / 270.000 Magnesium Sulfate / D5w 1 gm In 270.000 / 270.000 100 ml @ 50 mls/hr IV Q2H [facility] Rx#:[id number] Oral 200 / 200 480 / 480 Output: Urine Amount (Catheter) 875 / 1375 300 / 500 200 / 500 Hull/Indwelling 875 / 1375 300 / 500 200 / 500 Other: Weight 95.7 kg Weight Measurement Method Built in [facility] Abdomen/Pelvis CT 02/26/22 14:23 CT abd pelvis wo con CLINICAL HISTORY: hematuria, hx of lymphoma TECHNIQUE: Helical axial images of the abdomen and pelvis were obtained. Automated dose lowering techniques and/or adjustment according to patient size were utilized for this exam. This exam was performed without intravenous contrast. CT DOSE: 1232.41 mGycm COMPARISON: Comparison is made to CT abdomen pelvis 01/29/2022 FINDINGS: Lower chest: Small bilateral pleural effusions are seen. There is cardiomegaly. Liver: A 17 mm hypodensity is seen in the left lobe of the liver. Gallbladder and biliary tree: No calcified gallstones. Normal caliber wall. No intra- or extrahepatic biliary ductal dilation. Pancreas: Unremarkable, no focal lesions. Spleen: Unremarkable. Adrenals: Nodular appearance of left adrenal is unchanged from prior exam. Kidneys and ureters: There is dilation of the bilateral collecting systems with foci of air noted. Ureters are thickened. Bladder: There is an air-fluid level in the bladder and circumferential bladder gas with bladder wall thickening and stranding. Reproductive organs: Patient is status post hysterectomy. Bowel: Unremarkable appearance of the bowel. The appendix is normal. A hiatal hernia is seen. Lymph nodes Retroperitoneal: Unremarkable. Pelvic: Previously noted large pelvic mass has improved from prior exam. Within the limits of noncontrast imaging, there is suggestion of external iliac lymph nodes which are less prominent than on prior exam. Mesenteric: Unremarkable. Peritoneum: Diffuse fluid stranding is seen in the abdomen and pelvis likely representing ascites. Vessels: Atherosclerotic calcifications are seen. Abdominal wall: Likely injection granulomas are seen bilaterally. Skin thickening is noted. Bones: Degenerative changes in the visualized spine. IMPRESSION: 1. Circumferential gas in the bladder wall is concerning for emphysematous cystitis with tracking of air into the bilateral kidneys. Ascending infection cannot be excluded. No evidence of perforation is seen. 2. Within the limits of a noncontrast exam, interval improvement in previously noted pelvic masses which were biopsy-proven to represent B-cell lymphoma. 3. Additional findings as above. ACT 112: Negative or not required by law. Electronically signed by: Brandon Burgess M.D. 02/26/2022 4:07 PM Chest X-Ray 02/26/22 20:22 SINGLE VIEW CHEST CLINICAL HISTORY: Hypervolemia. FINDINGS: An AP, portable, upright chest radiograph is compared to study dated 02/01/2022 and correlated with chest CT dated 01/29/2022. A left subclavian central venous infusion port is unchanged in position. A right PICC line is new from previous. The tip projects over the SVC. The heart is enlarged noting atherosclerotic calcification of the thoracic aorta. The pulmonary vascular is noncongested. Chronic interstitial thickening similar to previous. There are small pleural effusions, left larger than right with dependent consolidation. No pneumothorax is seen. The skeletal structures are osteopenic. The bony thorax is grossly intact. IMPRESSION: 1. Cardiomegaly without radiographic evidence of congestive failure. 2. Left larger than right pleural effusions with dependent consolidation. This likely represents atelectasis and clinical correlation will be required. 3. A right PICC line is new from previous. ACT 112: Negative or not required by law. Electronically signed by: Bertin Rivera M.D. 02/26/2022 8:59 PM Abdomen/Pelvis CT 03/11/22 11:06 CT OF THE ABDOMEN AND PELVIS WITH CONTRAST CLINICAL HISTORY: Profound leucocytosis. Lymphoma. COMPARISON STUDY: CT of the abdomen and pelvis January 29, 2022 and February 26, 2022. TECHNIQUE: Following IV administration of 94 mL of Optiray, axial images of the abdomen and pelvis were obtained from the lung bases to the proximal femurs. Images were reviewed in the axial, sagittal, and coronal planes. IV contrast was administered without complication. Automated exposure control was utilized for the study. A dose lowering technique was utilized adhering to the principles of ALARA. FINDINGS: Please note that the chest CT will be reported separately. Small left pleural effusion has decreased in size since CT of February 26, 2022. Right pleural effusion has resolved. No pneumatosis, free air or portal venous gas is present. Lateral segment hepatic cyst is noted. No biliary or pancreatic ductal dilatation. There is no peripancreatic infiltration. Gallbladder is surgically absent. Spleen, right adrenal gland are unremarkable. A 1 cm left adrenal nodule is unchanged since CT of June 21, 2015. This is benign. Ascites and peritoneal nodularity has significantly improved since CT of January 29, 2022. No evidence for a bowel obstruction. No evidence for acute appendicitis. Moderate amount of stool within the colon and rectum. Retroperitoneal lymphadenopathy has significantly improved since CT of January 29, 2022. This is similar to CT of February 27, 2022. Hull balloon and gas within the bladder is noted. Hyperdense material within the bladder likely reflects a small amount of clot. Marked bladder wall thickening persists. However, gas within the bladder wall has nearly completely result since prior CT. Gas within the ureters has resolved. Bilateral hydronephrosis has resolved. There is persistent bilateral urothelial thickening involving the ureters and collecting systems. Water attenuation bilateral renal lesions reflect cysts. 1.4 cm intermediate attenuation focus within the midpole of the left kidney on image 150 is indeterminate. This appear to represent a 6 cm hypodense lesion on CT of January 29, 2022. The pelvic mass encasing the right aspect of the prostate and abutting the bladder has significantly decreased in size since CT of January 29, 2022. This is similar to CT of February 26, 2022. Extensive pelvic infiltration persists. No acute fracture or suspicious lesion within visualized skeletal structures. Body wall edema is present. IMPRESSION: 1. Persistent marked bladder wall thickening consistent with cystitis. Near complete resolution of gas within the bladder wall and resolution of gas within the bilateral ureters since CT of February 26, 2022. Persistent urothelial thickening of the ureters and collecting systems system with pyelitis. Resolution of bilateral hydronephrosis. Small amount of clot within the bladder. 2. Significant improvement in peritoneal nodularity, ascites, retroperitoneal lymphadenopathy and the infiltrative pelvic mass since CT of January 29, 2022 consistent with a treatment response. 3. 1.4 cm intermediate attenuation left renal lesion. This appeared to represent a 6 mm hypodense lesion on CT of January 29, 2022. The rate of growth is likely too rapid for renal cell carcinoma. Therefore, this is indeterminate and should be assessed on follow-up imaging studies. This does not represent a well-defined abscess however an infectious process is within the differential. 4. No bowel obstruction. No bowel wall thickening. ACT 112: Negative or not required by law. Electronically signed by: Usama Seaman M.D. 03/11/2022 12:[address] 03/11/22 11:[address] WITH CONTRAST CT DOSE: 1057.27 mGy.cm HISTORY: Acute leukocytosis profound leucocytosis TECHNIQUE: Multiaxial CT images of the chest were performed following the IV administration of 94 cc of Optiray. A dose lowering technique was utilized adhering to the principles of ALARA. COMPARISON: CT abdomen and pelvis of same day, Chest CT 01/29/2022. FINDINGS: No thyroid nodule. A right-sided PICC is present as well as a left subclavian [id number] catheter, both of which terminates in the inferior SVC. The heart is upper limits of normal in size. Moderate coronary artery calcifications. No thoracic aortic aneurysm. Unremarkable pulmonary artery. Trace right and small left pleural effusions. Linear consolidation of the basal left lower lobe with patchy groundglass and consolidative densities of the basal right lower lobe. No pneumothorax or overt pulmonary edema. The central airways are patent. Mild nonspecific distal esophageal wall thickening. Additional mild wall thickening of the distal stomach. Indeterminate 1.6 cm lesion involving the posterior aspect of the superior pole left kidney. Probable cyst of the left hepatic lobe, 1.9 cm. There is additional indeterminate subcentimeter hypoechoic focus of the left hepatic lobe. Unremarkable soft tissues. No acute fracture or destructive bone lesion. IMPRESSION: 1. Subsegmental patchy groundglass/consolidative opacities of the basal right lower lobe are suggestive of an infectious or inflammatory pneumonitis. 2. Small left and trace right pleural effusions. 3. Left basilar consolidation suggests atelectasis. 4. Please refer to the CT abdomen and pelvis study of same day for additional findings. ACT 112: Negative or not required by law. Electronically signed by: Mc Mccarthy M.D. 03/11/2022 12:22 PM Videofluoroscopic Swallow 03/16/22 13:35 FL video swallow CLINICAL HISTORY: r/o silent aspiration TECHNIQUE: Video fluoroscopy of the pharyngeal region was performed as barium mixtures of varying consistencies were administered to the patient by the speech pathologist. A formal esophagram was not performed. COMPARISON: None. FINDINGS: Total fluoroscopy time: 1.3 minutes. Mild dysmotility was seen. Trace silent aspiration was noted which did not improve with chin tuck. Pooling of barium was noted in the bilateral piriform sinuses and valleculae. IMPRESSION: Silent aspiration was seen. Please see the speech pathology report for further details. ACT 112: Negative or not required by law. Electronically signed by: Brandon Burgess M.D. 03/17/2022 11:02 AM 02/27/22 echo. ef 50-55%. No RWMA. Borderline concentric LVH. Hospital Course (1) Leukocytosis: 71 year old male w/ B cell lymphoma, renal lymphona, [employer] lymphoma, aflutter, BPH, CHF, HLD and nonischemic cardiomyopathy who presented on 02/26/22 for lethargy and hematuria, improved. He was discharged home on 03/17/22. Presented w/ leukopenia. Leukocytosis to 30s, since stabilized. Per multiple prior discussion w/ [facility] oncology-felt related to filgrastim. May also be from lymphoma. (2) Lymphoma: B-Cell Lymphoma. Recurrence. Hospitalized here at [facility] from 01/29/22 to 02/15/22 at which time he was transferred to [facility] in [place]. Underwent [facility] induction chemotherapy regimen starting 02/18 and ending 02/23. D/c from hospital 02/24, then received Rituxan & neulasta at that time. MRI brain negative during stay in [place] for evidence of lymphoma. However, LP with cytology + for malignant cells. [employer] methotrexate via [place] reservoir being planned under the care of Dr Gonsalves (neuro oncology) in [place]. Patient and plan to follow up w/ Dr. Del Gonsalves and are searching for heme-onc provider. Previously followed Dr. Srinivas Ayala at [facility]. Per Dr. Ayala, would like to start chemo cycle again and will reach out to them early next week; wants different options since prior cycle resulted in significant fatigue and side effects. Local oncologist at [place]: Dr. Ruvalcaba [facility]. (3) Sacral decubitus ulcer, stage II: Noted on exam. Follow up w/ wound care nurse and/or home mariana nurse regarding care. (4) Hypomagnesemia: Likely cisplatin induced, repleted with both PO and IV Mg. Has been persistenly low at mid 1s despite PO Mg. Mg 2.2 on afternoon of discharge home. Recheck Mg in 1-2 weeks. (5) Paroxysmal atrial flutter: History of flutter/fibresumed Eliquis. Continue home regimen of dronedarone. inquired about metoprolol that patient was previously on several months prior. Will defer to outpatient cardiology. (6) C. difficile diarrhea: gene +, toxin negative completed treatment. ID consult recs: If diarrhea persists, recommend treating with either vancomycin taper or 10 days of fidaxomycin. (7) Benign prostatic hyperplasia with urinary obstruction: Cont flomax, finasteride, and hull (8) NSVT (nonsustained ventricular tachycardia): Occurs intermittentlyecho relatively preserved LV function Plan Patient was DNR/DNI this admission. Total Time Total Time Spent Total Time Spent (In Minutes): <30 Discharge Plan Discharge Items Patient Disposition: Home - Home Health Services Reason For Visit: HYPOCALCEMIA, NEUTROPENIA Discharge Diagnosis: generalized weakness, anemia, lymphoma Activity: Per Instructions section Non-emergency contact: Primary Care Provider and Oncologist Call non-emergency contact if: you have any medication questions, your symptoms worsen and you have a fever Follow-up/Referrals: Clarence Valvrede MD [Primary Care Provider] - (hospital discharge f/u within 1-2 wks) Leo Vaz MD [Physician] - (Urology office will reach out to schedule apt w/ patient.) Addtl Attending Provider Instructions: Mr. Jacobsen, You were admitted to [facility] for weakness/fatigue and bloody urine. During the stay, you were treated with a hull catheter, IV antibiotics for a bladder infection, blood and platelet transfusions and antibiotics for your diarrhea, and Neupogen injections for your blood counts. The hull catheter will be converted to a hull bag. The plan is to keep the hull in for now and to follow up with urology in 1-2 weeks. The urology office will call you with an appointment. Upon discharge home, no significant changes were made to your medication list. Your magnesium was repleted (2.2 on afternoon of 03/17/22) with IV magnesium. You will not be sent home on oral magnesium. A prescription for the steroid cream for the rash on your thigh will be sent to your pharmacy. Use for up to 1 week (3 times a day). Please follow up with your medical team. urology as above primary care provider, within 1-2 weeks. An appointment will be requested for you. Please recheck CBC, CMP, and magnesium in 1-[address] Gonsalves local oncologist Dr. Ruvalcaba your current mold injector Return precautions: If you develop any new or worsening symptoms including fever, chills, sweats, chest pain, chest pressure, difficulty breathing, uncontrolled nausea/vomiting, rash, wheezing, passing out or nearly passing out, bleeding, black/bloody bowel movements, or other new or concerning symptoms please call your primary care physician, or call 911 for re-evaluation in the emergency department if you are very concerned. Pending Studies at Discharge: No Stand-Alone Forms: My [employer] Information [employer], Smoking Cessation Medications and DC Order Prescriptions: New triamcinolone acetonide 0.1 % Cream 1 applic EXT TID 30 Days Qty: 15 0RF Continued cetirizine 10 mg tablet 10 mg PO QAM cyanocobalamin (vitamin B-12) 1,000 mcg tablet 1,000 mcg PO QAM fluconazole 200 mg tablet 200 mg PO UD Rx Instructions: take daily when neutropenic (ANC < 50) acyclovir 800 mg tablet 800 mg PO [facility] levofloxacin 500 mg tablet 500 mg PO UD Rx Instructions: take daily when neutropenic (ANC < 50) allopurinol 300 mg tablet 300 mg PO QAM apixaban 5 mg Tablet 5 mg PO [facility] Rx Instructions: hold if platelets < 50k tamsulosin 0.4 mg capsule 0.4 mg PO [facility] atorvastatin 40 mg tablet 40 mg PO HS dronedarone 400 mg tablet 400 mg PO [facility] cholecalciferol (vitamin D3) [Vitamin D3] 25 mcg (1,000 unit) Tablet 25 mcg PO QAM finasteride 5 mg tablet 5 mg PO QAM Discharge Orders: Discharge Order (Routine); Ordered 03/17/22 Ordered By: Raymundo Gimenez/Other Patient Handouts: Urinary Catheter Bag Empty Clean, Indwelling Urinary Catheter Dc, Leg Bag Care Dc Admission Data Admit Date/Time: 02/26/22 17:56 Attending Provider: Bjorn Muhammad Admit Provider: Jurgen Calzada Primary Care Provider: Clarence Valverde V. Other Providers: Avril Ruvalcaba ; Kamron Milan ; Andriy Garza ; [facility] ; Kaye Smith ; Elias Lobo ; Wyatt Wu ; Alexandr Tobin I. ; Mitesh Hernandez II ; Pauline Mondragon ; Stone Carlisle ; Srinivas Lama ; [facility] Other Interventions: Discharge Summary Assessment (RN) Last Done: 03/17/22 17:20 Supervising Physician Co-Signing Physician Notes I also saw the patient confirmed hu portions of the history and physical examination. I agree with the impression and plan as noted in the resident documentation. Arrangements for a hospital bed have been made and it has been secured. The patient is are comfortable with discharge today. The patient has appointments scheduled with his specialty physicians. Home health is also been arranged. Resident Activity Tracking Resident Involvement: Resident Care Provided Care Provided: Adult [facility] Medicine
== END 2022-03-17 18:29 | disposition home health service (06) | DRG 808 ==
LOC: ED 12:45 → SUATTDRO 17:56 → EDINP 17:56 → 2S 20:56
DX: Z79.01 Long term (current) use of anticoagulants; N30.91 Cystitis, unspecified with hematuria; L03.116 Cellulitis of left lower limb; Z87.891 Personal history of nicotine dependence; C85.10 Unspecified B-cell lymphoma, unspecified site; Z88.6 Allergy status to analgesic agent; E83.39 Other disorders of phosphorus metabolism; D61.810 Antineoplastic chemotherapy induced pancytopenia; Z88.2 Allergy status to sulfonamides; E83.42 Hypomagnesemia; I50.42 Chronic combined systolic (congestive) and diastolic (congestive) heart failure; I47.2 Ventricular tachycardia; D84.9 Immunodeficiency, unspecified; D68.32 Hemorrhagic disorder due to extrinsic circulating anticoagulants; N13.6 Pyonephrosis; I48.92 Unspecified atrial flutter; Z88.0 Allergy status to penicillin; G93.41 Metabolic encephalopathy; I48.91 Unspecified atrial fibrillation; L89.152 Pressure ulcer of sacral region, stage 2; E83.51 Hypocalcemia; N40.0 Benign prostatic hyperplasia without lower urinary tract symptoms; A04.72 Enterocolitis due to Clostridium difficile, not specified as recurrent; L03.115 Cellulitis of right lower limb; E87.6 Hypokalemia; Y92.89 Other specified places as the place of occurrence of the external cause; T45.1X5A Adverse effect of antineoplastic and immunosuppressive drugs, initial encounter; Z88.8 Allergy status to other drugs, medicaments and biological substances